=== PATIENT | male | born 1970 | race Caucasian/White ===

== ENCOUNTER → 2018-07-01 04:50 | Outpatient (CLI) | payer BC, SELFPAY ==
[2018-07-01 05:54] LABS: Alanine Aminotransferase 28 U/L (12-78); Albumin Level 3.8 gm/dL (3.4-5.0); Albumin/Globulin Ratio 1.4 (1.1-1.8); Alkaline Phosphatase 110 U/L (46-116); Anion Gap 8.8 mEq/L (5-15); Aspartate Amino Transferase 13 U/L (15-37); Bilirubin,Total 0.3 mg/dL (0.2-1.0); Blood Urea Nitrogen 10 mg/dL (7-18); Calcium 8.2 mg/dL (8.5-10.1); Carbon Dioxide 27 mmol/L (21.0-32.0); Chloride 105 mmol/L (98-107); Chol/HDL Ratio 4.3 (1-3.5); Cholesterol 146 mg/dL (140-200); Estimated Glomerular Filt Rate 91 ml/min (>60); GFR (African American) 110 ML/MIN (>60); Globulin 2.7 gm/dl (1.3-3.2); Glucose 113 mg/dL (74-106); HDL Cholesterol 34 mg/dL (27-67); LDL Cholesterol 84 mg/dL (0-130); Potassium 3.8 mmoL/L (3.5-5.1); Sodium 137 mmol/L (136-145); Thyroid Stimulating Hormone 4.09 uIU/ml (0.358-3.740); Total Protein,Serum 6.5 gm/dL (6.4-8.2); Triglycerides 140 mg/dL (30-200); VLDL Cholesterol 28 mg/dL (0-40)
== END ==
PROVIDERS: PCP Family Medicine; Visit Provider Family Medicine
DX: I10 Essential (primary) hypertension (principal)
CPT/HCPCS: 36415; 80053; 80061; 84443

== ENCOUNTER → 2018-07-30 15:05 | Outpatient (CLI) | payer BC, SELFPAY ==
--- NOTE | 2018-07-30 15:10 | NVE_ITS ---
Venous Exam Indications: 729.5 Pain in limb. IMPRESSIONS No evidence of deep or superficial vein thrombosis involving the right lower extremity History: Right lower extremity pain. Edema of the right leg. Risk factors: Current tobacco use. Hypertension. Patient denies trauma. He states he began having pain behind the right knee2 weeks ago. Pain is worse with bending and squatting. Right lower extremity venous duplex evaluation. Doppler flow study including spectral analysis, color and watt scale imaging. Location: Vascular laboratory. Patient status: Outpatient. Tables: Venous flow and imaging: + +-------+ + Location Overall Flow properties + +-------+ + Right common femoral Patent Normal phasicity; spontaneous; normal augmentation; compressible + +-------+ + Right saphenofemoral junction Patent Compressible + +-------+ + Right profunda femoral Patent Compressible + +-------+ + Right femoral Patent Normal phasicity; spontaneous; normal augmentation; compressible + +-------+ + Right greater saphenous Patent Normal phasicity; spontaneous; normal augmentation; compressible + +-------+ + Right popliteal Patent Normal phasicity; spontaneous; normal augmentation; compressible + +-------+ + Right posterior tibial Patent Compressible + +-------+ + Right peroneal Patent Compressible + +-------+ + Right gastrocnemius Patent Compressible + +-------+ + Right soleal Patent Compressible + +-------+ + (Report amended ) Electronically signed by: Obed Dhillon [id number]
== END ==
PROVIDERS: PCP Nurse Practitioner; Visit Provider Nurse Practitioner
DX: M25.561 Pain in right knee (principal)
CPT/HCPCS: 93971

== ENCOUNTER → 2018-12-07 08:17 | Outpatient (POV) | payer BC, SELFPAY | PROVIDERS: Visit Provider Nurse Practitioner Acute Care | DX: Z00.00 Encounter for general adult medical examination without abnormal findings (principal) ==

== ENCOUNTER → 2019-02-06 08:40 | Outpatient (CLI) | payer BC, SELFPAY ==
[2019-02-06 10:50] LABS: Alanine Aminotransferase 32 U/L (12-78); Albumin Level 4.2 gm/dL (3.4-5.0); Albumin/Globulin Ratio 1.6 (1.1-1.8); Alkaline Phosphatase 122 U/L (46-116); Anion Gap 12.5 mEq/L (5-15); Aspartate Amino Transferase 14 U/L (15-37); Bilirubin,Total 0.6 mg/dL (0.2-1.0); Blood Urea Nitrogen 12 mg/dL (7-18); Calcium 8.7 mg/dL (8.5-10.1); Carbon Dioxide 30 mmol/L (21.0-32.0); Chloride 100 mmol/L (98-107); Chol/HDL Ratio 4.5 (1-3.5); Cholesterol 140 mg/dL (140-200); Creatinine,Serum 0.83 mg/dL (0.70-1.30); Estimated Glomerular Filt Rate 100 ml/min (>60); GFR (African American) 121 ML/MIN (>60); Globulin 2.7 gm/dl (1.3-3.2); Glucose 97 mg/dL (74-106); HDL Cholesterol 31 mg/dL (27-67); LDL Cholesterol 91 mg/dL (0-130); Potassium 4.5 mmoL/L (3.5-5.1); Sodium 138 mmol/L (136-145); Thyroid Stimulating Hormone 1.65 uIU/ml (0.358-3.740); Total Protein,Serum 6.9 gm/dL (6.4-8.2); Triglycerides 91 mg/dL (30-200); VLDL Cholesterol 18 mg/dL (0-40)
== END ==
PROVIDERS: Visit Provider Family Medicine
DX: I10 Essential (primary) hypertension (principal); F32.9 Major depressive disorder, single episode, unspecified; R78.89 Finding of other specified substances, not normally found in blood
CPT/HCPCS: 36415; 80053; 80061; 84443

== ENCOUNTER → 2019-03-14 11:42 | Outpatient (CLI) | payer BC, SELFPAY ==
--- NOTE | 2019-03-14 12:01 | XR_ITS ---
XR foot wt bearing LT 3V HISTORY: ITS.REASON: comparison view ORDERING PHYSICIAN: Yasmany Hager MD PATIENT AGE: 48 years COMPARISON: None FINDINGS: No fracture or dislocation. No lytic or blastic change. There is normal mineralization.. The joint spaces are well-preserved. No significant degenerative/arthritic changes. No erosive changes evident. IMPRESSION: Negative, no acute finding
--- NOTE | 2019-03-14 12:01 | XR_ITS ---
XR foot wt bearing RT 3V HISTORY: Swelling of the medial aspect of the calcaneus ITS.REASON: soft tissue mass ORDERING PHYSICIAN: Yasmany Hager MD PATIENT AGE: 48 years COMPARISON: FINDINGS: No fracture or dislocation. No lytic or blastic change. There is normal mineralization.. The joint spaces are well-preserved. No significant degenerative/arthritic changes. No erosive changes evident. IMPRESSION: Negative, no acute finding
== END ==
PROVIDERS: PCP Family Medicine; Visit Provider Family Medicine
DX: M79.671 Pain in right foot (principal)
CPT/HCPCS: 73630

== ENCOUNTER → 2019-05-10 09:33 | Outpatient (CLI) | payer BC, SELFPAY ==
--- NOTE | 2019-05-10 09:39 | MR_ITS ---
MR foot RT wo/w con CLINICAL INDICATION: Foot pain, palpable mass, soft tissue mass of the foot, osteoarthritis ITS.REASON: soft tissue mass ORDERING PHYSICIAN: Samantha Hussein DPM PATIENT AGE: 48 years Comparison: 03/14/2019 TECHNIQUE: Routine multiplanar multiecho sequences are performed without and with gadolinium enhancement. FINDINGS: No abnormal bone marrow edema, fracture, or bony lytic change. A marker is placed over the area of concern along the medial aspect of the right foot. There is some hypertrophy of the underlying abductor hallucis musculature at this region but no definite mass or abnormal enhancement. No fluid collection evident. No evidence of mass. No ligamentous or tendinous abnormalities. There is some prominence of the adipose tissue along the plantar surface of the abductor hallucis muscle suggesting lipoma. This however is somewhat more plantar located in relation to the placed marker IMPRESSION: Mild prominence of the abductor hallucis muscle. This is of questioned clinical significance. There does appear to be prominent fatty tissue along the undersurface of the abductor hallucis suggesting lipoma.
== END ==
PROVIDERS: PCP Family Medicine; Visit Provider Podiatrist
DX: R22.40 Localized swelling, mass and lump, unspecified lower limb (principal)
CPT/HCPCS: 73720; A9576

== ENCOUNTER → 2019-06-07 10:20 | Outpatient (CLI) | payer BC, SELFPAY ==
--- NOTE | 2019-06-07 10:52 | ECG_ITS ---
APPROVED REPORT Exam: Resting ECG HR:80 bpm ECG Measurements Heart Rate 80 AXES NC 160 P 61 QRSd 88 QRS 14 QT 378 T 45 QTc 435 <Conclusion> Normal sinus rhythm Normal ECG Electronically signed by : Navarro Sims, 06/07/2019 16:15:13
--- NOTE | 2019-06-07 10:55 | XR_ITS ---
PROCEDURE: XR CHEST 2V CLINICAL HISTORY: HTN, SMOKER, PREOP COMPARISON: CXR2V XR chest 2V from 04/04/2018 [id number] XR ribs RT min 3V w CXR1V from 04/15/2018 FINDINGS: The cardiomediastinal silhouette and pulmonary vascularity are within normal limits. Mild atelectatic changes are present in the lung bases with low lung volumes. Upper lobes are clear. No acute bony findings. No acute bony abnormalities. IMPRESSION: Mild bibasilar atelectasis Dictated by: Obed Dhillon MD 06/07/2019 11:14 Electronically signed by Obed Dhillon MD in [place] 06/07/2019 11:14
[2019-06-07 11:20] LABS: Basophils # 0.1 K/mm3 (0-0.2); Basophils % 0.6 % (0.1-2.0); Eosinophils # 0.3 K/mm3 (0.0-0.4); Eosinophils % 2.8 % (0.1-12.0); Hematocrit 47.9 % (42.0-52.0); Hemoglobin 15.9 g/dL (14.1-18.0); Lymphocytes # 1.6 K/mm3 (0.7-4.5); Lymphocytes % 15.7 % (10-50); Mean Corpuscular HGB Conc 33.2 g/dL (31.8-35.4); Mean Corpuscular Hemoglobin 29.9 pg (27.0-31.2); Mean Corpuscular Volume 90.1 fl (80-94); Mean Platelet Volume 8.4 fl (7.4-10.4); Monocytes # 0.6 K/mm3 (0.1-1.0); Monocytes % 6.1 % (1.7-9.3); Neutrophils # 7.5 K/mm3 (1.8-7.8); Neutrophils % 74.8 % (37.0-80.0); Platelet Count 258 K/mm3 (142-424); Red Blood Count 5.31 M/mm3 (4.60-6.20); Red Cell Distribution Width 13.2 % (11.5-17.5); White Blood Count 10.1 K/mm3 (4.8-10.8)
[2019-06-07 11:57] LABS: Alanine Aminotransferase 38 U/L (12-78); Albumin/Globulin Ratio 1.4 (1.1-1.8); Alkaline Phosphatase 118 U/L (46-116); Anion Gap 13.3 mEq/L (5-15); Aspartate Amino Transferase 19 U/L (15-37); Bilirubin,Total 0.4 mg/dL (0.2-1.0); Blood Urea Nitrogen 11 mg/dL (7-18); Calcium 8.7 mg/dL (8.5-10.1); Carbon Dioxide 27 mmol/L (21.0-32.0); Chloride 102 mmol/L (98-107); Creatinine,Serum 0.87 mg/dL (0.70-1.30); Estimated Glomerular Filt Rate 94 ml/min (>60); GFR (African American) 114 ML/MIN (>60); Globulin 2.8 gm/dl (1.3-3.2); Glucose 104 mg/dL (74-106); Potassium 4.3 mmoL/L (3.5-5.1); Sodium 138 mmol/L (136-145); Total Protein,Serum 6.8 gm/dL (6.4-8.2)
[2019-06-29 10:45] LABS: Cotinine 122.5
[2019-06-29 10:57] LABS: Nicotine 10.6
== END ==
PROVIDERS: PCP Family Medicine; Visit Provider Podiatrist
DX: Z01.818 Encounter for other preprocedural examination (principal); R22.40 Localized swelling, mass and lump, unspecified lower limb; M79.671 Pain in right foot
CPT/HCPCS: 36415; 71046; 80053; 80323; 85025; 93005

== ENCOUNTER → 2019-07-15 17:31 | Outpatient (CLI) | payer BC, SELFPAY | PROVIDERS: Visit Provider Podiatrist | DX: Z98.890 Other specified postprocedural states (principal); T81.49XA Infection following a procedure, other surgical site, initial encounter; M79.671 Pain in right foot | CPT/HCPCS: 87070; 87077; 87186; 87205 ==

== ENCOUNTER 2019-09-24 16:25 | Emergency (ER) | payer BC, SELFPAY ==
[2019-09-24 16:27] VITALS: BP 136/85; PULSE 80; RESP 18; TEMP 36.8; O2SAT 96; BMI 34.4
--- NOTE | 2019-09-24 16:53 | HMH.EDUTC ---
[facility] Clinical Impression: Cellulitis Qualifiers: Site of cellulitis: extremity Site of cellulitis of extremity: lower extremity Laterality: right Qualified Code(s): L03.115 - Cellulitis of right lower limb Disposition: Home, Self-Care Condition on Discharge: Good Instructions: Cellulitis, Clindamycin Additional Instructions: *Start antibiotic(s) immediately and be sure to take as ordered for the FULL length of time although you may be feeling better or start to see improvement in the next 24-48 hours *Monitor closely. Outlined redness so that you can monitor easier. Follow up immediately for new or worsening symptoms including but not limited to redness, swelling, streaking from site fever or chills. *Warm compress 15 minutes 3-4 times day *Never squeeze or pop these on your own. Seek immediate medical attention next time this occurs *Monitor Temp. Tylenol every 4 hours as needed and ibuprofen every 6 hours as needed (as long as your primary care doctor has told you that it is ok to take both. For fever, aches, pain. ER if no less that 101 despite Tylenol and ibuprofen Follow up with your family doctor/primary care physician or Dr Hussein in the next 48-72 hours if no improvement or on Friday if no improvement Prescriptions: Clindamycin HCl [Clindamycin HCl 300mg Cap] 300 mg PO Q8 7 Days #21 cap Transmission Status: Pending to [id number] Referrals: Yasmany Hager MD [Primary Care Provider] - As needed Samantha Hussein DPM [Staff Physician] - As needed Time of Disposition: 16:59 Medical Decision Making - Adalid Inquiry Pt receiving controlled substance: No Adalid was queried for this patient: No Vital Signs: 09/24/19 16:27 Temperature 98.2 F Temperature Source Oral Pulse Rate [Radial] 80 Respiratory Rate 18 Blood Pressure [Right Arm] 136/85 Blood Pressure Mean [Right Arm] 102 Blood Pressure Source [Right Arm] Automatic Cuff Blood Pressure Position [Right Arm] Sitting 02 Sat by Pulse Oximetry 96 Oxygen Delivery Method Room Air [facility] - General Stated complaint: redness on right foot Time Seen by Provider: 09/24/19 16:53 Mode of Arrival: Ambulatory Source of Information: Patient Limitations: No Limitations Description of Symptoms (Recalled from Triage Doc. by RN): RIGHT FOOT IS DISCOLORED WHERE HE HAD SURGERY May. DR TORIBIO WANTS PATIENT TO BE SEEN HEENT Symptoms (Recalled from RN notes): No Resp Symptoms (Recalled from RN notes): No Skin Symptoms (Recalled from RN notes): Yes MS Symptoms (Recalled from RN notes): No Functional Status (Recalled from RN notes): WNL - History of Present Illness Provider Complaint: Patient state that he had surgery on his right foot in May Noticed that he was having some redness and warmth around scar and was worried that it may be getting infected States that they talked to Dr Hussein office and they told him to come in here and have it looked at to get antibiotics if needed - Related Data Home Medications Medication Instructions Recorded Confirmed lisinopriL [Lisinopril 10mg Tab] 10 mg PO DAILY 07/29/18 09/13/19 colesevelam 625 mg tablet 1,875 mg PO BID 05/03/19 09/13/19 venlafaxine 75 mg tablet,extended 75 mg PO DAILY 05/03/19 09/13/19 release 24 hr fluoxetine 20 mg capsule 20 mg PO DAILY #60 cap 06/07/19 09/13/19 Calcium Polycarbophil [Fiber Tabs] 625 mg PO BID 06/15/19 09/13/19 Multivitamin [Daily Multiple 1 each PO DAILY 06/15/19 09/13/19 Vitamin] Previous Rx's Medication Instructions Recorded ibuprofen 800 mg tablet 800 mg PO BID #60 tab 06/07/19 tramadol 50 mg tablet 50 mg PO Q6H PRN #30 tab 07/21/19 diclofenac sodium 1 % topical gel 4 g TOPICAL QID PRN 30 Days #100 g 08/25/19 Clindamycin HCl [Clindamycin HCl 300 mg PO Q8 7 Days #21 cap 09/24/19 300mg Cap] Allergies Allergy/AdvReac Type Severity Reaction Status Date / Time No Known Allergies Allergy Verified 09/13/19 08:14 - Worker's Comp Is
[2019-09-24 17:11] VITALS: BP 136/85; PULSE 80; RESP 18; TEMP 36.8; O2SAT 96
== END 2019-09-24 17:12 | disposition home or self-care (01) ==
PROVIDERS: Emergency Provider Nurse Practitioner; PCP Family Medicine
DX: L03.115 Cellulitis of right lower limb (principal); I10 Essential (primary) hypertension; K21.9 Gastro-esophageal reflux disease without esophagitis; E66.9 Obesity, unspecified; F17.210 Nicotine dependence, cigarettes, uncomplicated; F33.1 Major depressive disorder, recurrent, moderate; Z90.49 Acquired absence of other specified parts of digestive tract; Z79.899 Other long term (current) drug therapy; Z68.34 Body mass index [BMI] 34.0-34.9, adult
CPT/HCPCS: 99201

== ENCOUNTER → 2019-10-02 16:12 | Outpatient (CLI) | payer BC, SELFPAY ==
[2019-10-02 16:40] LABS: Basophils # 0.1 K/mm3 (0-0.2); Basophils % 0.6 % (0.1-2.0); Eosinophils # 0.4 K/mm3 (0.0-0.4); Eosinophils % 3.9 % (0.1-12.0); Hematocrit 50.8 % (42.0-52.0); Hemoglobin 16.8 g/dL (14.1-18.0); Lymphocytes # 2.1 K/mm3 (0.7-4.5); Lymphocytes % 18.1 % (10-50); Mean Corpuscular Hemoglobin 29.4 pg (27.0-31.2); Mean Platelet Volume 9.3 fl (7.4-10.4); Monocytes # 0.6 K/mm3 (0.1-1.0); Neutrophils # 8.2 K/mm3 (1.8-7.8); Neutrophils % 72.4 % (37.0-80.0); Platelet Count 270 K/mm3 (142-424); Red Cell Distribution Width 12.6 % (11.5-17.5); White Blood Count 11.4 K/mm3 (4.8-10.8)
[2019-10-02 16:54] LABS: Alanine Aminotransferase 4 U/L (12-78); Albumin Level 3.8 gm/dL (3.4-5.0); Albumin/Globulin Ratio 1.5 (1.1-1.8); Alkaline Phosphatase 114 U/L (46-116); Anion Gap 14.9 mEq/L (5-15); Aspartate Amino Transferase 5 U/L (15-37); Bilirubin,Total 0.4 mg/dL (0.2-1.0); Blood Urea Nitrogen 11 mg/dL (7-18); Calcium 7.5 mg/dL (8.5-10.1); Carbon Dioxide 27 mmol/L (21.0-32.0); Chloride 103 mmol/L (98-107); Creatinine,Serum 1.11 mg/dL (0.70-1.30); Estimated Glomerular Filt Rate 71 ml/min (>60); GFR (African American) 86 ML/MIN (>60); Globulin 2.5 gm/dl (1.3-3.2); Glucose 122 mg/dL (74-106); Potassium 3.9 mmoL/L (3.5-5.1); Sodium 141 mmol/L (136-145); Total Protein,Serum 6.3 gm/dL (6.4-8.2)
[2019-10-02 16:56] LABS: C-Reactive Protein < 0.2 mg/dL (0.0-0.9)
[2019-10-02 17:10] LABS: Erythrocyte Sedimentation Rate 1 mm/hr (0-15)
== END ==
PROVIDERS: Visit Provider Podiatrist
DX: Z98.890 Other specified postprocedural states (principal); M79.671 Pain in right foot; R20.2 Paresthesia of skin
CPT/HCPCS: 36415; 80053; 85025; 85651; 86140

== ENCOUNTER → 2019-10-04 10:57 | Outpatient (CLI) | payer BC, SELFPAY ==
--- NOTE | 2019-10-04 11:02 | XR_ITS ---
PROCEDURE: XR FOOT WT BEARING RT 3V CLINICAL INDICATION: foot pain COMPARISON: XR FOOT RT MIN 3V from 06/16/2019 FINDINGS: No fracture or dislocation. No lytic or blastic change. There is normal mineralization. Minimal bony hypertrophic changes of the anterior talus and navicular. Small calcaneal spur. Mild degenerative changes 1st metatarsophalangeal joint. Other findings:None. IMPRESSION: Degenerative change, no acute finding Dictated by: Obed Dhillon MD 10/04/2019 11:54 Electronically signed by Obed Dhillon MD in [place] 10/04/2019 11:54
== END ==
PROVIDERS: PCP Family Medicine; Visit Provider Podiatrist
DX: M79.671 Pain in right foot (principal)
CPT/HCPCS: 73630

== ENCOUNTER 2019-11-08 23:21 | Observation (INO) ==
[2019-11-08 23:43] LABS: Basophils # 0.1 K/mm3 (0-0.2); Basophils % 0.8 % (0.1-2.0); Eosinophils # 0.1 K/mm3 (0.0-0.4); Eosinophils % 1.6 % (0.1-12.0); Hematocrit 45.1 % (42.0-52.0); Hemoglobin 15.4 g/dL (14.1-18.0); Lymphocytes # 1.1 K/mm3 (0.7-4.5); Lymphocytes % 12.8 % (10-50); Mean Corpuscular HGB Conc 34.1 g/dL (31.8-35.4); Mean Corpuscular Volume 88.9 fl (80-94); Mean Platelet Volume 9.1 fl (7.4-10.4); Monocytes # 0.5 K/mm3 (0.1-1.0); Monocytes % 6.5 % (1.7-9.3); Neutrophils # 6.5 K/mm3 (1.8-7.8); Neutrophils % 78.3 % (37.0-80.0); Platelet Count 215 K/mm3 (142-424); Red Blood Count 5.07 M/mm3 (4.60-6.20); Red Cell Distribution Width 12.9 % (11.5-17.5); White Blood Count 8.3 K/mm3 (4.8-10.8)
[2019-11-09 00:04] LABS: Anion Gap 11.7 mEq/L (5-15); Calcium 8.7 mg/dL (8.5-10.1)
[2019-11-09 00:12] LABS: C-Reactive Protein 2.3 mg/dL (0.0-0.9)
[2019-11-09 00:17] LABS: Erythrocyte Sedimentation Rate 6 mm/hr (0-15)
--- NOTE | 2019-11-09 00:30 | Emergency Department Note ---
ED Disposition Clinical Impression: Chest pain Qualifiers: Chest pain type: unspecified Qualified Code(s): R07.9 - Chest pain, unspecified Disposition: Admitted as Observation Condition on Discharge: Good Referrals: Yasmany Hager MD [Primary Care Provider] - - Critical Care Critical Care Time: No Attestation: On 11/08/19, the high probability of a clinically significant, sudden or life threatening deterioration of the following system(s) required my full and direct attention, intervention and personal management. The time I documented below is in addition to time spent performing reported procedures but includes the following listed in this critical care notation. Medical Decision Making - Medical Records Medical records reviewed: Yes: I reviewed the patient's medical records. - Adalid Inquiry Pt receiving controlled substance: No Vital Signs: 11/08/19 23:22 Temperature 98.7 F Temperature Source Oral Pulse Rate [Right Brachial] 100 H Respiratory Rate 18 Blood Pressure [Right Arm] 111/58 L Blood Pressure Mean [Right Arm] 75 Blood Pressure Source [Right Arm] Automatic Cuff Blood Pressure Position [Right Arm] Sitting 02 Sat by Pulse Oximetry 96 Oxygen Delivery Method Room Air - Lab Data Lab results reviewed: Yes: I reviewed the patient's lab results. Lab Results 11/08/19 23:25: Troponin I < 0.02, C-Reactive Protein 2.3 H 11/08/19 23:25: WBC 8.3, RBC 5.07, Hgb 15.4, Hct 45.1, MCV 88.9, MCH 30.3, MCHC 34.1, RDW 12.9, Plt Count 215, MPV 9.1, Neut % (Auto) 78.3, Lymph % (Auto) 12.8, [place] % (Auto) 6.5, Eos % (Auto) 1.6, Baso % (Auto) 0.8, Neut # (Auto) 6.5, Lymph # (Auto) 1.1, [place] # (Auto) 0.5, Eos # (Auto) 0.1, Baso # (Auto) 0.1, ESR 6 11/08/19 23:25: Sodium 141, Potassium 3.7, Chloride 104, Carbon Dioxide 29, Anion Gap 11.7, BUN 11, Creatinine 1.01, Estimated Creat Clear 131, Estimated GFR 79, Est GFR ( Amer) 96, Glucose 108 H, Calcium 8.7 Result diagrams: 11/08/19 23:25 11/08/19 23:25 Orders (Tests/Meds): ED MEDICATIONS Generic Name Dose Route Start Last Admin Trade Name Mauro PRN Reason Stop Dose Admin Sodium Chloride 1,000 mls @ 999 mls/hr 11/08/19 23:45 11/08/19 23:50 Sod Chlor 0.9% 1000ml Bag IV 11/09/19 00:45 999 mls/hr .Q1H1M HÉCTOR Administration ORDERS Category Date Time Status XR chest 2V Stat Exams 11/09/19 00:24 Ordered Troponin I Q3H Lab 11/09/19 02:45 Ordered Troponin I Q3H Lab 11/09/19 05:45 Ordered - Radiology Data #1 Image(s): Chest Image Reviewed: Yes I reviewed the patient's radiology image Preliminary Findings: Normal/NAD - ECG Data Tracing #1 Arrhythmias present: sinus tach Ischemic changes: non-specific ST-T wave changes - Physician Consults Physician Consulted: jennifer Reason -: Admission Chest Pain HPI - General Chief Complaint: Chest Pain Stated Complaint: High BP Time Seen by Provider: 11/08/19 23:50 Mode of Arrival: Ambulatory Source of Information: Patient, Spouse, Medical Record Limitations: No Limitations Description of Symptoms (Recalled from ER Triage Doc. by RN): Patient reports about an hour ago he took his blood pressure at home and it was 144/80 and his pulse was 116 so he came in to be evaluated. - History of Present Illness HPI narrative: acute onset of diaphoresis with fast hr w/o loc or chest pain MD complaint: chest pain indicative of cardiac Onset (ago): hour(s) Duration: now resolved Activity at onset: during rest Severity: mild Associated symptoms: diaphoresis, palpitations Risk Factors for CAD: Hypertension, Family Hx of CAD, Smoking Treatments prior to or on arrival for Cardiac Chest Pain: none - PREET Score for Non-Stemi Age of Patient: 40-49 years old Heart Rate: 90-109 bpm Systolic Blood Pressure: 100-119 mmHg Serum Creatinine: 0.80-1.19 mg/dl CHF [place] Class: I-No CHF Other Risk Factors: None Non-Stemi Risk Score: 90 - Related Data Home Medications Medication Instructions Recorded Confirmed ibuprofen 200 mg capsule 200 mg PO Q6H PRN 10/25/19 10/25/19 Previous Rx's Medication Instructions Recorded diclofenac sodium 1 % topical gel 4 g TOPICAL QID PRN 30 Days #100 g 08/25/19 Allergies Allergy/AdvReac Type Severity Reaction Status Date / Time No Known Allergies Allergy Verified 10/25/19 10:18 [facility] History - Hepatitis A Screen Drug use history?: No High risk sexual behaviors?: No History of sexually transmitted infection?: No Currently employed?: No Childcare worker?: No Do you have indoor plumbing?: Yes Do you have electricity?: Yes Attestation statement:: This patient has been screened for Hepatitis A risk factors. I have reviewed the patient's past medical history: Yes Medical History: Reports:: Depression, Gastroesophageal Reflux Disease(GERD), Hypertension Denies:: Cancer, Chronic Obstructive Pulmonary Disease (COPD), Diabetes Me llitus Type 1, Diabetes Mellitus Type 2, Internal Pacemaker, Lung Disease, MRSA, Seizures Other Medical History: Denies: Blood Transfusion Reaction, Other Comment: obesity Laterality Cases: Left: Arthroscopy Knee, Arthroscopy Shoulder Other Surgeries: Yes: No Previous Surgery, Cholecystectomy. No: Pacemaker Amputation: No Fractures: No Comment: Right Foot 2018 - Social History Smoking Status: Current every day smoker Tobacco Type: cigarettes # Packs/Day (cigarettes): 1 Alcohol Intake: never Alcohol Intake Frequency:: holidays/special occasions only Substance Use Type: denies use Occupational Status: employed Housing: house Household Members: spouse, children - Psychiatric History Pschychiatric History:: Reports:: Depression Family Hx:: Cancer ROS Obtained: Yes All systems reviewed & no additional complaints - Constitutional Constitutional: Denies fever(s) - Eyes Eyes: Denies change in vision - ENT Ears, Nose, Mouth, and Throat: Denies sore throat - Cardiovascular Cardiovascular: Reports chest pain, Denies dyspnea - Respiratory Respiratory: No cough - Gastrointestinal Gastrointestingal: Reports: abdominal pain - Genitourinary Male Genitourinary: Denies hematuria - Musculoskeletal Musculoskeletal: Denies joint swelling - Integumentary/Breasts Skin/Breast: Denies rash - Neurologic Neurologic: Denies seizure-like activity Physical Exam - General General appearance: alert, obese - Head Head exam: normocephalic - Eye Eye exam: Present: PERRL, EOMI. Absent: scleral icterus - ENT ENT exam: Present: mucous membranes moist - Neck Neck exam: Present: trachea midline - Respiratory Respiratory exam: Present: normal lung sounds bilaterally. Absent: respiratory distress - Cardiovascular Cardiovascular exam: Present: regular rate, systolic murmur. Absent: rubs, gallop - Abdominal Exam Abdominal exam: Present: soft - Extremities Exam Extremities exam: Present: full ROM. Absent: joint swelling - Neurological Exam Neurological exam: Present: alert, oriented X3, CN II-XII intact - Psychiatric Psychiatric exam: Present: normal affect - Skin Skin exam: Absent: rash
[2019-11-09 06:01] LABS: Anion Gap 11.2 mEq/L (5-15); Chol/HDL Ratio 3.5 (1-3.5)
[2019-11-09 06:14] LABS: Basophils % 0.6 % (0.1-2.0); Eosinophils # 0.1 K/mm3 (0.0-0.4); Hematocrit 45.3 % (42.0-52.0); Hemoglobin 15.1 g/dL (14.1-18.0); Lymphocytes # 0.9 K/mm3 (0.7-4.5); Lymphocytes % 13.5 % (10-50); Mean Corpuscular HGB Conc 33.3 g/dL (31.8-35.4); Mean Corpuscular Volume 90.3 fl (80-94); Mean Platelet Volume 8.9 fl (7.4-10.4); Monocytes # 0.5 K/mm3 (0.1-1.0); Monocytes % 7.4 % (1.7-9.3); Neutrophils # 5.1 K/mm3 (1.8-7.8); Neutrophils % 76.4 % (37.0-80.0); Platelet Count 194 K/mm3 (142-424); Red Blood Count 5.02 M/mm3 (4.60-6.20); White Blood Count 6.6 K/mm3 (4.8-10.8)
[2019-11-09 06:21] LABS: Calcium 7.9 mg/dL (8.5-10.1)
--- NOTE | 2019-11-09 07:19 | Pharmacy Consult Notes ---
[facility] Pharmacy VTE Monitoring - Patient Demographics Admission date: 11/09/19 Report Date: 11/09/19 Time: 07:19 Allergies/Adverse Reactions: Patient Allergies No Known Allergies Allergy (Verified 11/09/19 02:24) Height: 1.7 m Weight: 103.079 kg Patient Problems: Current Active Problems Chest pain (Acute) - VTE Risk Labs: VTE Related Lab Results Hgb 15.1 g/dL (14.1-18.0) 11/09/19 05:35 Hct 45.3 % (42.0-52.0) 11/09/19 05:35 Plt Count 194 K/mm3 (142-424) 11/09/19 05:35 BUN 10 mg/dL (7-18) 11/09/19 05:35 Creatinine 0.86 mg/dL (0.70-1.30) 11/09/19 05:35 Estimated Creat Clear 155 mL/min (50-200) 11/09/19 05:35 VTE Score: 2 VTE Risk Level: Very Low Risk - Prophylaxis VTE Prophylaxis Ordered?: Yes Types of VTE Prophylaxis: TEDS Knee High Location of Applied Device: Bilateral Lower Extremeties
--- NOTE | 2019-11-09 08:23 | Consult Report ---
History of Present Illness Consult date: 11/09/19 Requesting physician: Yasmany Hager Consult reason: chest pain Chief complaint: chest pain, palpitations Additional Medical History:: 1. HTN 2. Tobacco use, 1 ppd History of present illness: 49-year-old white male with history of hypertension and tobacco use presented to the ER last evening for further evaluation of chest discomfort, diaphoresis and headache that occurred at rest. Patient took his blood pressure at home and noted it to be in the 140/80's mmHg range but due to symptoms that would not resolve came to the emergency department for further evaluation. Cardiac troponins have returned normal x3 overnight. EKG on admission showed sinus rhythm with no acute ST segment changes. Patient denies any prior cardiac history or family history of early coronary artery disease. He does smoke about 1 pack/day and has for many years. He does have a history of hypertension but denies any history of hyperlipidemia. He denies history of diabetes also. [facility] History Medical History: Reports:: Depression, Gastroesophageal Reflux Disease(GERD), Hypertension Denies:: Cancer, Chronic Obstructive Pulmonary Disease (COPD), Diabetes Mellitus Type 1, Diabetes Mellitus Type 2, Internal Pacemaker, Lung Disease, MRSA, Seizures *Have you ever received a pneumonia vaccine?: Yes *Have you received a flu vaccine this season?: Yes Other Medical History: Denies: Blood Transfusion Reaction, Other Laterality Cases: Left: Arthroscopy Knee, Right: Arthroscopy Shoulder, Other Other Surgeries: Yes: No Previous Surgery, Cholecystectomy, Other (Right rotator cuff, r foot, l knee.). No: Pacemaker Amputation: No Fractures: No - *Social History Educational Level: Completed High School Smoking Status: Current every day smoker Tobacco Type: cigarettes # Packs/Day (cigarettes): 1 Alcohol Intake: never Alcohol Intake Frequency:: holidays/special occasions only Substance Use Type: denies use *Occupational Status:: employed Housing: house Household Members: spouse, children *Travel in the last 8 weeks: None - Psychiatric History Pschychiatric History:: Reports:: Depression Family Hx:: Cancer Meds Home Medications Medication Instructions Recorded Confirmed Type Colesevelam HCl 625 mg PO BID 11/09/19 11/09/19 History Venlafaxine HCl [Effexor XR 75mg 75 mg PO DAILY 11/09/19 11/09/19 History capsule] lisinopriL [Lisinopril 10mg Tab] 10 mg PO DAILY 11/09/19 11/09/19 History Allergies Allergy/AdvReac Type Severity Reaction Status Date / Time No Known Allergies Allergy Verified 11/09/19 02:24 Review of Systems - Review of Systems Review of systems:: pertinent systems reviewed and negative unless documented below - *Cardiovascular Reports chest pain, Denies shortness of breath with activity - *Respiratory Denies cough, Denies coughing up blood - *Gastrointestinal Denies abdominal pain, Denies nausea, Denies vomiting - *Genitourinary Denies blood in urine - *Musculoskeletal Denies joint pain, Denies back pain - *Neurologic Denies seizure-like activity Exam Vital signs and Labs for Last 24 Hours: Temp Pulse Resp BP Pulse Ox 98.5 F 92 H 17 116/81 96 11/09/19 08:00 11/09/19 08:00 11/09/19 08:00 11/09/19 08:00 11/09/19 08:00 Laboratory Results - last 24 hr 11/08/19 23:25: Troponin I < 0.02, C-Reactive Protein 2.3 H 11/08/19 23:25: WBC 8.3, RBC 5.07, Hgb 15.4, Hct 45.1, MCV 88.9, MCH 30.3, MCHC 34.1, RDW 12.9, Plt Count 215, MPV 9.1, Neut % (Auto) 78.3, Lymph % (Auto) 12.8, Sac % (Auto) 6.5, Eos % (Auto) 1.6, Baso % (Auto) 0.8, Neut # (Auto) 6.5, Lymph # (Auto) 1.1, Sac # (Auto) 0.5, Eos # (Auto) 0.1, Baso # (Auto) 0.1, ESR 6 11/08/19 23:25: Sodium 141, Potassium 3.7, Chloride 104, Carbon Dioxide 29, Anion Gap 11.7, BUN 11, Creatinine 1.01, Estimated Creat Clear 131, Estimated GFR 79, Est GFR ( Amer) 96, Glucose 108 H, Calcium 8.7 11/09/19 02:43: Troponin I < 0.02 11/09/19 05:35: Troponin I < 0.02 11/09/19 05:35: WBC 6.6, RBC 5.02, Hgb 15.1, Hct 45.3, MCV 90.3, MCH 30.0, MCHC 33.3, RDW 13.0, Plt Count 194, MPV 8.9, Neut % (Auto) 76.4, Lymph % (Auto) 13.5, Sac % (Auto) 7.4, Eos % (Auto) 2.0, Baso % (Auto) 0.6, Neut # (Auto) 5.1, Lymph # (Auto) 0.9, Sac # (Auto) 0.5, Eos # (Auto) 0.1, Baso # (Auto) 0.0 11/09/19 05:35: Sodium 143, Potassium 4.2, Chloride 107, Carbon Dioxide 29, Anion Gap 11.2, BUN 10, Creatinine 0.86, Estimated Creat Clear 155, Estimated GFR 95, Est GFR ( Amer) 115, Glucose 102, Calcium 7.9 L, Magnesium 1.8, Triglycerides 60, Cholesterol 116 L, LDL Cholesterol 71, VLDL Cholesterol 12, HDL Cholesterol 33, Cholesterol/HDL Ratio 3.5 I & O for Last 24 hours: Intake & Output 11/06/19 11/07/19 11/08/19 11/09/19 11:59 11:59 11:59 11:59 Intake Total 210 / 210 Output Total 300 / 300 Balance -90 / -90 Weight 227 lb 4 oz - *Routine HEENT Exam Head: Present: normocephalic Eye: Present: EOMI, PERRL ENT: Present: mucous membranes moist - *Routine Neck Exam Present: supple. Absent: JVD, carotid bruit - *Routine Respiratory Exam Present: CTA bilaterally. Absent: accessory muscle use, rales, rhonchi, wheezes - *Routine Cardiovascular Exam Present: RRR. Absent: murmur, gallop, rubs - *Routine Abdominal Exam Present: soft. Absent: tenderness, distended, guarding - *Routine Extremities Exam Absent: edema, calf tenderness - *Routine Neurological Exam Present: alert, oriented X3, moving all extremities Assessment and Plan (1) Chest pain Current visit: Yes Status: Acute Qualifiers: Chest pain type: unspecified Qualified Code(s): R07.9 - Chest pain, unspecified Category: Medical Code(s): R07.9 - Chest pain, unspecified (2) Hypertension Current visit: Yes Status: Acute Category: Medical Code(s): I10 - Essential (primary) hypertension (3) Tobacco abuse Current visit: No Status: Acute Category: Medical Code(s): Z72.0 - Tobacco use - Assessment and plan all Dx Assessment and Plan for all problems:: 1. Chest pain with diaphoresis that resolved on its own. Cardiac troponins normal x3, EKG without acute changes and chest x-ray with no acute changes. Recommend proceeding with exercise Myoview to evaluate for coronary artery disease. Echocardiogram has been performed with preliminary report revealing preserved LVEF. Blood pressure remains controlled here on home medications. Further recommendations to follow pending results of above tests. If both are within normal limits then would recommend discharge home with addition of low- dose aspirin to his medical regimen.
--- NOTE | 2019-11-09 09:26 | History & Physical Report ---
*Admission Date: 11/09/19 <Karley Rodriguez 11/09/19 09:33> *Chief complaint: Diaphoresis and hot spell. <Karley Rodriguez 11/09/19 09:33> *History of present illness: Mr. Tomas is a 49-year-old male patient with a history of hypertension, depression, irritable bowel syndrome, and tobacco abuse who while lying in bed last night watching TV became very hot. He said he was sweating on his forehead. His significant other took his blood pressure was found to be 148/80's. Heart rate was 116. They were both very concerned Because this did not resolve and thus she brought him to the emergency room for evaluation. With evaluation in the emergency room He was noted to be in a sinus tach with nonspecific ST T wave changes on EKG.Blood pressure was 111/58. He was given a liter of IV fluids. He was then admitted for further evaluation and treatmentWith a cardiology consult. Cardiology has seen patient this a.m.. Cardiac troponins have been normal x3. Echo has been completed with preliminary report revealing preserved left ventricular ejection fraction. Cardiology recommends proceeding with exercise Myoview to evaluate for coronary artery disease. At time of this exam patient wonders why he is here. He has had no further diaphoresis or hot spells. He denies chest pain and shortness of breath.. <Karley Rodriguez 11/09/19 09:33> [facility] History Medical History: Reports:: Depression, Gastroesophageal Reflux Disease(GERD), Hypertension Denies:: Cancer, Chronic Obstructive Pulmonary Disease (COPD), Diabetes Mellitus Type 1, Diabetes Mellitus Type 2, Internal Pacemaker, Lung Disease, MRSA, Seizures <Karley Rodriguez 11/09/19 09:33> *Have you ever received a pneumonia vaccine?: Yes <Karley Rodriguez 11/09/19 09:33> *Have you received a flu vaccine this season?: Yes <Karley Rodriguez 11/09/19 09:33> Other Medical History: Denies: Blood Transfusion Reaction, Other <Karley Rodriguez 11/09/19 09:33> Comment:: Irritable bowel syndrome <Karley Rodriguez 11/09/19 09:33> Laterality Cases: Left: Arthroscopy Knee, Right: Arthroscopy Shoulder, Other <Karley Rodriguez 11/20 09:33> Other Surgeries: Yes: Cholecystectomy, Other (Right rotator cuff, r foot, l knee. Excision of lipoma on the right foot ). No: Pacemaker <Karley Rodriguez 11/09/19 09:33> Amputation: No <Karley Rodriguez 11/09/19 09:33> Fractures: No <Karley Rodriguez 11/09/19 09:33> - *Social History Educational Level: Completed High School <Karley Rodriguez 11/09/19 09:33> Smoking Status: Current every day smoker <Karley Rodriguez 11/09/19 09:33> Tobacco Type: cigarettes <Karley Rodriguez 11/09/19 09:33> # Packs/Day (cigarettes): 1 <Karley Rodriguez 11/09/19 09:33> Alcohol Intake: never <Karley Rodriguez 11/09/19 09:33> Alcohol Intake Frequency:: holidays/special occasions only <Karley Rodriguez 11/09/19 09:33> Substance Use Type: denies use <Karley Rodriguez 11/09/19 09:33> *Occupational Status:: employed <Karley Rodriguez 11/09/19 09:33> Housing: house <Karley Rodriguez 11/09/19 09:33> Household Members: spouse, children <Karley Rodriguez 11/09/19 09:33> *Travel in the last 8 weeks: None <Karley Rodriguez 11/09/19 09:33> - Psychiatric History Pschychiatric History:: Reports:: Depression <Karley Rodriguez 11/09/19 09:33> Family Hx:: Cancer, Other <Karley Rodriguez 11/09/19 09:33> Comment: Father at the age of 86. He had dementia. Mother is at the age of 68. She had breast cancer. He has 1 brother who from liver cancer at the age of 50. <MichaelKarley 11/09/19 09:33> Review of Systems - Constitutional Denies headache(s), Denies weakness <MichaelKarley 11/09/19 09:33> Comments: Diaphoresis last night <Karley Rodriguez 11/09/19 09:33> - ENT Denies dizziness, Denies ear pain, Denies sore throat <Karley Rodriguez 11/09/19 09:33> - *Cardiovascular Denies chest pain, Denies shortness of breath, Denies irregular heart rhythm <Karley Rodriguez 11/09/19 09:33> - *Respiratory Denies chest congestion, Denies cough, Denies shortness of breath <RodriguezKarley 11/09/19 09:33> - *Gastrointestinal Reports nausea (For the last week in the a.m. but no vomiting), Denies abdominal pain, Denies constipation, Denies loose stools, Denies vomiting <Karley Rodriguez 11/09/19 09:33> - *Genitourinary Denies difficulty urinating <MichaelKarley 11/09/19 09:33> - *Musculoskeletal Denies abnormal walking <RodriguezKarley 11/09/19 09:33> - *Neurologic Denies seizure-like activity <Karley Rodriguez 11/09/19 09:33> - Psychiatric Reports depression <Karley Rodriguez 11/09/19 09:33> Meds Home Medications Medication Instructions Recorded Confirmed Type Colesevelam HCl 625 mg PO BID 11/09/19 11/09/19 History Venlafaxine HCl [Effexor XR 75mg 75 mg PO DAILY 11/09/19 11/09/19 History capsule] lisinopriL [Lisinopril 10mg Tab] 10 mg PO DAILY 11/09/19 11/09/19 History <Yasmany Hager - 11/09/19 17:17> Allergies Allergy/AdvReac Type Severity Reaction Status Date / Time No Known Allergies Allergy Verified 11/09/19 02:24 <Yasmany Hager - 11/09/19 17:17> Exam Vital signs and Labs for Last 24 Hours: Temp Pulse Resp BP Pulse Ox 98.7 F 85 20 132/83 99 11/09/19 16:00 11/09/19 16:00 11/09/19 16:00 11/09/19 16:00 11/09/19 16:00 Laboratory Results - last 24 hr 11/08/19 23:25: Troponin I < 0.02, C-Reactive Protein 2.3 H 11/08/19 23:25: WBC 8.3, RBC 5.07, Hgb 15.4, Hct 45.1, MCV 88.9, MCH 30.3, MCHC 34.1, RDW 12.9, Plt Count 215, MPV 9.1, Neut % (Auto) 78.3, Lymph % (Auto) 12.8, [place] % (Auto) 6.5, Eos % (Auto) 1.6, Baso % (Auto) 0.8, Neut # (Auto) 6.5, Lymph # (Auto) 1.1, [place] # (Auto) 0.5, Eos # (Auto) 0.1, Baso # (Auto) 0.1, ESR 6 11/08/19 23:25: Sodium 141, Potassium 3.7, Chloride 104, Carbon Dioxide 29, Anion Gap 11.7, BUN 11, Creatinine 1.01, Estimated Creat Clear 131, Estimated GFR 79, Est GFR ( Amer) 96, Glucose 108 H, Calcium 8.7 11/09/19 02:43: Troponin I < 0.02 11/09/19 05:35: Troponin I < 0.02 11/09/19 05:35: WBC 6.6, RBC 5.02, Hgb 15.1, Hct 45.3, MCV 90.3, MCH 30.0, MCHC 33.3, RDW 13.0, Plt Count 194, MPV 8.9, Neut % (Auto) 76.4, Lymph % (Auto) 13.5, [place] % (Auto) 7.4, Eos % (Auto) 2.0, Baso % (Auto) 0.6, Neut # (Auto) 5.1, Lymph # (Auto) 0.9, [place] # (Auto) 0.5, Eos # (Auto) 0.1, Baso # (Auto) 0.0 11/09/19 05:35: Sodium 143, Potassium 4.2, Chloride 107, Carbon Dioxide 29, Anion Gap 11.2, BUN 10, Creatinine 0.86, Estimated Creat Clear 155, Estimated GFR 95, Est GFR ( Amer) 115, Glucose 102, Calcium 7.9 L, Magnesium 1.8, Triglycerides 60, Cholesterol 116 L, LDL Cholesterol 71, VLDL Cholesterol 12, HDL Cholesterol 33, Cholesterol/HDL Ratio 3.5 <Yasmany Hager - 11/09/19 17:17> Temp Pulse Resp BP Pulse Ox 98.5 F 92 H 17 116/81 96 11/09/19 08:00 11/09/19 08:00 11/09/19 08:00 11/09/19 08:00 11/09/19 08:00 Laboratory Results - last 24 hr 11/08/19 23:25: Troponin I < 0.02, C-Reactive Protein 2.3 H 11/08/19 23:25: WBC 8.3, RBC 5.07, Hgb 15.4, Hct 45.1, MCV 88.9, MCH 30.3, MCHC 34.1, RDW 12.9, Plt Count 215, MPV 9.1, Neut % (Auto) 78.3, Lymph % (Auto) 12.8, [place] % (Auto) 6.5, Eos % (Auto) 1.6, Baso % (Auto) 0.8, Neut # (Auto) 6.5, Lymph # (Auto) 1.1, [place] # (Auto) 0.5, Eos # (Auto) 0.1, Baso # (Auto) 0.1, ESR 6 11/08/19 23:25: Sodium 141, Potassium 3.7, Chloride 104, Carbon Dioxide 29, Anion Gap 11.7, BUN 11, Creatinine 1.01, Estimated Creat Clear 131, Estimated GFR 79, Est GFR ( Amer) 96, Glucose 108 H, Calcium 8.7 11/09/19 02:43: Troponin I < 0.02 11/09/19 05:35: Troponin I < 0.02 11/09/19 05:35: WBC 6.6, RBC 5.02, Hgb 15.1, Hct 45.3, MCV 90.3, MCH 30.0, MCHC 33.3, RDW 13.0, Plt Count 194, MPV 8.9, Neut % (Auto) 76.4, Lymph % (Auto) 13.5, [place] % (Auto) 7.4, Eos % (Auto) 2.0, Baso % (Auto) 0.6, Neut # (Auto) 5.1, Lymph # (Auto) 0.9, [place] # (Auto) 0.5, Eos # (Auto) 0.1, Baso # (Auto) 0.0 11/09/19 05:35: Sodium 143, Potassium 4.2, Chloride 107, Carbon Dioxide 29, Anion Gap 11.2, BUN 10, Creatinine 0.86, Estimated Creat Clear 155, Estimated GFR 95, Est GFR ( Amer) 115, Glucose 102, Calcium 7.9 L, Magnesium 1.8, Triglycerides 60, Cholesterol 116 L, LDL Cholesterol 71, VLDL Cholesterol 12, HDL Cholesterol 33, Cholesterol/HDL Ratio 3.5 <Karley Rodriguez - 11/09/19 09:33> I & O for Last 24 hours: Intake & Output 11/07/19 11/08/19 11/09/19 11/10/19 11:59 11:59 11:59 11:59 Intake Total 210 / 210 204 / 204 Output Total 300 / 300 Balance -90 / -90 204 / 204 Weight 227 lb 4 oz <Yasmany Hager - 11/09/19 17:17> Intake & Output 11/06/19 11/07/19 11/08/19 11/09/19 11:59 11:59 11:59 11:59 Intake Total 210 / 210 Output Total 300 / 300 Balance -90 / -90 Weight 227 lb 4 oz <Karley Rodriguez 11/09/19 09:33> Radiology Reports for the Last 24 Hours: 11/09/2019 chest x-ray IMPRESSION: No acute findings. <RodriguezKarley 11/09/19 09:33> - Constitutional no acute distress <MichaelKarley 11/09/19 09:33> - *Routine HEENT Exam Head: Present: normocephalic, atraumatic <MichaelKarley 11/09/19 09:33> Eye: Present: PERRL. Absent: conjunctival icterus, scleral injection <MichaelKarley 11/09/19 09:33> ENT: Present: mucous membranes moist, oropharynx clear <MichaelKarley 11/09/19 09:33> - *Routine Neck Exam Present: supple. Absent: carotid bruit, lymphadenopathy, thyromegaly <Karley Rodriguez 11/09/19 09:33> - *Routine Respiratory Exam Present: CTA bilaterally (Anteriorly and posteriorly) <Karley Rodriguez 11/09/19 09:33> - *Routine Cardiovascular Exam Present: RRR <Karley Rodriguez 11/09/19 09:33> - *Routine Abdominal Exam Present: soft, normoactive bowel sounds. Absent: tenderness, distended <Karley Rodriguez 11/09/19 09:33> - *Routine Extremities Exam Absent: edema, calf tenderness <Karley Rodriguez 11/09/19 09:33> - *Routine Neurological Exam Present: alert, oriented X3 <Karley Rodriguez 11/09/19 09:33> Assessment and Plan (1) Chest pain Current visit: Yes Status: Acute Qualifiers: Chest pain type: unspecified Qualified Code(s): R07.9 - Chest pain, unspecified Category: Medical Code(s): R07.9 - Chest pain, unspecified (2) Hypertension Current visit: Yes Status: Acute Category: Medical Code(s): I10 - Essential (primary) hypertension (3) Tobacco abuse Current visit: No Status: Acute Category: Medical Code(s): Z72.0 - Tobacco use <AlleyYasmany ram 11/09/19 17:17> (1) Chest pain Current visit: Yes Status: Acute Qualifiers: Chest pain type: unspecified Qualified Code(s): R07.9 - Chest pain, unspecified Category: Medical Code(s): R07.9 - Chest pain, unspecified (2) Hypertension Current visit: Yes Status: Acute Category: Medical Code(s): I10 - Essential (primary) hypertension (3) Tobacco abuse Current visit: No Status: Acute Category: Medical Code(s): Z72.0 - Tobacco use (4) Depression Current visit: Yes Status: Chronic Category: Medical Code(s): F32.9 - Major depressive disorder, single episode, unspecified <Karley Rodriguez 11/09/19 09:23> - Assessment and plan all Dx Assessment and Plan for all problems:: Patient seen and examined this morning. He is comfortable at present. Concur with assessment and plan as outlined above. <AlleyYasmany - 11/09/19 17:17> Cardiology consult which is been done. He is already had the echo. He will be scheduled for a Myoview stress test. <Karley Rodriguez - 11/09/19 09:33>
[2019-11-09 16:21] VITALS: BP 132/83
--- NOTE | 2019-11-09 17:17 | Electrocardiograph Report ---
APPROVED REPORT Exam: Resting ECG HR:104 bpm ECG Measurements Heart Rate 104 AXES VT 160 P 54 QRSd 86 QRS 31 QT 328 T69 QTc 431 <Conclusion> Sinus tachycardia Otherwise normal ECG Electronically signed by : Navarro Sims, 11/09/2019 17:17:01
--- NOTE | 2019-11-09 18:04 | Progress Note ---
Internal Medicine - PN: Subj *Date: 11/09/19 *Time: 18:01 Interval history: He has had no chest pain throughout the day. Cardiac enzymes have all been negative. His stress test was equivocal and has subsequent undergone a Coronary Calcium scoring CT this afternoon. Exam Vital signs and Labs for Last 24 Hours: Temp Pulse Resp BP Pulse Ox 98.7 F 85 20 132/83 99 11/09/19 16:00 11/09/19 16:00 11/09/19 16:00 11/09/19 16:00 11/09/19 16:00 Laboratory Results - last 24 hr 11/08/19 23:25: Troponin I < 0.02, C-Reactive Protein 2.3 H 11/08/19 23:25: WBC 8.3, RBC 5.07, Hgb 15.4, Hct 45.1, MCV 88.9, MCH 30.3, MCHC 34.1, RDW 12.9, Plt Count 215, MPV 9.1, Neut % (Auto) 78.3, Lymph % (Auto) 12.8, [place] % (Auto) 6.5, Eos % (Auto) 1.6, Baso % (Auto) 0.8, Neut # (Auto) 6.5, Lymph # (Auto) 1.1, [place] # (Auto) 0.5, Eos # (Auto) 0.1, Baso # (Auto) 0.1, ESR 6 11/08/19 23:25: Sodium 141, Potassium 3.7, Chloride 104, Carbon Dioxide 29, Anion Gap 11.7, BUN 11, Creatinine 1.01, Estimated Creat Clear 131, Estimated GFR 79, Est GFR ( Amer) 96, Glucose 108 H, Calcium 8.7 11/09/19 02:43: Troponin I < 0.02 11/09/19 05:35: Troponin I < 0.02 11/09/19 05:35: WBC 6.6, RBC 5.02, Hgb 15.1, Hct 45.3, MCV 90.3, MCH 30.0, MCHC 33.3, RDW 13.0, Plt Count 194, MPV 8.9, Neut % (Auto) 76.4, Lymph % (Auto) 13.5, [place] % (Auto) 7.4, Eos % (Auto) 2.0, Baso % (Auto) 0.6, Neut # (Auto) 5.1, Lymph # (Auto) 0.9, [place] # (Auto) 0.5, Eos # (Auto) 0.1, Baso # (Auto) 0.0 11/09/19 05:35: Sodium 143, Potassium 4.2, Chloride 107, Carbon Dioxide 29, Anion Gap 11.2, BUN 10, Creatinine 0.86, Estimated Creat Clear 155, Estimated GFR 95, Est GFR ( Amer) 115, Glucose 102, Calcium 7.9 L, Magnesium 1.8, Triglycerides 60, Cholesterol 116 L, LDL Cholesterol 71, VLDL Cholesterol 12, HDL Cholesterol 33, Cholesterol/HDL Ratio 3.5 I & O for Last 24 hours: Intake & Output 11/07/19 11/08/19 11/09/19 11/10/19 11:59 11:59 11:59 11:59 Intake Total 210 / 210 204 / 204 Output Total 300 / 300 Balance -90 / -90 204 / 204 Weight 227 lb 4 oz Assessment and Plan (1) Chest pain Current visit: Yes Status: Acute Qualifiers: Chest pain type: unspecified Qualified Code(s): R07.9 - Chest pain, u nspecified Category: Medical Code(s): R07.9 - Chest pain, unspecified (2) Hypertension Current visit: Yes Status: Acute Category: Medical Code(s): I10 - Essential (primary) hypertension (3) Tobacco abuse Current visit: No Status: Acute Category: Medical Code(s): Z72.0 - Tobacco use - Assessment and plan all Dx Assessment and Plan for all problems:: I have reviewed the Coronary CT with Dr. Dhillon and the preliminary interpretation indicates a very low calcium score if not 0. Final images are still being processed. This being the case, patient is being discharged home and will follow-up with me next week and also with cardiology.
--- NOTE | 2019-11-09 20:52 | Cardiology Report ---
APPROVED REPORT EXAM: Comprehensive 2D, Doppler, and color-flow Echocardiogram Grocery Checker: Courtney Villasenor RVT Ht: 5 ft 7 in Wt: 225lbs BSA: 2.13 BP: 144/80 mmHg Indications: Chest Pain, Obesity, Palpitations, Hypertension,GERD 2D Dimensions LVOT 2.41 cm (M/F) 1.5-2.5 M-Mode Dimensions RVDd 3.14 cm (0.9-2.6)LVDd 3.43 cm (3.5-5.7) LVDs 2.14 cm (3.5-5.7)IVSd 1.78 cm (0.6-1.1) PWd 1.11 cm (0.6-1.1)EF (Teich) 68.90% FS 37.60% EDV (Teich) 48.50 mL ESV (Teich) 15.10 mL LV Diastology E/A Ratio 1.19 Mitral Valve MV A Velocity 79.00 (40-130 cm/s) Left Ventricle Left atrium is mildly enlarged, left ventricle is normal size, mild concentric left ventricular hypertrophy, visually estimated ejection fraction 55% with no regional wall motion abnormality, grade 1 diastolic dysfunction seen without tissue Doppler evidence of raise left atrial pressure. Right Ventricle Right atrium and right ventricle mildly enlarged with normal contractility. Aortic Valve Aortic valve is minimally thickened and fibrosed, there is no aortic stenosis or aortic insufficiency. Mitral Valve Mitral valve is grossly normal, there is mild mitral regurgitation. Tricuspid Valve Tricuspid valve is grossly normal, there is mild tricuspid regurgitation, tricuspid regurgitation jet velocity is inadequate for calculation of the right ventricular systolic pressure. Pulmonic Valve Pulmonic valve is poorly visualized. Great Vessels Aortic root is normal size. Pericardium No significant pericardial effusion noted. Conclusion 1. Mild biatrial enlargement, normal left ventricular size, mild concentric left ventricular hypertrophy visually estimated ejection fraction 55% with no regional wall motion abnormality, grade 1 diastolic dysfunction seen without tissue Doppler evidence of raise left atrial pressure. 2. Mildly enlarged right ventricle with normal contractility. 3. Mild mitral and tricuspid regurgitation. 4. No significant pericardial effusion noted. Electronically signed by : Bao Rios, 11/09/2019 20:52:18
--- NOTE | 2019-11-09 21:03 | Cardiology Report ---
APPROVED REPORT Exam: Exercise Treadmill Technologist: Deena Payton Ht: 5 ft 6 in Wt: 227 lbs BSA: 2.11 m2 HR: 77 bpm BP: 127/75 mmHg Indications: Chest pain, Palpitations Medical History Medications: Lisinopril,,,,, Venlafaxine,,,,, Stress Test Details Test: Jhonatan HR Resting HR: 83 bpmMax Heart Rate (APMHR): 173 bpm Max HR Achieved: 157 bpmTarget HR (85% APMHR): 147 bpm % of APMHR: 90 Recovery HR: 97 bpm BP Resting BP: 127.0/75.0 mmHg Max BP: 180.0/76.0 mmHg Recovery BP: 140.0/88.0 mmHg ECG Clinical Exercise duration: 10:00 min Highest Stage Achieved: Exercise capacity: 12.8 METs Stress ECG Conclusion Resting ECG: Normal sinus rhythm Patient exercised 10 minutes on Jhonatan Protocol. Test stopped due to shortness of air, leg fatigue. Symptoms: No chest pain. Arrhythmias/Ectopy: Rare PAC ST-T Changes: Allowing for motion artifact at peak exercise, there is normal ST response to exercise. Conclusion: Normal GXT to heart rate achieved. Myoview images reported separately. Test Summary [id number]/ 84.. REST.......Standing REST03:410.00.083.127/ 75.. Stage 101:0010.01.7106.... Stage 102:0010.01.7105.... Stage 103:0010.01.7111.142/ 74.. Stage 201:0012.02.5109.... Stage 202:0012.02.5115.... Stage 203:0012.02.5118.152/ 70.. Stage 301:0014.03.4127.... Stage 302:0014.03.4128.... Stage 3.......Myoview Injected Stage 303:0014.03.4129.174/ 78.. Stage 401:0016.04.0...Stop exercise at 10:00 [id number]:000.00.0106.180/ 76.. [id number]:000.00.095.180/ 76.. [id number]:000.00.095.180/ .. [id number]:000.00.0104.155/ .. [id number]:000.00.097.140/ .. [id number]:180.00.098.140/ .. Electronically signed by : Bao Rios, 11/09/2019 21:02:30
--- NOTE | 2019-11-11 13:25 | Discharge Summary ---
General - General Admission date:: 11/09/19 Discharge date: 11/09/19 HPI HPI: Mr. Tomas is a 49-year-old male patient with a history of hypertension, depression, irritable bowel syndrome, and tobacco abuse who while lying in bed watching TV became very hot. He said he was sweating on his forehead. His significant other took his blood pressure and it was found to be 148/80's. Heart rate was 116. They were both very concerned because this did not resolve and thus she brought him to the emergency room for evaluation. With evaluation in the emergency room He was noted to be in a sinus tach with nonspecific ST T wave changes on EKG. Blood pressure was 111/58. He was given a liter of IV fluids. He was then admitted for further evaluation and treatment with a cardiology consult. Cardiology did see the patient. Cardiac troponins were normal x3. Echo was completed with preliminary report revealing preserved left ventricular ejection fraction. Cardiology recommended proceeding with exercise Myoview to evaluate for coronary artery disease. Hospital Course Hospital Course: The patient had a stress test which was equivocal and he subsequently underwent a coronary calcium scoring CT. Dr. Hager reviewed the coronary CT with Dr. Dhillon and it indicated a very low calcium score. This being the case, the patient was discharged home and will follow up with Dr. Hager as well as cardiology in a week. Objective Vital signs: Temp Pulse Resp BP Pulse Ox 98.7 F 85 20 132/83 99 11/09/19 16:00 11/09/19 16:00 11/09/19 16:00 11/09/19 16:00 11/09/19 16:00 Narrative: - Constitutional no acute distress - *Routine HEENT Exam Head: Present: normocephalic, atraumatic Eye: Present: PERRL. Absent: conjunctival icterus, scleral injection ENT: Present: mucous membranes moist, oropharynx clear - *Routine Neck Exam Present: supple. Absent: carotid bruit, lymphadenopathy, thyromegaly - *Routine Respiratory Exam Present: CTA bilaterally (Anteriorly and posteriorly) - *Routine Cardiovascular Exam Present: RRR - *Routine Abdominal Exam Present: soft, normoactive bowel sounds. Absent: tenderness, distended - *Routine Extremities Exam Absent: edema, calf tenderness - *Routine Neurological Exam Present: alert, oriented X3 DS: Diagnosis - Discharge Diagnosis (1) Chest pain Status: Acute (2) Hypertension Status: Acute (3) Tobacco abuse Status: Acute Discharge Plan - Patient Discharge Instructions ACTIVITY: Continue current activity DIET: low fat, low cholesterol, low salt diet Patient Instructions: DI for Chest Pain - Follow up Plan Follow up with: Yasmany Hager MD [Primary Care Provider] - 1 week Ramses Steinberg PA [Physician Music Store Manager] - 1 week Disposition: Home, Self-Alf Medications: Home Medications Medication Instructions Recorded Confirmed Type Colesevelam HCl 625 mg PO BID 11/09/19 11/09/19 History Venlafaxine HCl [Effexor XR 75mg 75 mg PO DAILY 11/09/19 11/09/19 History capsule] lisinopriL [Lisinopril 10mg Tab] 10 mg PO DAILY 11/09/19 11/09/19 History Prescriptions/Medication Reconciliation: Continued Venlafaxine HCl [Effexor XR 75mg capsule] 75 mg PO DAILY lisinopriL [Lisinopril 10mg Tab] 10 mg PO DAILY Colesevelam HCl 625 mg PO BID - Problem Reconciliation Problems Reviewed?: Yes
== END 2019-11-09 18:18 | disposition home or self-care (01) ==
LOC: ER 23:21 → 2ND 23:21
PROVIDERS: ADMIT Family Medicine; ATTEND Family Medicine
CPT/HCPCS: 36415; 71020; 71046; 75571; 78452; 80048; 80061; 83735; 84484; 85025; 85651; 86140; 93005; 93017; 93306; 99284; A9502; G0378

== ENCOUNTER 2019-12-02 16:00 | Outpatient (RCR) | payer BC, SELFPAY ==
--- NOTE | 2019-11-03 16:42 | HMH.PTOPEV ---
PT Outpatient Evaluation Rehab PT Outpatient Evaluation Start: 11/03/19 15:57 Freq: Status: Active Protocol: Document 11/03/19 16:26 MIRELLA (Rec: 11/03/19 16:41 MIRELLA [id number]) Electronically Signed By Ehsan Whittington, PT 11/03/19 16:26 Outpatient Therapy Subjective History Subjective History Patient is 49 year old male presenting to outpatient PT with reports of R foot pain S/ P R plantar cyst and abductor hallux cyst removal 06/15/19. Pt report 2-3 year hx of R foot pain prior to Sx. Comorbidities include R RCR, L knee arthroscopic sx, hx of cholecystectomy, depression, GERD and HTN. Pt has already returned to full duty at work. Pt reports using using OTC orthotics and heel lifts. Chief Complaint Pain,Stiff,Paresthesia Symptom Type Shooting Symptoms Relieved By Rest/Positioning Symptoms Aggravated By Physical Activity,Walking Prior Functional Limitations None Current Functional Limitations Standing,Squatting,Recreation Activity,Walking,Stairs, Balance Symptom Description Constant but Variable Level of pain today (0-10) 3 Pain scale - at its best (0-10) 5 Pain scale - at its worst (0-10) 1 Ankle/Foot Eval Gait Observation General Gait Pattern Observation Antalgic Gait,Decrease Weight Bear (R) Assistive Device Ambulation Assistive Device None Palpation Tenderness right Ankle/Foot Palpation Findings Tenderness Ankle/Foot Palpation Overall Comment Surgical incision 2/4 ROM Ankle/Foot Dorsiflexion w/Knee Extended 16 Active Range Motion (degrees) Ankle/Foot Plantar Flexion Active Range WNL of Motion (degrees) Ankle/Foot Eversion Active Range of 4 Motion (degrees) Ankle/Foot Inversion Active Range of WNL Motion (degrees) Great Toe ROM Reason Not Measured Within Functional Limits MMT Ankle Dorsiflexion Strength Grade 5 Normal Ankle Plantarflexion Strength Grade 5 Normal Foot Eversion Strength Grade 4 Good Foot Inversion Strength Grade 4 Good Special Tests Ankle Anterior Drawer Test Negative Right Ankle Eversion Test Negative Right Talar Tilt Test Negative Right Ankle Posterior Drawer Test Negative Right Foot Interdigital Neuroma Test Negative Right Outpatient Therapy Assessment Impairments Problems/Impairmments Palpation Tenderne
== END 2019-12-02 16:05 | disposition home or self-care (01) ==
LOC: PT 16:00
PROVIDERS: PCP Family Medicine; Visit Provider Podiatrist
DX: G89.18 Other acute postprocedural pain (principal); M79.671 Pain in right foot; R52 Pain, unspecified; R20.2 Paresthesia of skin; L90.5 Scar conditions and fibrosis of skin
CPT/HCPCS: 97010; 97014; 97033; 97035; 97110; 97163; G0283

== ENCOUNTER → 2019-12-06 04:43 | Outpatient (CLI) | payer BC, SELFPAY ==
[2019-12-06 05:20] LABS: Hemoglobin A1C 5.7 % (4.0-6.0)
[2019-12-06 05:27] LABS: Alanine Aminotransferase 14 U/L (12-78); Albumin Level 4.4 g/dl (3.5-5.0); Albumin/Globulin Ratio 2.1 (1.1-1.8); Alkaline Phosphatase 83 U/L (38-126); Anion Gap 9.1 mEq/L (5-15); Aspartate Amino Transferase 21 U/L (17-59); Bilirubin,Total 0.6 mg/dl (0.2-1.3); Blood Urea Nitrogen 16 mg/dl (9-20); Calcium 8.8 mg/dl (8.4-10.2); Carbon Dioxide 29 mmol/L (22.0-30.0); Chloride 103 mmol/L (98-107); Estimated Glomerular Filt Rate 90 ml/min (>60); GFR (African American) 109 ML/MIN (>60); Globulin 2.1 g/dL (1.3-3.2); Glucose 104 mg/dl (74-100); Potassium 4.1 mmoL/L (3.5-5.1); Sodium 137 mmol/L (136-145); Total Protein,Serum 6.5 g/dl (6.3-8.2)
[2019-12-06 05:57] LABS: Prostate Specific Ag, Diagnost 1.47 ng/ml (0.0-4.0)
== END ==
PROVIDERS: PCP Internal Medicine Adolescent Medicine; Visit Provider Internal Medicine Adolescent Medicine
DX: R73.9 Hyperglycemia, unspecified (principal); M89.9 Disorder of bone, unspecified
CPT/HCPCS: 36415; 80053; 83036; 84153

== ENCOUNTER 2020-04-10 17:09 | Emergency (ER) | payer BC, SELFPAY ==
[2020-04-10 17:18] VITALS: BP 102/78; PULSE 70; RESP 16; TEMP 36.9; O2SAT 100; BMI 33.2
--- NOTE | 2020-04-10 17:33 | CT_ITS ---
PROCEDURE: CT LUMBAR SPINE WO CON CLINICAL HISTORY: lower back pain Low back pain, left-sided low back pain COMPARISON: CT LUMBAR SPINE WO CON from 11/25/2019 TECHNIQUE: Axial images obtained with sagittal and coronal reformats. All CT scans at the facility use one or more dose reduction, viz: automated exposure control, ma/kV adjustment per patient size (including targeted exams where dose is matched to indication, i.e. head), or iterative reconstruction technique. FINDINGS: Normal alignment. There is degenerative disc disease at L1-L2 and L2-L3 with mild bulging disc at L2-L3 along facet ligamentum hypertrophy with mild bilateral lateral recess and foraminal narrowing. Not significantly changed Mild bulging disc at L3-L4 Mild bulging disc at L4-5 with facet and ligamentum hypertrophy with mild bilateral lateral recess and foraminal narrowing. Not significantly changed. Bulging disc is present at L5-S1 slightly eccentric toward the right with mild degenerative disc disease not significantly changed.. There is bilateral lateral recess and foraminal narrowing. Sclerotic lesions are present within L5 vertebral body on the right and on the left unchanged. There is fusion of the SI joint superiorly on both sides the IMPRESSION: Multilevel lumbar spondylosis with degenerative disc disease, facet and uncovertebral hypertrophy, and bulging discs with lateral recess and foraminal narrowing. Bilateral fusion of the SI joint superiorly. This is not significantly changed compared to the previous study. No acute fracture or dislocation. No lytic changes. There are 2 sclerotic lesions of the L5 vertebral body possibly due to bone islands unchanged Dictated by: Obed Dhillon MD 04/10/2020 18:14 Electronically signed by Obed Dhillon MD in [place] 04/10/2020 18:14
--- NOTE | 2020-04-10 18:19 | HMH.EDGENADL ---
ED Disposition Clinical Impression: Lumbar pain with radiation down left leg Back pain Qualifiers: Back pain location: low back pain Chronicity: chronic Back pain laterality: left Sciatica presence: with sciatica Sciatica laterality: sciatica of left side Qualified Code(s): M54.42 - Lumbago with sciatica, left side Disposition: Home, Self-Care Condition on Discharge: Good Instructions: DI for Chronic Pain -- Adult Additional Instructions: Tylenol and ibuprofen for pain. Muscle relaxer over the next 2 days as needed. Follow-up with your PCP. If you have any new, changing, worsening, or concerning symptoms, come back to the emergency department. Prescriptions: Cyclobenzaprine HCl [Cyclobenzaprine 5mg Tab] 5 mg PO Q8H 2 Days #6 tab Transmission Status: Received by [id number] Referrals: Aneesh Hernandez MD [Primary Care Provider] - Time of Disposition: 18:41 - Critical Care Critical Care Time: No Attestation: On 04/10/20, the high probability of a clinically significant, sudden or life threatening deterioration of the following system(s) required my full and direct attention, intervention and personal management. The time I documented below is in addition to time spent performing reported procedures but includes the following listed in this critical care notation. Medical Decision Making - Medical Records Medical records reviewed: Yes: I reviewed the patient's medical records. MR Comment: 49-year-old male with hypertension and a history of chronic back pain presents emergency department with back pain that is dull and has lasted for the last month, is not worse today, but is having trouble getting MRI and wanted to come here for a CT. He is not having any new symptoms, and is been followed by his PCP. He has no history of IV drug abuse or fever, no groin anesthesia, no history of cancer, no weakness in his lower extremities, there are absolutely no concerns for spinal compression/cauda equina syndrome. Pain is mostly paraspinal on the left and into his left buttocks. He is ambulating without assistance. CT lumbar spine reviewed here and does not show any acute worrisome changes. Given this and his clinical history of no recent changes and no worrisome symptoms, will treat with ketorolac and cyclobenzaprine and reassess. Clinically, history and physical, no concern for aortic pathology, nephrolithiasis or pyelonephritis, serious urgent diagnosis. On reassessment, he remains well. Is a little better. He continues to have absolutely no neurological deficits or concerning symptoms. I discussed results of his CT with him and asked that he follow-up closely with his PCP to go through the correct channels for possible future MRI. He was given strict return precautions and verbalized understanding of this and agreement to the plan. Safe to discharge. - Adalid Inquiry Pt receiving controlled substance: No Vital Signs: 04/10/20 17:18 04/10/20 19:14 Temperature 98.4 F 98.2 F Temperature Source Oral Oral Pulse Rate 85 Pulse Rate [Right] 70 Respiratory Rate 16 16 Blood Pressure 127/74 Blood Pressure [Right Arm] 102/78 L Blood Pressure Mean [Right Arm] 86 Blood Pressure Source Automatic Cuff Blood Pressure Source [Right Arm] Automatic Cuff Blood Pressure Position Sitting Blood Pressure Position [Right Arm] Sitting 02 Sat by Pulse Oximetry 100 Oxygen Delivery Method Room Air Room Air Orders (Tests/Meds): ED MEDICATIONS Discontinued Medications Generic Name Dose Route Start Last Admin Trade Name Mauro PRN Reason Stop Dose Admin Cyclobenzaprine HCl 5 mg 04/10/20 18:25 04/10/20 18:42 Flexeril 10mg Tablet PO 04/10/20 18:26 5 mg ONCE ONE Administration Ketorolac Tromethamine 30 mg 04/10/20 18:25 04/10/20 18:42 Toradol 30mg/Ml Vial IM 04/10/20 18:26 30 mg ONCE ONE Administration General Adult HPI - General Chief complaint: PAIN Stated complaint: Pain Left side low
[2020-04-10 19:14] VITALS: BP 127/74; PULSE 85; RESP 16; TEMP 36.8; O2SAT 100
== END 2020-04-10 19:19 | disposition home or self-care (01) ==
PROVIDERS: Emergency Provider Emergency Medicine; PCP Internal Medicine Adolescent Medicine
DX: M54.42 Lumbago with sciatica, left side (principal); I10 Essential (primary) hypertension; K21.9 Gastro-esophageal reflux disease without esophagitis; F33.1 Major depressive disorder, recurrent, moderate; F17.210 Nicotine dependence, cigarettes, uncomplicated
CPT/HCPCS: 72131; 96372; 99282

== ENCOUNTER → 2020-05-11 15:23 | Outpatient (POV) | payer BC, SELFPAY ==
[2020-05-11 15:41] VITALS: BP 152/78; PULSE 85; RESP 18; TEMP 36.8; O2SAT 99; BMI 35.2
--- NOTE | 2020-05-11 15:59 | HMH.PMCON ---
Assessment and Plan (1) Low back pain Current visit: Yes Status: Acute Category: Medical Code(s): M54.5 - Low back pain (2) Lumbar radiculopathy Current visit: Yes Status: Acute Category: Medical Code(s): M54.16 - Radiculopathy, lumbar region (3) Bilateral sacroiliitis Current visit: Yes Status: Acute Category: Medical Code(s): M46.1 - Sacroiliitis, not elsewhere classified - Assessment and plan all Dx Assessment and Plan for all problems:: Patient has tried physical therapy along with a continued home stretching program. We will order him diclofenac 75 mg 1 tablet p.o. twice daily. I have encouraged him to not take the medication with other anti-inflammatories. He does have tenderness noted over his bilateral SI joints as well as a positive Luz, Heriberto's, distraction test. We will schedule him for bilateral SI joint injections. If the patient does not get relief with the injections, we will then proceed with an MRI. He has not gotten relief with other conservative therapies. We will see him back in the clinic after his injections to reassess his symptoms. He has been instructed to contact the clinic if he has any concerns before his next appointment. The patient and I specifically discussed risk factors for COVID19. These risks include, but are not limited to age greater than 60, heart or lung disease, diabetes, immunosuppression, and travel. We also discussed NSAIDs may worsen COVID19 infection or symptoms. Patient should not use NSAIDs to treat COVID19 signs or symptoms. Patient was also informed that any type of corticosteroid of any form (oral or injection) will decrease the patient's immune system response and may increase the likelihood of COVID19 infection [address] symptoms[address]. Mosqueda has reviewed this note and agrees with this plan of care. This note was dictated using voice recognition software and make contain errors or omissions. HPI - Data of Consult Patient: new to practice Consult date: 05/11/20 Requesting Physician: Adilene Royal APRN Primary Care Provider: Aneesh Hernandez MD - Consult Narrative Reason for consult: Low back pain, bilateral hip pain, bilateral lower extremity pain with numb History of present illness: Mr. Tomas is a 49 year old male presents today for consultation for low back pain with radiation into his bilateral buttock, hips, and legs. Patient does have some numbness and tingling intermittently bilateral legs. Patient says that he was seen in [facility] [place] in the past for low back pain. He says that the pain was radiating into his left leg at that time. He was treated with a series of lumbar epidural steroid injections. The patient did not get any relief. As result, it was recommended that the patient undergo surgical intervention at that time. Patient elected not to proceed with any type of surgery and says that he instead did see a chiropractor. The chiropractor performed x-rays on the patient, with an adjustment of his spine. He says he immediately did better and had relief with the low back pain as well as the left leg pain and numbness and tingling. Over the last 1 to 2 months, he developed the pain again. This time, however, the pain is radiating into both lower extremities causing numbness and tingling as well. Patient has tried and failed physical therapy along with a continued home stretching program. He did not get any relief. He has been taking [id number] ibuprofen as well as Tylenol with no relief. Patient did have lumbar epidural steroid injections. He has tried to get an MRI approved, as ordered by his primary care provider, however, it has been denied by his insurance company twice. She has tried and failed all other conservative therapies. He does have tenderness over his bilateral SI joints. He does rate his pain a 6 out of 10. CC: Adilene Royal APRN [facility] History I have reviewed the patient's past me
== END ==
PROVIDERS: PCP Internal Medicine Adolescent Medicine; Visit Provider Clinical Nurse Specialist Family Health
DX: M54.5 Low back pain (principal); M54.16 Radiculopathy, lumbar region; M46.1 Sacroiliitis, not elsewhere classified
CPT/HCPCS: 99202

== ENCOUNTER 2020-05-22 14:21 | Day surgery (SDC) | payer BC, SELFPAY ==
[2020-05-22 14:29] VITALS: BP 136/70; PULSE 87; RESP 18; O2SAT 96
[2020-05-22 14:41] VITALS: BP 141/81; PULSE 104; RESP 20; TEMP 36.7; O2SAT 97; BMI 34.7
--- NOTE | 2020-05-22 14:52 | P.PCN_ITS ---
- Procedure Date: 05/22/20 Time: 14:52 Anesthesiologist:: Suzanna Cuba APRN Complications:: None Pre-procedure Diagnosis:: Sacroiliitis Post-procedure Diagnosis:: Same Indications for Procedure:: Patient is a pleasant 49-year-old white male who presents today for bilateral SI joint injections. He has a positive Luz test SI joint compression test and Heriberto's test bilaterally. If he does not get relief from these injections we will proceed with an MRI. Patient is tried and failed physical therapy and chiropractic therapy. He is taking anti-inflammatories. We will move forward with injections today. 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 Patient was taken to the procedure room. Patient was placed prone on the procedure table. The [right] hip was prepped using ChloraPrep as a cleansing solution. The skin and subcutaneous tissues were anesthetized using lidocaine. Using fluoroscopic guidance I placed a 22-gauge spinal needle into the inferior aspect of the [right] SI joint. After this I injected 5 mL bupivacaine 0.25% and Depo-Medrol 40 mg into the [right] SI joint. Was then repeated on the left side. the patient tolerated the procedure well with no complication. Plan and Disposition:: We will see the patient back in 3 weeks reassess his symptoms at that time he has been instructed to call the office if he has any issues prior to his next appointment. Dr. Mosqueda has reviewed this note and agrees with this plan of care. This note was dictated using voice recognition software and may contain errors or omissions
[2020-05-22 14:58] VITALS: BP 161/85; PULSE 88; RESP 18; O2SAT 98
[2020-05-22 14:59] VITALS: BP 161/85; PULSE 85; RESP 18; O2SAT 95
== END 2020-05-22 15:11 | disposition home or self-care (01) ==
LOC: SC.PAINP 14:23
PROVIDERS: PCP Internal Medicine Adolescent Medicine; Visit Provider Anesthesiology
DX: M46.1 Sacroiliitis, not elsewhere classified (principal); F32.9 Major depressive disorder, single episode, unspecified; I10 Essential (primary) hypertension; Z79.899 Other long term (current) drug therapy
CPT/HCPCS: 27096; G0260; J1030; Q9966

== ENCOUNTER → 2020-06-12 11:29 | Outpatient (POV) | payer BC, SELFPAY ==
[2020-06-12 11:51] VITALS: BP 132/74; PULSE 84; RESP 18; TEMP 36.3; O2SAT 98; BMI 34.9
--- NOTE | 2020-06-12 11:58 | HMH.PAINSOAP ---
[facility] Pain Management SOAP Note Subjective:: Patient is a pleasant 49-year-old white male who presents today for follow-up after bilateral SI joint injections. Patient did not get any relief from this. Patient's pain is in his back. He does have an CT scan showing bulging disks along with foraminal narrowing and degenerative changes in his lower spine. He was told 15 years ago that he needed surgery however he has been able to put it off until now. Patient made a discussion in regards to moving forward with a lumbar epidural steroid injection. He would like to move forward with this. Patient's pain is in his back radiating into his legs. He is on anti-inflammatories he is also tried and failed physical therapy and chiropractic therapy. He rates his pain a 6 out of 10 today. He is trying to continue work and this is difficult for him at this time due to his pain. ROS General: no recent weight change, no fever, no sleep disturbances Respiratory: no cough, no shortness of air, no recurring pulmonary infections Cardiovascular/Peripheral Vascular: No chest pain, No palpitations, no edema, no shortness of breath. Gastrointestinal: no new onset incontinence, normal bowel movements reported Genitourinary: no new onset incontinence Musculoskeletal: Back pain, leg pain Psychiatric: normal mood/ affect Neurological: [denies new onset weakness in extremities], [denies new onset balance issues] Objective:: Physical Exam General: Alert and oriented x3, no acute distress, pleasant and cooperative, [on room air] Lungs: Resps E/U, Symmetrical chest expansion, Eyes: PERRL Musculoskeletal: Flexion and extension of lumbar spine somewhat guarded secondary to pain, deep tendon reflexes normal, strength in upper and lower extremities [5/5], [abnormal gait noted] Neurological: 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 I will follow-up with him after this reassess his symptoms at that time he has been instructed to call the office if he has any issues prior to his next appointment. He is not on any anticoagulation therapy. Dr. Mosqueda has reviewed this note and agrees with this plan of care. This note was dictated using voice recognition software and may contain errors or omissions [facility] History I have reviewed the patient's past medical history: Yes Medical History: Reports:: Depression, Gastroesophageal Reflux Disease(GERD), Hypertension Denies:: Cancer, Chronic Obstructive Pulmonary Disease (COPD), Diabetes Mellitus Type 1, Diabetes Mellitus Type 2, Internal Pacemaker, Lung Disease, MRSA, Seizures *Have you ever received a pneumonia vaccine?: Yes *Have you received a flu vaccine this season?: Yes Other Medical History: Reports: Arthritis. Denies: Blood Transfusion Reaction, Other Laterality Cases: Left: Arthroscopy Knee, Right: Arthroscopy Shoulder, Other Other Surgeries: Yes: No Previous Surgery, Cholecystectomy, Other (Right rotator cuff, r foot, l knee. Excision of lipoma on the right foot ). No: Pacemaker Amputation: No Fractures: No - *Social History Smoking Status: Current every day smoker Tobacco Type: cigarettes # Packs/Day (cigarettes): 1 Alcohol Intake: never Alcohol Intake Frequency:: holidays/special occasions only Substance Use Type: denies use *Occupational Status:: other Housing: house Household Members: other *Travel in the last 8 weeks: None - Psychiatric History Pschychiatric History:: Reports:: Depression Family Hx:: Other
== END ==
PROVIDERS: PCP Internal Medicine Adolescent Medicine; Visit Provider Clinical Nurse Specialist Family Health
DX: M51.36 Other intervertebral disc degeneration, lumbar region (principal); M46.1 Sacroiliitis, not elsewhere classified
CPT/HCPCS: 99212

== ENCOUNTER 2020-06-23 13:15 | Day surgery (SDC) | payer BC, SELFPAY ==
[2020-06-23 13:36] VITALS: BP 118/74; PULSE 76; RESP 18; TEMP 36.6; O2SAT 97; BMI 36.0
[2020-06-23 13:58] VITALS: BP 132/74; PULSE 74
[2020-06-23 13:59] VITALS: BP 138/77; PULSE 79; RESP 18; O2SAT 98
[2020-06-23 14:07] VITALS: BP 121/75; PULSE 71; RESP 20; O2SAT 97
--- NOTE | 2020-06-23 14:11 | P.PCN_ITS ---
- Procedure Date: 06/23/20 Time: 14:12 Anesthesiologist:: Phani Mosqueda MD Complications:: None Pre-procedure Diagnosis:: Degenerative disc disease of lumbar spine with lumbar radiculopathy symptoms Post-procedure Diagnosis:: Same Indications for Procedure:: This patient is a pleasant 50-year-old white male who we are treating for low back pain with lumbar radiculopathy symptoms. He has some increasing pain in his low back rating down both legs. He did get relief from previous bilateral SI joint injections. We will do lumbar epidural steroid injection today to help with his low back pain and leg pain. Procedure Details:: Lumbar epidural steroid injection under fluoroscopy Informed consent was obtained and the risk and benefits of the procedure was exp lained to the patient. The patient was taken to the procedure room. The patient was placed prone on the procedure table. The patient was prepped and draped in sterile fashion. C-arm fluoroscopy was used to view the lumbar spine. Skin and subcutaneous tissues were anesthetized using lidocaine. I placed an 18-gauge epidural needle and advanced into the L4-L5 interspace using fluoroscopic guidance and [id number] to air. After confirmation of needle placement in the epidural space with dye I injected 2 mL of lidocaine 1.5% with Depo-Medrol 80 mg. Patient tolerated the procedure well with no complications. Plan and Disposition:: We will follow-up with him in 2 weeks. Will reevaluate symptoms at that time.
== END 2020-06-23 14:08 | disposition home or self-care (01) ==
LOC: SC.PAINP 13:16
PROVIDERS: PCP Internal Medicine Adolescent Medicine; Visit Provider Anesthesiology
DX: M51.16 Intervertebral disc disorders with radiculopathy, lumbar region (principal); I10 Essential (primary) hypertension; Z72.0 Tobacco use; F32.9 Major depressive disorder, single episode, unspecified; Z90.49 Acquired absence of other specified parts of digestive tract; Z79.899 Other long term (current) drug therapy
CPT/HCPCS: 62323; J1040; Q9966

== ENCOUNTER 2020-07-02 20:32 | Emergency (ER) | payer BC, SELFPAY ==
[2020-07-02 20:47] VITALS: BP 148/83; PULSE 78; RESP 19; TEMP 36.6; O2SAT 98; BMI 34.9
--- NOTE | 2020-07-02 20:53 | HMH.EDUTC ---
[facility] [place] Disposition Clinical Impression: Encounter for laboratory testing for COVID-19 virus, Exposure to COVID-19 virus Disposition: Home, Self-Care Condition on Discharge: Good Instructions: Preventing the Spread of Coronavirus Discharge Instructions Additional Instructions: *Monitor Temp, Over the counter Motrin or Tylenol as directed/as needed Tylenol every 4 hours and Motrin every 6 hours (as long as your family doctor has told you that you can take it) for fever or pain. and straight to ER if unable to lower temp less than 101.0 after medication given *Warm salt water gargles may help to soothe the throat *Throat Lozenges *Warm fluids like tea with honey may help to soothe the throat *Sleep elevated *Humidifier/Vaporizer Follow up IMMEDIATELY for new or worsening symptoms or no Noticeable improvement over the next 48-72 hours. 911 for difficulty breathing or swallowing You was tested for today for COVID19 your test result should be back later this evening, you may call back later this evening to see if your test results are back and the result You was given a handout with instructions for Self Quarantine and Self isolation for while you wait on test results and what to do if they are positive Referrals: Aneesh Hernandez MD [Primary Care Provider] - As needed Forms: Work/School Release Time of Disposition: 20:54 Medical Decision Making - Adalid Inquiry Pt receiving controlled substance: No Adalid was queried for this patient: No Vital Signs: 07/02/20 20:47 Temperature 97.9 F Temperature Source Oral Pulse Rate [Radial] 78 Respiratory Rate 19 Blood Pressure [Right Arm] 148/83 H Blood Pressure Mean [Right Arm] 104 Blood Pressure Source [Right Arm] Automatic Cuff Blood Pressure Position [Right Arm] Sitting 02 Sat by Pulse Oximetry 98 Oxygen Delivery Method Room Air Orders (Tests/Meds): ORDERS Category Date Time Status Covid-19 Nasal PCR ([facility]) Routine Lab 07/02/20 20:45 Received [facility] [place] HPI - General Stated complaint: Covid test Time Seen by Provider: 07/02/20 20:53 Mode of Arrival: Ambulatory Source of Information: Patient Limitations: No Limitations Description of Symptoms (Recalled from Triage Doc. by RN): EXPOSURE TO COVID HEENT Symptoms (Recalled from RN notes): No Resp Symptoms (Recalled from RN notes): No Skin Symptoms (Recalled from RN notes): No MS Symptoms (Recalled from RN notes): No Functional Status (Recalled from RN notes): WNL - History of Present Illness Provider Complaint: Patient states thats he lives with son that tested positive for COVID yesterday States that he has not been having any symptoms but he was worried that he may have it and not know it so he come in to get checked - Related Data Home Medications Medication Instructions Recorded Confirmed Venlafaxine HCl [Effexor XR 75mg 75 mg PO DAILY 11/09/19 06/23/20 capsule] lisinopriL [Lisinopril 10mg Tab] 10 mg PO DAILY 11/09/19 06/23/20 Allergies Allergy/AdvReac Type Severity Reaction Status Date / Time No Known Allergies Allergy Verified 06/23/20 13:37 - Worker's Comp Is this a Worker's Comp case?: No [facility] History - Hepatitis A Screen Drug use history?: No High risk sexual behaviors?: No History of sexually transmitted infection?: No Currently employed?: No Childcare worker?: No Do you have indoor plumbing?: Yes Do you have electricity?: Yes Attestation statement:: This patient has been screened for Hepatitis A risk factors. I have reviewed the patient's past medical history: Yes Medical History: Reports:: Depression, Gastroesophageal Reflux Disease(GERD), Hypertension Denies:: Cancer, Chronic Obstructive Pulmonary Disease (COPD), Diabetes Mellitus Type 1, Diabetes Mellitus Type 2, Internal Pacemaker, Lung Disease, MRSA, Seizures Other Medical History: Reports: Arthritis. Denies: Blood Transfusion Reaction, Other Comment: Irritable bowel syndrome Laterality Cases: Left: Arthrosco
[2020-07-02 21:11] VITALS: BP 148/83; PULSE 78; RESP 19; TEMP 36.6; O2SAT 98
== END 2020-07-02 21:12 | disposition home or self-care (01) ==
PROVIDERS: Emergency Provider Nurse Practitioner; PCP Internal Medicine Adolescent Medicine
DX: Z20.828 Contact with and (suspected) exposure to other viral communicable diseases (principal); I10 Essential (primary) hypertension; K21.9 Gastro-esophageal reflux disease without esophagitis; F33.1 Major depressive disorder, recurrent, moderate; F17.210 Nicotine dependence, cigarettes, uncomplicated; Z79.899 Other long term (current) drug therapy
CPT/HCPCS: 99201; U0003

== ENCOUNTER 2020-07-12 14:40 | Emergency (ER) | payer BC, SELFPAY ==
[2020-07-12 15:09] VITALS: BP 142/80; PULSE 65; RESP 18; TEMP 36.7; O2SAT 99; BMI 33.4
[2020-07-12 15:23] LABS: Adenovirus,PCR Not Detected (NotDetected); Bordetella Pertussis Not Detected (NotDetected); Chlamydophila Pneumoniae, PCR Not Detected (NotDetected); Coronavirus 19, PCR Not Detected (NotDetected); Coronavirus 229E Not Detected (NotDetected); Coronavirus NL63 Not Detected (NotDetected); Coronavirus OC43 Not Detected (NotDetected); Coronovirus HKU1,PCR Not Detected (NotDetected); Human Metapneumovirus Not Detected (NotDetected); Influenza A, PCR Not Detected (NotDetected); Influenza AH1, 2009 Not Detected (NotDetected); Influenza AH1, PCR Not Detected (NotDetected); Influenza AH3,PCR Not Detected (NotDetected); Influenza B, PCR Not Detected (NotDetected); Mycoplasma Pneumoniae, PCR Not Detected (NotDetected); Parainfluenza 1, PCR Not Detected (NotDetected); Parainfluenza 2, PCR Not Detected (NotDetected); Parainfluenza 3, PCR Not Detected (NotDetected); Parainfluenza 4, PCR Not Detected (NotDetected); Respiratory Syncytial Virus Not Detected (NotDetected); Rhinovirus/Enterovirus Not Detected (NotDetected)
--- NOTE | 2020-07-12 15:32 | HMH.EDUTC ---
[facility] [place] Clinical Impression: Exposure to COVID-19 virus Disposition: Home, Self-Care Condition on Discharge: Good Instructions: Preventing the Spread of Coronavirus Discharge Instructions Additional Instructions: Drink plenty of fluids. Take tylenol for pain or fever. Take the medications as directed. Follow up with your regular doctor. GO TO THE ER FOR ANY WORSENING SYMPTOMS FOLLOW THE DIRECTIONS ON THE COVID-19 HAND OUT THAT WE GAVE YOU REGARDING SELF-ISOLATION UNTIL YOU KNOW YOUR COVID-19 RESULTS Referrals: Aneesh Hernandez MD [Primary Care Provider] - Time of Disposition: 15:36 Medical Decision Making - Medical Records Medical records reviewed: No: I reviewed the patient's medical records. - Adalid Inquiry Pt receiving controlled substance: No Vital Signs: 07/12/20 15:09 07/12/20 15:56 Temperature 98.0 F 98.0 F Temperature Source Oral Oral Pulse Rate 65 Pulse Rate [Radial] 65 Respiratory Rate 18 18 Blood Pressure 142/80 H Blood Pressure [Right Arm] 142/80 H Blood Pressure Mean [Right Arm] 100 Blood Pressure Source Automatic Cuff Blood Pressure Source [Right Arm] Automatic Cuff Blood Pressure Position Sitting Blood Pressure Position [Right Arm] Sitting 02 Sat by Pulse Oximetry 99 Oxygen Delivery Method Room Air Room Air - Lab Data Lab Results 07/12/20 15:00: Chlamy pneumoniae PCR Not detected, Adenovirus (PCR) Not detected, B. pertussis DNA (PCR) Not detected, Coronavirus OC43 (PCR) Not detected, Coronavirus HKU1 (PCR) Not detected, Coronavirus 229E (PCR) Not detected, SARS-CoV-2 (PCR) Not detected, Coronavirus NL63 (PCR) Not detected, Human Metapneumovir PCR Not detected, Influenza A (H1) PCR Not detected, Influ A (H1N1/09) PCR Not detected, Influenza A (H3) PCR Not detected, Influenza Type A (PCR) Not detected, Influenza Type B (PCR) Not detected, M. pneumoniae (PCR) Not detected, Parainfluenza 1 (PCR) Not detected, Parainfluenza 2 (PCR) Not detected, Parainfluenza 3 (PCR) Not detected, Parainfluenza 4 (PCR) Not detected, RSV (PCR) Not detected, Entero/Rhino (PCR) Not detected [facility] [place] HPI - General Stated complaint: covid exposure Time Seen by Provider: 07/12/20 15:33 Mode of Arrival: Ambulatory Source of Information: Patient Limitations: No Limitations Description of Symptoms (Recalled from Triage Doc. by RN): covid test HEENT Symptoms (Recalled from RN notes): No Resp Symptoms (Recalled from RN notes): No Skin Symptoms (Recalled from RN notes): No MS Symptoms (Recalled from RN notes): No Functional Status (Recalled from RN notes): wnl - History of Present Illness Provider Complaint: He states that he was exposed to covid at his place of work. He needs a negative test to be allowed to return to work. - Related Data Home Medications Medication Instructions Recorded Confirmed Venlafaxine HCl [Effexor XR 75mg 75 mg PO DAILY 11/09/19 06/23/20 capsule] lisinopriL [Lisinopril 10mg Tab] 10 mg PO DAILY 11/09/19 06/23/20 Allergies Allergy/AdvReac Type Severity Reaction Status Date / Time No Known Allergies Allergy Verified 06/23/20 13:37 - Worker's Comp Is this a Worker's Comp case?: No [facility] History - Hepatitis A Screen Drug use history?: No High risk sexual behaviors?: No History of sexually transmitted infection?: No Currently employed?: No Childcare worker?: No Do you have indoor plumbing?: Yes Do you have electricity?: Yes Attestation statement:: This patient has been screened for Hepatitis A risk factors. I have reviewed the patient's past medical history: Yes Medical History: Reports:: Depression, Gastroesophageal Reflux Disease(GERD), Hypertension Denies:: Cancer, Chronic Obstructive Pulmonary Disease (COPD), Diabetes Mellitus Type 1, Diabetes Mellitus Type 2, Internal Pacemaker, Lung Disease, MRSA, Seizures Other Medical History: Reports: Arthritis. Denies: Blood Transfusion Reaction, Other Comment: Irritable alexys
[2020-07-12 15:56] VITALS: BP 142/80; PULSE 65; RESP 18; TEMP 36.7; O2SAT 99
== END 2020-07-12 15:58 | disposition home or self-care (01) ==
PROVIDERS: Emergency Provider Nurse Practitioner Family; PCP Internal Medicine Adolescent Medicine
DX: Z20.828 Contact with and (suspected) exposure to other viral communicable diseases (principal); K21.9 Gastro-esophageal reflux disease without esophagitis; I10 Essential (primary) hypertension; F17.210 Nicotine dependence, cigarettes, uncomplicated; F33.1 Major depressive disorder, recurrent, moderate
CPT/HCPCS: 87581; 87633; 87798; 99201; U0003

== ENCOUNTER → 2020-07-13 13:51 | Outpatient (POV) | payer BC, SELFPAY ==
[2020-07-13 14:15] VITALS: BP 130/77; PULSE 79; RESP 18; TEMP 36.4; O2SAT 99; BMI 34.9
--- NOTE | 2020-07-13 14:24 | HMH.PAINSOAP ---
[facility] Pain Management SOAP Note Subjective:: Patient is a 50-year-old white male who presents today for follow-up after a lumbar epidural steroid injection. He has been treated for chronic low back pain with radiation into his left leg. Patient says that he gets worse pain when he leans forward or turns from side to side. He says he does not have any relief since having the lumbar epidural steroid injection. He rates his pain a 7 out of 10. Patient says that he did undergo a lumbar epidural steroid injections approximately 10 years ago with no relief. He did see a chiropractor at that time and says that he did get relief. Patient was sent to chiropractic therapy prior to being referred to our office but did not get any relief with the therapy. History of physical therapy for greater than 6 weeks and does continue with a home stretching program. He has tried anti-inflammatories with no relief. He also tried Flexeril with no relief. He has also tried ice and heat therapies. Patient did have SI joint injections in the past for which he says he did not get any relief. Review of Systems General: No recent weight changes, no fever, no sleep disturbances Respiratory: No cough, no shortness of air, no recurring pulmonary infections Cardiovascular/peripheral vascular: No chest pain, no palpitations, no edema, no shortness of breath Gastrointestinal: No new onset incontinence, normal bowel movements reported Genitourinary: No new onset incontinence Musculoskeletal: Low back pain, left leg pain Psychiatric: Normal mood/affect Neurological: [Denies weakness in extremities], [denies balance issues] Objective:: Physical exam General: Alert and oriented x3, no acute distress, pleasant and cooperative, [on room air] Lungs: Respirations even and unlabored, symmetrical chest expansion Eyes: PERRL Musculoskeletal: Flexion and extension of lumbar spine somewhat guarded secondary to pain, deep tendon reflexes normal, strength in upper and lower extremities [5/5], [abnormal gait noted], positive Kemps test Neurological: Speech clear, wrist liner equal, no gross sensory deficit Assessment:: Degenerative disc disease lumbar spine, lumbar spondylosis with facet arthropathy Plan:: Patient I did discuss his MRI results. He has not gotten relief from bilateral SI joint injections or from lumbar epidural steroid injections. He does have lumbar spondylosis noted to his MRI. We will schedule him for medial branch block/facet joint injections bilaterally at L4-L5 L5-S1. Patient is not on any anticoagulation therapy. We will also order him tizanidine 4 mg 1 tablet p.o. 2 times daily. We will see him back in the clinic after his injection to reassess his symptoms. He and I did discuss possible spinal cord stimulation if he does not get relief with his injections. We also discussed RFA if he does get relief with the injections, but his pain returns. The patient and I specifically discussed risk factors for COVID19. These risks include, but are not limited to age greater than 60, heart or lung disease, diabetes, immunosuppression, and travel. We also discussed NSAIDs may worsen COVID19 infection or symptoms. Patient should not use NSAIDs to treat COVID19 signs or symptoms. Patient was also informed that any type of corticosteroid of any form (oral or injection) will decrease the patient's immune system response and may increase the likelihood of COVID19 infection [address] symptoms[address]. Mosqueda has reviewed this note and agrees with this plan of care. This note was dictated using voice recognition software and make contain errors or omissions. [facility] History I have reviewed the patient's past medical history: Yes Medical History: Reports:: Depression, Gastroesophageal Reflux Disease(GERD), Hypertension Denies:: Cancer, Chronic Obstructive Pulmonary Disease (COPD), Diabetes Mellitus Type 1, Diabetes Mellitus Type 2, Internal Pacemaker, Lung Disease, MRSA, Seizures *
== END ==
PROVIDERS: PCP Internal Medicine Adolescent Medicine; Visit Provider Clinical Nurse Specialist Family Health
DX: M51.36 Other intervertebral disc degeneration, lumbar region (principal); M47.816 Spondylosis without myelopathy or radiculopathy, lumbar region; M12.88 Other specific arthropathies, not elsewhere classified, other specified site
CPT/HCPCS: 99212

== ENCOUNTER 2020-07-21 09:11 | Day surgery (SDC) | payer BC, SELFPAY ==
[2020-07-21 09:15] VITALS: BP 141/82; PULSE 66; RESP 18; TEMP 36.1; O2SAT 97; BMI 34.2
[2020-07-21 09:35] VITALS: BP 132/78; PULSE 85; RESP 18
[2020-07-21 09:36] VITALS: BP 141/79; PULSE 85; RESP 18; O2SAT 98
[2020-07-21 09:50] VITALS: BP 137/80; PULSE 70; RESP 18; O2SAT 97
--- NOTE | 2020-07-28 10:48 | HMH.PMPROC ---
- Procedure Date: 07/21/20 Time: 10:48 Anesthesiologist:: Phani Mosqueda MD Complications:: None Pre-procedure Diagnosis:: Degenerative disease of lumbar spine with lumbar spondylosis and lumbar facet arthropathy Post-procedure Diagnosis:: Same Indications for Procedure:: Patient is a pleasant 50-year-old white male who we have been treating for low back pain with lumbar radiculopathy symptoms. He has previously had a lumbar epidural steroid injection which is helped his radicular symptoms. Now he does have some increasing low back pain. He is also had SI joint injections which did not give him much relief. He is tender over the facet joints of L4-5 and L5-S1 bilaterally. There is increased pain with extension and twisting. Today we will do bilateral lumbar medial branch block/facet joint injections of L4-5 and L5-S1 today. Procedure Details:: Lumbar medial branch block Informed consent was obtained and the risks and benefits of the procedure was explained to the patient. The back was prepped using ChloraPrep. The skin and subcutaneous tissues were anesthetized using lidocaine. I placed 22-gauge spinal needles into the facet joint/medial branches of L4-L5 and L5-S1 bilaterally. Needle placement was confirmed with dye. After this we injected 3 mL bupivacaine 0.25% and Depo-Medrol 20 mg into each facet joint/medial branch of L4-L5 and L5-S1 bilaterally. We used a total of 80 mg Depo-Medrol for both levels bilaterally. The patient tolerated the procedure well with no complications. Plan and Disposition:: We will follow-up with him in 2 weeks. Will reevaluate his symptoms at that time. If he does get relief with these injections we will seek approval and plan on RFA of the facet joints of L4-5 and L5-S1 bilaterally in the future.
== END 2020-07-21 09:50 | disposition home or self-care (01) ==
LOC: SC.PAINP 09:11
PROVIDERS: PCP Internal Medicine Adolescent Medicine; Visit Provider Anesthesiology
DX: M51.36 Other intervertebral disc degeneration, lumbar region (principal); M47.816 Spondylosis without myelopathy or radiculopathy, lumbar region; M12.88 Other specific arthropathies, not elsewhere classified, other specified site; I10 Essential (primary) hypertension; F41.9 Anxiety disorder, unspecified; K21.9 Gastro-esophageal reflux disease without esophagitis; K58.9 Irritable bowel syndrome, unspecified; F32.9 Major depressive disorder, single episode, unspecified; Z72.0 Tobacco use
CPT/HCPCS: 64493; 64494; J1030; Q9966

== ENCOUNTER → 2020-08-14 09:14 | Outpatient (POV) | payer BC, SELFPAY ==
[2020-08-14 09:24] VITALS: BP 125/85; PULSE 74; RESP 18; TEMP 36.6; O2SAT 98; BMI 34.9
--- NOTE | 2020-08-14 12:42 | HMH.PAINSOAP ---
[facility] Pain Management SOAP Note Subjective:: Patient is a 50-year-old white male who follows up today after medial branch block at L4-L5 L5-S1. Patient got 80% relief of his symptomology for several days. Patient and I discussed potential neurotomy. He is interested in pursuing this. He is not on any anticoagulation therapy. He rates his pain today a 7 out of 10. Patient has positive facet loading lumbar spine. Pain is very focal in nature with no radiation. ROS General: no recent weight change, no fever, no sleep disturbances Respiratory: no cough, no shortness of air, no recurring pulmonary infections Cardiovascular/Peripheral Vascular: No chest pain, No palpitations, no edema, no shortness of breath. Gastrointestinal: no new onset incontinence, normal bowel movements reported Genitourinary: no new onset incontinence Musculoskeletal: Back pain Psychiatric: normal mood/ affect Neurological: [denies new onset weakness in extremities], [denies new onset balance issues] Objective:: Physical Exam General: Alert and oriented x3, no acute distress, pleasant and cooperative, [on room air] Lungs: Resps E/U, Symmetrical chest expansion, Eyes: PERRL Musculoskeletal: Flexion and extension of lumbar spine somewhat guarded secondary to pain, deep tendon reflexes normal, strength in upper and lower extremities [5/5], [abnormal gait noted] Neurological: speech clear, consultative sales associate equal, no gross sensory deficits Assessment:: Degenerative disc disease lumbar spine lumbar spondylosis and lumbar facet arthropathy. Plan:: Patient is a potential candidate for radiofrequency ablation/neurotomy. We will repeat her his medial branch block/facet joint injection at L4-L5 L5-S1 bilaterally. I will follow-up with him after this reassess his symptoms at that time he has been instructed to call the office if he has any issues prior to his next appointment. Dr. Mosqueda has reviewed this note and agrees with this plan of care. This note was dictated using voice recognition software and may contain errors or omissions [facility] History I have reviewed the patient's past medical history: Yes Medical History: Reports:: Depression, Gastroesophageal Reflux Disease(GERD), Hypertension Denies:: Cancer, Chronic Obstructive Pulmonary Disease (COPD), Diabetes Mellitus Type 1, Diabetes Mellitus Type 2, Internal Pacemaker, Lung Disease, MRSA, Seizures *Have you ever received a pneumonia vaccine?: No *Have you received a flu vaccine this season?: Yes Other Medical History: Reports: Arthritis. Denies: Blood Transfusion Reaction, Other Laterality Cases: Left: Arthroscopy Knee, Right: Arthroscopy Shoulder, Other Other Surgeries: Yes: No Previous Surgery, Cholecystectomy, Other (gangional cyst removal). No: Pacemaker Amputation: No Fractures: No - *Social History Smoking Status: Current every day smoker Tobacco Type: cigarettes # Packs/Day (cigarettes): 2 Alcohol Intake: never Alcohol Intake Frequency:: holidays/special occasions only Substance Use Type: denies use *Occupational Status:: other Housing: house Household Members: other *Travel in the last 8 weeks: None - Psychiatric History Pschychiatric History:: Reports:: Depression Family Hx:: Other
== END ==
PROVIDERS: PCP Internal Medicine Adolescent Medicine; Visit Provider Clinical Nurse Specialist Family Health
DX: M51.36 Other intervertebral disc degeneration, lumbar region (principal); M47.816 Spondylosis without myelopathy or radiculopathy, lumbar region; M12.88 Other specific arthropathies, not elsewhere classified, other specified site
CPT/HCPCS: 99212

== ENCOUNTER 2020-09-08 09:16 | Day surgery (SDC) | payer BC, SELFPAY ==
[2020-09-08 09:29] VITALS: BP 120/76; PULSE 61; RESP 18; TEMP 36.7; O2SAT 61; BMI 34.9
[2020-09-08 10:36] VITALS: BP 142/78; PULSE 85; RESP 18; O2SAT 98
[2020-09-08 10:38] VITALS: BP 133/74; PULSE 74; RESP 18; O2SAT 98
--- NOTE | 2020-09-08 10:44 | P.PCN_ITS ---
- Procedure Date: 09/08/20 Time: 10:44 Anesthesiologist:: Phani Mosqueda MD Complications:: None Pre-procedure Diagnosis:: Degenerative disc disease of lumbar spine with lumbar spondylosis and lumbar facet arthropathy Post-procedure Diagnosis:: Same Indications for Procedure:: Patient is a pleasant 50-year-old white male who we are treating for low back pain with lumbar spondylosis and lumbar facet arthropathy. Patient did very well after lumbar medial branch blocks of L4-5 and L5-S1 for several days he was 80 to 90% better. We will do repeat medial branch blocks today to L4-5 and L5- S1 bilaterally to see if this will be successful in anticipation of radiofrequency ablation of the facet joints of L4-5 and L5-S1. Procedure Details:: Lumbar medial branch block Informed consent was obtained and the risks and benefits of the procedure was explained to the patient. The back was prepped using ChloraPrep. The skin and subcutaneous tissues were anesthetized using lidocaine. I placed 22-gauge spinal needles into the facet joint/medial branches of L4-L5 and L5-S1 bilaterally. Needle placement was confirmed with dye. After this we injected 5 mL bupivacaine 0.25% and Depo-Medrol 20 mg into each facet joint/medial branch of L4-L5 and L5-S1 bilaterally. We used a total of 80 mg Depo-Medrol for both levels bilaterally. The patient tolerated the procedure well with no complications. Plan and Disposition:: We will follow-up with him and 2 weeks. Will reevaluate symptoms at that time. Again if these blocks are successful we will plan on radiofrequency ablation to the same levels.
[2020-09-08 10:55] VITALS: BP 114/74; PULSE 61; RESP 18; O2SAT 98
== END 2020-09-08 10:55 | disposition home or self-care (01) ==
LOC: SC.PAINP 09:18
PROVIDERS: PCP Internal Medicine Adolescent Medicine; Visit Provider Anesthesiology
DX: M51.36 Other intervertebral disc degeneration, lumbar region (principal); M47.816 Spondylosis without myelopathy or radiculopathy, lumbar region; M54.06 Panniculitis affecting regions of neck and back, lumbar region; I10 Essential (primary) hypertension; F41.9 Anxiety disorder, unspecified; F32.9 Major depressive disorder, single episode, unspecified; Z87.39 Personal history of other diseases of the musculoskeletal system and connective tissue; Z72.0 Tobacco use
CPT/HCPCS: 64493; 64494; J1030; Q9966

== ENCOUNTER → 2020-10-02 09:45 | Outpatient (POV) | payer BC, SELFPAY ==
[2020-10-02 10:22] VITALS: BP 125/88; PULSE 74; RESP 18; TEMP 36.8; O2SAT 98; BMI 34.9
--- NOTE | 2020-10-02 11:09 | P.CONS_ITS ---
[facility] Pain Management SOAP Note Subjective:: She is a pleasant 50-year-old white male who we are treating for low back pain with lumbar spondylosis and lumbar facet arthropathy. Patient had 1 medial branch block where he got 80 to 90% relief after his injection however after his last injection his pain became much worse he rates his pain today 7 out of 10. Patient states that it is similar in nature however it is now producing a radicular component in his right leg. Patient and I discussed getting updated imaging he has not had any diagnostic imaging for quite some time. ROS General: no recent weight change, no fever, no sleep disturbances Respiratory: no cough, no shortness of air, no recurring pulmonary infections Cardiovascular/Peripheral Vascular: No chest pain, No palpitations, no edema, no shortness of breath. Gastrointestinal: no new onset incontinence, normal bowel movements reported Genitourinary: no new onset incontinence Musculoskeletal: Back pain, leg pain Psychiatric: normal mood/ affect Neurological: [denies new onset weakness in extremities], [denies new onset balance issues] Objective:: Physical Exam General: Alert and oriented x3, no acute distress, pleasant and cooperative, [on room air] Lungs: Resps E/U, Symmetrical chest expansion, Eyes: PERRL Musculoskeletal: Flexion and extension of lumbar spine somewhat guarded secondary to pain, deep tendon reflexes normal, strength in upper and lower extremities [5/5], [abnormal gait noted] Neurological: speech clear, skin care instructor equal, no gross sensory deficits Assessment:: Degenerative disc disease lumbar spine lumbar spondylosis and lumbar facet arthropathy Plan:: We will get some updated imaging. He may need a surgical consultation. We will give him prednisone 20 mg 1 p.o. twice daily for 5 days. I will follow-up with him after his MRI reassess his symptoms at that time he has been instructed to call the office if he has any issues prior to his next appointment. Dr. Mosqueda has reviewed this note and agrees with this plan of care. This note was dictated using voice recognition software and may contain errors or omissions [facility] History I have reviewed the patient's past medical history: Yes Medical History: Reports:: Depression, Gastroesophageal Reflux Disease(GERD), Hypertension Denies:: Cancer, Chronic Obstructive Pulmonary Disease (COPD), Diabetes Mellitus Type 1, Diabetes Mellitus Type 2, Internal Pacemaker, Lung Disease, MRSA, Seizures *Have you ever received a pneumonia vaccine?: Yes *Have you received a flu vaccine this season?: Yes Other Medical History: Reports: Arthritis. Denies: Blood Transfusion Reaction, Other Laterality Cases: Left: Arthroscopy Knee, Right: Arthroscopy Shoulder, Other Other Surgeries: Yes: No Previous Surgery, Cholecystectomy, Other (gangional cyst removal). No: Pacemaker Amputation: No Fractures: No - *Social History Smoking Status: Current every day smoker Tobacco Type: cigarettes # Packs/Day (cigarettes): 1 Alcohol Intake: never Alcohol Intake Frequency:: holidays/special occasions only Substance Use Type: denies use *Occupational Status:: other Housing: house Household Members: other *Travel in the last 8 weeks: None - Psychiatric History Pschychiatric History:: Reports:: Depression Family Hx:: Other
== END ==
PROVIDERS: PCP Internal Medicine Adolescent Medicine; Visit Provider Clinical Nurse Specialist Family Health
DX: M51.36 Other intervertebral disc degeneration, lumbar region (principal); M47.816 Spondylosis without myelopathy or radiculopathy, lumbar region; M54.06 Panniculitis affecting regions of neck and back, lumbar region
CPT/HCPCS: 99212; G0463

== ENCOUNTER → 2020-10-12 16:29 | Outpatient (CLI) | payer BC, SELFPAY ==
--- NOTE | 2020-10-12 16:32 | MR_ITS ---
PROCEDURE: MR LUMBAR SPINE WO CON CLINICAL INDICATION: BACK PAIN lbp worse on r side, rt leg pain x6-7months. no trauma. prior ct 04-10-20 COMPARISON: CT CT LUMBAR SPINE WO CON from 04/10/2020 TECHNIQUE: Standard multiplanar multiecho sequences are performed without contrast. 3-D MIP and myelographic images are also rendered and reviewed FINDINGS: There is normal alignment. The spinal cord ends at the L1-L2 level. L1-L2: Degenerative disc disease. L2-L3: Degenerative disc disease with bulging disc which is eccentric toward the right with facet and ligamentum hypertrophy. There is moderate right lateral recess narrowing and mild to moderate right-sided foraminal narrowing. There is some impingement upon the traversing L3 nerve root by the asymmetric bulging disc. There is mild left lateral recess narrowing as well. L3-L4: Degenerative disc disease with mild bulging disc with facet and ligamentum hypertrophy with mild bilateral foraminal narrowing. L4-5: Degenerative disc disease with bulging disc. There is a small small central disc protrusion versus prominent posterior longitudinal ligament. Facet and ligamentum hypertrophy is present with bilateral foraminal narrowing. A sclerotic focus involves the L5 vertebral body on the right and in the left paracentral region unchanged. L5-S1: Degenerative disc disease with bulging disc with a broad-based central and right paracentral disc protrusion impinging upon the right S1 nerve root with right lateral recess narrowing and severe right-sided foraminal narrowing. There is mild left lateral recess narrowing and moderate to severe left-sided foraminal narrowing. IMPRESSION: Abnormal MRI of the lumbar spine. Multilevel lumbar spondylosis with degenerative disc disease, disc protrusions, bulging discs, facet and ligamentum hypertrophy resulting in lateral recess and foraminal narrowing with some neural impingement. Please see above for detailed description at each level. Dictated by: Obed Dhillon MD 10/13/2020 12:21 Obed Dhillon MD in [place] 10/13/2020 12:21
== END ==
PROVIDERS: PCP Internal Medicine Adolescent Medicine; Visit Provider Clinical Nurse Specialist Family Health
DX: M54.5 Low back pain (principal)
CPT/HCPCS: 72148; 76376

== ENCOUNTER → 2020-10-19 11:26 | Outpatient (POV) | payer BC, SELFPAY ==
[2020-10-19 11:58] VITALS: BP 133/79; PULSE 74; RESP 18; TEMP 36.8; O2SAT 98; BMI 33.5
--- NOTE | 2020-10-19 12:59 | HMH.PAINSOAP ---
[facility] Pain Management SOAP Note Subjective:: Patient is a pleasant 50-year-old white male who presents today for follow-up after MRI. Patient has quite a bit of pathology including a nerve impingement. Patient rates his pain today a 7 out of 10 mostly in his low back and down his legs patient and I discussed a neurosurgical consultation he is agreeable. He is tried and failed injections, medications, anti-inflammatories. We will set him up for a surgical consultation. ROS General: no recent weight change, no fever, no sleep disturbances Respiratory: no cough, no shortness of air, no recurring pulmonary infections Cardiovascular/Peripheral Vascular: No chest pain, No palpitations, no edema, no shortness of breath. Gastrointestinal: no new onset incontinence, normal bowel movements reported Genitourinary: no new onset incontinence Musculoskeletal: Back pain, leg pain Psychiatric: normal mood/ affect Neurological: [denies new onset weakness in extremities], [denies new onset balance issues] Objective:: Physical Exam General: Alert and oriented x3, no acute distress, pleasant and cooperative, [on room air] Lungs: Resps E/U, Symmetrical chest expansion, Eyes: PERRL Musculoskeletal: Flexion and extension of lumbar spine somewhat guarded secondary to pain, deep tendon reflexes normal, strength in upper and lower extremities [5/5], [abnormal gait noted] Neurological: speech clear, director of software engineering equal, no gross sensory deficits Assessment:: Degenerative disc disease lumbar spine lumbar radiculopathy Plan:: We will send the patient to a neurosurgeon for consultation. Patient's been instructed to call the office if he has any issues prior to his next appointment. I will follow-up with him after his consultation reassess him at that time. Dr. Mosqueda has reviewed this note and agrees with this plan of care. This note was dictated using voice recognition software and may contain errors or omissions [facility] History I have reviewed the patient's past medical history: Yes Medical History: Reports:: Depression, Gastroesophageal Reflux Disease(GERD), Hypertension Denies:: Cancer, Chronic Obstructive Pulmonary Disease (COPD), Diabetes Mellitus Type 1, Diabetes Mellitus Type 2, Internal Pacemaker, Lung Disease, MRSA, Seizures *Have you ever received a pneumonia vaccine?: Yes *Have you received a flu vaccine this season?: Yes Other Medical History: Reports: Arthritis. Denies: Blood Transfusion Reaction, Other Laterality Cases: Left: Arthroscopy Knee, Right: Arthroscopy Shoulder, Other Other Surgeries: Yes: No Previous Surgery, Cholecystectomy, Other (gangional cyst removal). No: Pacemaker Amputation: No Fractures: No - *Social History Smoking Status: Current every day smoker Tobacco Type: cigarettes # Packs/Day (cigarettes): 1 Alcohol Intake: never Alcohol Intake Frequency:: holidays/special occasions only Substance Use Type: denies use *Occupational Status:: other Housing: house Household Members: other *Travel in the last 8 weeks: None - Psychiatric History Pschychiatric History:: Reports:: Depression Family Hx:: Other
== END ==
PROVIDERS: PCP Internal Medicine Adolescent Medicine; Visit Provider Clinical Nurse Specialist Family Health
DX: M51.16 Intervertebral disc disorders with radiculopathy, lumbar region (principal)
CPT/HCPCS: 99212; G0463

== ENCOUNTER → 2020-10-28 10:58 | Outpatient (CLI) | payer BC, SELFPAY ==
[2020-10-28 12:25] LABS: Coronavirus 19 IgG Antibody Negative (Negative); Coronavirus 19 IgM Antibody Negative (Negative)
== END ==
PROVIDERS: Visit Provider Internal Medicine Gastroenterology
DX: Z20.822 Contact with and (suspected) exposure to COVID-19 (principal)
CPT/HCPCS: 36415; 86328

== ENCOUNTER → 2020-11-03 14:41 | Outpatient (CLI) | payer BC, SELFPAY | PROVIDERS: PCP Internal Medicine Adolescent Medicine; Visit Provider Neurological Surgery | DX: Z20.822 Contact with and (suspected) exposure to COVID-19 (principal) | CPT/HCPCS: U0003 ==

== ENCOUNTER → 2020-11-29 14:46 | Outpatient (CLI) | payer BC, SELFPAY ==
[2020-11-29 18:20] LABS: Coronavirus 19 IgG Antibody Negative (Negative); Coronavirus 19 IgM Antibody Negative (Negative)
== END ==
PROVIDERS: Visit Provider Internal Medicine Gastroenterology
DX: Z01.818 Encounter for other preprocedural examination (principal); Z20.822 Contact with and (suspected) exposure to COVID-19; Z12.11 Encounter for screening for malignant neoplasm of colon
CPT/HCPCS: 36415; 86328

== ENCOUNTER 2020-12-01 11:16 | Day surgery (SDC) | payer BC, SELFPAY ==
[2020-10-24 14:19] VITALS: BMI 33.4
[2020-11-23 12:10] VITALS: BMI 33.4
[2020-12-01 11:37] VITALS: BP 130/81; PULSE 88; RESP 20; TEMP 36.6; O2SAT 96
[2020-12-01 12:39] VITALS: O2SAT 97
--- NOTE | 2020-12-01 12:42 | P.PN_ITS ---
[facility] Anesthesia Checklist - Patient Identification Patient Identification: Verbal (Name & ) - Structural Data Admitted From: Home Planned Operative Procedure/s: colonoscopy Consent for Planned Operative Procedure(s) Verified: Yes Verified Documents: Surgical Consent, History and Physical - NPO Status Verified Time NPO: 00:00 - Additional verifications Anesthesia Reactions: No Hx Blood Transfusions: No Blood Transfusion Reaction: No - Cardiovascular Assessment Heart Sounds: S1 & S2 Pulse Rhythm: Regular - Airway Assessment C-Spine Mobility Assessed: Yes TMJ Mobility Assessed: Yes - Neurological Assessment Level of Consciousness: Awake - Anesthesia Plan Anesthesia Risk discussed: Yes ASA Class: II Anesthesia Type: MAC [facility] History I have reviewed the patient's past medical history: Yes Medical History: Reports:: Depression, Gastroesophageal Reflux Disease(GERD), Hypertension Denies:: Cancer, Chronic Obstructive Pulmonary Disease (COPD), Diabetes Mellitus Type 1, Diabetes Mellitus Type 2, Internal Pacemaker, Lung Disease, MRSA, Seizures *Have you ever received a pneumonia vaccine?: No *Have you received a flu vaccine this season?: Yes Other Medical History: Reports: Arthritis. Denies: Blood Transfusion Reaction, Other Anesthesia experience/problems:: none Laterality Cases: Left: Arthroscopy Knee, Right: Arthroscopy Shoulder, Other Other Surgeries: Yes: No Previous Surgery, Cholecystectomy, Other (gangional cyst removal). No: Pacemaker Amputation: No Fractures: No - *Social History Smoking Status: Current every day smoker Tobacco Type: cigarettes # Packs/Day (cigarettes): 1 Alcohol Intake: never Alcohol Intake Frequency:: holidays/special occasions only Substance Use Type: denies use *Occupational Status:: employed Housing: house Household Members: other *Travel in the last 8 weeks: None - Psychiatric History Pschychiatric History:: Reports:: Depression Family Hx:: No significant family history
--- NOTE | 2020-12-01 13:00 | HMH.PROC ---
[facility] Procedure Note Procedure Note:: Colonoscopy Procedure Report: Colonoscopy with cold snare polypectomy and cold biopsies Endoscopist: Declan Rios II, MD Referring physician: Aneesh Hernandez M.D. Date of Procedure: December 01, 2020 Equipment: Olympus 180 variable stiffness pediatric colonoscope Sedation: MAC sedation Indication: Mr. Tomas is a 50-year-old gentleman with a change in bowel habits. He does state that this occurred after his back surgery on November 07, 2020. He did have lumbosacral disc repair (L5/S1/S2). The patient has had more diarrhea with urgency and at least 2-3 episodes of fecal incontinence. He has had some gassiness. The patient also reports some urinary frequency. The patient did have a colonoscopy with me in September 2018 and had 6 polyps (tubular adenomas x5/hyperplastic polyp x1) removed. Procedure: Prior to the procedure, a history and physical exam was performed, and patient's medications and allergies were reviewed. The risks, benefits and alternatives of the sedation and procedure were discussed with the patient. All questions were answered and informed consent was obtained. The patient was brought to the procedure room. Patient identification and proposed procedure were verified by the physician and the nurse. The patient was placed in a left lateral decubitus position and the scope was passed under direct vision. Throughout the procedure, the patient's blood pressure, pulse, and oxygen saturations were monitored continuously. The colonoscopy was accomplished without difficulty. The patient tolerated the procedure well. Findings: On digital rectal examination there was normal rectal tone. There were no external hemorrhoids. The prostate was 2-3+, moderately firm but symmetric without nodules. The colonoscope was introduced through the anal canal to the rectum and advanced to the cecum. The ileocecal valve and appendiceal orifice were identified. The scope was advanced a short distance into the ileum which appeared grossly normal. The scope was then withdrawn into the colon. Random cold biopsies were taken from the right colon to rule out microscopic colitis. There were a total of 4 polyps (ascending x1 (3 mm), descending x1 (4 mm), rectum x2 (4 and 5 mm)) which were all removed via cold snare polypectomy. The remaining cecum, ascending, transverse, descending, sigmoid and rectum were grossly normal. There were no mucosal abnormalities identified. Upon retroflexion within the rectum there were grade 2 internal hemorrhoids.The preparation was fair to good throughout with Qulin Preparation Score of 7 out of 9. The cecal time was 12 minutes. Impression: 1. Diminutive colonic polyps x4 2. Grade 2 internal hemorrhoids Plan: The patient did have a change in bowel habits associated with lumbosacral surgery. I do feel that he has some sacral nerve impairment. These nerves do innervate the rectum and bladder and allow them to sense fullness as well as to allow complete stool and urine evacuation. When there is impairment, there can be bowel and bladder urgency with frequency and incomplete evacuation. I do suspect this may be the etiology. I will discussed the findings with the patient and family and follow-up the biopsies. I would recommend repeat surveillance colonoscopy again in 5 years.
[2020-12-01 13:02] VITALS: BP 140/94; PULSE 82; RESP 18; TEMP 36.7; O2SAT 92
[2020-12-01 13:22] VITALS: BP 116/65; PULSE 74; RESP 18; O2SAT 93
[2020-12-01 13:48] VITALS: BP 141/90; PULSE 80; RESP 18; O2SAT 94
[2020-12-01 13:50] VITALS: BP 128/91; PULSE 66; RESP 18; O2SAT 96
== END 2020-12-01 13:51 | disposition home or self-care (01) ==
LOC: OUTP 11:17
PROVIDERS: PCP Internal Medicine Adolescent Medicine; Visit Provider Internal Medicine Gastroenterology
PROC: 0DJD8ZZ Inspection of Lower Intestinal Tract, Via Natural or Artificial Opening Endoscopic (ICD-10-PCS; CPT 45378; principal; 2020-12-01 12:30)
DX: K63.5 Polyp of colon (principal); K64.1 Second degree hemorrhoids; Z86.010 Personal history of colon polyps; I10 Essential (primary) hypertension; K21.9 Gastro-esophageal reflux disease without esophagitis; F32.9 Major depressive disorder, single episode, unspecified; Z72.0 Tobacco use
CPT/HCPCS: 45385; 45380

== ENCOUNTER → 2021-02-07 15:58 | Outpatient (CLI) | payer BC, SELFPAY | PROVIDERS: PCP Internal Medicine Adolescent Medicine; Visit Provider Internal Medicine Adolescent Medicine | DX: G47.33 Obstructive sleep apnea (adult) (pediatric) (principal); R06.83 Snoring | CPT/HCPCS: G0399 ==

== ENCOUNTER 2021-02-20 16:38 | Emergency (ER) | payer BC, SELFPAY ==
[2021-02-20 16:48] VITALS: BP 110/70; PULSE 88; RESP 18; O2SAT 97
[2021-02-20 16:49] VITALS: BP 110/70; PULSE 87; RESP 16; O2SAT 97; BMI 35.2
--- NOTE | 2021-02-20 17:25 | CT_ITS ---
PROCEDURE INFORMATION: Exam: CT Thoracic Spine With Contrast Exam date and time: 02/20/2021 5:25 PM Age: 50 years old Clinical indication: Pain in thoracic spine; Patient HX: Low back pain TECHNIQUE: Imaging protocol: Computed tomography images of the thoracic spine with intravenous contrast. Radiation optimization: All CT scans at this facility use at least one of these dose optimization techniques: automated exposure control; mA and/or kV adjustment per patient size (includes targeted exams where dose is matched to clinical indication); or iterative reconstruction. Contrast material: ISOVUE; Contrast volume: 50 ml; Contrast route: IV; COMPARISON: No relevant prior studies available. FINDINGS: Vertebrae: No acute appearing fracture or significant listhesis. There is a chronic appearing avulsion fracture deformity of tip of the right L1 transverse process, coronal images 50 1-53, which appears well corticated. Minimal anterior wedge deformities at T5 through T9 levels appear chronic.There are no lytic skeletal lesions seen. Mild thoracolumbar scoliosis, with lower thoracic convexity toward the left and lumbar convexity toward the right. Discs/Spinal canal/Neural foramina: At T3-T4 through T12-L1 there is degenerative disc narrowing with spondylosis. This appears greatest at T4-T5 through T9-T10 with vacuum phenomenon in the discs. Shallow posterior disc bulges or protrusions, minimally indenting the thecal sac. Central spinal canal is slightly narrowed toward the right at the T5-T6 level due to disc-osteophyte complex indenting the thecal sac, series 4, image 26 and series 602, image 37, but there is no high-grade stenosis. The T3 foramina appear moderately stenosed bilaterally on sagittal images, but adequate for exiting nerve roots. Mild multilevel costovertebral arthritis. Multilevel mild facet arthropathy. Posterior hypertrophy greatest toward the right at T10-T11 mildly narrowing the central spinal canal and the right T10 foramen, sagittal series 602, images 36-37. Soft tissues: Unremarkable. Vasculature: There is no aortic aneurysm. Lungs: A 5 mm noncalcified solid posterior right apical pulmonary nodule series 4, image 14, sagittal image 26, coronal image 43. Dependent atelectasis in the visualized lungs. No focal consolidation. Kidneys and ureters: Simple appearing 1.7 cm anterior left renal cortical cystic lesion, HU density 3, suggesting benign Bosniak 1 lesion with no follow-up indicated. Series 4, image 64. IMPRESSION: 1. No acute appearing fracture or high-grade listhesis. No lytic lesions. 2. Mild thoracolumbar scoliosis with mild facet arthropathy. 3. An old avulsion injury of the tip of the right L1 transverse process, which appears well corticated. 4. Mild chronic wedge deformities in the midthoracic spine with kyphosis. 5. Multilevel degenerative disc disease and spondylosis. Mild central spinal canal narrowing T5-T6 and T10-T11 levels. No high-grade spinal stenosis. 6. Degenerative narrowing of both T5 foramina and right T10 foramen, no high-grade foraminal stenosis. 7. A 5 mm right apical pulmonary nodule.For patients at low risk (minimal or absent history of smoking and of other known risk factors), no routine follow-up is indicated. For patients at high risk (history of smoking or of other known risk factors), consider optional CT Chest at 12 months. (Reference: Ramy) 8. Additional nonemergency and chronic findings as above. REFERENCES: Ramy Lutz, et al. Guidelines for Management of Incidental Pulmonary Nodules Detected on CT Images: From the Fleischner Society 2017. Radiology. 2017;284(1):228-243.
--- NOTE | 2021-02-20 17:25 | CT_ITS ---
PROCEDURE INFORMATION: Exam: CT Lumbar Spine With Contrast Exam date and time: 02/20/2021 5:25 PM Age: 50 years old Clinical indication: Low back pain TECHNIQUE: Imaging protocol: Computed tomography images of the lumbar spine with intravenous contrast. Radiation optimization: All CT scans at this facility use at least one of these dose optimization techniques: automated exposure control; mA and/or kV adjustment per patient size (includes targeted exams where dose is matched to clinical indication); or iterative reconstruction. Contrast material: ISOVUE; Contrast volume: 50 ml; Contrast route: IV; COMPARISON: CT LUMBAR SPINE WO CON 04/10/2020 5:43 PM FINDINGS: Vertebrae: Chronic sclerotic lesions in the L5 vertebral body are unchanged over the prior 2 serial exams, most likely benign bone islands, less likely blastic metastases. Chronic mild lumbar dextroscoliosis. No acute fracture or significant listhesis. There are no lytic skeletal lesions seen. L1-L2: Posterior disc narrowing. Mild spondylosis. Mild facet arthropathy. No significant spinal stenosis. Mild L1 foraminal narrowing. L2-L3: Moderately diffusely narrowed disc space. Anterior spondylosis. Broad posterolateral disc bulging. Minimal facet arthropathy. Mild central spinal canal narrowing. L2 foraminal stenoses moderate on the left and mild on the right. L3-L4: Posterior disc space narrowing. Broad posterolateral disc bulging indenting the thecal sac and narrowing the neural foramina. Mild facet hypertrophy. Minimal central spinal canal narrowing. Mild to moderate L3 foraminal stenoses. L4-L5: Disc is mildly narrowed with broad posterolateral disc bulging, and prominent anterior spondylosis. Bilateral facet arthropathy with vacuum phenomenon in the joints. Central spinal canal is mildly narrowed. Both L4 neural foramina appear moderately narrowed. L5-S1: Posterior disc narrowing, broad posterolateral disc bulging. Bilateral facet arthropathy greater on the right. Central spinal canal remains ample. The neural foramina are stenosed, right moderately severe and left moderate, snug for exiting L5 nerve roots. Sacrum/coccyx: There is a transitional S1 segment with sacralization on the left and partial lumbarization on the right, and a hypoplastic fixed S1-S2 disc. Normal count of 5 lumbar type vertebrae is assumed. Bilateral sacroiliitis with partial ankylosis of both joints. Kidneys and ureters: Simple appearing anterior left renal cortical cyst, no follow-up indicated. Vasculature: Minimal atherosclerotic plaques in the aorta.There is no aortic aneurysm. Soft tissues: No acute findings in the paraspinous soft tissues.There are no soft tissue masses or fluid collections. IMPRESSION: 1. No acute findings compared with 11/25/2019. 2. Chronic multilevel degenerative disc disease, spondylosis, and facet arthropathy as detailed above. 3. Mild degenerative central spinal stenosis L2-L3 through L4-L5 levels. No high-grade spinal stenosis. 4. Multilevel degenerative foraminal stenoses, greatest at the L5 foramina, moderately severe on the right, correlate for radiculopathy. 5. Chronic sclerotic L5 bone lesions, no lytic tumor. 6. Transitional S1 segment, bilateral sacroiliitis, partial ankylosis of sacroiliac joints. 7. Mild chronic lumbar dextroscoliosis. 8. Additional nonemergency and chronic findings as above.
--- NOTE | 2021-02-20 17:58 | PC.NURSE ---
pt gone to CT
[2021-02-20 18:11] LABS: Chloride 104 mmol/L (98-107); Sodium 139 mmol/L (136-145)
[2021-02-20 18:14] LABS: Alanine Aminotransferase 23 U/L (12-78); Albumin Level 4.7 g/dl (3.5-5.0); Albumin/Globulin Ratio 1.9 (1.1-1.8); Alkaline Phosphatase 102 U/L (38-126); Aspartate Amino Transferase 33 U/L (17-59); Bilirubin,Total 0.4 mg/dl (0.2-1.3); Blood Urea Nitrogen 8 mg/dl (9-20); Calcium 8.9 mg/dl (8.4-10.2); Carbon Dioxide 28 mmol/L (22.0-30.0); Creatinine Clearance Estimated 163 mL/min (50-200); Estimated Glomerular Filt Rate 103 ml/min (>60); GFR (African American) 125 ML/MIN (>60); Globulin 2.5 g/dL (1.3-3.2); Glucose 102 mg/dl (74-100); Total Protein,Serum 7.2 g/dl (6.3-8.2)
[2021-02-20 18:17] LABS: Basophils # 0.1 K/mm3 (0-0.2); Basophils % 0.5 % (0.1-2.0); Eosinophils # 0.3 K/mm3 (0.0-0.4); Eosinophils % 2.4 % (0.1-12.0); Hematocrit 46.2 % (42.0-52.0); Hemoglobin 15.6 g/dL (14.1-18.0); Lymphocytes # 2.3 K/mm3 (0.7-4.5); Lymphocytes % 20.4 % (10-50); Mean Corpuscular HGB Conc 33.8 g/dL (31.8-35.4); Mean Corpuscular Hemoglobin 29.9 pg (27.0-31.2); Mean Corpuscular Volume 88.5 fl (80-94); Mean Platelet Volume 9.3 fl (7.4-10.4); Monocytes # 0.6 K/mm3 (0.1-1.0); Monocytes % 5.6 % (1.7-9.3); Neutrophils # 7.9 K/mm3 (1.8-7.8); Neutrophils % 71.2 % (37.0-80.0); Platelet Count 247 K/mm3 (142-424); Red Blood Count 5.22 M/mm3 (4.60-6.20); Red Cell Distribution Width 12.9 % (11.5-17.5); White Blood Count 11.1 K/mm3 (4.8-10.8)
--- NOTE | 2021-02-20 18:20 | HMH.EDGENADL ---
ED Disposition Clinical Impression: Low back pain Qualifiers: Chronicity: acute Back pain laterality: right Sciatica presence: without sciatica Qualified Code(s): M54.5 - Low back pain Disposition: Home, Self-Care Condition on Discharge: Good Instructions: DI for Low Back Pain Additional Instructions: Toradol and Flexeril as prescribed. Additional instructions for BACK PAIN: See your physician as soon as possible for further evaluation. Return immediately if back pain becomes intolerable, or if fever, numbness or weakness of your legs, loss of control of your bowels or bladder. A pulmonary nodule (spot on the lung) was discovered during your evaluation today. Follow-up with your primary care provider for further evaluation. Prescriptions: Ketorolac Tromethamine [Toradol 10mg tablet] 10 mg PO Q6HP PRN #10 tab PRN Reason: Moderate Pain Transmission Status: Pending to [id number] Cyclobenzaprine HCl [Flexeril 10mg tablet] 10 mg PO TIDP PRN #10 tab PRN Reason: Muscle Spasm Transmission Status: Pending to [id number] Referrals: Aneesh Hernandez MD [Primary Care Provider] - - Critical Care Critical Care Time: No Attestation: On 02/20/21, the high probability of a clinically significant, sudden or life threatening deterioration of the following system(s) required my full and direct attention, intervention and personal management. The time I documented below is in addition to time spent performing reported procedures but includes the following listed in this critical care notation. Medical Decision Making - Adalid Inquiry Pt receiving controlled substance: No Adalid was queried for this patient: Yes Vital Signs: 02/20/21 16:48 02/20/21 16:49 Pulse Rate 88 Pulse Rate [Left] 87 Respiratory Rate 18 16 Blood Pressure 110/70 Blood Pressure [Right Arm] 110/70 Blood Pressure Mean 83 Blood Pressure Mean [Right Arm] 83 Blood Pressure Source [Right Arm] Automatic Cuff Blood Pressure Position [Right Arm] Sitting 02 Sat by Pulse Oximetry 97 97 Oxygen Delivery Method Room Air - Lab Data Lab Results 02/20/21 17:39: WBC 11.1 H, RBC 5.22, Hgb 15.6, Hct 46.2, MCV 88.5, MCH 29.9, MCHC 33.8, RDW 12.9, Plt Count 247, MPV 9.3, Neut % (Auto) 71.2, Lymph % (Auto) 20.4, [place] % (Auto) 5.6, Eos % (Auto) 2.4, Baso % (Auto) 0.5, Neut # (Auto) 7.9 H, Lymph # (Auto) 2.3, [place] # (Auto) 0.6, Eos # (Auto) 0.3, Baso # (Auto) 0.1 02/20/21 17:39: Sodium 139, Potassium 4.0, Chloride 104, Carbon Dioxide 28, Anion Gap 11.0, BUN 8 L, Creatinine 0.80, Estimated Creat Clear 163, Estimated GFR 103, Est GFR ( Amer) 125, Glucose 102 H, Calcium 8.9, Total Bilirubin 0.4, AST 33, ALT 23, Alkaline Phosphatase 102, Total Protein 7.2, Albumin 4.7, Globulin 2.5, Albumin/Globulin Ratio 1.9 H 02/20/21 17:39: ESR 7 02/20/21 17:39: C-Reactive Protein 3.7 Result diagrams: 02/20/21 17:39 02/20/21 17:39 Orders (Tests/Meds): ED MEDICATIONS Discontinued Medications Generic Name Dose Route Start Last Admin Trade Name Freq PRN Reason Stop Dose Admin Iopamidol 100 ml 02/20/21 18:22 02/20/21 18:23 Iopamidol-370 (76%);100ml Bottle IV 02/20/21 18:23 100 ml ONCE ONE Administration Sodium Chloride 10 ml 02/20/21 18:22 02/20/21 18:23 Sodium Chloride 0.9% 10ml Syr (Rad Only) IV 02/20/21 18:23 10 ml ONCE ONE Administration - CT Data CT Scan: T-Spine, L-Spine Time Received: 19:[address] Reviewed: Yes: I have viewed the radiologist's interpretation Findings Narrative: PROCEDURE INFORMATION: Exam: CT Thoracic Spine With Contrast Exam date and time: 02/20/2021 5:25 PM Age: 50 years old Clinical indication: Pain in thoracic spine; Patient HX: Low back pain TECHNIQUE: Imaging protocol: Computed tomography images of the thoracic spine with intravenous contrast. Radiation optimization: All CT scans at this facility use at least one of these dose optimization rony
[2021-02-20 18:37] LABS: C-Reactive Protein 3.7 mg/L (0-4)
[2021-02-20 19:20] LABS: Erythrocyte Sedimentation Rate 7 mm/hr (0-15)
[2021-02-20 19:58] VITALS: BP 123/75; PULSE 71; RESP 18; TEMP 36.8; O2SAT 98
== END 2021-02-20 20:08 | disposition home or self-care (01) ==
PROVIDERS: Emergency Provider Emergency Medicine; PCP Internal Medicine Adolescent Medicine
DX: M54.5 Low back pain (principal); X50.0XXA Overexertion from strenuous movement or load, initial encounter; Y92.89 Other specified places as the place of occurrence of the external cause; F17.210 Nicotine dependence, cigarettes, uncomplicated; F33.1 Major depressive disorder, recurrent, moderate; I10 Essential (primary) hypertension; K21.9 Gastro-esophageal reflux disease without esophagitis
CPT/HCPCS: 72129; 72132; 80053; 85025; 85651; 86140; 96375; 99282; Q9967

== ENCOUNTER → 2021-04-14 07:15 | Outpatient (CLI) | payer BC, SELFPAY ==
[2021-04-14 09:05] LABS: Alanine Aminotransferase 21 U/L (12-78); Albumin Level 4.3 g/dl (3.5-5.0); Alkaline Phosphatase 107 U/L (38-126); Anion Gap 12.5 mEq/L (5-15); Aspartate Amino Transferase 27 U/L (17-59); Bilirubin,Total 0.6 mg/dl (0.2-1.3); Blood Urea Nitrogen 9 mg/dl (9-20); Calcium 8.7 mg/dl (8.4-10.2); Carbon Dioxide 29 mmol/L (22.0-30.0); Chloride 103 mmol/L (98-107); Chol/HDL Ratio 4.6 (1-3.5); Cholesterol 158 mg/dl (140-200); Estimated Glomerular Filt Rate 103 ml/min (>60); GFR (African American) 125 ML/MIN (>60); Globulin 2.2 g/dL (1.3-3.2); Glucose 117 mg/dl (74-100); HDL Cholesterol 34 mg/dl (40-60); Potassium 4.5 mmoL/L (3.5-5.1); Sodium 140 mmol/L (136-145); Total Protein,Serum 6.5 g/dl (6.3-8.2); Triglycerides 123 mg/dl (30-150); VLDL Cholesterol 25 mg/dL (0-40)
[2021-04-14 09:15] LABS: Direct LDL Cholesterol 105.68 mg/dL (100-129)
[2021-04-14 09:19] LABS: Hemoglobin A1C 5.8 % (4.0-6.0)
== END ==
PROVIDERS: Visit Provider Nurse Practitioner Family
DX: Z00.00 Encounter for general adult medical examination without abnormal findings (principal); I10 Essential (primary) hypertension; E66.9 Obesity, unspecified; Z68.30 Body mass index [BMI] 30.0-30.9, adult
CPT/HCPCS: 36415; 80053; 80061; 83036

== ENCOUNTER 2021-05-03 09:08 | Emergency (ER) | payer BC, SELFPAY ==
[2021-05-03 09:10] VITALS: BP 146/82; PULSE 90; RESP 18; TEMP 37.1; O2SAT 96; BMI 34.4
--- NOTE | 2021-05-03 09:38 | HMH.EDUTC ---
[facility] [place] Disposition Clinical Impression: Exposure to COVID-19 virus Disposition: Home, Self-Care Condition on Discharge: Good Instructions: DI for COVID-19 (Suspected or Confirmed ), Preventing the Spread of Coronavirus Discharge Instructions Additional Instructions: Drink plenty of fluids. Take tylenol for pain or fever. Return if you begin to have difficulty breathing. Follow up with your regular doctor. GO TO THE ER FOR ANY WORSENING SYMPTOMS Referrals: Aneesh Hernandez MD [Primary Care Provider] - Time of Disposition: 09:40 Medical Decision Making - Medical Records Medical records reviewed: No: I reviewed the patient's medical records. - Adalid Inquiry Pt receiving controlled substance: No Vital Signs: 05/03/21 09:10 05/03/21 09:42 Temperature 98.8 F 98.8 F Temperature Source Oral Pulse Rate 90 Pulse Rate [Right Brachial] 90 Respiratory Rate 18 18 Blood Pressure 146/82 H Blood Pressure [Right Arm] 146/82 H Blood Pressure Mean [Right Arm] 103 Blood Pressure Source [Right Arm] Automatic Cuff Blood Pressure Position [Right Arm] Sitting 02 Sat by Pulse Oximetry 96 Oxygen Delivery Method Room Air [facility] [place] HPI - General Stated complaint: exposed to covid covid test Time Seen by Provider: 05/03/21 09:38 Mode of Arrival: Ambulatory Source of Information: Patient Limitations: No Limitations Description of Symptoms (Recalled from Triage Doc. by RN): COVID TEST D/T EXPOSURE. DENIES SYMPTOMS HEENT Symptoms (Recalled from RN notes): No Resp Symptoms (Recalled from RN notes): No Skin Symptoms (Recalled from RN notes): No MS Symptoms (Recalled from RN notes): No Functional Status (Recalled from RN notes): WNL - History of Present Illness Provider Complaint: He was exposed to covid-19 at his job around 3 to 4 days ago. He denies any symptoms but his work wanted him to get tested. - Related Data Home Medications Medication Instructions Recorded Confirmed Venlafaxine HCl [Effexor XR 75mg 75 mg PO DAILY 11/09/19 02/20/21 capsule] lisinopriL [Lisinopril 10mg Tab] 10 mg PO DAILY 11/09/19 02/20/21 Tizanidine HCl [Zanaflex 4mg 4 mg PO BID 10/23/20 05/25/21 tab] Previous Rx's Medication Instructions Recorded Cyclobenzaprine HCl [Flexeril 10mg 10 mg PO TIDP PRN #10 tab 02/20/21 tablet] Ketorolac Tromethamine [Toradol 10 mg PO Q6HP PRN #10 tab 02/20/21 10mg tablet] Allergies Allergy/AdvReac Type Severity Reaction Status Date / Time No Known Allergies Allergy Verified 02/20/21 17:17 - Worker's Comp Is this a Worker's Comp case?: No [facility] History - Hepatitis A Screen Drug use history?: No High risk sexual behaviors?: No History of sexually transmitted infection?: No Currently employed?: No Childcare worker?: No Do you have indoor plumbing?: Yes Do you have electricity?: Yes Attestation statement:: This patient has been screened for Hepatitis A risk factors. I have reviewed the patient's past medical history: Yes Medical History: Reports:: Depression, Gastroesophageal Reflux Disease(GERD), Hypertension Denies:: Cancer, Chronic Obstructive Pulmonary Disease (COPD), Diabetes Mellitus Type 1, Diabetes Mellitus Type 2, Internal Pacemaker, Lung Disease, MRSA, Seizures Other Medical History: Reports: Arthritis. Denies: Blood Transfusion Reaction, Other Comment: Irritable bowel syndrome Laterality Cases: Left: Arthroscopy Knee, Right: Arthroscopy Shoulder, Other Other Surgeries: Yes: No Previous Surgery, Cholecystectomy, Other (gangional cyst removal). No: Pacemaker Amputation: No Fractures: No Comment: Right Foot 2018 - Social History Smoking Status: Current every day smoker Tobacco Type: cigarettes # Packs/Day (cigarettes): 1 Alcohol Intake: never Alcohol Intake Frequency:: holidays/special occasions only Substance Use Type: denies use Occupational Status: employed Housing: house Household Members: spouse, family - Psychiatri
[2021-05-03 09:42] VITALS: BP 146/82; PULSE 90; RESP 18; TEMP 37.1; O2SAT 96
== END 2021-05-03 09:45 | disposition home or self-care (01) ==
PROVIDERS: Emergency Provider Nurse Practitioner Family; PCP Internal Medicine Adolescent Medicine
DX: Z20.822 Contact with and (suspected) exposure to COVID-19 (principal); I10 Essential (primary) hypertension; F33.1 Major depressive disorder, recurrent, moderate; K21.9 Gastro-esophageal reflux disease without esophagitis; F17.210 Nicotine dependence, cigarettes, uncomplicated
CPT/HCPCS: 99202; G0463; U0003

== ENCOUNTER → 2021-05-30 15:27 | Outpatient (CLI) | payer BC, SELFPAY ==
--- NOTE | 2021-05-30 15:31 | XR_ITS ---
PROCEDURE: XR FOOT WT BEARING RT 3V CLINICAL INDICATION: foot pain Pain and swelling. Previous surgery COMPARISON: CR XR FOOT RT MIN 3V from 06/16/2019 CR XR FOOT WT BEARING RT 3V from 10/04/2019 FINDINGS: No fracture or dislocation. No lytic or blastic change. There is normal mineralization. The joint spaces are well-preserved. No significant degenerative/arthritic changes. No erosive changes evident. Other findings:There are small anterior osteophytes at the distal talus and dorsal aspect of the navicular IMPRESSION: No acute findings. Dictated by: Obed Dhillon MD 05/30/2021 15:55 Obed Dhillon MD in [place] 05/30/2021 15:55
== END ==
PROVIDERS: PCP Internal Medicine Adolescent Medicine; Visit Provider Podiatrist
DX: M79.673 Pain in unspecified foot (principal)
CPT/HCPCS: 73630

== ENCOUNTER → 2021-07-06 14:15 | Outpatient (CLI) | payer BC, SELFPAY | PROVIDERS: PCP Internal Medicine Adolescent Medicine; Visit Provider Nurse Practitioner | DX: Z20.822 Contact with and (suspected) exposure to COVID-19 (principal) | CPT/HCPCS: C9803; U0003; U0005 ==

== ENCOUNTER 2021-10-11 16:45 | Emergency (ER) | payer BC, SELFPAY ==
[2021-10-11 17:40] VITALS: BP 142/77; PULSE 91; RESP 16; TEMP 36.8; O2SAT 96; BMI 35.9
[2021-10-11 17:40] LABS: UTC Influenza A Antigen Negative (Negative); UTC Influenza B Antigen Negative (Negative)
--- NOTE | 2021-10-11 18:00 | HMH.EDUTC ---
[facility] [place] Disposition Clinical Impression: Cough Disposition: Home, Self-Care Condition on Discharge: Good Instructions: Cough Additional Instructions: *Monitor Temp, Over the counter Motrin or Tylenol as directed/as needed Tylenol every 4 hours and Motrin every 6 hours (as long as your family doctor has told you that you can take it) for fever or pain. and straight to ER if unable to lower temp less than 101.0 after medication given *Warm salt water gargles may help to soothe the throat *Throat Lozenges *Warm fluids like tea with honey may help to soothe the throat *Sleep elevated *Humidifier/Vaporizer Follow up IMMEDIATELY for new or worsening symptoms or no Noticeable improvement over the next 48-72 hours. 911 for difficulty breathing or swallowing Return if you start having trouble breathing You were tested for today for COVID19 your test result should be back in the next 24-48 hours, you may check your results on the [facility] [employer] Health Portal if you have trouble logging on you can call support or you will get a call if your results are Positive You was given a handout with instructions for Self Quarantine and Self isolation for while you wait on test results and what to do if they are positive If you are positive the Health Dept will be contacting you also Make sure to take your Vitamins Vit. C Vit D and Zinc if you can take them Prescriptions: Benzonatate [Benzonatate 100mg cap] 100 mg PO Q8HP PRN #15 cap PRN Reason: Cough Transmission Status: Pending to [id number] Referrals: Aneesh Hernandez MD [Primary Care Provider] - As needed Forms: Work/School Release Time of Disposition: 18:13 Medical Decision Making - Adalid Inquiry Pt receiving controlled substance: No Adalid was queried for this patient: No Vital Signs: 10/11/21 17:40 Temperature 98.3 F Temperature Source Oral Pulse Rate [Right Brachial] 91 H Respiratory Rate 16 Blood Pressure [Right Arm] 142/77 H Blood Pressure Mean [Right Arm] 98 Blood Pressure Source [Right Arm] Automatic Cuff Blood Pressure Position [Right Arm] Sitting 02 Sat by Pulse Oximetry 96 Oxygen Delivery Method Room Air - Lab Data Lab results reviewed: Yes: I reviewed the patient's lab results. Lab Results 10/11/21 17:33: Influenza Type A Ag Negative, Influenza Type B Ag Negative Orders (Tests/Meds): ORDERS Category Date Time Status Covid-19 Nasal PCR ([facility]) Routine Lab 10/11/21 17:20 Received Medical Decision Narrative: discussed CXR patint declined States that he will wait and see if his COVID test is negative and return if symptoms do not improve he was more concerned that he may have flu [facility] [place] HPI - General Stated complaint: fever,chills,sore throat,cough,ESTES, Time Seen by Provider: 10/11/21 18:00 Mode of Arrival: Ambulatory Source of Information: Patient Limitations: No Limitations Description of Symptoms (Recalled from Triage Doc. by RN): PATIENT C/O CHEST CONGESTION AND HEADACHE SINCE YESTERDAY AFTER GETTING HIS COVID BOOSTER HEENT Symptoms (Recalled from RN notes): Yes Resp Symptoms (Recalled from RN notes): No Skin Symptoms (Recalled from RN notes): No MS Symptoms (Recalled from RN notes): No Functional Status (Recalled from RN notes): WNL - History of Present Illness Provider Complaint: Patient states that he got his COVID booster shot yesterday and after that he started feeling achy, cough and congestion State that he wasnt sure if he may have flu or COVID or just feeling bad after the booster so he came in to get checked - Related Data Home Medications Medication Instructions Recorded Confirmed Venlafaxine HCl [Effexor XR 75mg 75 mg PO DAILY 11/09/19 07/16/21 capsule] lisinopriL [Lisinopril 10mg Tab] 10 mg PO DAILY 11/09/19 07/16/21 Tizanidine HCl [Zanaflex 4mg 4 mg PO BID 07/21/20 07/16/21 tab] Previous Rx's Medication Instructions Recorded Cyclobenzaprine HCl [Flexeril 10mg 10 mg PO TIDP PRN #10 t
[2021-10-11 18:22] VITALS: BP 142/77; PULSE 91; RESP 16; TEMP 36.8; O2SAT 96
== END 2021-10-11 18:27 | disposition home or self-care (01) ==
PROVIDERS: Emergency Provider Nurse Practitioner; PCP Internal Medicine Adolescent Medicine
DX: J02.9 Acute pharyngitis, unspecified (principal); Z20.822 Contact with and (suspected) exposure to COVID-19
CPT/HCPCS: 87804; 99202; C9803; G0463; U0003; U0005

== ENCOUNTER 2021-10-13 10:27 | Emergency (ER) | payer BC, SELFPAY ==
[2021-10-13] VITALS (7 sets, daily range): BP systolic 131–143; BP diastolic 71–87; PULSE 83–102; RESP 14–20; TEMP 36.6–36.7; O2SAT 95–98; BMI 38.0
--- NOTE | 2021-10-13 10:33 | HMH.EDGENADL ---
ED Disposition Clinical Impression: Viral upper respiratory illness, Cough Disposition: Home, Self-Care Condition on Discharge: Good Referrals: Aneesh Hernandez MD [Primary Care Provider] - - Critical Care Critical Care Time: No Attestation: On , the high probability of a clinically significant, sudden or life threatening deterioration of the following system(s) required my full and direct attention, intervention and personal management. The time I documented below is in addition to time spent performing reported procedures but includes the following listed in this critical care notation. Medical Decision Making - Medical Records Medical records reviewed: Yes: I reviewed the patient's medical records. - Adalid Inquiry Pt receiving controlled substance: No Vital Signs: 10/13/21 10:29 10/13/21 11:00 10/13/21 13:00 Temperature 98.1 F Temperature Source Oral Pulse Rate 89 83 Pulse Rate [Radial] 102 H Respiratory Rate 20 16 14 Blood Pressure 143/82 H 132/86 Blood Pressure [Right Arm] 135/87 Blood Pressure Mean 98 Blood Pressure Mean [Right Arm] 103 Blood Pressure Position [Right Arm] Sitting 02 Sat by Pulse Oximetry 98 95 96 Oxygen Delivery Method Room Air 10/13/21 13:30 10/13/21 14:00 10/13/21 14:30 Temperature Temperature Source Pulse Rate 87 90 83 Pulse Rate [Radial] Respiratory Rate 15 15 16 Blood Pressure 135/83 142/76 H 131/73 Blood Pressure [Right Arm] Blood Pressure Mean Blood Pressure Mean [Right Arm] Blood Pressure Position [Right Arm] 02 Sat by Pulse Oximetry 96 95 95 Oxygen Delivery Method - Lab Data Lab results reviewed: Yes: I reviewed the patient's lab results. Lab Results 10/13/21 10:35: SARS-CoV-2 (PCR) Not detected, Influenza A Untype (PCR) Not detected, Influenza Type B (PCR) Not detected 10/13/21 11:00: WBC 6.1, RBC 5.19, Hgb 15.6, Hct 48.2, MCV 92.9, MCH 30.1, MCHC 32.4, RDW 13.6, Plt Count 215, MPV 9.7, Neut % (Auto) 72.2, Lymph % (Auto) 16.3, [place] % (Auto) 6.8, Eos % (Auto) 3.0, Baso % (Auto) 1.6, Neut # (Auto) 4.4, Lymph # (Auto) 1.0, [place] # (Auto) 0.4, Eos # (Auto) 0.2, Baso # (Auto) 0.1 10/13/21 11:00: D-Dimer 0.54 H 10/13/21 11:00: Sodium 135 L, Potassium 3.7, Chloride 101, Carbon Dioxide 30, Anion Gap 7.7, BUN 11, Creatinine 0.90, Estimated Creat Clear 159, Estimated GFR 90, Est GFR ( Amer) 109, Glucose 175 H, Calcium 8.8, Total Bilirubin 0.5, AST 43, ALT 33, Alkaline Phosphatase 83, Troponin I < 0.01, Total Protein 6.8, Albumin 4.5, Globulin 2.3, Albumin/Globulin Ratio 2.0 H 10/13/21 13:55: Troponin I < 0.01 Result diagrams: 10/13/21 11:00 10/13/21 11:00 Orders (Tests/Meds): ED MEDICATIONS Discontinued Medications Generic Name Dose Route Start Last Admin Trade Name Carrollq PRN Reason Stop Dose Admin Ibuprofen 400 mg 10/13/21 10:50 10/13/21 11:04 Ibuprofen 400 Mg Tablet PO 10/13/21 10:51 400 mg ONCE ONE Administration ORDERS Category Date Time Status Troponin I Q3H Lab 10/13/21 17:00 Ordered EKG Request [ECG Request by /Lala] Stat Y 10/13/21 10:50 Ordered - Radiology Data #1 Image(s): Chest, Other CXR: FINDINGS: Lungs: Unremarkable. No consolidation. Pleural spaces: Unremarkable. No pleural effusion. No pneumothorax. Heart/Mediastinum: Unremarkable. No cardiomegaly. Bones/joints: Unremarkable. IMPRESSION: No acute findings. Medical Decision Narrative: Patient is a 51-year-old male presenting for chief complaint of fever, malaise and dry cough for the past several days. Additionally, patient has 2 days of chest pressure. Given this, differential diagnosis includes, but is not limited to, ACS, PE, COVID-19 pneumonia, bacterial pneumonia, pleural effusion, nonspecific viral syndrome. Initial exam, patient is hemodynamically stable but mildly tachycardic with HR of 102. Lungs are clear, no wheezing or rhonchi noted. No unilateral leg swelling, edema or eviden
[2021-10-13 10:48] LABS: Coronavirus 19, PCR Not Detected (NotDetected); Influenza A, PCR Not Detected (NotDetected); Influenza B, PCR Not Detected (NotDetected)
--- NOTE | 2021-10-13 10:49 | XR_ITS ---
PROCEDURE INFORMATION: Exam: XR Chest Exam date and time: 10/13/2021 10:49 AM Age: 51 years old Clinical indication: Shortness of breath; Additional info: Dyspnea/ sob- covid test pending TECHNIQUE: Imaging protocol: XR of the chest. Views: 1 view. COMPARISON: CR XR CHEST PORTABLE 11/25/2019 6:05 AM FINDINGS: Lungs: Unremarkable. No consolidation. Pleural spaces: Unremarkable. No pleural effusion. No pneumothorax. Heart/Mediastinum: Unremarkable. No cardiomegaly. Bones/joints: Unremarkable. IMPRESSION: No acute findings.
--- NOTE | 2021-10-13 10:50 | ECG_ITS ---
APPROVED REPORT Exam: Resting ECG HR:96 bpm ECG Measurements Heart Rate 96 AXES TX 148 P 50 QRSd 90 QRS 19 QT 354 T 74 QTc 447 Conclusion Sinus rhythm with occasional premature ventricular complexes Otherwise normal ECG Electronically signed by : Aneesh Hernandez MD 10/14/2021 08:31:40
[2021-10-13 11:33] LABS: Alanine Aminotransferase 33 U/L (12-78); Albumin Level 4.5 g/dl (3.5-5.0); Alkaline Phosphatase 83 U/L (38-126); Anion Gap 7.7 mEq/L (5-15); Aspartate Amino Transferase 43 U/L (17-59); Bilirubin,Total 0.5 mg/dl (0.2-1.3); Blood Urea Nitrogen 11 mg/dl (9-20); Calcium 8.8 mg/dl (8.4-10.2); Carbon Dioxide 30 mmol/L (22.0-30.0); Chloride 101 mmol/L (98-107); Creatinine Clearance Estimated 159 mL/min (50-200); Estimated Glomerular Filt Rate 90 ml/min (>60); GFR (African American) 109 ML/MIN (>60); Globulin 2.3 g/dL (1.3-3.2); Glucose 175 mg/dl (74-100); Potassium 3.7 mmoL/L (3.5-5.1); Sodium 135 mmol/L (136-145); Total Protein,Serum 6.8 g/dl (6.3-8.2)
[2021-10-13 11:39] LABS: D-Dimer 0.54 ug/mL (0.0-0.5)
[2021-10-13 11:49] LABS: Basophils # 0.1 K/mm3 (0-0.2); Basophils % 1.6 % (0.1-2.0); Eosinophils # 0.2 K/mm3 (0.0-0.4); Hematocrit 48.2 % (42.0-52.0); Hemoglobin 15.6 g/dL (14.1-18.0); Lymphocytes % 16.3 % (10-50); Mean Corpuscular HGB Conc 32.4 g/dL (31.8-35.4); Mean Corpuscular Hemoglobin 30.1 pg (27.0-31.2); Mean Corpuscular Volume 92.9 fl (80-94); Mean Platelet Volume 9.7 fl (7.4-10.4); Monocytes # 0.4 K/mm3 (0.1-1.0); Monocytes % 6.8 % (1.7-9.3); Neutrophils # 4.4 K/mm3 (1.8-7.8); Neutrophils % 72.2 % (37.0-80.0); Platelet Count 215 K/mm3 (142-424); Red Blood Count 5.19 M/mm3 (4.60-6.20); Red Cell Distribution Width 13.6 % (11.5-17.5); White Blood Count 6.1 K/mm3 (4.8-10.8)
[2021-10-13 11:52] LABS: Troponin I < 0.01 ng/ml (0.00-0.034)
--- NOTE | 2021-10-13 12:30 | PC.NURSE ---
PT UPDATED ON PLAN OF CARE
--- NOTE | 2021-10-13 13:00 | PC.NURSE ---
PT RESTING OFFERS NO C/O AT PRESENT
[2021-10-13 14:33] LABS: Troponin I < 0.01 ng/ml (0.00-0.034)
== END 2021-10-13 15:22 | disposition home or self-care (01) ==
PROVIDERS: Emergency Provider Emergency Medicine; PCP Internal Medicine Adolescent Medicine
DX: J06.9 Acute upper respiratory infection, unspecified (principal); F17.210 Nicotine dependence, cigarettes, uncomplicated
CPT/HCPCS: 71045; 80053; 84484; 85025; 85378; 93005; 96365; 99282; C9803; U0003; U0005

== ENCOUNTER 2022-01-25 17:54 | Emergency (ER) | payer BC, SELFPAY ==
[2022-01-25 17:55] VITALS: BP 147/78; PULSE 93; RESP 22; TEMP 37.1; O2SAT 99; BMI 40.3
[2022-01-25 18:00] VITALS: BP 147/78; PULSE 93; RESP 22; TEMP 37.1; O2SAT 99; BMI 40.1
--- NOTE | 2022-01-25 18:03 | XR_ITS ---
PROCEDURE INFORMATION: Exam: XR Thoracic Spine Exam date and time: 01/25/22 06:23 PM Age: 51 years old Clinical indication: Injury or trauma; Fall; Blunt trauma (contusions or hematomas); Additional info: Fell out of hammock TECHNIQUE: Imaging protocol: XR of the thoracic spine. Views: 3 views. COMPARISON: CT THORACIC SPINE W CON 02/20/21 06:07 PM FINDINGS: Bones/joints: Normal. No acute fracture. Normal alignment. Soft tissues: Unremarkable. IMPRESSION: No acute findings.
--- NOTE | 2022-01-25 18:03 | XR_ITS ---
PROCEDURE INFORMATION: Exam: XR Cervical Spine Exam date and time: 01/25/22 06:11 PM Age: 51 years old Clinical indication: Injury or trauma; Fall; Blunt trauma; Additional info: Fell out of hammock TECHNIQUE: Imaging protocol: XR of the cervical spine. Views: 2 or 3 views. COMPARISON: CT CERVICAL SPINE WO CON 11/25/19 06:23 AM FINDINGS: Bones/joints: Normal. No acute fracture. Normal alignment. Soft tissues: Unremarkable. IMPRESSION: No acute findings.
--- NOTE | 2022-01-25 18:18 | HMH.EDUTC ---
[facility] [place] Clinical Impression: Upper back pain Disposition: Home, Self-Care Condition on Discharge: Good Instructions: DI for Neck Pain, Cyclobenzaprine, DI for Thoracic Back Pain Additional Instructions: *Etodolac emily 8 hours with meal as needed for pain/inflammation *Remember you had a Toradol shot in the clinic today, which is similar to Etodolac so do not start until tomorrow *Not additional anti-inflammatory like IBuprofen motrin, aleve, advil with the above amount of Etodolac. You can still take Tylenol every 4 hours as needed if you need something else for pain *Ice 20 minutes every 2 hours for the first 48 hours after the initial injury followed by moist heat every 20 minutes 3-4 times a day to affected area *Muscle relaxer every 8 hours as needed for muscle spasms but remember, it WILL cause drowsiness You cannot take it and drive, operate machinery or care for small children. *Keep this area active, no movement leads to more stiffness, However take it easy and avoid heavy lifting pushing or pulling *Follow up with you family doctor if no improvement for further treatment Prescriptions: Etodolac 200 mg PO Q8HP PRN #15 cap PRN Reason: Moderate Pain Transmission Status: Received by [id number] Cyclobenzaprine HCl [Flexeril 10mg tablet] 10 mg PO Q8HP PRN #12 tab PRN Reason: Muscle Spasm Transmission Status: Received by [id number] Referrals: Aneesh Hernandez MD [Primary Care Provider] - As needed Time of Disposition: 19:02 Medical Decision Making - Adalid Inquiry Pt receiving controlled substance: No Adalid was queried for this patient: No Vital Signs: 01/25/22 17:55 01/25/22 18:00 01/25/22 18:37 Temperature 98.7 F 98.7 F 98.7 F Temperature Source Oral Oral Pulse Rate 93 H Pulse Rate [Right Brachial] 93 H 93 H Respiratory Rate 22 22 Blood Pressure 147/78 H Blood Pressure [Right Arm] 147/78 H 147/78 H Blood Pressure Mean [Right Arm] 101 101 Blood Pressure Source [Right Arm] Automatic Cuff Automatic Cuff Blood Pressure Position [Right Arm] Sitting Sitting 02 Sat by Pulse Oximetry 99 99 Oxygen Delivery Method Room Air Room Air Orders (Tests/Meds): ED MEDICATIONS Discontinued Medications Generic Name Dose Route Start Last Admin Trade Name Mauro PRN Reason Stop Dose Admin Ketorolac Tromethamine 60 mg 01/25/22 18:56 01/25/22 19:01 Ketorolac 60mg/2ml Vial IM 01/25/22 18:57 60 mg ONCE ONE Administration - Radiology Data #1 Image(s): T-Spine Image Reviewed: Yes I have reviewed radiologist's interpretation IMPRESSION: No acute findings. #2 Image(s): C-Spine Image Reviewed: Yes I have reviewed radiologist's interpretation IMPRESSION: No acute findings. Medical Decision Narrative: Patient states that he has taken toradol and flexeril in the past without complications or reactions medications discussed with pharmacy [facility] [place] HPI - General Stated complaint: AO [id number] fell hit head and back Time Seen by Provider: 01/25/22 18:18 Mode of Arrival: Ambulatory Source of Information: Patient Limitations: No Limitations Description of Symptoms (Recalled from Triage Doc. by RN): PATIENT STATES HE WAS LAYING IN A HAMMOCK ON FRIDAY WHEN IT BROKE WITH HIM AND HE FELL TO THE GROUND. C/O HEADACHE, NECK AND UPPER BACK/SHOULDER PAIN. DENIES NAUSEA, VOMITING, AND VISION CHANGES. HEENT Symptoms (Recalled from RN notes): Yes Resp Symptoms (Recalled from RN notes): No Skin Symptoms (Recalled from RN notes): No MS Symptoms (Recalled from RN notes): Yes Functional Status (Recalled from RN notes): WNL - History of Present Illness Provider Complaint: Patient states he was laying in a hammock when the bolt broke and he fell to the ground landing on his back State that he has been having pain in his upper back radiating into shoulders and neck ever since States that he did not have LOC but has had a little headache since the fall but no N/V Sta
[2022-01-25 18:37] VITALS: BP 147/78; PULSE 93; RESP 22; TEMP 37.1; O2SAT 99
== END 2022-01-25 19:10 | disposition home or self-care (01) ==
PROVIDERS: Emergency Provider Nurse Practitioner; PCP Internal Medicine Adolescent Medicine
DX: M54.6 Pain in thoracic spine (principal); M54.2 Cervicalgia; W17.89XA Other fall from one level to another, initial encounter; Y92.017 Garden or yard in single-family (private) house as the place of occurrence of the external cause; I10 Essential (primary) hypertension; K21.9 Gastro-esophageal reflux disease without esophagitis; F17.210 Nicotine dependence, cigarettes, uncomplicated; Z79.899 Other long term (current) drug therapy
CPT/HCPCS: 72040; 72072; 96372; 99213; G0463

== ENCOUNTER 2022-03-29 12:32 | Emergency (ER) | payer BC, SELFPAY ==
[2022-03-29 12:49] VITALS: BP 114/75; PULSE 95; RESP 18; TEMP 36.9; O2SAT 95; BMI 40.3
--- NOTE | 2022-03-29 13:00 | HMH.EDUTC ---
[facility] – [place] Disposition Clinical Impression: Left upper quadrant abdominal pain Disposition: Home, Self-Care Condition on Discharge: Good Instructions: DI for Epigastric Pain Additional Instructions: Take the medications as directed. Follow up with your regular doctor. GO TO THE ER FOR ANY WORSENING SYMPTOMS Prescriptions: Mag Hydrox/Aluminum Hyd/Simeth [Mylanta Maximum Strength Liq] 15 ml PO Q6HP PRN #240 ml PRN Reason: Gi Upset Transmission Status: Received by [id number] Famotidine [Pepcid 20mg Tablet] 20 mg PO BID 30 Days #60 tab Transmission Status: Received by [id number] Referrals: Aneesh Hernandez MD [Primary Care Provider] - Forms: Work/School Release Time of Disposition: 14:18 Medical Decision Making - Medical Records Medical records reviewed: No: I reviewed the patient's medical records. - Adalid Inquiry Pt receiving controlled substance: No Vital Signs: 03/29/22 12:49 03/29/22 14:59 Temperature 98.4 F 98.4 F Temperature Source Oral Pulse Rate 95 H Pulse Rate [Left] 95 H Respiratory Rate 18 18 Blood Pressure 114/75 Blood Pressure [Right Arm] 114/75 Blood Pressure Mean [Right Arm] 88 02 Sat by Pulse Oximetry 95 - Lab Data Lab results reviewed: Yes: I reviewed the patient's lab results. Lab Results 03/29/22 13:38: WBC 10.3, RBC 5.17, Hgb 15.3, Hct 48.1, MCV 93.1, MCH 29.6, MCHC 31.8, RDW 14.0, Plt Count 253, MPV 9.1, Neut % (Auto) 74.9, Lymph % (Auto) 16.5, [place] % (Auto) 5.6, Eos % (Auto) 2.0, Baso % (Auto) 1.1, Neut # (Auto) 7.7, Lymph # (Auto) 1.7, [place] # (Auto) 0.6, Eos # (Auto) 0.2, Baso # (Auto) 0.1 03/29/22 13:38: Sodium 137, Potassium 4.0, Chloride 105, Carbon Dioxide 24, Anion Gap 12.0, BUN 10, Creatinine 0.80, Estimated Creat Clear 190, Estimated GFR 103, Est GFR ( Amer) 124, Glucose 137 H, Calcium 9.1, Total Bilirubin 0.5, AST 69 H, ALT 67, Alkaline Phosphatase 100, Total Protein 7.4, Albumin 4.6, Globulin 2.8, Albumin/Globulin Ratio 1.6, Amylase 67, Lipase 65 03/29/22 13:38: Monoscreen Negative Result diagrams: 03/29/22 13:38 03/29/22 13:38 [facility] [place] HPI - General Stated complaint: stomach burning Time Seen by Provider: 03/29/22 13:00 Description of Symptoms (Recalled from Triage Doc. by RN): patient comes in for complaints of upper left sided abdomen pain. symptoms have been going on 2+ weeks HEENT Symptoms (Recalled from RN notes): No Resp Symptoms (Recalled from RN notes): No Skin Symptoms (Recalled from RN notes): No MS Symptoms (Recalled from RN notes): No Functional Status (Recalled from RN notes): wnl - History of Present Illness Provider Complaint: He states that for the past week or so he has had a burning type pain in her left upper abdomen. It comes and goes, but he cannot identify anything that makes it better or worse. Eating doesn't seem to affect it and he has had a normal appetite. He denies any swelling in that area. - Related Data Home Medications Medication Instructions Recorded Confirmed Venlafaxine HCl [Effexor XR 75mg 75 mg PO DAILY 11/09/19 07/16/21 capsule] lisinopriL [Lisinopril 10mg Tab] 10 mg PO DAILY 11/09/19 07/16/21 Tizanidine HCl [Zanaflex 4mg 4 mg PO BID 07/21/20 07/16/21 tab] Previous Rx's Medication Instructions Recorded Cyclobenzaprine HCl [Flexeril 10mg 10 mg PO TIDP PRN #10 tab 02/20/21 tablet] Ketorolac Tromethamine [Toradol 10 mg PO Q6HP PRN #10 tab 02/20/21 10mg tablet] methylprednisolone 4 mg tablets in 4 mg PO PER PKG DIR #21 tab 07/16/21 a dose pack Benzonatate [Benzonatate 100mg 100 mg PO Q8HP PRN #15 cap 10/11/21 cap] Cyclobenzaprine HCl [Flexeril 10mg 10 mg PO Q8HP PRN #12 tab 01/25/22 tablet] Etodolac 200 mg PO Q8HP PRN #15 cap 01/25/22 Famotidine [Pepcid 20mg Tablet] 20 mg PO BID 30 Days #60 tab 03/29/22 Mag Hydrox/Aluminum Hyd/Simeth 15 ml PO Q6HP PRN #240 ml 03/29/22 [Mylanta Maximum Strength Liq] Allergies Aller
[2022-03-29 13:52] LABS: Monoscreen (Rapid) Negative (Negative)
[2022-03-29 13:54] LABS: Chloride 105 mmol/L (98-107); Sodium 137 mmol/L (136-145)
[2022-03-29 13:57] LABS: Alanine Aminotransferase 67 U/L (12-78); Alkaline Phosphatase 100 U/L (38-126); Amylase 67 U/L (30-110); Aspartate Amino Transferase 69 U/L (17-59); Bilirubin,Total 0.5 mg/dl (0.2-1.3); Blood Urea Nitrogen 10 mg/dl (9-20); Calcium 9.1 mg/dl (8.4-10.2); Carbon Dioxide 24 mmol/L (22.0-30.0); Creatinine Clearance Estimated 190 mL/min (50-200); Estimated Glomerular Filt Rate 103 ml/min (>60); GFR (African American) 124 ML/MIN (>60); Glucose 137 mg/dl (74-100); Lipase 65 U/L (23-300)
[2022-03-29 13:58] LABS: Albumin Level 4.6 g/dl (3.5-5.0); Albumin/Globulin Ratio 1.6 (1.1-1.8); Globulin 2.8 g/dL (1.3-3.2); Total Protein,Serum 7.4 g/dl (6.3-8.2)
[2022-03-29 14:02] LABS: Basophils # 0.1 K/mm3 (0-0.2); Basophils % 1.1 % (0.1-2.0); Eosinophils # 0.2 K/mm3 (0.0-0.4); Hematocrit 48.1 % (42.0-52.0); Hemoglobin 15.3 g/dL (14.1-18.0); Lymphocytes # 1.7 K/mm3 (0.7-4.5); Lymphocytes % 16.5 % (10-50); Mean Corpuscular HGB Conc 31.8 g/dL (31.8-35.4); Mean Corpuscular Hemoglobin 29.6 pg (27.0-31.2); Mean Corpuscular Volume 93.1 fl (80-94); Mean Platelet Volume 9.1 fl (7.4-10.4); Monocytes # 0.6 K/mm3 (0.1-1.0); Monocytes % 5.6 % (1.7-9.3); Neutrophils # 7.7 K/mm3 (1.8-7.8); Neutrophils % 74.9 % (37.0-80.0); Platelet Count 253 K/mm3 (142-424); Red Blood Count 5.17 M/mm3 (4.60-6.20); White Blood Count 10.3 K/mm3 (4.8-10.8)
[2022-03-29 14:59] VITALS: BP 114/75; PULSE 95; RESP 18; TEMP 36.9
== END 2022-03-29 14:59 | disposition home or self-care (01) ==
PROVIDERS: Emergency Provider Nurse Practitioner Family; PCP Internal Medicine Adolescent Medicine
DX: R10.12 Left upper quadrant pain (principal); K21.9 Gastro-esophageal reflux disease without esophagitis; I10 Essential (primary) hypertension; F32.A Depression, unspecified; F17.210 Nicotine dependence, cigarettes, uncomplicated
CPT/HCPCS: 80053; 82150; 83690; 85025; 86318; 99212; G0463

== ENCOUNTER 2022-03-29 17:00 | Outpatient (RCR) | payer BC, SELFPAY | END 2022-03-29 17:05 | disposition home or self-care (01) | LOC: PT 17:00 | PROVIDERS: PCP Internal Medicine Adolescent Medicine; Visit Provider Nurse Practitioner Family | DX: M54.2 Cervicalgia (principal) | CPT/HCPCS: 97163 ==

== ENCOUNTER → 2022-04-17 08:26 | Outpatient (CLI) | payer BC, SELFPAY ==
--- NOTE | 2022-04-17 08:31 | CT_ITS ---
FINAL REPORT CLINICAL HISTORY: LEFT UPPER QUADRANT ABD. PAIN and burning sensation. COMPARISON: 11/25/2019 FINDINGS: CT OF THE ABDOMEN AND PELVIS WITH CONTRAST Axial CT images of the abdomen and pelvis were obtained after the administration of oral and iv contrast. Coronal reformatted images were also obtained and reviewed.This study was performed with techniques to keep radiation doses as low as reasonably achievable (ALARA). Individualized dose reduction techniques using automated exposure control or adjustment of mA and/or kV according to the patient's size were employed. Abdomen: There is bilateral lower lobe atelectasis.. The heart is normal in size. The liver is fatty infiltrated without evidence of mass or biliary ductal dilatation. The gallbladder surgically absent. The spleen is unremarkable. No adrenal mass is present. The pancreas has an unremarkable appearance. There is a 12 mm cyst in the upper pole of the left kidney the previously measured 16 mm. The aorta is normal in caliber. There is no free fluid or adenopathy. No mass or abnormal fluid collection is seen. Pelvis: The appendix normal. There is a small right inguinal hernia containing fat. The urinary bladder is unremarkable. No inflammatory process is seen. There is no evidence of mass or adenopathy. There is no evidence of bowel obstruction. There is stable sclerotic foci in the L5 vertebra and right iliac bone of uncertain etiology. IMPRESSION: Fatty liver. Left renal cyst. Stable sclerotic foci in the L5 vertebra and right iliac bone. Reviewed, Interpreted and Dictated by Cuate Calixto III, MD Transcribed by Zara Walker Authenticated and . [facility]
== END ==
LOC: RAD 08:27
PROVIDERS: PCP Internal Medicine Adolescent Medicine; Visit Provider Nurse Practitioner Family
DX: R10.12 Left upper quadrant pain (principal)
CPT/HCPCS: 74177; Q9967

== ENCOUNTER 2022-05-15 15:48 | Emergency (ER) | payer BC, SELFPAY ==
--- NOTE | 2022-05-15 15:59 | HMH.EDUTC ---
[facility] [place] Disposition Clinical Impression: Exposure to COVID-19 virus Disposition: Home, Self-Care Condition on Discharge: Good Instructions: Preventing the Spread of Coronavirus Discharge Instructions Additional Instructions: Drink plenty of fluids. Take tylenol or ibuprofen for pain or fever. Take the medications as directed. Follow up with your regular doctor. GO TO THE ER FOR ANY WORSENING SYMPTOMS Throw your tooth brush away and get a new one. Quarantine until you know the results of your covid-19 test. Notify your school or workplace of your results and follow their instructions regarding return to work/school. Referrals: Aneesh Hernandez MD [Primary Care Provider] - Time of Disposition: 16:10 Medical Decision Making - Medical Records Medical records reviewed: No: I reviewed the patient's medical records. - Adalid Inquiry Pt receiving controlled substance: No Vital Signs: 05/15/22 16:05 Temperature 98.9 F Temperature Source Oral Pulse Rate [Left] 90 Respiratory Rate 19 Blood Pressure [Right Arm] 150/84 H Blood Pressure Mean [Right Arm] 106 02 Sat by Pulse Oximetry 96 Orders (Tests/Meds): ORDERS Category Date Time Status Covid-19 Nasal PCR ([facility]) Routine Lab 05/15/22 16:02 Ordered [facility] [place] HPI - General Stated complaint: exposed, covid test Time Seen by Provider: 05/15/22 15:59 - History of Present Illness Provider Complaint: He was notified by his work that his coworker has covid-19. He denies any symptoms. - Related Data Home Medications Medication Instructions Recorded Confirmed Venlafaxine HCl [Effexor XR 75mg 75 mg PO DAILY 11/09/19 07/16/21 capsule] lisinopriL [Lisinopril 10mg Tab] 10 mg PO DAILY 11/09/19 07/16/21 Tizanidine HCl [Zanaflex 4mg 4 mg PO BID 07/21/20 07/16/21 tab] Previous Rx's Medication Instructions Recorded Cyclobenzaprine HCl [Flexeril 10mg 10 mg PO TIDP PRN #10 tab 02/20/21 tablet] Ketorolac Tromethamine [Toradol 10 mg PO Q6HP PRN #10 tab 02/20/21 10mg tablet] methylprednisolone 4 mg tablets in 4 mg PO PER PKG DIR #21 tab 07/16/21 a dose pack Benzonatate [Benzonatate 100mg 100 mg PO Q8HP PRN #15 cap 10/11/21 cap] Cyclobenzaprine HCl [Flexeril 10mg 10 mg PO Q8HP PRN #12 tab 01/25/22 tablet] Etodolac 200 mg PO Q8HP PRN #15 cap 01/25/22 Famotidine [Pepcid 20mg Tablet] 20 mg PO BID 30 Days #60 tab 03/29/22 Mag Hydrox/Aluminum Hyd/Simeth 15 ml PO Q6HP PRN #240 ml 03/29/22 [Mylanta Maximum Strength Liq] Allergies Allergy/AdvReac Type Severity Reaction Status Date / Time No Known Allergies Allergy Verified 05/15/22 16:07 [facility] History - Hepatitis A Screen Attestation statement:: This patient has been screened for Hepatitis A risk factors. I have reviewed the patient's past medical history: Yes Medical History: Reports:: Depression, Gastroesophageal Reflux Disease(GERD), Hypertension Denies:: Cancer, Chronic Obstructive Pulmonary Disease (COPD), Diabetes Mellitus Type 1, Diabetes Mellitus Type 2, Internal Pacemaker, Lung Disease, MRSA, Seizures Other Medical History: Reports: Arthritis. Denies: Blood Transfusion Reaction, Other Comment: Irritable bowel syndrome Laterality Cases: Left: Arthroscopy Knee, Right: Arthroscopy Shoulder, Other Other Surgeries: Yes: No Previous Surgery, Cholecystectomy, Other (gangional cyst removal). No: Pacemaker Amputation: No Fractures: No Comment: Right Foot 2018 - Social History Smoking Status: Current every day smoker Tobacco Type: cigarettes # Packs/Day (cigarettes): 1 Alcohol Intake: never Alcohol Intake Frequency:: holidays/special occasions only Substance Use Type: denies use Occupational Status: employed Housing: house Household Members: spouse, family - Psychiatric History Pschychiatric History:: Reports:: Depression Family Hx:: No significant family history Comment: Father at the age of 86. He had dementia. Mother i
[2022-05-15 16:05] VITALS: BP 150/84; PULSE 90; RESP 19; TEMP 37.2; O2SAT 96; BMI 38.0
[2022-05-15 16:10] VITALS: BP 150/84; PULSE 90; RESP 19; TEMP 37.2
== END 2022-05-15 16:12 | disposition home or self-care (01) ==
PROVIDERS: Emergency Provider Nurse Practitioner Family; PCP Internal Medicine Adolescent Medicine
DX: Z03.89 Encounter for observation for other suspected diseases and conditions ruled out (principal); Z20.822 Contact with and (suspected) exposure to COVID-19; I10 Essential (primary) hypertension; J98.4 Other disorders of lung; G40.909 Epilepsy, unspecified, not intractable, without status epilepticus; F32.A Depression, unspecified; Z86.14 Personal history of Methicillin resistant Staphylococcus aureus infection; Z80.3 Family history of malignant neoplasm of breast; Z80.8 Family history of malignant neoplasm of other organs or systems
CPT/HCPCS: 99283; C9803; U0003; U0005

== ENCOUNTER → 2022-06-07 08:12 | Outpatient (CLI) | payer BC, SELFPAY ==
--- NOTE | 2022-06-07 08:13 | MR_ITS ---
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 he had previously had the same thing and dr albarado removed it. it has since came back. COMPARISON: May 10, 2019 FINDINGS: Multiplanar MR imaging of the right foot was performed without contrast. There are mild degenerative changes. There is no evidence of fracture. There is bone marrow edema in the inferior calcaneal tuberosity which is likely reactive. The flexor and extensor tendons are intact. No ligamentous injury is identified. There is mild increased T2 signal in the adductor hallucis muscle that may represent mild muscle injury or myositis. Inferior to this is a focal area of subcutaneous fat measuring 26 x 12 mm of uncertain etiology. There is posterior plantar fasciitis with a tear at its insertion and adjacent soft tissue edema. No soft tissue mass or cyst is identified. IMPRESSION: Focal area of subcutaneous fat inferior to the adductor hallucis muscle could represent a lipoma. This is smaller than on the prior exam. Posterior plantar fasciitis with a tear at its insertion. Increased signal in the adductor hallucis muscle that may represent mild muscle injury or myositis. Reviewed, Interpreted and Dictated by Cuate Calixto III, MD Transcribed by Kin Ngo Authenticated and [facility]
== END ==
LOC: RAD 08:13
PROVIDERS: PCP Internal Medicine Adolescent Medicine; Visit Provider Podiatrist
DX: M79.671 Pain in right foot (principal); G89.29 Other chronic pain
CPT/HCPCS: 73718

== ENCOUNTER 2022-06-20 11:25 | Emergency (ER) | payer BC, SELFPAY ==
[2022-06-20 11:26] VITALS: BP 135/94; PULSE 75; RESP 18; TEMP 37; O2SAT 97; BMI 38.0
--- NOTE | 2022-06-20 11:45 | PC.NURSE ---
calling specialty clinic for dr elaine
--- NOTE | 2022-06-20 11:47 | PC.NURSE ---
speaking to podiatry [employer]
--- NOTE | 2022-06-20 11:51 | XR_ITS ---
FINAL REPORT CLINICAL HISTORY: pain in right foot, has a torn ligament COMPARISON: May 30, 2021 FINDINGS: 3 views of the right foot were obtained. There is no acute fracture or dislocation. There is a small to moderate plantar spur. There are mild hypertrophic changes of the interphalangeal joints. The soft tissues are unremarkable. IMPRESSION: No acute process. Reviewed, Interpreted and Dictated by Orion Way MD Transcribed by Kin Ngo Authenticated and [facility]
--- NOTE | 2022-06-20 11:52 | HMH.EDGENADL ---
Discharge Plan Disposition Patient Disposition: Home, Self-Care Condition: Good Prescriptions Prescriptions: No Action sertraline 50 mg tablet 50 mg PO DAILY Label Comments: TAKE 1 TABLET BY MOUTH ONCE DAILY trazodone 100 mg tablet 100 mg PO HS Label Comments: TAKE 1 TABLET BY MOUTH NIGHTLY colestipol 1 gram tablet 2 gm PO DAILY Label Comments: TAKE 2 TABLETS BY MOUTH ONCE DAILY diclofenac sodium 75 mg tablet,delayed release (DR/EC) 75 mg PO BID Label Comments: TAKE 1 TABLET BY MOUTH TWICE DAILY loratadine 10 mg tablet 10 mg PO DAILY Label Comments: TAKE 1 TABLET BY MOUTH ONCE DAILY omeprazole 40 mg capsule,delayed release(DR/EC) 40 mg PO DAILY Label Comments: TAKE 1 CAPSULE BY MOUTH ONCE DAILY Trintellix 10 mg tablet 10 mg PO DAILY Label Comments: TAKE 1 TABLET BY MOUTH ONCE DAILY venlafaxine 75 MG capsule,extended release 24hr 75 mg PO DAILY lisinopril 10 tablet 10 mg PO DAILY tizanidine 4 MG tablet 4 mg PO BID famotidine 20 MG tablet 20 mg PO BID 30 Days Qty: 60 2RF Referrals Follow up/Referrals: Aneesh Hernandez MD [Primary Care Provider] - See instructions Samantha Hussein DPM [Staff Physician] - See instructions Activity Restrictions/Add. Instructions Additional Instructions/Restrictions: Continue current treatment. See Dr. Hussein in the office on Friday. Call today to find out appt time. Clinical Impressions Clinical Impression: Acute pain of right foot Discharge ED Provider: Magno Siu General Adult HPI General Chief complaint: Recheck/Abnormal Lab/Rx Stated complaint: right foot pain, no accident Time Seen by Provider: 06/20/22 11:45 Mode of Arrival: Ambulatory Source of Information: Patient Limitations: No Limitations Description of Symptoms (Recalled from ER Triage Doc. by RN): c/o left foot swelling around his past sx site with some blueish looking color skin around his heel after working all day yesterday. Denies any calf pain at this time History of Present Illness HPI narrative: Patient complains of right foot pain, bruising, swelling. States that he is seeing Dr. Hussein and has a tear in his plantar fascia and a lipoma. He has had previous surgery by her a couple of years ago. He has a scar in his medial right foot. Last night he worked and was on his feet all night wearing a work boot. Today he has bruising, pain, swelling on his medial right foot in the area of his incision scar from his previous surgery. No direct blunt trauma. He said that it was hurting so bad today he could not put weight on it. He called Dr. Hussein's office and says he was instructed to come to the emergency department to make sure he does not have a blood clot. Related Data Home Medications Medication Instructions Recorded Confirmed lisinopril 10 mg tablet 10 mg PO DAILY blood pressure 11/09/19 05/21/22 venlafaxine 75 mg capsule,extended 75 mg PO DAILY Depression 11/09/19 05/21/22 release 24 hr tizanidine 4 mg tablet 4 mg PO BID muscle relaxant 07/21/20 05/21/22 colestipol 1 gram tablet 2 gm PO DAILY 05/21/22 05/21/22 diclofenac sodium 75 mg 75 mg PO BID 05/21/22 05/21/22 tablet,delayed release loratadine 10 mg tablet 10 mg PO DAILY 05/21/22 05/21/22 omeprazole 40 mg capsule,delayed 40 mg PO DAILY 05/21/22 05/21/22 release sertraline 50 mg tablet 50 mg PO DAILY 05/21/22 05/21/22 trazodone 100 mg tablet 100 mg PO HS 05/21/22 05/21/22 vortioxetine 10 mg tablet 10 mg PO DAILY 05/21/22 05/21/22 (Trintellix) Previous Rx's Medication Instructions Recorded famotidine 20 mg tablet 20 mg PO BID 30 days #60 tabs 03/29/22 Allergies Allergy/AdvReac Type Severity Reaction Status Date / Time No Known Allergies Allergy Verified 05/21/22 08:58 [facility] Social History Smoking Status: Never smoker second hand exposure: Yes alcohol intake: never substance use type:
--- NOTE | 2022-06-20 12:12 | PC.NURSE ---
dr Siu at bedside
[2022-06-20 12:20] VITALS: BP 120/82; PULSE 67; RESP 17; TEMP 37; O2SAT 98
== END 2022-06-20 12:20 | disposition home or self-care (01) ==
PROVIDERS: Emergency Provider Emergency Medicine; PCP Internal Medicine Adolescent Medicine
DX: M72.2 Plantar fascial fibromatosis (principal); D17.23 Benign lipomatous neoplasm of skin and subcutaneous tissue of right leg; M79.89 Other specified soft tissue disorders; Z79.899 Other long term (current) drug therapy
CPT/HCPCS: 73630; 99283

== ENCOUNTER → 2022-08-09 11:42 | Outpatient (CLI) | payer BC, SELFPAY ==
--- NOTE | 2022-08-09 11:48 | XR_ITS ---
FINAL REPORT CLINICAL HISTORY: foot pain COMPARISON: 05/31/2022 FINDINGS: Right foot Three views were obtained. There is no acute fracture or dislocation. The joint spaces appear normal. No soft tissue abnormality is identified. There is a small plantar spur. IMPRESSION: No acute process. Reviewed, Interpreted and Dictated by Orion Way MD Transcribed by Karley Davey Authenticated and [facility]
== END ==
LOC: RAD 11:43
PROVIDERS: PCP Internal Medicine Adolescent Medicine; Visit Provider Podiatrist
DX: M79.671 Pain in right foot (principal); M62.9 Disorder of muscle, unspecified
CPT/HCPCS: 73630

== ENCOUNTER → 2022-08-28 12:38 | Outpatient (CLI) | payer BC, SELFPAY ==
--- NOTE | 2022-08-28 12:41 | CT_ITS ---
FINAL REPORT TECHNIQUE: After the administration of intravenous contrast, axial images through the chest were performed by computed tomography.This study was performed with techniques to keep radiation doses as low as reasonably achievable, (ALARA). Individualized dose reduction techniques using automated exposure control or adjustment of mA and/or kV according to the patient''s size were employed. CLINICAL HISTORY: 6CM LUNG NODULE FINDINGS: The mediastinal vasculature is adequately opacified. There is no evidence of mediastinal mass or adenopathy. The heart size is normal. There is no pericardial or pleural effusion. Limited images of the upper abdomen are unremarkable. There is a nodule in the posterior right apex measuring 5 mm well seen on image 19 of series 3. There is scar atelectasis in the lung bases. There is a 1.5 x 0.9 cm noncalcified nodule in the anterior right lower lobe. Finding is best seen on image 48 of series 3. IMPRESSION: Noncalcified nodule in the anterior right lower lobe. Consider PET CT for further evaluation. Small nodule at the right apex. Follow-up in 1 year's time may be of value. Reviewed, Interpreted and Dictated by Orion Way MD Transcribed by Karley Davey Authenticated and [facility]
== END ==
LOC: RAD 12:38
PROVIDERS: PCP Internal Medicine Adolescent Medicine; Visit Provider Internal Medicine Adolescent Medicine
DX: R91.1 Solitary pulmonary nodule (principal)
CPT/HCPCS: 71260; Q9967

== ENCOUNTER → 2022-09-10 08:49 | Outpatient (POV) | payer BC, SELFPAY ==
[2022-09-10 08:55] VITALS: BP 124/85; PULSE 103; RESP 20; O2SAT 99; BMI 36.9
--- NOTE | 2022-09-10 09:07 | EXP.PAIN.OV ---
HPI Data of Consult Patient: known to practice within the last 3 years Consult date: 09/10/22 Requesting Physician: Kati Tavarez APRN Primary Care Provider: Aneesh Hernandez MD Consult Narrative Reason for consult: Right foot pain History of present illness: Mr. Tomas is a 52 year old male who presents today as a new patient. He is a referral from Dr. Mcdaniel's office. Patient was previously seen by our office in 2020 for back related pain. Today he rates his pain a 3 out of 10. Patient states he is having pain in his right foot. Patient states this has been going on over the last 3 years and progressively worsened over time. Patient states he had surgery around to have a lipoma removed and then found a cyst behind the lipoma. Patient states he has a constant aching sensation that is worse with increased activity. Patient does state the pain improves when he is able to rest and get up off his feet. Patient is currently managed with ibuprofen as well as recently was ordered a compounding cream from Dr. Roland's office. Patient states he has not noticed significant improvement with this cream. Patient states he has tried heat and ice with no change. Patient is currently in physical therapy and does state that he has seen some improvement. Patient states that since June he was put in a walking boot that he just took off yesterday. Patient states that he does have a tear in his foot along with plantar fasciitis. Patient states that he has been off work because of his pain and is scheduled to go back next Friday. Patient does state that he has frequent episodes of his foot swelling as well as color change and temperature change. Patient previously was being treated for our office with low back pain and radicular symptoms. Patient does have a history of back surgery in the past. His Adalid is [id number]. It has been reviewed and appropriate. CC: Kati Tavarez APRN [facility] Disclaimer: The information contained in this section may have been updated after the patient was seen, as this information can be updated by other users. Medical History Depression GERD (gastroesophageal reflux disease) Hypertension Surgical History H/O arthroscopy of left knee History of arthroscopy of right shoulder Family History Other Cancer Dementia Depression Social History (Updated 09/10/22 @ 08:58 by Adrianna Woodruff RN) Smoking Status: Current every day smoker tobacco type: cigarettes packs per day: 1 second hand exposure: Yes alcohol intake: never substance use type: denies use current occupational status: employed and other Travel in the last 8 weeks: None household members: spouse and family housing: house current occupation: [employer] current occupational exposures/hazards: No caffeine: Yes Review of Systems Review of Systems Review of systems:: pertinent systems reviewed and negative unless documented below Review of systems (narrative): Review of Systems: General: No recent weight changes, no fever, no sleep disturbances Respiratory: No cough, no shortness of air, no recurring pulmonary infections Cardiovascular/peripheral vascular: No chest pain, no palpitations, no edema, no shortness of breath Gastrointestinal: No new onset incontinence, normal bowel movements reported Genitourinary: No new onset incontinence Musculoskeletal: Right foot pain Psychiatric: [Normal mood/affect] Neurological: [Denies weakness in extremities], [denies balance issues] Meds Home Medications and Allergies Home Medications Medication Instructions Recorded Confirmed Type lisinopril 10 mg tablet 10 mg PO DAILY blood pressure 11/09/19 09/09/22 History venlafaxine 75 mg capsule,extended 75 mg PO DAILY Depression 11/09/19 09/09/22 History relea
== END | disposition home or self-care (01) ==
PROVIDERS: PCP Internal Medicine Adolescent Medicine; Visit Provider Nurse Practitioner Family
DX: M51.36 Other intervertebral disc degeneration, lumbar region (principal); G57.71 Causalgia of right lower limb; R60.0 Localized edema; M79.671 Pain in right foot
CPT/HCPCS: 99202; G0463

== ENCOUNTER 2022-09-11 14:33 | Emergency (ER) | payer BC, SELFPAY ==
--- NOTE | 2022-09-11 16:00 | EXP.UTC ---
Discharge Plan Disposition Patient Disposition: Home, Self-Care Condition: Good Prescriptions Prescriptions: New benzonatate [benzonatate] 100 mg capsule 100 mg PO TIDP PRN (Reason: Cough) Qty: 30 0RF methylprednisolone 4 mg Tablets,Dose Pack 4 mg PO DIRECTED Qty: 21 0RF amoxicillin-pot clavulanate 875-125 mg Tablet 1 tab PO Q12H Qty: 20 0RF No Action sertraline 50 mg tablet 50 mg PO DAILY Label Comments: TAKE 1 TABLET BY MOUTH ONCE DAILY trazodone 100 mg tablet 100 mg PO HS Label Comments: TAKE 1 TABLET BY MOUTH NIGHTLY colestipol 1 gram tablet 2 gm PO DAILY Label Comments: TAKE 2 TABLETS BY MOUTH ONCE DAILY diclofenac sodium 75 mg tablet,delayed release (DR/EC) 75 mg PO BID Label Comments: TAKE 1 TABLET BY MOUTH TWICE DAILY loratadine 10 mg tablet 10 mg PO DAILY Label Comments: TAKE 1 TABLET BY MOUTH ONCE DAILY omeprazole 40 mg capsule,delayed release(DR/EC) 40 mg PO DAILY Label Comments: TAKE 1 CAPSULE BY MOUTH ONCE DAILY Trintellix 10 mg tablet 10 mg PO DAILY Label Comments: TAKE 1 TABLET BY MOUTH ONCE DAILY venlafaxine 75 MG capsule,extended release 24hr 75 mg PO DAILY lisinopril 10 tablet 10 mg PO DAILY tizanidine 4 MG tablet 4 mg PO BID famotidine 20 MG tablet 20 mg PO BID 30 Days Qty: 60 2RF baclofen 5 mg tablet 5 mg PO TID Qty: 42 0RF Referrals Follow up/Referrals: Aneesh Hernandez MD [Primary Care Provider] - See instructions Activity Restrictions/Add. Instructions Additional Instructions/Restrictions: Drink plenty of fluids. Take tylenol or ibuprofen for pain or fever. Take the medications as directed. Follow up with your regular doctor. GO TO THE ER FOR ANY WORSENING SYMPTOMS Clinical Impressions Clinical Impression: Acute bronchitis, Sinusitis Stand Alone Forms Stand Alone Forms: Work/School Release Instructions Patient Instructions: DI for Pharyngitis/Tonsillopharyngitis -- Adult, DI for Acute Bronchitis Discharge ED Provider: Josias [facility] General Stated complaint: sore throat, cough Time Seen by Provider: 09/11/22 16:00 History of Present Illness Provider Complaint: He states that for the past 3 days he has had sore throat, chills, low grade fever, chest congestion, productive cough, pleuritic upper back pain. Related Data Home Medications Medication Instructions Recorded Confirmed lisinopril 10 mg tablet 10 mg PO DAILY blood pressure 11/09/19 09/09/22 venlafaxine 75 mg capsule,extended 75 mg PO DAILY Depression 11/09/19 09/09/22 release 24 hr tizanidine 4 mg tablet 4 mg PO BID muscle relaxant 07/21/20 09/09/22 colestipol 1 gram tablet 2 gm PO DAILY 05/21/22 09/09/22 diclofenac sodium 75 mg 75 mg PO BID 05/21/22 09/09/22 tablet,delayed release loratadine 10 mg tablet 10 mg PO DAILY 05/21/22 09/09/22 omeprazole 40 mg capsule,delayed 40 mg PO DAILY 05/21/22 09/09/22 release sertraline 50 mg tablet 50 mg PO DAILY 05/21/22 09/09/22 trazodone 100 mg tablet 100 mg PO HS 05/21/22 09/09/22 vortioxetine 10 mg tablet 10 mg PO DAILY 05/21/22 09/09/22 (Trintellix) Previous Rx's Medication Instructions Recorded famotidine 20 mg tablet 20 mg PO BID 30 days #60 tabs 03/29/22 baclofen 5 mg tablet 5 mg PO TID #42 tabs 09/10/22 amoxicillin 875 mg-potassium 1 tab PO Q12H #20 tabs 09/11/22 clavulanate 125 mg tablet benzonatate 100 mg capsule 100 mg PO TIDP PRN Cough #30 caps 09/11/22 methylprednisolone 4 mg tablets in 4 mg PO DIRECTED #21 tabs 09/11/22 a dose pack Allergies Allergy/AdvReac Type Severity Reaction Status Date / Time No Known Allergies Allergy Verified 09/11/22 16:12 [facility] Disclaimer: The information contained in this section may have been updated after the patient was seen, as this information can be updated by other users. Medical History (Reviewed 09/12/22 @ 18:5
[2022-09-11 16:11] VITALS: BP 127/77; PULSE 91; RESP 18; TEMP 36.9; O2SAT 96; BMI 37.2
[2022-09-11 16:13] LABS: UTC Strep Screen (Rapid) Negative (Negative)
[2022-09-11 16:31] VITALS: BP 127/77; PULSE 91; RESP 18; TEMP 36.9
== END 2022-09-11 16:32 | disposition home or self-care (01) ==
PROVIDERS: Emergency Provider Nurse Practitioner Family; PCP Internal Medicine Adolescent Medicine
DX: J02.9 Acute pharyngitis, unspecified (principal); R50.9 Fever, unspecified; R07.81 Pleurodynia; R05.9 Cough, unspecified; M54.6 Pain in thoracic spine; R09.89 Other specified symptoms and signs involving the circulatory and respiratory systems; I10 Essential (primary) hypertension; K21.9 Gastro-esophageal reflux disease without esophagitis; F32.A Depression, unspecified; F17.210 Nicotine dependence, cigarettes, uncomplicated; Z79.52 Long term (current) use of systemic steroids; Z79.899 Other long term (current) drug therapy; Z80.9 Family history of malignant neoplasm, unspecified; Z83.3 Family history of diabetes mellitus; Z81.8 Family history of other mental and behavioral disorders
CPT/HCPCS: 87880; 99213; G0463

== ENCOUNTER 2022-09-17 07:42 | Day surgery (SDC) | payer BC, SELFPAY ==
[2022-09-17 08:14] VITALS: BP 129/80; PULSE 84; RESP 18; TEMP 36.4; O2SAT 96; BMI 36.5
[2022-09-17 08:24] VITALS: BP 134/83; PULSE 80; RESP 18; O2SAT 98
[2022-09-17 08:33] VITALS: BP 129/74; PULSE 77; RESP 18; O2SAT 96
--- NOTE | 2022-09-17 09:27 | EXP.PAIN.PRO ---
Procedure Date: 09/17/22 Time: 08:30 Anesthesiologist:: Branden Cobos CRNA Complications:: None Pre-procedure Diagnosis:: CRPS right foot Post-procedure Diagnosis:: Same Indications for Procedure:: Pleasant 52-year-old male who comes our clinic today for sympathetic nerve block for right CRPS foot symptoms. Patient had torn plantar fascia tendon in the past with continued pain. Patient was in a boot for 8 weeks. A cast for 6 weeks. Continues to have pain however better than prior to immobilizing the foot. He rates his pain 6/10. Procedure Details:: Procedure: Lumbar epidural steroid injection under fluoroscopy Informed consent was obtained and the risks and benefits of the procedure were explained to the patient. The patient was taken to the procedure room and noninvasive monitors placed, including noninvasive blood pressure cuff and pulse oximeter. The back was viewed using C-arm Fluoroscopy and prepped using Chloraprep as a cleansing solution and the L4-L5 interspace was palpated. Skin and subcutaneous tissues were anesthetized using lidocaine 1.5% and a 25-gauge needle. After this, an 18-gauge Touhy epidural needle was placed into the L4-L5 interspace and advanced using fluoroscopic guidance and loss of resistance to air until the epidural space was encountered. After confirmation of needle placement in the epidural space, with dye, a solution containing 1% lidocaine, 6 mL and Depo-Medrol 40 mg were incrementally injected into the lumbar epidural space. The patient tolerated the procedure well with no complications. The patient was observed in the Pain Clinic and then discharged home neurologically intact. Plan and Disposition:: Patient was discharged without incident.
== END 2022-09-17 08:33 | disposition home or self-care (01) ==
LOC: SC.PAINP 07:43
PROVIDERS: PCP Internal Medicine Adolescent Medicine; Visit Provider Nurse Anesthetist, Certified Registered
DX: M51.36 Other intervertebral disc degeneration, lumbar region (principal); G57.71 Causalgia of right lower limb; R60.0 Localized edema; M79.605 Pain in left leg; M79.671 Pain in right foot
CPT/HCPCS: 62323; J1030

== ENCOUNTER → 2022-10-02 08:23 | Outpatient (POV) | payer BC, SELFPAY ==
[2022-10-02 08:31] VITALS: BP 122/79; PULSE 78; RESP 18; O2SAT 98; BMI 36.5
--- NOTE | 2022-10-02 08:42 | EXP.PAIN.SOA ---
[facility] Pain Management SOAP Note Subjective:: Patient is a pleasant 52-year-old male who presents today for follow-up of sympathetic nerve block on the right side at L4-L5 on 09/17/2022. We are currently treating the patient for degenerative disc disease of lumbar spine with lumbar radiculopathy symptoms, low back pain, right foot pain, CRPS of right lower extremity. Today the patient states he has had at least 60% improvement following this injection and feels like it is still continuing to provide relief. He rates his pain a 2 out of 10 today and denies any new trauma or injury. Patient denies any change location or type of pain he experiences. Patient states he has been able to move around with more range of motion and activities of daily living with decreased pain symptoms following this injection. Patient was given tizanidine 4 mg 3 times daily at our last visit and he does state this has improved his symptoms as well. At this time patient states he does not need a refill. Patient is not on any scheduled medications. His Adalid is [id number]. It has been reviewed and appropriate. Review of Systems: General: No recent weight changes, no fever, no sleep disturbances Respiratory: No cough, no shortness of air, no recurring pulmonary infections Cardiovascular/peripheral vascular: No chest pain, no palpitations, no edema, no shortness of breath Gastrointestinal: No new onset incontinence, normal bowel movements reported Genitourinary: No new onset incontinence Musculoskeletal: Right foot pain Psychiatric: [Normal mood/affect] Neurological: [Denies weakness in extremities], [denies balance issues] ORT score: Depression yes=1 Objective:: Physical Exam: General: Alert and oriented x3, no acute distress, pleasant and cooperative Lungs: Respirations even and unlabored, symmetrical chest expansion Eyes: PERRL Musculoskeletal: Flexion and extension of right foot somewhat guarded secondary to pain, [antalgic gait noted] Neurological: Speech clear, no gross sensory deficit Assessment:: Degenerative disc disease of lumbar spine with lumbar radiculopathy symptoms, low back pain, right foot pain, CRPS of right lower extremity Plan:: Patient has had significant improvement of his pain symptoms following his sympathetic nerve block. At this time the patient does not require any additional injective therapy. Patient will return to clinic in 1 month for reevaluation of symptoms, medication refill and follow-up. Patient has been instructed to contact the clinic with any concerns before the next appointment. Dr. Mosqueda has reviewed this note and agrees with this plan of care. This note was dictated using voice recognition software and make contain errors or omissions. [facility] Disclaimer: The information contained in this section may have been updated after the patient was seen, as this information can be updated by other users. Medical History Depression GERD (gastroesophageal reflux disease) Hypertension Surgical History H/O arthroscopy of left knee History of arthroscopy of right shoulder Family History Other Cancer Dementia Depression Social History Smoking Status: Current every day smoker tobacco type: cigarettes packs per day: 1 second hand exposure: Yes alcohol intake: never substance use type: denies use current occupational status: employed Travel in the last 8 weeks: None household members: spouse and family housing: house current occupation: [employer] current occupational exposures/hazards: No caffeine: Yes
== END ==
PROVIDERS: PCP Internal Medicine Adolescent Medicine; Visit Provider Nurse Practitioner Family
DX: M51.16 Intervertebral disc disorders with radiculopathy, lumbar region (principal); M79.671 Pain in right foot
CPT/HCPCS: 99212; G0463

== ENCOUNTER 2022-10-03 17:00 | Outpatient (RCR) | payer BC, SELFPAY ==
--- NOTE | 2022-08-14 09:47 | HMH.PTOPEV ---
PT Outpatient Evaluation Rehab PT Outpatient Evaluation Start: 08/14/22 09:00 Freq: Status: Active Protocol: Document 08/14/22 09:00 GUERDALILIBETH (Rec: 08/14/22 09:47 GUERDALILIBETH [id number]) E-signed By Kati Clifton, PT Outpatient Therapy Subjective History Subjective History Pt is a 52 y/o male that reports to PT for myositis of the right foot. Pt reports 3 years ago (06/16/19) he had surgery on the right foot for a ganglion cyst that was removed. Pt reports following surgery he was doing fine until 4-5 months ago. Pt reports he tore his plantar fascia but continued walking on it due to work. Pt had a MRI on 06/07/22 with report of Posterior plantar fasciitis with a tear at its insertion. Increased signal in the adductor hallucis muscle that may represent mild muscle injury or myositis. Pt reports he was placed in a boot after he had the MRI, then was casted on 07/22 which was removed on 08/12 due to foot swelling. Pt reports he was placed in an unna boot on 08/12/22 which is planned to be removed on 08/19/22. Per MD note, pt is to start PT treatment after 08/26/22. Pt was given exercises by Dr. Hussein which he states he has been doing without issues. Pt reports he has been NWB since 07/22/22 and is doing alright with the crutches. Pt states he fell twice when he first got the crutches traversing 3 steps to his home, but denies fall since. Pt reports he now feels comfortable with using the crutches on stairs. Pt reports he does have constant burning pain of the medial arch along his incision, states the incision is well
--- NOTE | 2022-09-18 18:08 | HMH.RHREAS ---
Rehab Reassessment Rehab OP Re-assessment Start: 09/18/22 17:03 Freq: Status: Active Protocol: Document 09/18/22 17:03 CASEY (Rec: 09/18/22 18:07 CASEY [id number]) E-signed By Kati Clifton PT Rehab Re-assessment Subjective Subjective Pt reports he feels >50% improved since starting PT. Pt reports he continues to have heel pain but states medial arch pain is abolished. Pt reports heel pain at worse as 4/10 and on average 2-3/10.Pt reports he returned to work on Friday and is taking it easy and is allowed to rest as needed with good tolerance thus far. Pt states his next follow-up appointment with Dr. Hussein is on 10/14/22. Objective Objective Notes TTP: plantar fascia insertion R ankle AROM: DF 15, PF 38, Eversion 25, Inversion 35 R ankle MMT: DF/PF: 5/5, Inv/ Ev: 4+/5 Figure 8: 59 cm R Gait pattern: no abnormalities noted this date in regular tennis shoe Balance: able to perform tandem stance on firm surface 30 without LOB Assessment Progress Assessment Progressing as Expected Assessment Notes Pt has attended 7 PT visits consisting of aerobic exercise , LE stretching/strengthening, open chain ankle mobility and strengthening exercises, manual therapy and modalities with good tolerance. Pt demonstrated improved ankle AROM, strength, gait pattern and balance since initial evaluation. Pt has returned to work and is FWB in tennis shoe with good tolerance. Pt would continue to benefit from skilled PT to further improve pain intensity, ankle AROM/ strength, balance/ proprioception and functional activity tolerance to imp
== END 2022-10-03 17:05 | disposition home or self-care (01) ==
LOC: PT 17:00
PROVIDERS: PCP Internal Medicine Adolescent Medicine; Visit Provider Podiatrist
DX: M79.671 Pain in right foot (principal); M60.871 Other myositis, right ankle and foot
CPT/HCPCS: 97010; 97014; 97035; 97110; 97112; 97140; 97163; 97164; 97530; G0283

== ENCOUNTER → 2022-11-04 09:56 | Outpatient (POV) | payer BC, SELFPAY ==
[2022-11-04 10:12] VITALS: BP 117/84; PULSE 87; RESP 18; O2SAT 98; BMI 37.4
--- NOTE | 2022-11-04 10:12 | EXP.PAIN.SOA ---
[facility] Pain Management SOAP Note Subjective:: Patient is a pleasant 52-year-old male who presents today for medication refill and follow-up. We are currently treating the patient for degenerative disc disease of lumbar spine with lumbar radiculopathy symptoms, low back pain, right foot pain, CRPS of the lower right extremity. Today he rates his pain a 0 out of 10. Patient denies any new trauma or injury. Patient denies any change in location or type of pain he experiences. Patient does state he still feels like he is getting additional relief from the sympathetic nerve block that we did back in August. Patient is currently managed with tizanidine 4 mg 3 times a day and states that he does not take this on a regular basis just when he has worsening pain symptoms and it does provide significant improvement. Patient is not on any scheduled medications. His Adalid is [id number]. Its been reviewed and appropriate. Review of Systems: General: No recent weight changes, no fever, no sleep disturbances Respiratory: No cough, no shortness of air, no recurring pulmonary infections Cardiovascular/peripheral vascular: No chest pain, no palpitations, no edema, no shortness of breath Gastrointestinal: No new onset incontinence, normal bowel movements reported Genitourinary: No new onset incontinence Musculoskeletal: Right foot pain Psychiatric: [Normal mood/affect] Neurological: [Denies weakness in extremities], [denies balance issues] Objective:: Physical Exam: General: Alert and oriented x3, no acute distress, pleasant and cooperative Lungs: Respirations even and unlabored, symmetrical chest expansion Eyes: PERRL Musculoskeletal: Flexion and extension of right foot somewhat guarded secondary to pain, [antalgic gait noted] Neurological: Speech clear, no gross sensory deficit Assessment:: Degenerative disc disease of lumbar spine with lumbar radiculopathy symptoms, low back pain, right foot pain, CRPS of the right lower extremity Plan:: Patient continues to have significant improvement of his pain symptoms following his sympathetic nerve block that was done in August. At this time he does not require any additional injective therapy. I will refill his tizanidine 4 mg 3 times a day and provide a 3-month supply of this medication. Patient will return to clinic in 3 months for reevaluation of symptoms, medication refill and follow-up. Patient has been instructed to contact the clinic with any concerns before the next appointment. Dr. Mosqueda has reviewed this note and agrees with this plan of care. This note was dictated using voice recognition software and make contain errors or omissions. [facility] Disclaimer: The information contained in this section may have been updated after the patient was seen, as this information can be updated by other users. Medical History Depression GERD (gastroesophageal reflux disease) Hypertension Surgical History H/O arthroscopy of left knee History of arthroscopy of right shoulder Family History Other Cancer Dementia Depression Social History Smoking Status: Current every day smoker tobacco type: cigarettes packs per day: 1 second hand exposure: Yes alcohol intake: never substance use type: denies use current occupational status: employed Travel in the last 8 weeks: None household members: spouse and family housing: house current occupation: [employer] current occupational exposures/hazards: No caffeine: Yes
== END | disposition home or self-care (01) ==
PROVIDERS: PCP Internal Medicine Adolescent Medicine; Visit Provider Nurse Practitioner Family
DX: M51.16 Intervertebral disc disorders with radiculopathy, lumbar region (principal); M79.671 Pain in right foot; G57.71 Causalgia of right lower limb
CPT/HCPCS: 99212; G0463

== ENCOUNTER 2022-11-04 10:42 | Emergency (ER) | payer BC, SELFPAY ==
--- NOTE | 2022-11-04 11:54 | EXP.UTC ---
Discharge Plan Disposition Patient Disposition: Home, Self-Care Condition: Good Prescriptions Prescriptions: New benzonatate [benzonatate] 100 mg capsule 100 mg PO TIDP PRN (Reason: Cough) Qty: 30 0RF methylprednisolone 4 mg Tablets,Dose Pack 4 mg PO DIRECTED Qty: 21 0RF amoxicillin-pot clavulanate 875-125 mg Tablet 1 tab PO Q12H Qty: 20 0RF No Action omeprazole 40 mg capsule,delayed release(DR/EC) 40 mg PO DAILY Label Comments: TAKE 1 CAPSULE BY MOUTH ONCE DAILY Trintellix 10 mg tablet 10 mg PO DAILY Label Comments: TAKE 1 TABLET BY MOUTH ONCE DAILY lisinopril 10 tablet 10 mg PO DAILY trazodone 100 mg tablet 100 mg PO DAILY colestipol 1 gram tablet 1 g PO DAILY Referrals Follow up/Referrals: Aneesh Hernandez MD [Primary Care Provider] - See instructions Activity Restrictions/Add. Instructions Additional Instructions/Restrictions: Drink plenty of fluids. Take tylenol or ibuprofen for pain or fever. Take the medications as directed. Follow up with your regular doctor. GO TO THE ER FOR ANY WORSENING SYMPTOMS Clinical Impressions Clinical Impression: Bronchitis Instructions Patient Instructions: Acute Bronchitis, DI for Acute Bronchitis Discharge ED Provider: Josias Parker [facility] HPI General Stated complaint: cough,right lung pain Time Seen by Provider: 11/04/22 11:54 History of Present Illness Provider Complaint: He complains of having a productive cough and sinus congestion for the past 2 weeks. He denies any fever/body aches/chills. Related Data Home Medications Medication Instructions Recorded Confirmed lisinopril 10 mg tablet 10 mg PO DAILY blood pressure 11/09/19 11/04/22 omeprazole 40 mg capsule,delayed 40 mg PO DAILY . 05/21/22 11/04/22 release vortioxetine 10 mg tablet 10 mg PO DAILY . 05/21/22 11/04/22 (Trintellix) colestipol 1 gram tablet 1 g PO DAILY . 11/04/22 11/04/22 trazodone 100 mg tablet 100 mg PO DAILY . 11/04/22 11/04/22 Previous Rx's Medication Instructions Recorded amoxicillin 875 mg-potassium 1 tab PO Q12H #20 tabs 11/04/22 clavulanate 125 mg tablet benzonatate 100 mg capsule 100 mg PO TIDP PRN Cough #30 caps 11/04/22 methylprednisolone 4 mg tablets in 4 mg PO DIRECTED #21 tabs 11/04/22 a dose pack Allergies Allergy/AdvReac Type Severity Reaction Status Date / Time No Known Allergies Allergy Verified 11/04/22 12:00 [facility] Disclaimer: The information contained in this section may have been updated after the patient was seen, as this information can be updated by other users. Medical History Depression GERD (gastroesophageal reflux disease) Hypertension Surgical History H/O arthroscopy of left knee History of arthroscopy of right shoulder Family History Other Cancer Dementia Depression Social History Smoking Status: Current every day smoker tobacco type: cigarettes packs per day: 1 second hand exposure: Yes alcohol intake: never substance use type: denies use current occupational status: employed Travel in the last 8 weeks: None household members: spouse and family housing: house current occupation: [employer] current occupational exposures/hazards: No caffeine: Yes ROS Obtained: Yes All systems reviewed & no additional complaints except as documented Constitutional Constitutional: Reports chills and Reports fever(s) Eyes Eyes: Denies eye discharge ENT Ears, Nose, Mouth, and Throat: Reports as per HPI Cardiovascular Cardiovascular: Denies chest pain Respiratory Respiratory: Denies chest congestion and Reports cough Gastrointestinal Gastrointestingal: Reports nausea; Denies abdominal pain, constipation, cramping, diarrh
[2022-11-04 11:57] VITALS: BP 129/90; RESP 20; TEMP 36.9; O2SAT 94; BMI 37.2
[2022-11-04 12:42] VITALS: BP 129/90; PULSE 100; RESP 20; TEMP 36.9; O2SAT 94
== END 2022-11-04 12:41 | disposition home or self-care (01) ==
PROVIDERS: Emergency Provider Nurse Practitioner Family; PCP Internal Medicine Adolescent Medicine
DX: J40 Bronchitis, not specified as acute or chronic (principal)
CPT/HCPCS: 99212; 99213; G0463

== ENCOUNTER 2022-11-18 20:41 | Emergency (ER) | payer BC, SELFPAY ==
[2022-11-18 20:44] VITALS: BP 143/83; PULSE 98; RESP 19; TEMP 37.2; O2SAT 97; BMI 35.7
--- NOTE | 2022-11-18 21:24 | CT_ITS ---
PROCEDURE INFORMATION: Exam: CTA Chest With Contrast Exam date and time: 11/18/2022 10:20 PM Age: 52 years old Clinical indication: Shortness of breath; Additional info: SOA TECHNIQUE: Imaging protocol: Computed tomographic angiography of the chest with contrast. 3D rendering (Not supervised by radiologist): MIP and/or 3D reconstructed images were created by the technologist. Radiation optimization: All CT scans at this facility use at least one of these dose optimization techniques: automated exposure control; mA and/or kV adjustment per patient size (includes targeted exams where dose is matched to clinical indication); or iterative reconstruction. Contrast material: ISOVUE 370; Contrast volume: 70 ml; Contrast route: INTRAVENOUS (IV); Other protocol: This patient has received 2 known CTs and 0 known cardiac nuclear medicine studies in the 12 months prior to the current study. COMPARISON: CT CHEST W CON 08/28/2022 1:19 PM FINDINGS: Pulmonary arteries: Normal. No pulmonary emboli. There is equal opacification of the pulmonary artery and aorta limiting evaluation of the distal pulmonary arteries. Aorta: Unremarkable. No aortic aneurysm. No aortic dissection. Lungs: Stable 13 x 9 mm right middle lobe nodule. Stable 5 mm right apical nodule. Bilateral lower lobe atelectasis agves-[id number]-eand-left. Areas of ground-glass attenuation having a somewhat mosaic appearance may represent air trapping. Right lower lobe calcified granuloma. Pleural spaces: Unremarkable. No pneumothorax. No pleural effusion. Heart: Unremarkable. No cardiomegaly. No pericardial effusion. Lymph nodes: Calcified mediastinal lymph nodes. Gallbladder and bile ducts: The gallbladder is absent. There is no biliary ductal dilation. Kidneys and ureters: 10 mm cortical cyst of the left kidney. Bones/joints: Unremarkable. No acute fracture. Soft tissues: Unremarkable. IMPRESSION: 1. There is no significant pulmonary embolus. Distal pulmonary emboli could be missed due to injection timing. 2. Stable right middle and upper lobe nodules. As per Fleischner Society guidelines for follow-up and management of pulmonary nodules greater than 8 mm: Recommend initial follow-up chest CT at 3 months. Consider contrast enhanced chest CT, PET scan and/or biopsy as clinically warranted. 4. Mosaic ground-glass attenuation of the lungs may represent air trapping. 5. Other findings as detailed. COMMENTS: Consistent with the [employer]'s Incidental Findings Committee white paper (J Am Jori Radiol 2018): Any incidental renal lesion less than 1 cm or classified as too small to characterize, or any incidental cystic renal lesion characterized as simple-appearing, is likely benign. No follow-up imaging is recommended for these lesions per consensus recommendations based on imaging criteria.
--- NOTE | 2022-11-18 21:26 | XR_ITS ---
PROCEDURE INFORMATION: Exam: XR Chest Exam date and time: 11/18/2022 10:06 PM Age: 52 years old Clinical indication: Cough TECHNIQUE: Imaging protocol: Radiologic exam of the chest. Views: 2 views. COMPARISON: CT CHEST W CON 08/28/2022 1:19 PM FINDINGS: Lungs: The lung volumes are low. There is linear density at the right lung base consistent with subsegmental atelectasis or scarring. Pleural spaces: Unremarkable. No pleural effusion. No pneumothorax. Heart/Mediastinum: Unremarkable. No cardiomegaly. Vasculature: Unremarkable. Bones/joints: Unremarkable. IMPRESSION: 1. Low lung volumes causing crowding of the central bronchovascular markings. 2. Right lung base subsegmental atelectasis versus scarring.
[2022-11-18 21:29] LABS: Alanine Aminotransferase 31 U/L (12-78); Albumin Level 4.2 g/dl (3.5-5.0); Alkaline Phosphatase 98 U/L (38-126); Anion Gap 5.8 mEq/L (5-15); Aspartate Amino Transferase 30 U/L (17-59); Basophils # 0.2 K/mm3 (0-0.2); Basophils % 1.1 % (0.1-2.0); Bilirubin,Direct 0.3 mg/dl (0.0-0.4); Bilirubin,Indirect 0.1 mg/dL (0.0-0.9); Bilirubin,Total 0.4 mg/dl (0.2-1.3); Bilirubin,Unconjugated 0.1 mg/dL (0.0-1.1); Blood Urea Nitrogen 8 mg/dl (9-20); Calcium 8.5 mg/dl (8.4-10.2); Carbon Dioxide 30 mmol/L (22.0-30.0); Chloride 105 mmol/L (98-107); Creatinine Clearance Estimated 167 mL/min (50-200); Eosinophils # 0.5 K/mm3 (0.0-0.4); Eosinophils % 3.5 % (0.1-12.0); Estimated Glomerular Filt Rate 102 ml/min (>60); GFR (African American) 124 ML/MIN (>60); Glucose 106 mg/dl (74-100); Hematocrit 49.6 % (42.0-52.0); Hemoglobin 16.4 g/dL (14.1-18.0); Lymphocytes # 2.2 K/mm3 (0.7-4.5); Mean Corpuscular HGB Conc 33.1 g/dL (31.8-35.4); Mean Corpuscular Hemoglobin 29.7 pg (27.0-31.2); Mean Corpuscular Volume 89.8 fl (80-94); Mean Platelet Volume 9.2 fl (7.4-10.4); Monocytes # 0.7 K/mm3 (0.1-1.0); Monocytes % 4.5 % (1.7-9.3); Neutrophils # 11.2 K/mm3 (1.8-7.8); Neutrophils % 75.9 % (37.0-80.0); Platelet Count 279 K/mm3 (142-424); Potassium 3.8 mmoL/L (3.5-5.1); Red Blood Count 5.52 M/mm3 (4.60-6.20); Red Cell Distribution Width 13.5 % (11.5-17.5); Sodium 137 mmol/L (136-145); Total Protein,Serum 6.8 g/dl (6.3-8.2); White Blood Count 14.7 K/mm3 (4.8-10.8)
[2022-11-18 21:34] LABS: C-Reactive Protein 8.2 mg/L (0-4)
[2022-11-18 21:41] LABS: NT Pro Brain Natriuretic Pep. 13.2 pg/mL (0-125)
[2022-11-18 21:51] LABS: Troponin I < 0.01 ng/ml (0.00-0.034)
[2022-11-18 21:59] LABS: Erythrocyte Sedimentation Rate 4 mm/hr (0-15)
--- NOTE | 2022-11-18 22:56 | HMH.EDGENADL ---
Discharge Plan Disposition Patient Disposition: Home, Self-Care Prescriptions Prescriptions: New prednisone [prednisone] 20 mg tablet 20 mg PO BID Qty: 10 0RF No Action omeprazole 40 mg capsule,delayed release(DR/EC) 40 mg PO DAILY Label Comments: TAKE 1 CAPSULE BY MOUTH ONCE DAILY trazodone 100 mg tablet 10 mg PO HS lisinopril 10 mg tablet 10 mg PO DAILY colestipol 1 gram tablet 1 g PO ACHS loratadine 10 mg tablet 10 mg PO DAILY Label Comments: TAKE 1 TABLET BY MOUTH ONCE DAILY Trintellix 10 mg tablet 10 mg PO DAILY Label Comments: TAKE 1 TABLET BY MOUTH ONCE DAILY baclofen 5 mg tablet 5 mg PO TID Label Comments: TAKE 1 TABLET BY MOUTH THREE TIMES DAILY Referrals Follow up/Referrals: Aneesh Hernandez MD [Primary Care Provider] - See instructions Clinical Impressions Clinical Impression: Acute pleurisy without pleural effusion Instructions Patient Instructions: DI for Pleurisy Discharge ED Provider: Jonas (ED),Dwayne [facility] Adult HPI General Chief complaint: PAIN Stated complaint: David diagnosed with spots on lungs, cough pain Time Seen by Provider: 11/18/22 22:57 Mode of Arrival: Ambulatory Source of Information: Patient, Spouse and Medical Record Limitations: No Limitations Description of Symptoms (Recalled from ER Triage Doc. by RN): 52 M presents with continued right sided chest wall pain when coughing. He is followed by Dr. Hernandez for spots on his lungs that was seen on previous imaging. Patient reports he was told to come here to the ED for a chest scan and further evaluation. Patient denies fever, chills, hemoptysis. History of Present Illness HPI narrative: pt with cough and sob and pain on rt lung area over the last few days - has hx of abn ct in past - uses tob Onset (ago): day(s) Severity: moderate Consistency: intermittent Associated symptoms: cough Related Data Home Medications Medication Instructions Recorded Confirmed baclofen 5 mg tablet 5 mg PO TID Muscle Spasm 11/18/22 11/18/22 colestipol 1 gram tablet 1 g PO ACHS GERD 11/18/22 11/18/22 lisinopril 10 mg tablet 10 mg PO DAILY High blood pressure 11/18/22 11/18/22 loratadine 10 mg tablet 10 mg PO DAILY Seasonal Allergies 11/18/22 11/18/22 omeprazole 40 mg capsule,delayed 40 mg PO DAILY GERD 11/18/22 11/18/22 release trazodone 100 mg tablet 10 mg PO HS Insomnia 11/18/22 11/18/22 vortioxetine 10 mg tablet 10 mg PO DAILY MDD 11/18/22 11/18/22 (Trintellix) Previous Rx's Medication Instructions Recorded prednisone 20 mg tablet 20 mg PO BID #10 tabs 11/18/22 Allergies Allergy/AdvReac Type Severity Reaction Status Date / Time No Known Allergies Allergy Verified 11/04/22 12:[address] [facility] Disclaimer: The information contained in this section may have been updated after the patient was seen, as this information can be updated by other users. Medical History Depression GERD (gastroesophageal reflux disease) Hypertension Surgical History H/O arthroscopy of left knee History of arthroscopy of right shoulder Family History Other Cancer Dementia Depression Social History Smoking Status: Current every day smoker tobacco type: cigarettes packs per day: 1 second hand exposure: Yes alcohol intake: never substance use type: denies use current occupational status: employed Travel in the last 8 weeks: None household members: spouse and family housing: house current occupation: [employer] current occupational exposures/hazards: No caffeine: Yes ROS Obtained: Yes All systems reviewed & no additional complaints except as documented Physical Exam General General appearance: alert and obese Head Head ex
[2022-11-18 23:33] VITALS: BP 127/84; PULSE 84; RESP 19; TEMP 36.6; O2SAT 96
== END 2022-11-18 23:45 | disposition home or self-care (01) ==
PROVIDERS: Emergency Provider Emergency Medicine; PCP Internal Medicine Adolescent Medicine
DX: R09.1 Pleurisy (principal); F32.A Depression, unspecified; K21.9 Gastro-esophageal reflux disease without esophagitis; I10 Essential (primary) hypertension; Z80.9 Family history of malignant neoplasm, unspecified; Z81.8 Family history of other mental and behavioral disorders; F17.210 Nicotine dependence, cigarettes, uncomplicated
CPT/HCPCS: 71046; 71275; 80048; 80076; 83880; 84145; 84484; 85025; 85651; 86140; 96361; 96374; 96375; 99285; Q9967

== ENCOUNTER → 2022-12-23 13:45 | Outpatient (CLI) | payer BC, SELFPAY ==
[2022-12-23 14:10] LABS: Blood Urea Nitrogen 10 mg/dl (9-20); Estimated Glomerular Filt Rate 102 ml/min (>60); GFR (African American) 124 ML/MIN (>60)
--- NOTE | 2022-12-23 14:16 | CT_ITS ---
FINAL REPORT CLINICAL HISTORY: PULMONARY NODULES COMPARISON: November 18, 2022; March 2022 FINDINGS: Before and after the administration of intravenous contrast, axial images through the chest were performed by computed tomography. This study was performed with techniques to keep radiation doses as low as reasonably achievable, (ALARA). Individualized dose reduction techniques using automated exposure control or adjustment of mA and/or kV according to the patient's size were employed. There is no axillary adenopathy. Able liver line enlarged subcarinal lymph node is stable. The heart size is normal. There is no pericardial or pleural effusion. Limited images of the upper abdomen are unremarkable. A 5 mm right apical nodule is unchanged from October 2022. A 14 mm right middle lobe nodule is unchanged from March 2022. The previous ground-glass opacities have improved. There continues to be bilateral lower lobe atelectasis. IMPRESSION: Stable nodules as above. Recommend continued follow-up in 6 months. Reviewed, Interpreted and Dictated by Annie Mcqueen MD Transcribed by Kin Ngo Authenticated and [facility]
== END ==
LOC: RAD 13:46
PROVIDERS: PCP Internal Medicine Adolescent Medicine; Visit Provider Internal Medicine Adolescent Medicine
DX: R91.1 Solitary pulmonary nodule (principal)
CPT/HCPCS: 36415; 71270; 82565; 84520; Q9967

== ENCOUNTER → 2022-12-30 13:34 | Outpatient (POV) | payer BC, SELFPAY ==
--- NOTE | 2022-12-30 14:46 | EXP.PAIN.SOA ---
[facility] Pain Management SOAP Note Subjective:: Patient is a pleasant 52-year-old male who presents today for follow-up. We are currently treating the patient for degenerative disc disease of lumbar spine with lumbar radiculopathy symptoms, low back pain, right foot pain, CRPS type I lower limb. Today he rates his pain a 5 out of 10. Patient states that he is experiencing worsening pain in his right foot. He does describe this as an aching sensation that is worse with increased activity. Patient states he has difficulty ambulating due to the pain. He states that he feels like he has a golf ball in his shoe. He does state it interferes with his ability to perform activities of daily living such as cooking and cleaning. He cannot tolerate prolonged standing or walking due to his pain. Patient previously had a sympathetic nerve block in August that did provide at least 60% improvement lasting over 2 months. Patient is interested in repeating this injection at today's visit. He is also managed with tizanidine 4 mg 3 times a day. Patient is not on any scheduled medications. His Adalid is [id number]. Its been reviewed and appropriate. Review of Systems: General: No recent weight changes, no fever, no sleep disturbances Respiratory: No cough, no shortness of air, no recurring pulmonary infections Cardiovascular/peripheral vascular: No chest pain, no palpitations, no edema, no shortness of breath Gastrointestinal: No new onset incontinence, normal bowel movements reported Genitourinary: No new onset incontinence Musculoskeletal: Right foot pain Psychiatric: [Normal mood/affect] Neurological: [Denies weakness in extremities], [denies balance issues] Objective:: Physical Exam: General: Alert and oriented x3, no acute distress, pleasant and cooperative Lungs: Respirations even and unlabored, symmetrical chest expansion Eyes: PERRL Musculoskeletal: Flexion and extension of right foot somewhat guarded secondary to pain, [antalgic gait noted] color and temperature change in the right foot in comparison to the left: Patient has a positive straight leg raise: Altered sensation noted to the right foot in comparison to the left: Diminished reflexes in the right foot compared to the left Neurological: Speech clear, no gross sensory deficit Assessment:: Degenerative disc disease of lumbar spine with lumbar radiculopathy symptoms, low back pain, right foot pain, CRPS type I lower limb right Plan:: Patient is experiencing worsening pain in his right foot with limited range of motion. Patient does have altered color and temperature change in comparison to the left foot as well as altered sensation and decreased reflexes. Patient had a positive straight leg raise on the right. I have discussed with the patient that he may benefit from a repeat sympathetic nerve block along the right side. Risk and benefits were discussed and he would like to proceed forward with this plan of care. Patient previously had a sympathetic nerve block that did provide upwards of 60% improvement or more lasting more than 2 months. We will schedule the patient for a right sympathetic nerve block L4-L5. Patient has been instructed to contact the clinic with any concerns before the next appointment. Dr. Mosqueda has reviewed this note and agrees with this plan of care. This note was dictated using voice recognition software and make contain errors or omissions. [facility] Disclaimer: The information contained in this section may have been updated after the patient was seen, as this information can be updated by other users. Medical History Depression GERD (gastroesophageal reflux disease) Hypertension Surgical History H/O arthroscopy of left knee History of arthroscopy of right shoulder Family History Other Cancer Dementia Depression
[2022-12-30 14:56] VITALS: BP 137/82; PULSE 79; RESP 18; O2SAT 97; BMI 36.5
== END ==
PROVIDERS: PCP Internal Medicine Adolescent Medicine; Visit Provider Nurse Practitioner Family
DX: M51.16 Intervertebral disc disorders with radiculopathy, lumbar region (principal); G90.521 Complex regional pain syndrome I of right lower limb; M79.671 Pain in right foot
CPT/HCPCS: 99212; G0463

== ENCOUNTER → 2023-01-01 16:34 | Outpatient (CLI) | payer BC, SELFPAY ==
--- NOTE | 2023-01-01 16:37 | US_ITS ---
FINAL REPORT TECHNIQUE: Real-time grayscale and color ultrasound of the thyroid was performed. CLINICAL HISTORY: NODULE COMPARISON: None FINDINGS: The thyroid gland measures 5.3 cm on the right and 4.7 cm on the left. The isthmus measures 6 mm. There is a dominant TI-RADS 4 left lobe nodule measuring 3.2 x 2.0 cm. There is a dominant solid TI-RADS 4 nodule on the right measuring 2.2 x 1.8 cm. There is an isthmus TI-RADS 3 nodule measuring 1.0 cm. IMPRESSION: Dominant nodule right lobe of the thyroid taller than wide, TI-RADS 4, measuring 2.2 x 1.8 cm. Recommend FNA. Left lobe TI-RADS 4 dominant lesion measuring 3.2 x 2.0 cm. Recommend FNA Reviewed, Interpreted and Dictated by Orion Way MD Transcribed by Lolis Abdi Authenticated and [facility]
== END ==
LOC: RAD 16:34
PROVIDERS: PCP Internal Medicine Adolescent Medicine; Visit Provider Internal Medicine Adolescent Medicine
DX: E04.1 Nontoxic single thyroid nodule (principal)
CPT/HCPCS: 76536

== ENCOUNTER 2023-01-04 19:00 | Emergency (ER) | payer BC, SELFPAY ==
[2023-01-04 19:08] VITALS: BP 133/96; PULSE 87; RESP 18; TEMP 36.6; O2SAT 97; BMI 36.9
[2023-01-04 19:14] VITALS: BMI 36.9
--- NOTE | 2023-01-04 19:15 | CT_ITS ---
PROCEDURE INFORMATION: Exam: CT Abdomen And Pelvis With Contrast Exam date and time: 01/04/2023 7:57 PM Age: 52 years old Clinical indication: Abdominal pain TECHNIQUE: Imaging protocol: Computed tomography of the abdomen and pelvis with contrast. Radiation optimization: All CT scans at this facility use at least one of these dose optimization techniques: automated exposure control; mA and/or kV adjustment per patient size (includes targeted exams where dose is matched to clinical indication); or iterative reconstruction. Contrast material: ISOVUE; Contrast volume: 75 ml; Contrast route: IV; REPORTING DATA: Count of CT and Cardiac NM exams in prior 12 months: This patient has received 4 known CTs and 0 known cardiac nuclear medicine studies in the 12 months prior to the current study. COMPARISON: CT ABDOMEN PELVIS W CON 04/17/2022 8:49 AM FINDINGS: Lungs: The lung bases there is atelectasis. Liver: Normal. No mass. Gallbladder and bile ducts: Cholecystectomy. Pancreas: Normal. No ductal dilation. Spleen: Normal. No splenomegaly. Adrenal glands: Normal. No mass. Kidneys and ureters: Normal. No hydronephrosis. Stomach and bowel: Unremarkable. No obstruction. No mucosal thickening. Appendix: No evidence of appendicitis. Intraperitoneal space: Unremarkable. No free air. No significant fluid collection. Vasculature: Unremarkable. No abdominal aortic aneurysm. Lymph nodes: Unremarkable. No enlarged lymph nodes. Urinary bladder: Unremarkable as visualized. Reproductive: Unremarkable as visualized. Bones/joints: Unremarkable. No acute fracture. Soft tissues: Unremarkable. IMPRESSION: No acute findings.
[2023-01-04 19:31] LABS: Microscopic, Urine URINE MICROSCOPIC (MICROSCOPIC)
[2023-01-04 19:33] LABS: Appearance,Urine CLEAR (Clear); Bilirubin,Urine Negative (Negative); Blood, Urine TRACE-I (Negative); Color,Urine YELLOW (Yellow); Glucose,Urine (UA) Negative (Negative); Ketones,Urine Negative (Negative); Leukocyte Esterase,Urine Negative (Negative); Nitrate,Urine Negative (Negative); Protein,Urine Negative (Negative); Urobilinogen,Urine 0.2 EU/dl (0.2)
[2023-01-04 19:35] LABS: Basophils % 0.3 % (0.1-2.0); Eosinophils # 0.2 K/mm3 (0.0-0.4); Eosinophils % 1.6 % (0.1-12.0); Hematocrit 47.5 % (42.0-52.0); Hemoglobin 15.5 g/dL (14.1-18.0); Lymphocytes # 1.9 K/mm3 (0.7-4.5); Lymphocytes % 15.7 % (10-50); Mean Corpuscular HGB Conc 32.5 g/dL (31.8-35.4); Mean Corpuscular Hemoglobin 29.5 pg (27.0-31.2); Mean Corpuscular Volume 90.7 fl (80-94); Mean Platelet Volume 8.9 fl (7.4-10.4); Monocytes # 0.6 K/mm3 (0.1-1.0); Monocytes % 5.2 % (1.7-9.3); Neutrophils # 9.6 K/mm3 (1.8-7.8); Neutrophils % 77.2 % (37.0-80.0); Platelet Count 270 K/mm3 (142-424); Red Blood Count 5.23 M/mm3 (4.60-6.20); Red Cell Distribution Width 13.2 % (11.5-17.5); White Blood Count 12.4 K/mm3 (4.8-10.8)
[2023-01-04 19:40] LABS: Alanine Aminotransferase 22 U/L (12-78); Albumin Level 4.4 g/dl (3.5-5.0); Albumin/Globulin Ratio 1.8 (1.1-1.8); Alkaline Phosphatase 91 U/L (38-126); Amylase 66 U/L (30-110); Anion Gap 8.8 mEq/L (5-15); Aspartate Amino Transferase 30 U/L (17-59); Bilirubin,Total 0.4 mg/dl (0.2-1.3); Blood Urea Nitrogen 9 mg/dl (9-20); Calcium 8.5 mg/dl (8.4-10.2); Carbon Dioxide 29 mmol/L (22.0-30.0); Chloride 100 mmol/L (98-107); Creatinine Clearance Estimated 172 mL/min (50-200); Estimated Glomerular Filt Rate 102 ml/min (>60); GFR (African American) 124 ML/MIN (>60); Globulin 2.5 g/dL (1.3-3.2); Glucose 97 mg/dl (74-100); Potassium 3.8 mmoL/L (3.5-5.1); Sodium 134 mmol/L (136-145); Total Protein,Serum 6.9 g/dl (6.3-8.2)
[2023-01-04 19:45] LABS: C-Reactive Protein 7.2 mg/L (0-4)
[2023-01-04 19:48] LABS: RBC,Urine Occasional #/hpf (0-3); Squamous Epithelial Cell,Urine Occasional #/hpf (0-5)
[2023-01-04 20:02] LABS: Erythrocyte Sedimentation Rate 7 mm/hr (0-15)
--- NOTE | 2023-01-04 20:07 | PC.NURSE ---
Rounded on patient, states that his nausea is much better.
--- NOTE | 2023-01-04 21:01 | HMH.EDABDPAI ---
Discharge Plan Disposition Patient Disposition: Home, Self-Care Prescriptions Prescriptions: New ondansetron HCl 4 mg Tablet 4 mg PO Q8H PRN (Reason: Nausea) Qty: 20 0RF No Action omeprazole 40 mg capsule,delayed release(DR/EC) 40 mg PO DAILY Label Comments: TAKE 1 CAPSULE BY MOUTH ONCE DAILY trazodone 100 mg tablet 10 mg PO HS lisinopril 10 mg tablet 10 mg PO DAILY colestipol 1 gram tablet 1 g PO ACHS loratadine 10 mg tablet 10 mg PO DAILY Label Comments: TAKE 1 TABLET BY MOUTH ONCE DAILY Trintellix 10 mg tablet 10 mg PO DAILY Label Comments: TAKE 1 TABLET BY MOUTH ONCE DAILY baclofen 5 mg tablet 5 mg PO TID Label Comments: TAKE 1 TABLET BY MOUTH THREE TIMES DAILY Referrals Follow up/Referrals: Aneesh Hernandez MD [Primary Care Provider] - See instructions Clinical Impressions Clinical Impression: Abdominal pain Instructions Patient Instructions: DI for Vomiting -- Adult Discharge ED Provider: Jonas (ED)Dwayne Abdominal Pain HPI General Chief Complaint: Abdominal Pain Stated Complaint: vomiting Time Seen by Provider: 01/04/23 20:30 Mode of Arrival: Ambulatory Source of Information: Patient, Spouse and Medical Record Limitations: No Limitations Description of Symptoms (Recalled from ER Triage Doc. by RN): Presents via POV d/t intermittent n/v with RUQ/RLQ abd pain since . 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 Pt states he saw PCP yesterday and dx w/GI virus. Hx of cholecystectomy and IBS. Pt called PCP today d/t continued sx, Dr. Roque recommended ED for further eval. History of Present Illness HPI narrative: pt with vomiting and upper abd pain over the last few days complaint: abdominal pain Onset (ago): day(s) Consistency: intermittent Severity: moderate Related Data Home Medications Medication Instructions Recorded Confirmed baclofen 5 mg tablet 5 mg PO TID Muscle Spasm 11/18/22 12/30/22 colestipol 1 gram tablet 1 g PO ACHS GERD 11/18/22 12/30/22 lisinopril 10 mg tablet 10 mg PO DAILY High blood pressure 11/18/22 12/30/22 loratadine 10 mg tablet 10 mg PO DAILY Seasonal Allergies 11/18/22 12/30/22 omeprazole 40 mg capsule,delayed 40 mg PO DAILY GERD 11/18/22 12/30/22 release trazodone 100 mg tablet 10 mg PO HS Insomnia 11/18/22 12/30/22 vortioxetine 10 mg tablet 10 mg PO DAILY MDD 11/18/22 12/30/22 (Trintellix) Previous Rx's Medication Instructions Recorded ondansetron HCl 4 mg tablet 4 mg PO Q8H PRN Nausea #20 tabs 01/04/23 Allergies Allergy/AdvReac Type Severity Reaction Status Date / Time No Known Allergies Allergy Verified 11/04/22 12:00 [facility] Disclaimer: The information contained in this section may have been updated after the patient was seen, as this information can be updated by other users. Medical History Depression GERD (gastroesophageal reflux disease) Hypertension Surgical History H/O arthroscopy of left knee History of arthroscopy of right shoulder Family History Other Cancer Dementia Depression Social History Smoking Status: Current every day smoker tobacco type: cigarettes packs per day: 1 second hand exposure: Yes alcohol intake: never substance use type: denies use current occupational status: employed Travel in the last 8 weeks: None household members: spouse and family housing: house current occupation: [employer] current occupational exposures/hazards: No caffeine: Yes ROS Obtained: Yes All systems reviewed & no additional complaints except as documented Physical Exam General General appearance: alert Head Head exam: normocephalic Eye Eye exam: Present PERRL and EOMI ENT ENT exam: Present mucous
[2023-01-04 21:44] VITALS: BP 130/85; PULSE 78; RESP 18; TEMP 36.6; O2SAT 99
== END 2023-01-04 21:50 | disposition home or self-care (01) ==
PROVIDERS: Emergency Provider Emergency Medicine; PCP Internal Medicine Adolescent Medicine
DX: R10.11 Right upper quadrant pain (principal); R10.31 Right lower quadrant pain; R11.10 Vomiting, unspecified; F17.210 Nicotine dependence, cigarettes, uncomplicated
CPT/HCPCS: 74177; 80053; 81001; 82150; 84145; 85025; 85651; 86140; 96360; 96374; 96375; 99284; 99285; J2405; Q9967

== ENCOUNTER 2023-01-07 10:46 | Day surgery (SDC) | payer BC, SELFPAY ==
[2023-01-07 11:00] VITALS: BP 123/69; PULSE 74; RESP 18; TEMP 36.9; O2SAT 95; BMI 36.5
[2023-01-07 11:12] VITALS: BP 116/70; PULSE 73; RESP 18; RESP 19; O2SAT 98
[2023-01-07 11:18] VITALS: BP 122/71; PULSE 65; RESP 18; O2SAT 95
--- NOTE | 2023-01-07 11:18 | EXP.PAIN.PRO ---
Procedure Date: 01/07/23 Time: 11:12 Anesthesiologist:: Branden Cobos CRNA Complications:: None Pre-procedure Diagnosis:: CRPS type I right foot Post-procedure Diagnosis:: Same Indications for Procedure:: Patient is a very pleasant 52-year-old male that comes our clinic today for a right L4-5 sympathetic nerve block. Patient has CRPS type one of his right foot. He describes the pain as constant, dull, aching. He rates pain 7/10 today. He had L4-5 sympathetic nerve block in August 2022. He reports moderate to significant improvement terms of his overall foot pain. Procedure Details:: Procedure: Lumbar epidural steroid injection under fluoroscopy Informed consent was obtained and the risks and benefits of the procedure were explained to the patient. The patient was taken to the procedure room and noninvasive monitors placed, including noninvasive blood pressure cuff and pulse oximeter. The back was viewed using C-arm Fluoroscopy and prepped using Chloraprep as a cleansing solution and the L4-L5 interspace was palpated. Skin and subcutaneous tissues were anesthetized using lidocaine 1.5% and a 25-gauge needle. After this, an 18-gauge Touhy epidural needle was placed into the L4-L5 interspace and advanced using fluoroscopic guidance and loss of resistance to air until the epidural space was encountered. After confirmation of needle placement in the epidural space, with dye, a solution containing 1% lidocaine, 5 mL and Depo-Medrol 80 mg were incrementally injected into the lumbar epidural space. The patient tolerated the procedure well with no complications. The patient was observed in the Pain Clinic and then discharged home neurologically intact. Plan and Disposition:: Patient was discharged without incident.
== END 2023-01-07 11:18 | disposition home or self-care (01) ==
PROVIDERS: PCP Internal Medicine Adolescent Medicine; Visit Provider Nurse Anesthetist, Certified Registered
DX: G90.521 Complex regional pain syndrome I of right lower limb (principal); M51.16 Intervertebral disc disorders with radiculopathy, lumbar region
CPT/HCPCS: 62323; J1030; Q9966

== ENCOUNTER → 2023-01-14 07:56 | Outpatient (CLI) | payer BC, SELFPAY ==
[2023-01-14 08:58] LABS: Chloride 101 mmol/L (98-107); Potassium 4.4 mmoL/L (3.5-5.1); Sodium 139 mmol/L (136-145)
[2023-01-14 09:00] LABS: Blood Urea Nitrogen 13 mg/dl (9-20); Estimated Glomerular Filt Rate 89 ml/min (>60); GFR (African American) 108 ML/MIN (>60)
[2023-01-14 09:01] LABS: Alanine Aminotransferase 22 U/L (12-78); Albumin Level 4.2 g/dl (3.5-5.0); Albumin/Globulin Ratio 1.8 (1.1-1.8); Alkaline Phosphatase 101 U/L (38-126); Anion Gap 11.4 mEq/L (5-15); Aspartate Amino Transferase 23 U/L (17-59); Bilirubin,Total 0.7 mg/dl (0.2-1.3); Calcium 8.6 mg/dl (8.4-10.2); Carbon Dioxide 31 mmol/L (22.0-30.0); Cholesterol 139 mg/dl (140-200); Globulin 2.3 g/dL (1.3-3.2); Glucose 116 mg/dl (74-100); Total Protein,Serum 6.5 g/dl (6.3-8.2); Triglycerides 131 mg/dl (30-150); VLDL Cholesterol 26 mg/dL (0-40)
[2023-01-14 09:02] LABS: Chol/HDL Ratio 3.9 (1-3.5); HDL Cholesterol 36 mg/dl (40-60)
[2023-01-14 09:14] LABS: Direct LDL Cholesterol 88.45 mg/dL (100-129)
[2023-01-14 09:31] LABS: Hemoglobin A1C 5.7 % (4.0-6.0)
== END ==
PROVIDERS: PCP Internal Medicine Adolescent Medicine; Visit Provider Internal Medicine Adolescent Medicine
DX: I10 Essential (primary) hypertension (principal); E78.01 Familial hypercholesterolemia; R73.9 Hyperglycemia, unspecified
CPT/HCPCS: 36415; 80053; 80061; 83036

== ENCOUNTER → 2023-01-22 13:37 | Outpatient (POV) | payer BC, SELFPAY ==
[2023-01-22 14:04] VITALS: BP 101/61; PULSE 73; RESP 18; O2SAT 97; BMI 36.9
--- NOTE | 2023-01-22 14:04 | EXP.PAIN.SOA ---
[facility] Pain Management SOAP Note Subjective:: Patient is a pleasant 52-year-old male who presents today for follow-up of right L4-5 sympathetic nerve block on 01/07/2023. We are currently treating the patient for degenerative disc disease of lumbar spine with lumbar radiculopathy symptoms, low back pain, right foot pain, CRPS lower limb. Today the patient states he only had approximately 3 to 4 hours worth of relief following this injection. He does rate his pain today a 0 out of 10 however states that he has not worked for the last couple of days which is why his pain is low. Patient does state he continues to have pain in his right foot that is a aching sensation that is worse with increased activity. Patient states that it does affect his ability to perform activities of daily living including simple activities as ambulation. He cannot tolerate prolonged standing or walking due to his pain. Patient has had previous sympathetic nerve block in August that did provide at least 60% improvement for over 2 months. Patient is currently managed with tizanidine 4 mg 3 times a day he is not on any scheduled medications. His Adalid is [id number]. Its been reviewed and appropriate. Review of Systems: General: No recent weight changes, no fever, no sleep disturbances Respiratory: No cough, no shortness of air, no recurring pulmonary infections Cardiovascular/peripheral vascular: No chest pain, no palpitations, no edema, no shortness of breath Gastrointestinal: No new onset incontinence, normal bowel movements reported Genitourinary: No new onset incontinence Musculoskeletal: Right foot pain Psychiatric: [Normal mood/affect] Neurological: [Denies weakness in extremities], [denies balance issues] Objective:: Physical Exam: General: Alert and oriented x3, no acute distress, pleasant and cooperative Lungs: Respirations even and unlabored, symmetrical chest expansion Eyes: PERRL Musculoskeletal: Flexion and extension of right foot somewhat guarded secondary to pain, [antalgic gait noted] Neurological: Speech clear, no gross sensory deficit Assessment:: Degenerative disc disease of lumbar spine with lumbar radiculopathy symptoms, low back pain, right foot pain, CRPS lower limb Plan:: Patient continues to experience significant pain in his right foot with limited range of motion. Patient denies have symptoms consistent with CRPS. I have discussed with the patient that in the future he may benefit from a spinal cord stimulator trial and or a peripheral nerve stimulator. Risk and benefits were discussed with the patient and we will discuss these options at later visits. I will send in a refill of his tizanidine 4 mg 3 times a day and provide a 1 month supply of this medication. Patient will return to clinic in 1 month for reevaluation of symptoms and plan of care. Patient has been instructed to contact the clinic with any concerns before the next appointment. Dr. Mosqueda has reviewed this note and agrees with this plan of care. This note was dictated using voice recognition software and make contain errors or omissions. [facility] Disclaimer: The information contained in this section may have been updated after the patient was seen, as this information can be updated by other users. Medical History Depression GERD (gastroesophageal reflux disease) Hypertension Surgical History H/O arthroscopy of left knee History of arthroscopy of right shoulder Family History Other Cancer Dementia Depression Social History Smoking Status: Current every day smoker tobacco type: cigarettes packs per day: 1 second hand exposure: Yes alcohol intake: never substance use type: denies use current occupational status: employed Travel in the last 8 weeks: Non
== END | disposition home or self-care (01) ==
PROVIDERS: PCP Internal Medicine Adolescent Medicine; Visit Provider Nurse Practitioner Family
DX: M51.16 Intervertebral disc disorders with radiculopathy, lumbar region (principal); M79.671 Pain in right foot
CPT/HCPCS: 99212; G0463

== ENCOUNTER → 2023-02-03 09:04 | Outpatient (POV) | payer BC, SELFPAY ==
--- NOTE | 2023-02-03 09:23 | EXP.PAIN.SOA ---
[facility] Pain Management SOAP Note Subjective:: Patient is a pleasant 52-year-old male who presents today for follow-up. We are currently treating the patient for degenerative disc disease of lumbar spine with lumbar radiculopathy symptoms, low back pain, right foot pain, CRPS of the lower extremity. Today he rates his pain a 3 out of 10. Patient denies any new trauma or injury. Patient denies any change location or type of pain he experiences. Patient did have a right sympathetic nerve block of L4-L5 back in the beginning of December. He previously had 1 that did provide 60% improvement over 2 months however the last one only lasted a few hours. Patient is currently managed with tizanidine 4 mg 3 times a day. He is not on any scheduled medications. Patient denies any heart or kidney issues. He was previously prescribed compounding cream by Dr. Hussein's office however it did not provide additional relief. He does believe a lot of his pain is related to walking 5 to 6 miles a day at [facility]. His Adalid is [id number]. Its been reviewed and appropriate. Review of Systems: General: No recent weight changes, no fever, no sleep disturbances Respiratory: No cough, no shortness of air, no recurring pulmonary infections Cardiovascular/peripheral vascular: No chest pain, no palpitations, no edema, no shortness of breath Gastrointestinal: No new onset incontinence, normal bowel movements reported Genitourinary: No new onset incontinence Musculoskeletal: Low back pain Psychiatric: [Normal mood/affect] Neurological: [Denies weakness in extremities], [denies balance issues] Objective:: Physical Exam: General: Alert and oriented x3, no acute distress, pleasant and cooperative Lungs: Respirations even and unlabored, symmetrical chest expansion Eyes: PERRL Musculoskeletal: Flexion and extension of lumbar [spine] somewhat guarded secondary to pain, [antalgic gait noted] Neurological: Speech clear, no gross sensory deficit Assessment:: Degenerative disc disease of lumbar spine with lumbar radiculopathy symptoms, low back pain, right foot pain, CRPS of the lower extremity Plan:: ContinueI will refill the patient's tizanidine 4 mg 3 times a day and provide a 2-month supply of this medication. I will also order the patient diclofenac 75 mg twice daily with a 14-day supply. I have counseled the patient to take this medication with food to minimize GI upset and all other NSAIDs while taking this medication. Patient will contact our office if he would like additional refills on this. Patient will return to clinic in 2 months for reevaluation of symptoms, medication refill and follow-up. Patient has been instructed to contact the clinic with any concerns before the next appointment. Dr. Mosqueda has reviewed this note and agrees with this plan of care. This note was dictated using voice recognition software and make contain errors or omissions. [facility] Disclaimer: The information contained in this section may have been updated after the patient was seen, as this information can be updated by other users. Medical History Depression GERD (gastroesophageal reflux disease) Hypertension Surgical History H/O arthroscopy of left knee History of arthroscopy of right shoulder Family History Other Cancer Dementia Depression Social History Smoking Status: Current every day smoker tobacco type: cigarettes packs per day: 1 second hand exposure: Yes alcohol intake: never substance use type: denies use current occupational status: employed Travel in the last 8 weeks: None household members: spouse and family housing: house current occupation: [employer] current occupational exposures/hazards: No caffeine: Yes
[2023-02-03 09:27] VITALS: BP 122/77; PULSE 69; RESP 18; O2SAT 98; BMI 36.1
== END | disposition home or self-care (01) ==
PROVIDERS: PCP Internal Medicine Adolescent Medicine; Visit Provider Nurse Practitioner Family
DX: M51.16 Intervertebral disc disorders with radiculopathy, lumbar region (principal); M79.671 Pain in right foot
CPT/HCPCS: 99212; G0463

== ENCOUNTER 2023-02-28 22:31 | Emergency (ER) | payer BC, SELFPAY ==
[2023-02-28 22:40] VITALS: BP 130/79; PULSE 75; RESP 17; TEMP 36.7; O2SAT 98; BMI 36.0
[2023-02-28 23:02] LABS: Chloride 98 mmol/L (98-107); Sodium 137 mmol/L (136-145)
[2023-02-28 23:03] LABS: Potassium 4.3 mmoL/L (3.5-5.1)
[2023-02-28 23:05] LABS: Alanine Aminotransferase 26 U/L (12-78); Albumin Level 4.4 g/dl (3.5-5.0); Albumin/Globulin Ratio 1.6 (1.1-1.8); Alkaline Phosphatase 97 U/L (38-126); Anion Gap 13.3 mEq/L (5-15); Aspartate Amino Transferase 31 U/L (17-59); Bilirubin,Total 0.4 mg/dl (0.2-1.3); Blood Urea Nitrogen 9 mg/dl (9-20); Carbon Dioxide 30 mmol/L (22.0-30.0); Creatinine Clearance Estimated 145 mL/min (50-200); Estimated Glomerular Filt Rate 89 ml/min (>60); GFR (African American) 108 ML/MIN (>60); Globulin 2.8 g/dL (1.3-3.2); Glucose 141 mg/dl (74-100); Lipase 95 U/L (23-300); Total Protein,Serum 7.2 g/dl (6.3-8.2)
--- NOTE | 2023-02-28 23:27 | HMH.EDGENADL ---
Discharge Plan Disposition Patient Disposition: Home, Self-Care Condition: Good Prescriptions Prescriptions: No Action lisinopril 10 mg tablet 10 mg PO DAILY Referrals Follow up/Referrals: Aneesh Hernandez MD [Primary Care Provider] - See instructions Clinical Impressions Clinical Impression: Abdominal cramping Stand Alone Forms Stand Alone Forms: Work/School Release Instructions Patient Instructions: DI for Acute Abdominal Pain Discharge ED Provider: Keith Hinds General Adult HPI General Chief complaint: Abdominal Pain Stated complaint: V&D Abd Pain Time Seen by Provider: 02/28/23 22:39 Mode of Arrival: Family Vehicle Source of Information: Patient Limitations: No Limitations Description of Symptoms (Recalled from ER Triage Doc. by RN): 52 yo male PRESENTS WITH chief complaint acute exacerbation of chronic abd pain accompanied by diarrhea that he currently sees Dr Rios for treatment for. Most recent upper GI study was last month. n/v/d. afebrile. MIssed work today due to pain. History of Present Illness HPI narrative: 52yo M evaluated for abdominal cramping and diarrhea. Reports is been ongoing for several months and was seen by Dr. Rios of gastroenterology last month for an EGD without acute finding. Reports taking home medications as directed. No change in his diet. No fever Related Data Home Medications Medication Instructions Recorded Confirmed lisinopril 10 mg tablet 10 mg PO DAILY htn 02/28/23 02/28/23 Allergies Allergy/AdvReac Type Severity Reaction Status Date / Time No Known Allergies Allergy Verified 01/07/23 11:19 [facility] Disclaimer: The information contained in this section may have been updated after the patient was seen, as this information can be updated by other users. Medical History Depression GERD (gastroesophageal reflux disease) Hypertension Surgical History H/O arthroscopy of left knee History of arthroscopy of right shoulder Family History Other Cancer Dementia Depression Social History Smoking Status: Former smoker second hand exposure: Yes alcohol intake: never substance use type: denies use current occupational status: employed Travel in the last 8 weeks: None household members: spouse and family housing: house current occupation: [employer] current occupational exposures/hazards: No caffeine: Yes ROS Obtained: Yes Systems reviewed as appropriate & no additional complaints except as documented Physical Exam General General appearance: alert and in no apparent distress Head Head exam: atraumatic Eye Eye exam: Present normal appearance and PERRL ENT ENT exam: Present normal oropharynx and mucous membranes moist Neck Neck exam: Present trachea midline Respiratory Respiratory exam: Present normal lung sounds bilaterally; Absent respiratory distress Cardiovascular Cardiovascular exam: Present regular rate, normal rhythm and normal heart sounds Abdominal Exam Abdominal exam: Present soft and normal bowel sounds; Absent distention or tenderness Extremities Exam Extremities exam: Present full ROM and normal capillary refill; Absent tenderness or edema Neurological Exam Neurological exam: Present alert and oriented X3 Psychiatric Psychiatric exam: Present normal affect Skin Skin exam: Present warm and dry Medical Decision Making Medical Records Medical records reviewed: Yes I reviewed the patient's medical records. Adalid Inquiry Pt receiving controlled substance: No Vital Signs: 02/28/23 22:40 Temperature 98.1 F Temperature Source Oral Pulse Rate [Right Brachial] 75 Respiratory Rate 17 Blood Pressure [Right Arm] 130/79 Blood Pressure Mean [Right Arm] 96 Blood Pressure Source [Right Arm] Au
--- NOTE | 2023-02-28 23:44 | PC.NURSE ---
called lab, spoke with leticia ram for update on blood level results per md request. releasing now .
[2023-02-28 23:57] LABS: Basophils % 0.4 % (0.1-2.0); Eosinophils # 0.1 K/mm3 (0.0-0.4); Eosinophils % 0.8 % (0.1-12.0); Hematocrit 50.7 % (42.0-52.0); Hemoglobin 16.2 g/dL (14.1-18.0); Lymphocytes # 0.7 K/mm3 (0.7-4.5); Lymphocytes % 6.8 % (10-50); Mean Corpuscular Hemoglobin 28.7 pg (27.0-31.2); Mean Corpuscular Volume 89.9 fl (80-94); Mean Platelet Volume 9.3 fl (7.4-10.4); Monocytes # 0.6 K/mm3 (0.1-1.0); Monocytes % 5.8 % (1.7-9.3); Neutrophils # 9.5 K/mm3 (1.8-7.8); Neutrophils % 86.3 % (37.0-80.0); Platelet Count 235 K/mm3 (142-424); Red Blood Count 5.64 M/mm3 (4.60-6.20); Red Cell Distribution Width 13.1 % (11.5-17.5)
[2023-03-01] LABS: MANUAL DIFFERENTIAL MANUAL DIFFERENTIAL (MANUAL DIFF)
[2023-03-01 00:46] VITALS: BP 146/79; PULSE 89; RESP 19; TEMP 36.8; O2SAT 98
[2023-03-01 00:47] LABS: Lymphocytes % 16 % (10-50); Monocytes % 3 % (2-9); Neutrophils % 81 % (42-76); Platelet Estimate Normal; RBC Morphology Normal; Total Cells Counted 100
== END 2023-03-01 00:58 | disposition home or self-care (01) ==
PROVIDERS: Emergency Provider Family Medicine; PCP Internal Medicine Adolescent Medicine
DX: R10.9 Unspecified abdominal pain (principal); R19.7 Diarrhea, unspecified; K21.9 Gastro-esophageal reflux disease without esophagitis; I10 Essential (primary) hypertension; F32.A Depression, unspecified; Z87.891 Personal history of nicotine dependence
CPT/HCPCS: 80053; 83690; 85007; 85025; 96360; 99284

== ENCOUNTER → 2023-03-17 13:39 | Outpatient (CLI) | payer BC, SELFPAY ==
[2023-03-17 13:43] LABS: Adenovirus F 40/41, stool Not Detected (NotDetected); Astrovirus Not Detected (NotDetected); Campylobacter Not Detected (NotDetected); Clostridium Difficile A/B, PCR Not Detected (NotDetected); Cryptosporidium Not Detected (NotDetected); Cyclospora Cayetanesis Not Detected (NotDetected); Entamoeba histolytica Not Detected (NotDetected); Enteroaggregative E coli Not Detected (NotDetected); Enteropathogenic E coli Not Detected (NotDetected); Enterotoxigenic E coli Not Detected (NotDetected); Giardia lamblia Not Detected (NotDetected); Norovirus Not Detected (NotDetected); Plesimonas Shigalloides, PCR Not Detected (NotDetected); Rotavirus A Not Detected (NotDetected); Sapovirus Not Detected (NotDetected); Shiga-like toxin E coli Not Detected (NotDetected); Shigella Enterovasive E coli Not Detected (NotDetected); Vibrio Cholerae Not Detected (NotDetected); Vibrio, PCR Not Detected (NotDetected); Yersinia Entercolitica, PCR Not Detected (NotDetected)
[2023-03-17 18:40] LABS: Salmonella, PCR Detected (NotDetected)
== END ==
PROVIDERS: PCP Internal Medicine Adolescent Medicine; Visit Provider Nurse Practitioner Family
DX: R10.84 Generalized abdominal pain (principal); R11.2 Nausea with vomiting, unspecified; K52.9 Noninfective gastroenteritis and colitis, unspecified; R19.7 Diarrhea, unspecified; A02.9 Salmonella infection, unspecified
CPT/HCPCS: 87507

== ENCOUNTER → 2023-03-26 09:25 | Outpatient (CLI) | payer BC, SELFPAY ==
--- NOTE | 2023-03-26 09:26 | US_ITS ---
FINAL REPORT CLINICAL HISTORY: bilateral thyroid FNA by Nelson CACERES FINDINGS: Ultrasound guided right thyroid biopsy. HISTORY: Thyroid mass. PROCEDURE: After informed consent was obtained and a time-out was performed, the patient was prepped and draped in usual sterile fashion over the right anterior neck. Utilizing local anesthesia and sterile technique with a 25-gauge needle, access to the lesion was obtained. Four passes were made. The patient received no conscious sedation. The patient tolerated procedure well and left the department in good condition. IMPRESSION: Status post ultrasound guided biopsy of a right thyroid nodule without immediate complication. Ultrasound guided left thyroid biopsy. HISTORY: Thyroid mass. PROCEDURE: After informed consent was obtained and a time-out was performed, the patient was prepped and draped in usual sterile fashion over the left anterior neck. Utilizing local anesthesia and sterile technique with a 25-gauge needle, access to the lesion was obtained. Four passes were made. The patient received no conscious sedation. The patient tolerated procedure well and left the department in good condition. IMPRESSION: Status post ultrasound guided biopsy of a left thyroid nodule without immediate complication. Films reviewed , interpreted and dictated by Dr. Calixto Transcribed by Nelson Tony PA-C. Reviewed, Interpreted and Dictated by Cuate Calixto III, MD Transcribed by MORRIS Thao Authenticated and [facility]
== END ==
PROVIDERS: PCP Internal Medicine Adolescent Medicine; Visit Provider Student in an Organized Health Care Education/Training Program
DX: E04.2 Nontoxic multinodular goiter (principal)
CPT/HCPCS: 10005; 76536

== ENCOUNTER → 2023-06-30 14:17 | Outpatient (CLI) | payer BC, SELFPAY ==
--- NOTE | 2023-06-30 15:04 | CT_ITS ---
FINAL REPORT CLINICAL HISTORY: Pulmonary nodules, follow-up COMPARISON: 12/23/2022 FINDINGS: Axial CT images of the chest were obtained with contrast. Coronal reformatted images were also obtained. This study was performed with techniques to keep radiation doses as low as reasonably achievable, (ALARA). Individualized dose reduction techniques using automated exposure control or adjustment of mA and/or KV according to the patient's size were employed. Mild mediastinal adenopathy is stable. There is a stable, subcarinal node measuring 21 mm. No axillary mass or adenopathy is identified. On lung window images, on image 50, there is a 14 mm nodule in the right midlung that previously measured 14 mm. There is a stable 5 mm right apical nodule seen on image 19. No new mass or nodule is identified. There is bibasilar atelectasis. Limited images of the upper abdomen reveal show postoperative changes from cholecystectomy. IMPRESSION: Stable pulmonary nodules and mediastinal adenopathy. Reviewed, Interpreted and Dictated by Cuate Calixto III, MD Transcribed by Kamille Hall Authenticated and [facility]
[2023-06-30 15:07] LABS: Blood Urea Nitrogen 10 mg/dl (9-20); Estimated Glomerular Filt Rate 102 ml/min (>60); GFR (African American) 123 ML/MIN (>60)
== END ==
PROVIDERS: PCP Internal Medicine Adolescent Medicine; Visit Provider Internal Medicine Adolescent Medicine
DX: R91.1 Solitary pulmonary nodule (principal)
CPT/HCPCS: 36415; 71260; 82565; 84520; Q9967

== ENCOUNTER 2023-09-03 15:09 | Emergency (ER) | payer BC, SELFPAY ==
[2023-09-03 15:20] VITALS: BP 133/74; PULSE 92; RESP 18; TEMP 36.8; O2SAT 96; BMI 31.4
--- NOTE | 2023-09-03 15:29 | EXP.UTC ---
Discharge Plan Disposition Patient Disposition: Home, Self-Care Condition: Good Prescriptions Prescriptions: New ibuprofen [IBU] 800 mg tablet 800 mg PO Q8HP PRN (Reason: Moderate Pain) Qty: 30 0RF benzonatate [benzonatate] 100 mg capsule 100 mg PO TIDP PRN (Reason: Cough) Qty: 30 0RF ondansetron 4 mg Tablet,Disintegrating 4 mg PO Q8H PRN (Reason: Nausea) Qty: 12 0RF No Action lisinopril 10 mg tablet 10 mg PO DAILY bupropion HCl 150 mg tablet extended release 24 hr 150 mg PO DAILY Patient Comments: TAKE 1 TABLET BY MOUTH ONCE DAILY Trintellix 20 mg tablet 20 mg PO DAILY Patient Comments: TAKE 1 TABLET BY MOUTH ONCE DAILY Referrals Follow up/Referrals: Aneesh Hernandez MD [Primary Care Provider] - See instructions Activity Restrictions/Add. Instructions Additional Instructions/Restrictions: Drink plenty of fluids. Take tylenol or ibuprofen for pain or fever. Take the medications as directed. Follow up with your regular doctor. GO TO THE ER FOR ANY WORSENING SYMPTOMS Clinical Impressions Clinical Impression: Acute viral syndrome Stand Alone Forms Stand Alone Forms: Work/School Release Instructions Patient Instructions: DI for Viral Syndrome, Coronavirus Disease 2019, Preventing the Spread of Coronavirus Discharge Instructions Discharge ED Provider: Josias Parker [facility] General Stated complaint: chills, body aches, cough, congestion Time Seen by Provider: 09/03/23 15:27 History of Present Illness Provider Complaint: He states that since yesterday he has had fever, chills, nausea, and body aches. He denies significant congestion. He has a dry cough also. He vomiting and diarrhea. Related Data Home Medications Medication Instructions Recorded Confirmed lisinopril 10 mg tablet 10 mg PO DAILY htn 02/28/23 09/03/23 bupropion HCl 150 mg 24 hr tablet, 150 mg PO DAILY 09/03/23 09/03/23 extended release vortioxetine 20 mg tablet 20 mg PO DAILY 09/03/23 09/03/23 (Trintellix) Previous Rx's Medication Instructions Recorded benzonatate 100 mg capsule 100 mg PO TIDP PRN Cough #30 caps 09/03/23 ibuprofen 800 mg tablet (IBU) 800 mg PO Q8HP PRN Moderate Pain 12/06/23 #30 tabs ondansetron 4 mg disintegrating 4 mg PO Q8H PRN Nausea #12 tabs 09/03/23 tablet Allergies Allergy/AdvReac Type Severity Reaction Status Date / Time No Known Allergies Allergy Verified 09/03/23 15:29 [facility] Disclaimer: The information contained in this section may have been updated after the patient was seen, as this information can be updated by other users. Medical History Depression GERD (gastroesophageal reflux disease) Hypertension Multiple thyroid nodules Thyroid nodule Surgical History H/O arthroscopy of left knee History of arthroscopy of right shoulder Family History Other Cancer Dementia Depression Social History Smoking Status: Former smoker tobacco type: cigarettes packs per day: 1 second hand exposure: Yes alcohol intake: never substance use type: denies use current occupational status: employed Travel in the last 8 weeks: None household members: spouse and family housing: house current occupation: [employer] current occupational exposures/hazards: No caffeine: Yes ROS Obtained: Yes All systems reviewed & no additional complaints except as documented Constitutional Constitutional: Reports chills and Reports fever(s) Eyes Eyes: Denies eye discharge ENT Ears, Nose, Mouth, and Throat: Reports as per HPI Cardiovascular Cardiovascular: Denies chest pain Respiratory Respiratory: Denies chest congestion and Reports cough Gastrointestinal Gastrointestingal: Reports nausea; Denies abdomi
[2023-09-03 15:34] LABS: UTC Influenza A Antigen Negative (Negative); UTC Influenza B Antigen Negative (Negative)
[2023-09-03 15:55] VITALS: BP 133/74; PULSE 92; RESP 18; TEMP 36.8; O2SAT 96
== END 2023-09-03 15:55 | disposition home or self-care (01) ==
PROVIDERS: Emergency Provider Nurse Practitioner Family; PCP Internal Medicine Adolescent Medicine
DX: R05.9 Cough, unspecified (principal); R09.81 Nasal congestion; R50.9 Fever, unspecified; R11.0 Nausea; M79.18 Myalgia, other site; B34.9 Viral infection, unspecified; I10 Essential (primary) hypertension; K21.9 Gastro-esophageal reflux disease without esophagitis; Z87.891 Personal history of nicotine dependence
CPT/HCPCS: 87635; 87804; 99212; 99214; G0463

== ENCOUNTER 2023-12-26 18:11 | Emergency (ER) | payer BC, SELFPAY ==
[2023-12-26 18:21] VITALS: PULSE 81; RESP 16; TEMP 36.7; O2SAT 96; BMI 31.3
--- NOTE | 2023-12-26 18:36 | XR_ITS ---
PROCEDURE INFORMATION: Exam: XR Chest Exam date and time: 12/26/2023 7:00 PM Age: 53 years old Clinical indication: Right-sided; Patient HX: PT. Coughed and now has pain RT post rib; Additional info: Cough, R sided chest pain/soa TECHNIQUE: Imaging protocol: Radiologic exam of the chest. Views: 2 views. COMPARISON: CT CHEST W CON 06/30/2023 3:15 PM FINDINGS: Lungs: No evidence of acute airspace infiltrate. No pulmonary edema. Pleural spaces: No significant pleural effusion. No pneumothorax. Heart/Mediastinum: Cardiomediastinal silouhette is within normal limits. Bones/joints: No evidence of acute osseous abnormality. IMPRESSION: No acute findings.
[2023-12-26 18:39] LABS: Microscopic, Urine URINE MICROSCOPIC (MICROSCOPIC)
[2023-12-26] MEDS: ACETAMINOPHEN 500MG TAB 1000 MG PO (18:41)
[2023-12-26] MEDS: KETOROLAC 30MG/ML VIAL 30 MG IM (18:42)
[2023-12-26] MEDS: LIDOCAINE 5% TRANSDERMAL PATCH 1 EACH TP (18:43)
[2023-12-26 18:45] LABS: Appearance,Urine CLEAR (Clear); Bilirubin,Urine Negative (Negative); Blood, Urine TRACE-I (Negative); Color,Urine YELLOW (Yellow); Glucose,Urine (UA) Negative (Negative); Ketones,Urine Negative (Negative); Leukocyte Esterase,Urine Negative (Negative); Nitrate,Urine Negative (Negative); PH,Urine 6.5 (5.0-8.5); Protein,Urine Negative (Negative); Urobilinogen,Urine 0.2 EU/dl (0.2)
[2023-12-26 19:04] LABS: RBC,Urine Occasional #/hpf (0-3)
--- NOTE | 2023-12-26 19:06 | ED_ITS ---
Discharge Plan Disposition Patient Disposition: Home, Self-Care Condition: Good Prescriptions Prescriptions: New lidocaine [Lidoderm] 5 % adhesive patch,medicated 1 patch topical DAILY Qty: 15 0RF Rx Instructions: leave on most painful area for up to 12 hrs naproxen 500 mg tablet 500 mg PO BID PRN (Reason: pain) Qty: 20 0RF methocarbamol 750 mg tablet 750 mg PO Q8H PRN (Reason: pain) Qty: 20 0RF No Action Clenpiq 10 mg-3.5 gram- 12 gram/175 mL solution 175 ml PO DAILY Qty: 350 0RF Rx Instructions: take first dose at 5-9PM evening before colonoscopy; 2nd dose the next day approximately 5 hrs before colonoscopy peg 3350-electrolytes [Golytely] 236-22.74-6.74 -5.86 gram recon soln 240 ml PO Q10M Qty: 4000 0RF Rx Instructions: until fecal effluent is clear buspirone [BuSpar] 5 mg Tablet 5 mg PO BID bupropion HCl 150 mg tablet extended release 24 hr 150 mg PO DAILY Patient Comments: TAKE 1 TABLET BY MOUTH ONCE DAILY Trintellix 20 mg tablet 20 mg PO DAILY Patient Comments: TAKE 1 TABLET BY MOUTH ONCE DAILY ibuprofen [IBU] 800 mg tablet 800 mg PO Q8HP PRN (Reason: Moderate Pain) Qty: 30 0RF benzonatate [benzonatate] 100 mg capsule 100 mg PO TIDP PRN (Reason: Cough) Qty: 30 0RF ondansetron 4 mg Tablet,Disintegrating 4 mg PO Q8H PRN (Reason: Nausea) Qty: 12 0RF Referrals Follow up/Referrals: Aneesh Hernandez MD [Primary Care Provider] - See instructions Activity Restrictions/Add. Instructions Additional Instructions/Restrictions: You were evaluated in the emergency department today. Please follow-up closely with your primary care provider. Return to the emergency department for new or worsening symptoms. Clinical Impressions Clinical Impression: Right-sided chest wall pain Instructions Patient Instructions: DI for Costochondritis Discharge ED Provider: Kati Edwards General Adult HPI General Chief complaint: PAIN Stated complaint: Abdominal pain right side Time Seen by Provider: 12/26/23 18:36 Mode of Arrival: Ambulatory Source of Information: Patient Limitations: No Limitations Description of Symptoms (Recalled from ER Triage Doc. by RN): pt states when he coughed hard last night he heard a pop. Pt has had pain in his R flank ever since. pt states the pain is stabbing in nature and a 4/10 that is worse with twisting/coughing. History of Present Illness HPI narrative: This patient is a 53-year-old male with history of tobacco dependence and hypertension presenting to the emergency department for evaluation with concern for right-sided flank/chest pain. Patient reports that last night, he coughed really hard when he felt and heard a pop in his right chest. He states that since then, he has had pain with twisting movements, coughing, and deep breaths. It is sharp when it happens. If he is at rest and is not moving or coughing, he is fine with no pain. No other concerns noted, such as fevers, chills, shortness of breath, nausea, vomiting, change in bowel movements, urinary frequency, urinary urgency, hematuria, or other issues. Related Data Home Medications Medication Instructions Recorded Confirmed bupropion HCl 150 mg 24 hr tablet, 150 mg PO DAILY 09/03/23 12/25/23 extended release vortioxetine 20 mg tablet 20 mg PO DAILY 09/03/23 12/25/23 (Trintellix) buspirone 5 mg tablet 5 mg PO BID 12/25/23 12/25/23 Previous Rx's Medication Instructions Recorded benzonatate 100 mg capsule 100 mg PO TIDP PRN Cough #30 caps 09/03/23 ibuprofen 800 mg tablet (IBU) 800 mg PO Q8HP PRN Moderate Pain 09/03/23 #30 tabs ondansetron 4 mg disintegrating 4 mg PO Q8H PRN Nausea #12 tabs 09/03/23 tablet peg 3350-electrolytes 236 240 ml PO Q10M #4,000 mL 12/24/23 gram-22.74 gram-6.74 gram-5.86 gram solution (Golytely) sod picosulf 10 mg-magnes 3.5 175 ml PO DAILY 2 doses #350 mL 12/24/23 gram-citric 12 gram/175 mL oral solution (Clenpiq) lidocaine 5 % topical patch 1 patch topical DAILY #15 ea 12/26/23 (Lidoderm) methocarbamol 750 mg tablet 750 mg PO Q8H PRN pain #20 tabs 12/26/23 naproxen 500 mg tablet 500 mg PO BID PRN pain #20 tabs 12/26/23 Allergies Allergy/AdvReac Type Severity Reaction Status Date / Time No Known Allergies Allergy Verified 12/25/23 13:25 [facility] Disclaimer: The information contained in this section may have been updated after the patient was seen, as this information can be updated by other users. Medical History Sleep apnea Multiple thyroid nodules Thyroid nodule GERD (gastroesophageal reflux disease) Depression Hypertension Surgical History History of cholecystectomy History of arthroscopy of right shoulder H/O arthroscopy of left knee Family History Other Cancer Dementia Depression Social History Smoking Status: Current every day smoker tobacco type: cigarettes packs per day: 1 second hand exposure: Yes alcohol intake: never substance use type: denies use current occupational status: employed Travel in the last 8 weeks: None household members: spouse and family housing: house current occupation: [employer] current occupational exposures/hazards: No caffeine: Yes ROS Obtained: Yes All systems reviewed & no additional complaints except as documented Physical Exam General General appearance: alert, in no apparent distress and obese Head Head exam: atraumatic and normocephalic Eye Eye exam: Present normal appearance, PERRL and EOMI ENT ENT exam: Present normal exam, normal oropharynx, mucous membranes moist and normal external ear exam Neck Neck exam: Present normal inspection, full ROM and trachea midline; Absent tenderness Chest Chest inspection: Present symmetric chest wall rise and tenderness (Tenderness to palpation of right chest wall at the area of pain) Respiratory Respiratory exam: Present normal lung sounds bilaterally; Absent respiratory distress, wheezes, stridor or accessory muscle use Cardiovascular Cardiovascular exam: Present regular rate and normal rhythm Abdominal Exam Abdominal exam: Present soft; Absent distention, tenderness or guarding Extremities Exam Extremities exam: Present normal inspection, full ROM and normal capillary refill; Absent tenderness or edema Back Exam Back exam: Present normal inspection and full ROM; Absent tenderness Neurological Exam Neurological exam: Present alert, oriented X3, CN II-XII intact and normal gait; Absent motor sensory deficit Psychiatric Psychiatric exam: Present normal affect and normal mood Skin Skin exam: Present warm and dry Medical Decision Making Medical Records Medical records reviewed: Yes I reviewed the patient's medical records. Adalid Inquiry Pt receiving controlled substance: No Vital Signs: 12/26/23 18:21 12/26/23 20:21 Temperature 98.1 F 98.1 F Temperature Source Oral Oral Pulse Rate 75 Pulse Rate [Right] 81 Respiratory Rate 16 16 Blood Pressure 134/75 Blood Pressure Source [Right Arm] Automatic Cuff Blood Pressure Position [Right Arm] Sitting 02 Sat by Pulse Oximetry 96 Oxygen Delivery Method Room Air Lab Data Lab results reviewed: Yes I reviewed the patient's lab results. Lab Results 12/26/23 18:20: Urine Color Yellow, Urine Appearance Clear, Urine pH 6.5, Ur Specific [place] 1.020, Urine Protein Negative, Urine Glucose (UA) Negative, Urine Ketones Negative, Urine Blood Trace-i, Urine Nitrate Negative, Urine Bilirubin Negative, Urine Urobilinogen 0.2, Ur Leukocyte Esterase Negative, Urine RBC Occasional, Urine WBC None, Ur Squamous Epith Cells None, Urine Bacteria None Orders (Tests/Meds): ED MEDICATIONS Discontinued Medications Generic Name Dose Route Start Last Admin Trade Name Freq PRN Reason Stop Dose Admin Acetaminophen 1,000 mg 12/26/23 18:36 12/26/23 18:41 Acetaminophen 500mg Tab PO 12/26/23 18:37 1,000 mg ONCE ONE Administration Diazepam 5 mg 12/26/23 19:59 12/26/23 20:18 Diazepam 5mg Tablet PO 12/26/23 20:00 5 mg ONCE ONE Administration Ketorolac Tromethamine 30 mg 12/26/23 18:36 12/26/23 18:42 Ketorolac 30mg/Ml Vial IM 12/26/23 18:37 30 mg ONCE ONE Administration Lidocaine 1 each 12/26/23 18:36 12/26/23 18:43 Lidocaine 5% Transdermal Patch TP 12/26/23 18:37 1 each ONCE ONE Administration ORDERS Category Date Time Status XR chest 2V Stat Exams 12/26/23 18:36 Completed Urinalysis and Microscopic Stat Lab 12/26/23 18:20 Completed Medical Decision Narrative: In summary, this patient is a 53-year-old male presenting to the Emergency Department for evaluation of right chest wall pain that is worse with coughing, twisting, and deep breaths after feeling a pop last night while coughing. Differential diagnoses considered include but are not limited to pleurisy, pneumothorax, costochondritis, musculoskeletal strain/sprain, pneumonia, ureterolithiasis. Ruling out the most morbid conditions drove assessment. On exam, patient is well-appearing and in no acute distress. Pain is reproducible with movements and palpation, I feel is likely musculoskeletal in nature. He does have diminished breath sounds on the right, which could be due to atelectasis from poor inspiration secondary to pain or could indicate possible pneumothorax or other pulmonary pathology. Doubt PE, as the patient has no known risk factors and is not hypoxic or tachycardic. He also has no physical exam findings concerning for DVT. It also started acutely with a hard cough, making PE and ACS unlikely workup included 2 view chest x-ray and urinalysis. Urine demonstrates a trace amount of red blood cells, but overall to me this is not concerning for any significant ureterolithiasis, as I would expect much more blood and the patient also does not have specific urinary symptoms. Again given the reproducible nature of his pain, feel is likely musculoskeletal. Patient was given oral Tylenol, topical Lidoderm patch, IM Toradol for symptomatic improvement. I independently interpreted XR prior to the radiologist read and noted focal consolidation or pneumothorax. Please see their read for final interpretation. Patient has improved symptoms on exam, but is still having some pain. Vitals remain normal on cardiac telemetry. He was given oral Valium for continued muscle relaxation and symptomatic improvement. At this time, feel that he is appropriate for discharge with diagnosis of musculoskeletal pain based on exam and workup. He was given prescriptions for naproxen, Robaxin, and Lidoderm patch and he was discharged in stable condition after all questions were answered. I gave strict return precautions Critical Care Critical Care Time Critical Care Time: No
[2023-12-26] MEDS: diazePAM 5MG TABLET 5 MG PO (20:18)
[2023-12-26 20:21] VITALS: BP 134/75; PULSE 75; RESP 16; TEMP 36.7; O2SAT 96
== END 2023-12-26 20:21 | disposition home or self-care (01) ==
PROVIDERS: Emergency Provider Emergency Medicine; PCP Internal Medicine Adolescent Medicine
DX: R07.9 Chest pain, unspecified (principal); F17.210 Nicotine dependence, cigarettes, uncomplicated; I10 Essential (primary) hypertension; K21.9 Gastro-esophageal reflux disease without esophagitis
CPT/HCPCS: 71046; 81001; 96372; 99283

== ENCOUNTER 2023-12-27 17:17 | Emergency (ER) | payer BC, SELFPAY ==
[2023-12-27 17:18] VITALS: BP 115/77; PULSE 78; RESP 14; TEMP 36.9; O2SAT 95; BMI 31.1
--- NOTE | 2023-12-27 17:26 | PC.NURSE ---
in room talking with patient at this time.
[2023-12-27 17:30] VITALS: BP 122/79; PULSE 88; O2SAT 96
--- NOTE | 2023-12-27 17:30 | CT_ITS ---
PROCEDURE INFORMATION: Exam: CTA Chest With Contrast Exam date and time: 12/27/2023 6:01 PM Age: 53 years old Clinical indication: Pain; Radiating; Additional info: Cp and abd pain to back, smoking history TECHNIQUE: Imaging protocol: Computed tomographic angiography of the chest with contrast. Exam focused on the arteries. 3D rendering (Not supervised by radiologist): MIP and/or 3D reconstructed images were created by the technologist. Radiation optimization: All CT scans at this facility use at least one of these dose optimization techniques: automated exposure control; mA and/or kV adjustment per patient size (includes targeted exams where dose is matched to clinical indication); or iterative reconstruction. Contrast material: ISOVUE 370; Contrast volume: 100 ml; Contrast route: INTRAVENOUS (IV); COMPARISON: CT ANGIO CHEST PE PROTOCOL 11/18/2022 10:20 PM FINDINGS: Pulmonary arteries: Normal. No pulmonary emboli. Aorta: Unremarkable. No aortic aneurysm. No aortic dissection. Lungs: Unremarkable. No consolidation. No masses. Pleural spaces: Unremarkable. No pneumothorax. No pleural effusion. Heart: Unremarkable. No cardiomegaly. No pericardial effusion. Lymph nodes: Unremarkable. No enlarged lymph nodes. Gallbladder and bile ducts: Cholecystectomy. Bones/joints: Unremarkable. No acute fracture. Soft tissues: Unremarkable. IMPRESSION: No acute cardiopulmonary findings.
--- NOTE | 2023-12-27 17:31 | CT_ITS ---
PROCEDURE INFORMATION: Exam: CTA Abdomen and Pelvis With Contrast Exam date and time: 12/27/2023 6:01 PM Age: 53 years old Clinical indication: Abdominal pain; Other: Radiating; Additional info: Cp and abd pain to back, smoking history TECHNIQUE: Imaging protocol: Computed tomographic angiography of the abdomen and pelvis with contrast. Exam focused on the arteries. 3D rendering (Not supervised by radiologist): MIP and/or 3D reconstructed images were created by the technologist. Radiation optimization: All CT scans at this facility use at least one of these dose optimization techniques: automated exposure control; mA and/or kV adjustment per patient size (includes targeted exams where dose is matched to clinical indication); or iterative reconstruction. Contrast material: ISOVUE 370; Contrast volume: 100 ml; Contrast route: INTRAVENOUS (IV); COMPARISON: CT ABDOMEN PELVIS W CON 01/04/2023 7:57 PM FINDINGS: Aorta: No aortic aneurysm. No aortic dissection. Celiac trunk and mesenteric arteries: No occlusion or significant stenosis. Renal arteries: No occlusion or significant stenosis. Right iliac arteries: No occlusion or significant stenosis. Left iliac arteries: No occlusion or significant stenosis. Liver: No mass. Gallbladder and bile ducts: Cholecystectomy. Pancreas: Unremarkable. No mass. No ductal dilation. Spleen: Unremarkable. No splenomegaly. Adrenal glands: Unremarkable. No mass. Kidneys and ureters: Unremarkable. No solid mass. No hydronephrosis. Stomach and bowel: Unremarkable. No obstruction. No mucosal thickening. Appendix: Retrocecal appendix is well visualized. No CT evidence of appendicitis. Intraperitoneal space: Unremarkable. No free air. No significant fluid collection. Lymph nodes: Unremarkable. No enlarged lymph nodes. Urinary bladder: Unremarkable. No mass. Reproductive: Unremarkable as visualized. Bones/joints: No acute fracture. Soft tissues: Unremarkable. IMPRESSION: 1. Cholecystectomy. 2. No CT evidence of appendicitis.
--- NOTE | 2023-12-27 17:32 | ED_ITS ---
Discharge Plan Disposition Patient Disposition: Home, Self-Care Prescriptions Prescriptions: New methocarbamol 750 mg tablet 1,500 mg PO TID 5 Days Qty: 30 0RF No Action Clenpiq 10 mg-3.5 gram- 12 gram/175 mL solution 175 ml PO DAILY Qty: 350 0RF Rx Instructions: take first dose at 5-9PM evening before colonoscopy; 2nd dose the next day approximately 5 hrs before colonoscopy peg 3350-electrolytes [Golytely] 236-22.74-6.74 -5.86 gram recon soln 240 ml PO Q10M Qty: 4000 0RF Rx Instructions: until fecal effluent is clear buspirone [BuSpar] 5 mg Tablet 5 mg PO BID lidocaine [Lidoderm] 5 % adhesive patch,medicated 1 patch topical DAILY Qty: 15 0RF Rx Instructions: leave on most painful area for up to 12 hrs naproxen 500 mg tablet 500 mg PO BID PRN (Reason: pain) Qty: 20 0RF methocarbamol 750 mg tablet 750 mg PO Q8H PRN (Reason: pain) Qty: 20 0RF bupropion HCl 150 mg tablet extended release 24 hr 150 mg PO DAILY Patient Comments: TAKE 1 TABLET BY MOUTH ONCE DAILY Trintellix 20 mg tablet 20 mg PO DAILY Patient Comments: TAKE 1 TABLET BY MOUTH ONCE DAILY ibuprofen [IBU] 800 mg tablet 800 mg PO Q8HP PRN (Reason: Moderate Pain) Qty: 30 0RF benzonatate [benzonatate] 100 mg capsule 100 mg PO TIDP PRN (Reason: Cough) Qty: 30 0RF ondansetron 4 mg Tablet,Disintegrating 4 mg PO Q8H PRN (Reason: Nausea) Qty: 12 0RF Referrals Follow up/Referrals: Aneesh Hernandez MD [Primary Care Provider] - See instructions Activity Restrictions/Add. Instructions Additional Instructions/Restrictions: Call your family doctor to establish care for this visit to the emergency department and schedule follow-up within 48 hours to ensure improvement. If you have any worsening of your condition or any other concerning signs or symptoms, return to the emergency department or your primary care doctor for further evaluation. Clinical Impressions Clinical Impression: Acute chest wall pain Instructions Patient Instructions: DI for Acute Abdominal Pain Discharge ED Provider: Glenn Gan General Adult [facility] General Chief complaint: Abdominal Pain Stated complaint: right side abdominal pain Time Seen by Provider: 12/27/23 17:18 Mode of Arrival: Ambulatory Source of Information: Patient Limitations: No Limitations Description of Symptoms (Recalled from ER Triage Doc. by RN): pt reports he was seen in ED last night, symptoms have continued to get worse. pt reports right lower flank pain ongoing for 2 days ago. pt reports pain at belly button that began today. History of Present Illness HPI narrative: 53-year-old male with history of cholecystectomy, hypertension, hyperlipidemia tobacco use disorder, CAD, anxiety, depression presenting with abdominal/flank pain. States that he has had right flank/right lower chest wall pain since yesterday, 12/26. It started after he coughed. He came to the emergency department and was worked up. Per chart review of note and care, workup largely negative and patient discharged home with lidocaine, Toradol, Tylenol. Patient states that today, in the morning, 12/26, he began having abdominal pain associated. He states that it is mostly right-sided, sometimes periumbilical and radiates toward the center of his back. No nausea or vomiting. He has had associated hematuria and blood on the outside of his stool. Please note that above description of symptoms, in this electronic medical record under categorization of recalled from ER triage doctor by RN are reflective of an initial nursing assessment, however, is not reflective of my full history and physical exam that was personally taken and clarified. Consequentially, this preceding description of symptoms, which may include the patient's categorized chief complaint in the EMR, do not reflect my personal clinical impression, and the ultimate description of history of present illness and patient stated complaints should be deferred to this section of the note. Unless stated otherwise or congruent with this section of the note, additional signs, symptoms, or incongruence should be interpreted as inaccurate with my clinical impression. Related Data Home Medications Medication Instructions Recorded Confirmed bupropion HCl 150 mg 24 hr tablet, 150 mg PO DAILY 09/03/23 12/25/23 extended release vortioxetine 20 mg tablet 20 mg PO DAILY 09/03/23 12/25/23 (Trintellix) buspirone 5 mg tablet 5 mg PO BID 12/25/23 12/25/23 Previous Rx's Medication Instructions Recorded benzonatate 100 mg capsule 100 mg PO TIDP PRN Cough #30 caps 09/03/23 ibuprofen 800 mg tablet (IBU) 800 mg PO Q8HP PRN Moderate Pain 09/03/23 #30 tabs ondansetron 4 mg disintegrating 4 mg PO Q8H PRN Nausea #12 tabs 09/03/23 tablet peg 3350-electrolytes 236 240 ml PO Q10M #4,000 mL 12/24/23 gram-22.74 gram-6.74 gram-5.86 gram solution (Golytely) sod picosulf 10 mg-magnes 3.5 175 ml PO DAILY 2 doses #350 mL 12/24/23 gram-citric 12 gram/175 mL oral solution (Clenpiq) lidocaine 5 % topical patch 1 patch topical DAILY #15 ea 12/26/23 (Lidoderm) methocarbamol 750 mg tablet 750 mg PO Q8H PRN pain #20 tabs 12/26/23 naproxen 500 mg tablet 500 mg PO BID PRN pain #20 tabs 12/26/23 methocarbamol 750 mg tablet 1,500 mg (2 x 750 mg) PO TID 5 12/27/23 days #30 tabs Allergies Allergy/AdvReac Type Severity Reaction Status Date / Time No Known Allergies Allergy Verified 12/25/23 13:25 [facility] Disclaimer: The information contained in this section may have been updated after the patient was seen, as this information can be updated by other users. Medical History Sleep apnea Multiple thyroid nodules Thyroid nodule GERD (gastroesophageal reflux disease) Depression Hypertension Surgical History History of cholecystectomy History of arthroscopy of right shoulder H/O arthroscopy of left knee Family History Other Cancer Dementia Depression Social History Smoking Status: Current every day smoker tobacco type: cigarettes packs per day: 1 second hand exposure: Yes alcohol intake: never substance use type: denies use current occupational status: employed Travel in the last 8 weeks: None household members: spouse and family housing: house current occupation: [employer] current occupational exposures/hazards: No caffeine: Yes ROS Obtained: Yes All systems reviewed & no additional complaints except as documented Physical Exam General General appearance: alert and in no apparent distress Head Head exam: atraumatic and normocephalic Eye Eye exam: Present normal appearance, PERRL and EOMI ENT ENT exam: Present mucous membranes moist Neck Neck exam: Present normal inspection, full ROM and trachea midline Respiratory Respiratory exam: Present normal lung sounds bilaterally; Absent respiratory distress, wheezes, stridor, accessory muscle use or prolonged expiratory phase Cardiovascular Cardiovascular exam: Present regular rate, normal rhythm and normal heart sounds Abdominal Exam Abdominal exam: Present soft; Absent distention, tenderness, guarding, rebound, rigidity or pulsatile mass Abdominal tenderness: Present RUQ Extremities Exam Extremities exam: Absent edema Back Exam Back exam: Present CVA tenderness (R); Absent CVA tenderness (L) Neurological Exam Neurological exam: Present alert, oriented X3, CN II-XII intact and normal gait; Absent motor sensory deficit Skin Skin exam: Present warm and dry; Absent diaphoresis or erythema Medical Decision Making Medical Records Medical records reviewed: Yes I reviewed the patient's medical records. Adalid Inquiry Pt receiving controlled substance: No Adalid was queried for this patient: No Vital Signs: 12/27/23 17:18 12/27/23 17:30 12/27/23 18:14 Temperature 98.4 F Temperature Source Oral Pulse Rate 88 83 Pulse Rate [Left Radial] 78 Respiratory Rate 14 Blood Pressure 122/79 114/81 Blood Pressure [Right Arm] 115/77 Blood Pressure Mean [Right Arm] 89 02 Sat by Pulse Oximetry 95 96 94 L Oxygen Delivery Method Room Air Room Air 12/27/23 18:30 Temperature Temperature Source Pulse Rate 84 Pulse Rate [Left Radial] Respiratory Rate Blood Pressure 111/80 Blood Pressure [Right Arm] Blood Pressure Mean [Right Arm] 02 Sat by Pulse Oximetry 93 L Oxygen Delivery Method Room Air Lab Data Lab Results 12/27/23 17:27: WBC 11.0 H, RBC 5.55, Hgb 16.5, Hct 53.5 H, MCV 96.4 H, MCH 29.7, MCHC 30.9 L, RDW 13.4, Plt Count 240, MPV 9.6, Neut % (Auto) 71.7, Lymph % (Auto) 18.8, [place] % (Auto) 6.1, Eos % (Auto) 2.2, Baso % (Auto) 1.1, Neut # (Auto) 7.9 H, Lymph # (Auto) 2.1, [place] # (Auto) 0.7, Eos # (Auto) 0.2, Baso # (Auto) 0.1, PT 10.9, INR 1.01, APTT 29.1, Sodium 143, Potassium 3.9, Chloride 107, Carbon Dioxide 30, Anion Gap 9.9, BUN 11, Creatinine 0.90, Estimated Creat Clear 128, Estimated GFR 89, Est GFR ( Amer) 108, Glucose 89, Calcium 9.4, Total Bilirubin 0.4, AST 32, ALT 24, Alkaline Phosphatase 94, Troponin I < 0.01, Total Protein 6.8, Albumin 4.3, Globulin 2.5, Albumin/Globulin Ratio 1.7, Lipase 188 12/27/23 17:58: Lactate 1.4 12/27/23 17:27 12/27/23 17:27 Orders (Tests/Meds): ED MEDICATIONS Generic Name Dose Route Start Last Admin Trade Name Freq PRN Reason Stop Dose Admin Sodium Chloride 8 ml 12/27/23 17:43 Sodium Chloride 0.9% 10ml Vial IV 01/26/24 17:42 NEEDED PRN dilute pepcid Discontinued Medications Generic Name Dose Route Start Last Admin Trade Name Freq PRN Reason Stop Dose Admin Belladonna Alkaloids 60 ml 12/27/23 17:43 12/27/23 17:56 Belladonna Alkaloids 60 Ml Ml PO 12/27/23 17:44 60 ml ONCE ONE Administration Famotidine 20 mg 12/27/23 17:43 12/27/23 17:55 Famotidine 20mg/2ml Vial IV 12/27/23 17:44 20 mg ONCE ONE Administration Iopamidol 100 ml 12/27/23 18:02 12/27/23 18:05 Iopamidol-370 (76%);100ml Bottle IV 12/27/23 18:03 100 ml ONCE ONE Administration Ketorolac Tromethamine 15 mg 12/27/23 17:43 12/27/23 17:54 Ketorolac 30mg/Ml Vial IV 12/27/23 17:44 15 mg ONCE ONE Administration Sodium Chloride 10 ml 12/27/23 18:02 12/27/23 18:04 Sodium Chloride 0.9% 10ml Syr (Rad Only) IV 12/27/23 18:03 10 ml ONCE ONE Administration Sodium Chloride 50 ml 12/27/23 18:02 12/27/23 18:04 0.9 % Sodium Chloride 50 Ml Vial IV 12/27/23 18:03 50 ml ONCE ONE Administration ORDERS Category Date Time Status CT angio abdomen pelvis Stat Cat Scan 12/27/23 17:31 Completed CTA Chest [CT angio chest - dissection] Stat Cat Scan 12/27/23 17:30 Completed Complete Blood Count Auto Diff Stat Lab 12/27/23 17:27 Completed Comprehensive Metabolic Panel Stat Lab 12/27/23 17:27 Completed Lactic Acid Stat Lab 12/27/23 17:58 Completed Lipase Stat Lab 12/27/23 17:27 Completed PT INR [Prothrombin Time INR] Stat Lab 12/27/23 17:27 Completed PTT [Activated Partial Thrombo Time] Stat Lab 12/27/23 17:27 Completed Troponin I Q3H Lab 12/27/23 20:45 Ordered Troponin I Q3H Lab 12/27/23 23:45 Ordered Troponin I Stat Lab 12/27/23 17:27 Completed HEART Score History (anamnesis): Slightly suspicious ECG: Normal Age: 45-65 years Risk factors: 3 or more risk factors Troponin: </= normal limit HEART Score: 3 Medical Decision Narrative: 53-year-old male with history of cholecystectomy, hypertension, hyperlipidemia tobacco use disorder, CAD, anxiety, depression presenting with abdominal/flank pain. States that he has had right flank/right lower chest wall pain since yesterday, 12/26. It started after he coughed. He came to the emergency department and was worked up. Per chart review of note and care, workup largely negative and patient discharged home with lidocaine, Toradol, Tylenol. Patient states that today, in the morning, 12/26, he began having abdominal pain associated. He states that it is mostly right-sided, sometimes periumbilical and radiates toward the center of his back. No nausea or vomiting. He has had associated hematuria and blood on the outside of his stool. History was obtained via conversation with patient, chart review, family. On arrival, patient hemodynamically stable, alert, oriented x4, appropriate, GCS 15, moving all extremities spontaneously, pupils equal and reactive to light. Full physical exam performed and significant for well-appearing male no acute distress. Lungs are clear to auscultation bilaterally, cardiac exam without murmurs or abnormal findings. Pulses are equal and symmetric, patient ambulatory and grossly neurologically intact. Abdomen is soft, mildly tender in right upper quadrant and right lower quadrant. No pulsatile mass. Some right flank tenderness. No overlying skin changes. Differential includes PUD, gastritis, enteritis, gastroenteritis, pancreatitis, SBO, colitis, diverticulitis, nephrolithiasis, UTI, choledocholithiasis, appendicitis, hepatitis, aortic pathology, mesenteric ischemia, AAA, dissection among others. Patient was given Toradol, GI cocktail, Pepcid for symptomatic management and correction of underlying abnormalities. Workup independently interpreted and significant for nonactionable CBC or chemistry. Lipase negative, LFTs within normal limits. Troponin negative, UA reviewed from yesterday with trace blood, otherwise normal. Coags normal. CTA of the chest abdomen pelvis without acute aortic pathology. No evidence of mesenteric ischemia, intra-abdominal and intrathoracic organs appear normal. See radiology read for full review of final results. Independent interpretation of EKG shows sinus rhythm [address] or T wave changes concerning for acute ischemia. TX, QRS, QT intervals within normal limits. [place] normal. Heart score 3. On reevaluation, patient sleeping, no acute pain.Given patient presentation, workup, history, this most likely represents musculoskeletal strain in the setting of severe coughing. Because patient at baseline without signs or symptoms of clinical decompensation, deemed appropriate for discharge. Results were relayed to patient who voiced understanding and were agreeable to outpatient management and follow up. I discussed my clinical impression with patient and answered all questions. At this time, the evidence for any other entities in the differential is insufficient to warrant any further testing or ED observation. This was explained as well. Advisory was given that persistent or worsening symptoms require further evaluation. I confirmed the understanding of this discussion. Critical Care Critical Care Time Critical Care Time: No
--- NOTE | 2023-12-27 17:36 | ECG_ITS ---
APPROVED REPORT Exam: Resting ECG HR:80 bpm ECG Measurements Heart Rate 80 AXES TX 157 P 62 QRSd 92 QRS 57 QT 360 T 72 QTc 396 Conclusion SINUS RHYTHM NORMAL ECG UNCONFIRMED REPORT Electronically signed by : NEHEMIAH WATTS, 12/28/2023 05:55:23
[2023-12-27 17:47] LABS: Basophils # 0.1 K/mm3 (0-0.2); Basophils % 1.1 % (0.1-2.0); Eosinophils # 0.2 K/mm3 (0.0-0.4); Eosinophils % 2.2 % (0.1-12.0); Hematocrit 53.5 % (42.0-52.0); Hemoglobin 16.5 g/dL (14.1-18.0); Lymphocytes # 2.1 K/mm3 (0.7-4.5); Lymphocytes % 18.8 % (10-50); Mean Corpuscular HGB Conc 30.9 g/dL (31.8-35.4); Mean Corpuscular Hemoglobin 29.7 pg (27.0-31.2); Mean Corpuscular Volume 96.4 fl (80-94); Mean Platelet Volume 9.6 fl (7.4-10.4); Monocytes # 0.7 K/mm3 (0.1-1.0); Monocytes % 6.1 % (1.7-9.3); Neutrophils # 7.9 K/mm3 (1.8-7.8); Neutrophils % 71.7 % (37.0-80.0); Platelet Count 240 K/mm3 (142-424); Red Blood Count 5.55 M/mm3 (4.60-6.20); Red Cell Distribution Width 13.4 % (11.5-17.5)
[2023-12-27 17:49] LABS: Chloride 107 mmol/L (98-107); Potassium 3.9 mmoL/L (3.5-5.1); Sodium 143 mmol/L (136-145)
[2023-12-27 17:51] LABS: Blood Urea Nitrogen 11 mg/dl (9-20); Creatinine Clearance Estimated 128 mL/min (50-200); Estimated Glomerular Filt Rate 89 ml/min (>60); GFR (African American) 108 ML/MIN (>60)
[2023-12-27 17:52] LABS: Alanine Aminotransferase 24 U/L (12-78); Albumin Level 4.3 g/dl (3.5-5.0); Albumin/Globulin Ratio 1.7 (1.1-1.8); Alkaline Phosphatase 94 U/L (38-126); Anion Gap 9.9 mEq/L (5-15); Aspartate Amino Transferase 32 U/L (17-59); Bilirubin,Total 0.4 mg/dl (0.2-1.3); Calcium 9.4 mg/dl (8.4-10.2); Carbon Dioxide 30 mmol/L (22.0-30.0); Globulin 2.5 g/dL (1.3-3.2); Glucose 89 mg/dl (74-100); Lipase 188 U/L (23-300); Total Protein,Serum 6.8 g/dl (6.3-8.2)
[2023-12-27] MEDS: KETOROLAC 30MG/ML VIAL 15 MG IV (17:54)
[2023-12-27] MEDS: FAMOTIDINE 20MG/2ML VIAL 20 MG IV (17:55)
[2023-12-27] MEDS: BELLADONNA ALKALOIDS 60 ML ML PO (17:56)
[2023-12-27 17:59] LABS: Activated Partial Thrombo Time 29.1 seconds (22.8-30.6); INR 1.01 (0.9-1.1); Prothrombin Time 10.9 seconds (10.1-12.5)
[2023-12-27] MEDS: SODIUM CHLORIDE 0.9% 10ML SYR (RAD ONLY) 10 ML IV (18:04)
[2023-12-27] MEDS: 0.9 % SODIUM CHLORIDE 50 ML VIAL IV (18:04)
[2023-12-27 18:05] LABS: Troponin I < 0.01 ng/ml (0.00-0.034)
[2023-12-27] MEDS: IOPAMIDOL-370 (76%);100ML BOTTLE 100 ML IV (18:05)
[2023-12-27 18:13] LABS: Lactic Acid 1.4 mmol/L (0.7-2.1)
[2023-12-27 18:14] VITALS: BP 114/81; PULSE 83; O2SAT 94
--- NOTE | 2023-12-27 18:15 | PC.NURSE ---
rounded on pt, head of bed raised for comfort
[2023-12-27 18:30] VITALS: BP 111/80; PULSE 84; O2SAT 93
[2023-12-27 19:25] VITALS: BP 125/86; PULSE 68; RESP 16; TEMP 36.9; O2SAT 94
== END 2023-12-27 19:27 | disposition home or self-care (01) ==
PROVIDERS: Emergency Provider Emergency Medicine; PCP Internal Medicine Adolescent Medicine
DX: R10.31 Right lower quadrant pain (principal); K21.9 Gastro-esophageal reflux disease without esophagitis; I10 Essential (primary) hypertension; F17.210 Nicotine dependence, cigarettes, uncomplicated
CPT/HCPCS: 71275; 74174; 80053; 83605; 83690; 84484; 85025; 85610; 85730; 93005; 96374; 96375; 99285; Q9967

== ENCOUNTER 2023-12-30 07:18 | Day surgery (SDC) | payer BC, SELFPAY ==
[2023-12-25 13:19] VITALS: BMI 33.4
[2023-12-30 07:49] VITALS: BP 100/60; PULSE 66; RESP 20; TEMP 36.6; O2SAT 95; BMI 33.4
[2023-12-30] MEDS: LACTATED RINGERS 1000ML 1,000 ML 25 ML IV (07:55)
--- NOTE | 2023-12-30 08:39 | [facility].SCOPE ---
Procedure: Date: 12/30/23 Patient Date of :: 1970 Procedure Performed:: Colonoscopy with polypectomy Indications:: History of colon polyps Note: Colonoscopy in September 2018 (Dr. Rios) was significant for 6 polyps. Follow-up colonoscopy in November 2020 revealed a few small polyps and was also notable for internal hemorrhoids. Performing Provider:: Jasiel Leonard MD Referring Provider:: . Sedation:: Monitored anesthesia care Procedure:: After informed consent was obtained the patient was taken to the endoscopy suite. Sedation ensued after the patient was transferred to the left lateral decubitus position. Pulse, blood pressure, and oxygen saturation were monitored throughout the procedure. Digital rectal exam revealed no significant abnormality. The colonoscope was placed in position. The entire colon was evaluated. The colonoscope was carefully removed and the patient was transferred to recovery in stable condition. Please see findings and specimens below for detail. Findings:: Bowel preparation fair to moderate Hemorrhoidal cushions Sessile hepatic flexure polyp Specimens:: Sessile hepatic flexure polyp (cold snare) Recommendations:: Timing of repeat colonoscopy is pending pathology but will likely be between 3-5 years. Complications:: No immediate Estimated blood obtained (mL): 1 Colonoscopy Component Colonoscopy Component Was a colonoscopy performed during today's procedure?: Yes Recommended follow up colonoscopy of at least 10 years?: No If no, follow up colonoscopy recommended in ___ years?: (See above) Reason for not recommending >/= 10 yr follow-up interval?: (See above)
[2023-12-30 08:41] VITALS: O2SAT 95
[2023-12-30 09:14] VITALS: BP 111/67; PULSE 75; RESP 20; TEMP 36.1; O2SAT 92
--- NOTE | 2023-12-30 09:18 | P.PNANES_ITS ---
[facility] Disclaimer: The information contained in this section may have been updated after the patient was seen, as this information can be updated by other users. Medical History Sleep apnea Multiple thyroid nodules Thyroid nodule GERD (gastroesophageal reflux disease) Depression Hypertension Surgical History History of cholecystectomy History of arthroscopy of right shoulder H/O arthroscopy of left knee Family History Other Cancer Dementia Depression Social History Smoking Status: Current every day smoker tobacco type: cigarettes packs per day: 1 second hand exposure: Yes alcohol intake: never substance use type: denies use current occupational status: employed Travel in the last 8 weeks: None household members: spouse and family housing: house current occupation: [employer] current occupational exposures/hazards: No caffeine: Yes [facility] Anesthesia Checklist Patient Identification Patient Identification: Verbal (Name & ) Structural Data Admitted From: Home Planned Operative Procedure/s: colonoscopy Consent for Planned Operative Procedure(s) Verified: Yes Additional verifications Anesthesia Reactions: No Hx Blood Transfusions: No Blood Transfusion Reaction: No Airway Assessment Mallampati Score:: Class II C-Spine Mobility Assessed: Yes TMJ Mobility Assessed: Yes Dentition: Good Dentition Neurological Assessment Level of Consciousness: Awake, Alert and Appropriate Anesthesia Plan Anesthesia Risk discussed: Yes Anesthesia Plan: Verified ASA Class: II Anesthesia Type: MAC
[2023-12-30 09:24] VITALS: BP 107/70; PULSE 69; RESP 20; TEMP 36.1; O2SAT 94
[2023-12-30 09:34] VITALS: BP 107/70; BP 110/69; PULSE 65; PULSE 82; RESP 20; RESP 22; TEMP 36.3; TEMP 36.5; O2SAT 94; O2SAT 95
[2023-12-30 10:16] VITALS: BP 110/69; PULSE 82; RESP 22; TEMP 36.3; O2SAT 95
--- NOTE | 2023-12-30 13:18 | CT_ITS ---
FINAL REPORT CLINICAL HISTORY: PULMONARY NODULE states f/u to bilateral nodules COMPARISON: June 30, 2023 FINDINGS: Axial CT images of the chest were obtained with contrast. Coronal and sagittal reformatted images were also obtained. This study was performed with techniques to keep radiation doses as low as reasonably achievable, (ALARA). Individualized dose reduction techniques using automated exposure control or adjustment of mA and/or KV according to the patient''''s size were employed. Several mildly enlarged mediastinal nodes are again seen. There is a 21 mm subcarinal node that is visually stable. No new mediastinal or hilar mass is identified. No axillary mass or adenopathy is identified. A 4 mm nodule is seen in the medial right upper lobe on image #18. This is visually stable. 14 mm nodule is seen in the anterior right lung base on image #52, stable. Mild bilateral scarring is noted. No new pulmonary mass or suspicious nodule is identified. No pleural effusion is identified. Limited images of the upper abdomen reveal postoperative changes from cholecystectomy. There is mild fatty infiltration of the liver. IMPRESSION: Stable right lung nodules. These could be further evaluated with additional follow-up chest CT in 12 months to evaluate for continued stability. Stable borderline mediastinal adenopathy as a nonspecific finding. No new abnormality identified. Authenticated and ERN
[2023-12-30] MEDS: SODIUM CHLORIDE 0.9% 10ML SYR (RAD ONLY) 10 ML IV (13:48)
[2023-12-30] MEDS: IOPAMIDOL-370 (76%);100ML BOTTLE 75 ML IV (13:49)
== END 2023-12-30 10:16 | disposition home or self-care (01) ==
PROVIDERS: PCP Internal Medicine Adolescent Medicine; Visit Provider Surgery
PROC: 0DJD8ZZ Inspection of Lower Intestinal Tract, Via Natural or Artificial Opening Endoscopic (ICD-10-PCS; CPT 45385; principal; 2023-12-30 08:30)
DX: Z12.11 Encounter for screening for malignant neoplasm of colon (principal); Z86.010 Personal history of colon polyps; K64.8 Other hemorrhoids; D12.3 Benign neoplasm of transverse colon
CPT/HCPCS: 45385; 71260; Q9967

== ENCOUNTER 2024-04-05 12:46 | Outpatient (CLI) | payer BC, SELFPAY ==
--- NOTE | 2024-04-05 12:47 | US_ITS ---
FINAL REPORT CLINICAL HISTORY: thyroid nodule COMPARISON: 03/26/2023 FINDINGS: Sonographic images of the thyroid gland were obtained. The thyroid has a heterogeneous echotexture with increased vascularity. This can be seen with thyroiditis. The thyroid is enlarged. The right thyroid lobe measures 5.1 cm. in length and the left thyroid lobe measures 4.9 cm. in length. The thyroid isthmus measures 0.6 cm. There is a right 32 x 19 x 12 mm mostly solid isoechoic TR 3 nodule. There is no well-defined nodule on the left. No new mass or nodule identified. IMPRESSION: TR 3 nodule on the right apparently previously biopsied. Additional follow-up recommended in 12 months per TI-RADS criteria. Reviewed, Interpreted and Dictated by Cuate Calixto III, MD Transcribed by Lolis Abdi Authenticated and [facility]
== END 2024-04-05 23:59 | disposition home or self-care (01) ==
LOC: RAD 12:47
PROVIDERS: PCP Internal Medicine Adolescent Medicine; Visit Provider Nurse Practitioner
DX: E04.2 Nontoxic multinodular goiter (principal); E04.1 Nontoxic single thyroid nodule
CPT/HCPCS: 76536

== ENCOUNTER 2024-08-25 11:12 | Emergency (ER) | payer BC, SELFPAY ==
[2024-08-25] VITALS (8 sets, daily range): BP systolic 133–147; BP diastolic 82–93; PULSE 62–86; RESP 16–19; TEMP 36.7–36.8; O2SAT 93–97; BMI 33.4; BMI 33.3
--- NOTE | 2024-08-25 11:56 | EXP.UTC ---
Discharge Plan Disposition Patient Disposition: Home, Self-Care Condition: Good Prescriptions Prescriptions: New pantoprazole [Protonix] 40 mg tablet,delayed release (DR/EC) 40 mg PO DAILY Qty: 30 0RF No Action Trintellix 20 mg tablet 20 mg PO DAILY Patient Comments: TAKE 1 TABLET BY MOUTH ONCE DAILY lisinopril 10 mg Tablet 10 mg PO DAILY Referrals Follow up/Referrals: Declan Rios II, MD [Staff Physician] - See instructions (Chest pain that resolved with GI cocktail) Aneesh Hernandez MD [Primary Care Provider] - See instructions Donnie Rodriguez MD [Staff Physician] - See instructions Activity Restrictions/Add. Instructions Additional Instructions/Restrictions: As we discussed I am referring you both to cardiology for further restratification and WRIGHT and also to gastroenterology for evaluation and possible upper endoscopy. I have sent a prescription for Protonix to your pharmacy. Please continue to take until seen by gastroenterology. Follow-up with your PCP for no improvement or worsening signs or symptoms as needed. Clinical Impressions Clinical Impression: Chest pain Instructions Patient Instructions: DI for Chest Pain Print Language Print Language: Tanzanian Discharge ED Provider: Glenn Gan [facility] [place] HPI General Chief complaint: Chest Pain Stated complaint: congestion, headache, sinus pressure Mode of Arrival: Ambulatory Source of Information: Patient Limitations: No Limitations Time Seen by Provider: 08/25/24 11:56 Description of Symptoms (Recalled from Triage Doc. by RN): PATIENT C/O CHEST CONGESTION, HEADACHE, AND PRODUCTIVE COUGH WITH DARK GREEN SPUTUM SINCE YESTERDAY HEENT Symptoms (Recalled from RN notes): Yes Resp Symptoms (Recalled from RN notes): Yes Skin Symptoms (Recalled from RN notes): No MS Symptoms (Recalled from RN notes): No Functional Status (Recalled from RN notes): WNL History of Present Illness Provider Complaint: Patient initially registered with cough, congestion and sinus pressure, family called [facility] and advised that patient started having chest pain last night that took his breath and he would not come to the hospital and has continued to complain with it today, asked patient if he is having chest pain and he advised yes, feels like someone punched him in the left side of his chest states that pain is constant and feels like something is sitting on his chest making him feel winded states that he is not really coughing anything up States he went to work this morning and they was concerned when he was complaining with pain and pressure in his chest so they made him come in Related Data Home Medications ?Medication ?Instructions ?Recorded ?Confirmed lisinopril 10 mg tablet 10 mg PO DAILY 12/30/23 08/25/24 vortioxetine 20 mg tablet 20 mg PO DAILY 07/27/24 08/25/24 (Trintellix) Previous Rx's ?Medication ?Instructions ?Recorded pantoprazole 40 mg tablet,delayed 40 mg PO DAILY #30 tabs 08/25/24 release (Protonix) Allergies Allergy/AdvReac Type Severity Reaction Status Date / Time No Known Allergies Allergy Verified 07/27/24 13:08 Worker's Comp Is this a Worker's Comp case?: No [facility] Disclaimer: The information contained in this section may have been updated after the patient was seen, as this information can be updated by other users. Medical History Sleep apnea Multiple thyroid nodules Thyroid nodule GERD (gastroesophageal reflux disease) Depression Hypertension Surgical History History of cholecystectomy History of arthroscopy of right shoulder H/O arthroscopy of left knee Family History Other Cancer Dementia Depression Social History Smoking Status: Unknown if ever smoked second hand exposure: Yes alcohol intake: never substance use type: denies use current occupational status: employed household members: spouse and family housing: house current occupation: [employer] current occupational exposures/hazards: No caffeine: Yes ROS Obtained: Yes All systems reviewed & no additional complaints except as documented and Yes Systems reviewed as appropriate & no additional complaints except as documented Constitutional Constitutional: Reports system reviewed and no additional complaints, except as documented and Reports as per HPI ENT Ears, Nose, Mouth, and Throat: Reports system reviewed and no additional complaints, except as documented and Reports as per HPI Cardiovascular Cardiovascular: Reports system reviewed and no additional complaints, except as documented, Reports as per HPI and Reports chest pain Respiratory Respiratory: Reports system reviewed and no additional complaints, except as documented, Reports as per HPI, Reports cough (a little cough here and there) and Reports other (feels like cannot get a good breath, feels like something sitting on chest) Gastrointestinal Gastrointestingal: Reports system reviewed and no additional complaints, except as documented and as per HPI Physical Exam General General appearance: alert and in no apparent distress ENT ENT exam: Present mucous membranes moist Respiratory Respiratory exam: Present normal lung sounds bilaterally; Absent respiratory distress or wheezes Cardiovascular Cardiovascular exam: Present regular rate, normal rhythm and normal heart sounds Neurological Exam Neurological exam: Present alert, oriented X3 and normal gait Medical Decision Making Medical Records Screening: Per USPSTF and CDC recommendations, given the prevalence of disease in our region, it is our hospital?s policy to screen for HIV and viral Hepatitis for all patients aged 18 and over and those with ongoing risk factors. Adalid Inquiry Pt receiving controlled substance: No Adalid was queried for this patient: No Vital Signs: 08/25/24 11:40 Temperature 98.3 F Temperature Source Oral Pulse Rate [Left Brachial] 86 Respiratory Rate 19 Blood Pressure [Left Arm] 144/85 H Blood Pressure Mean [Left Arm] 104 Blood Pressure Source [Left Arm] Automatic Cuff Blood Pressure Position [Left Arm] Sitting 02 Sat by Pulse Oximetry 97 Oxygen Delivery Method Room Air Lab Data 08/25/24 12:13 08/25/24 12:13 Medical Decision Narrative: Patient registered and initially told staff that he was having sinus congestion and pressure and chest congestion, however upon exam patient states that he was not forthcoming on true complaint States that he started having pain in the left side of chest last night at home and it scared him and took his breath, states that he has continued to have pain in the left side of his chest at rest and feels like he gets winded when he is up moving around feels like something is sitting on his chest, states that he didnt want to go to the ED unless he really needed it discussed with patient that we will transfer him to the ED for further work up and evaluation since he complains with pain in the left side of his chest that does not worse with deep breath or cough and even occurs at rest Called Ed and patient was moved to the ED
--- NOTE | 2024-08-25 12:05 | PC.NURSE ---
PATIENT SENT TO ER PER Sang GARVIN APRN FOR FURTHER EVALUATION. REPORT GIVEN TO Collin SALAZAR RN BY Sang WILSON APRN. PATIENT TRANSPORTED TO ER VIA WHEELCHAIR WITH [facility] STAFF ASSIST AT THIS TIME
--- NOTE | 2024-08-25 12:11 | ECG_ITS ---
APPROVED REPORT Exam: Resting ECG HR:70 bpm ECG Measurements Heart Rate 70 AXES FL 166 P 59 QRSd 98 QRS 12 QT 381 T 59 QTc 402 Conclusion Sinus rhythm Electronically signed by : DEB COVARRUBIAS, 08/25/2024 15:00:07
--- NOTE | 2024-08-25 12:13 | ED_ITS ---
Discharge Plan Disposition Patient Disposition: Home, Self-Care Condition: Good Prescriptions Prescriptions: New pantoprazole [Protonix] 40 mg tablet,delayed release (DR/EC) 40 mg PO DAILY Qty: 30 0RF No Action Trintellix 20 mg tablet 20 mg PO DAILY Patient Comments: TAKE 1 TABLET BY MOUTH ONCE DAILY lisinopril 10 mg Tablet 10 mg PO DAILY Referrals Follow up/Referrals: Declan Rios II, MD [Staff Physician] - See instructions (Chest pain that resolved with GI cocktail) Aneesh Hernandez MD [Primary Care Provider] - See instructions Donnie Rodriguez MD [Staff Physician] - See instructions Activity Restrictions/Add. Instructions Additional Instructions/Restrictions: As we discussed I am referring you both to cardiology for further restratification and WRIGHT and also to gastroenterology for evaluation and possible upper endoscopy. I have sent a prescription for Protonix to your pharmacy. Please continue to take until seen by gastroenterology. Follow-up with your PCP for no improvement or worsening signs or symptoms as needed. Clinical Impressions Clinical Impression: Chest pain Instructions Patient Instructions: DI for Chest Pain Print Language Print Language: Sami Discharge ED Provider: Glenn Gan HPI <MORRIS June - Last Filed: 08/25/24 14:39> General Chief Complaint: Chest Pain Stated Complaint: congestion, headache, sinus pressure Time Seen by Provider: 08/25/24 11:56 Mode of Arrival: Ambulatory Source of Information: Patient Limitations: No Limitations Description of Symptoms (Recalled from ER Triage Doc. by RN): PATIENT C/O CHEST CONGESTION, HEADACHE, AND PRODUCTIVE COUGH WITH DARK GREEN SPUTUM SINCE YESTERDAY History of Present Illness HPI narrative: Patient presents for evaluation of left-sided chest pain. Patient has had left- sided chest pain since yesterday. He states the worst his heart has been 5 but it has been continuous since about midday yesterday. He denies any shortness of breath nausea vomiting diarrhea hemoptysis hematochezia melena hematemesis. He also reports that he has a productive cough with green sputum but denies any fever or diaphoresis. Additionally he denies any dysphagia or heartburn and there are no aggravating or relieving factors. Related Data Home Medications ?Medication ?Instructions ?Recorded ?Confirmed lisinopril 10 mg tablet 10 mg PO DAILY 12/30/23 08/25/24 vortioxetine 20 mg tablet 20 mg PO DAILY 07/27/24 08/25/24 (Trintellix) Previous Rx's ?Medication ?Instructions ?Recorded pantoprazole 40 mg tablet,delayed 40 mg PO DAILY #30 tabs 08/25/24 release (Protonix) Allergies Allergy/AdvReac Type Severity Reaction Status Date / Time No Known Allergies Allergy Verified 07/27/24 13:08 [facility] <MORRIS June - Last Filed: 08/25/24 14:39> [facility] Disclaimer: The information contained in this section may have been updated after the patient was seen, as this information can be updated by other users. Medical History Sleep apnea Multiple thyroid nodules Thyroid nodule GERD (gastroesophageal reflux disease) Depression Hypertension Surgical History History of cholecystectomy History of arthroscopy of right shoulder H/O arthroscopy of left knee Family History Other Cancer Dementia Depression Social History Smoking Status: Unknown if ever smoked second hand exposure: Yes alcohol intake: never substance use type: denies use current occupational status: employed household members: spouse and family housing: house current occupation: [employer] current occupational exposures/hazards: No caffeine: Yes Other Medical History Have you received the Flu Vaccine for this season: Yes Have you received the Pneumonia Vaccine: Yes <MORRIS June - Last Filed: 08/25/24 14:39> ROS Obtained: Yes Systems reviewed as appropriate & no additional complaints except as documented Physical Exam <MORRIS June Last Filed: 08/25/24 14:39> General General appearance: alert and in no apparent distress Respiratory Respiratory exam: Present normal lung sounds bilaterally Cardiovascular Cardiovascular exam: Present regular rate Neurological Exam Neurological exam: Present alert and oriented X3 HEART Score <MORRIS June Last Filed: 08/25/24 14:39> HEART Score HEART Score assessment performed?: Yes History (anamnesis): Slightly suspicious ECG: Non-specific disturbance Age: 45-65 years Risk factors: 3 or more risk factors Troponin: </= normal limit HEART Score: 4 <Glenn Gan MD - Last Filed: 08/25/24 15:07> HEART Score HEART Score: 4 Critical Care <MORRIS June - Last Filed: 08/25/24 14:39> Critical Care Time Critical Care Time: No Medical Decision Making <MORRIS June - Last Filed: 08/25/24 14:39> Adalid Inquiry Pt receiving controlled substance: No Vital Signs Vital Signs: 08/25/24 11:40 08/25/24 12:21 08/25/24 12:30 Temperature 98.3 F 98.3 F Temperature Source Oral Oral Pulse Rate 80 Pulse Rate [Left Brachial] 86 86 Respiratory Rate 19 19 Blood Pressure 141/93 H Blood Pressure [Left Arm] 144/85 H 144/85 H Blood Pressure Mean [Left Arm] 104 104 Blood Pressure Source [Left Arm] Automatic Cuff Automatic Cuff Blood Pressure Position [Left Arm] Sitting Sitting 02 Sat by Pulse Oximetry 97 97 94 L Oxygen Delivery Method Room Air Room Air 08/25/24 13:00 08/25/24 13:29 08/25/24 14:00 Temperature Temperature Source Pulse Rate 62 66 63 Pulse Rate [Left Brachial] Respiratory Rate Blood Pressure 147/92 H 140/82 133/93 H Blood Pressure [Left Arm] Blood Pressure Mean [Left Arm] Blood Pressure Source [Left Arm] Blood Pressure Position [Left Arm] 02 Sat by Pulse Oximetry 94 L 94 L 93 L Oxygen Delivery Method 08/25/24 14:30 08/25/24 14:40 Temperature 98.0 F Temperature Source Pulse Rate 67 72 Pulse Rate [Left Brachial] Respiratory Rate 16 Blood Pressure 142/92 H 142/92 H Blood Pressure [Left Arm] Blood Pressure Mean [Left Arm] Blood Pressure Source [Left Arm] Blood Pressure Position [Left Arm] 02 Sat by Pulse Oximetry 94 L Oxygen Delivery Method Room Air Lab Data Lab results reviewed: Yes I reviewed the patient's lab results. Labs: Lab Results 08/25/24 12:13: WBC 11.3 H, RBC 5.49, Hgb 17.1, Hct 49.1, MCV 89.3, MCH 31.1, MCHC 34.8, RDW 13.2, Plt Count 232, MPV 9.2, Neut % (Auto) 76.6, Lymph % (Auto) 15.0, [place] % (Auto) 5.3, Eos % (Auto) 2.3, Baso % (Auto) 0.8, Neut # (Auto) 8.7 H, Lymph # (Auto) 1.7, [place] # (Auto) 0.6, Eos # (Auto) 0.3, Baso # (Auto) 0.1, D-Dimer 0.34, Sodium 140, Potassium 3.8, Chloride 106, Carbon Dioxide 26, Anion Gap 11.8, BUN 10, Creatinine 0.80, Estimated Creat Clear 152, Estimated GFR 102, Est GFR ( Amer) 123, Glucose 109 H, Calcium 8.6, Total Bilirubin 0.5, AST 32, ALT 21, Alkaline Phosphatase 82, Troponin I < 0.01, NT-Pro-B Natriuret Pep < 20.0, Total Protein 6.8, Albumin 4.5, Globulin 2.3, Albumin/Globulin Ratio 2.0 H , TSH 3.37, Free T4 Index 2.4 L, Thyroxine (T4) 7.4, T3 Uptake 32 08/25/24 12:13 08/25/24 12:13 Response Orders (Tests/Meds): ED MEDICATIONS Discontinued Medications Generic Name Dose Route Start Last Admin Trade Name Freq PRN Reason Stop Dose Admin Acetaminophen 1,000 mg 08/25/24 12:23 08/25/24 12:31 Acetaminophen 500mg Tab PO 08/25/24 12:24 1,000 mg ONCE ONE Administration Belladonna Alkaloids 60 ml 08/25/24 12:23 08/25/24 12:31 Belladonna Alkaloids 60 Ml Ml PO 08/25/24 12:24 60 ml ONCE ONE Administration Ketorolac Tromethamine 15 mg 08/25/24 12:23 08/25/24 12:31 Ketorolac 30mg/Ml Vial IV 08/25/24 12:24 15 mg ONCE ONE Administration ORDERS Category Date Time Status Chest XR 2 view (NOT portable) [XR chest 2V] Stat Exams 08/25/24 12:23 Completed BNP [NT Pro Brain Natriuretic Pep.] Stat Lab 08/25/24 12:13 Completed CBC w/Auto Diff [Complete Blood Count Auto Diff] Stat Lab 08/25/24 12:13 Completed CMP [Comprehensive Metabolic Panel] Stat Lab 08/25/24 12:13 Completed D-Dimer Stat Lab 08/25/24 12:13 Completed HIV (1&2) Antibody Rapid Stat Lab 08/25/24 12:13 Received Hep C Ab with Reflex to RNA Stat Lab 08/25/24 12:13 Received Thyroid Panel Stat Lab 08/25/24 12:13 Completed Trop I [Troponin I] Stat Lab 08/25/24 12:13 Completed Troponin I Q3H Lab 08/25/24 15:30 Ordered Troponin I Q3H Lab 08/25/24 18:30 Ordered MDM Narrative Medical Decision Narrative: In summary patient is a 54-year-old male who presents to the emergency department for evaluation of left-sided chest pain. Patient is hemodynamically stable upon arrival, afebrile. Physical exam is remarkable for nonreproducible left-sided chest pain on exam with clear breath sounds normal heart sounds normal sinus rhythm on the bedside monitor. Differential diagnosis includes ACS versus PE versus pneumonia either viral bacterial versus gastroenteritis versus esophageal spasm etc. Initial workup will be conducted with hematologic labs plain film chest x-ray twelve-lead EKG. Initial interventions include Toradol Tylenol GI cocktail. Initial workup reviewed by me shows his hematologic labs are nonactionable including an undetectable troponin normal BNP and my informal interpretation of his plain film chest x-ray shows possible bronchial thickening but no infiltrate or acute process prior to radiology read. Upon repeat evaluation patient had complete resolution of his symptoms after GI cocktail. Given this since he has had more than 8 hours of continuous pain and also because it was resolved with GI cocktail of deferred a second troponin. Given this patient is appropriate for discharge with follow-up to cardiology but also to gastroenterology for possible upper endoscopy given the potential GI source of his symptoms. <Glenn Gan MD - Last Filed: 08/25/24 15:07> Vital Signs Vital Signs: 08/25/24 11:40 08/25/24 12:21 08/25/24 12:30 Temperature 98.3 F 98.3 F Temperature Source Oral Oral Pulse Rate 80 Pulse Rate [Left Brachial] 86 86 Respiratory Rate 19 19 Blood Pressure 141/93 H Blood Pressure [Left Arm] 144/85 H 144/85 H Blood Pressure Mean [Left Arm] 104 104 Blood Pressure Source [Left Arm] Automatic Cuff Automatic Cuff Blood Pressure Position [Left Arm] Sitting Sitting 02 Sat by Pulse Oximetry 97 97 94 L Oxygen Delivery Method Room Air Room Air 08/25/24 13:00 08/25/24 13:29 08/25/24 14:00 Temperature Temperature Source Pulse Rate 62 66 63 Pulse Rate [Left Brachial] Respiratory Rate Blood Pressure 147/92 H 140/82 133/93 H Blood Pressure [Left Arm] Blood Pressure Mean [Left Arm] Blood Pressure Source [Left Arm] Blood Pressure Position [Left Arm] 02 Sat by Pulse Oximetry 94 L 94 L 93 L Oxygen Delivery Method 08/25/24 14:30 08/25/24 14:40 Temperature 98.0 F Temperature Source Pulse Rate 67 72 Pulse Rate [Left Brachial] Respiratory Rate 16 Blood Pressure 142/92 H 142/92 H Blood Pressure [Left Arm] Blood Pressure Mean [Left Arm] Blood Pressure Source [Left Arm] Blood Pressure Position [Left Arm] 02 Sat by Pulse Oximetry 94 L Oxygen Delivery Method Room Air Lab Data Labs: Lab Results 08/25/24 12:13: WBC 11.3 H, RBC 5.49, Hgb 17.1, Hct 49.1, MCV 89.3, MCH 31.1, MCHC 34.8, RDW 13.2, Plt Count 232, MPV 9.2, Neut % (Auto) 76.6, Lymph % (Auto) 15.0, [place] % (Auto) 5.3, Eos % (Auto) 2.3, Baso % (Auto) 0.8, Neut # (Auto) 8.7 H, Lymph # (Auto) 1.7, [place] # (Auto) 0.6, Eos # (Auto) 0.3, Baso # (Auto) 0.1, D-Dimer 0.34, Sodium 140, Potassium 3.8, Chloride 106, Carbon Dioxide 26, Anion Gap 11.8, BUN 10, Creatinine 0.80, Estimated Creat Clear 152, Estimated GFR 102, Est GFR ( Amer) 123, Glucose 109 H, Calcium 8.6, Total Bilirubin 0.5, AST 32, ALT 21, Alkaline Phosphatase 82, Troponin I < 0.01, NT-Pro-B Natriuret Pep < 20.0, Total Protein 6.8, Albumin 4.5, Globulin 2.3, Albumin/Globulin Ratio 2.0 H , TSH 3.37, Free T4 Index 2.4 L, Thyroxine (T4) 7.4, T3 Uptake 32 Response Orders (Tests/Meds): ED MEDICATIONS Discontinued Medications Generic Name Dose Route Start Last Admin Trade Name Mauro PRN Reason Stop Dose Admin Acetaminophen 1,000 mg 08/25/24 12:23 08/25/24 12:31 Acetaminophen 500mg Tab PO 08/25/24 12:24 1,000 mg ONCE ONE Administration Belladonna Alkaloids 60 ml 08/25/24 12:23 08/25/24 12:31 Belladonna Alkaloids 60 Ml Ml PO 08/25/24 12:24 60 ml ONCE ONE Administration Ketorolac Tromethamine 15 mg 08/25/24 12:23 08/25/24 12:31 Ketorolac 30mg/Ml Vial IV 08/25/24 12:24 15 mg ONCE ONE Administration ORDERS Category Date Time Status Chest XR 2 view (NOT portable) [XR chest 2V] Stat Exams 08/25/24 12:23 Completed BNP [NT Pro Brain Natriuretic Pep.] Stat Lab 08/25/24 12:13 Completed CBC w/Auto Diff [Complete Blood Count Auto Diff] Stat Lab 08/25/24 12:13 Completed CMP [Comprehensive Metabolic Panel] Stat Lab 08/25/24 12:13 Completed D-Dimer Stat Lab 08/25/24 12:13 Completed HIV (1&2) Antibody Rapid Stat Lab 08/25/24 12:13 Received Hep C Ab with Reflex to RNA Stat Lab 08/25/24 12:13 Received Thyroid Panel Stat Lab 08/25/24 12:13 Completed Trop I [Troponin I] Stat Lab 08/25/24 12:13 Completed Troponin I Q3H Lab 08/25/24 15:30 Ordered Troponin I Q3H Lab 08/25/24 18:30 Ordered ECG Data Tracing #1: Attestation: I reviewed this ECG and interpreted as documented below: (sinus rhythm 70 beats minute with RI 166, QRS 98, QTc 402. Normal axis, no acute ischemic change) MDM Narrative Medical Decision Narrative: In summary patient is a 54-year-old male who presents to the emergency department for evaluation of left-sided chest pain. Patient is hemodynamically stable upon arrival, afebrile. Physical exam is remarkable for nonreproducible left-sided chest pain on exam with clear breath sounds normal heart sounds normal sinus rhythm on the bedside monitor. Differential diagnosis includes ACS versus PE versus pneumonia either viral bacterial versus gastroenteritis versus esophageal spasm etc. Initial workup will be conducted with hematologic labs plain film chest x-ray twelve-lead EKG. Initial interventions include Toradol Tylenol GI cocktail. Initial workup reviewed by me shows his hematologic labs are nonactionable including an undetectable troponin normal BNP and my informal interpretation of his plain film chest x-ray shows possible bronchial thickening but no infiltrate or acute process prior to radiology read. Upon repeat evaluation patient had complete resolution of his symptoms after GI cocktail. Given this since he has had more than 8 hours of continuous pain and also because it was resolved with GI cocktail of deferred a second troponin. Given this patient is appropriate for discharge with follow-up to cardiology but also to gastroenterology for possible upper endoscopy given the potential GI source of his symptoms. I was consulted by the CALVIN, and we discussed the complexity of the problems being addressed. I approved the treatment and management plan for this patient's care in the Emergency Department, thus performing a substantive portion of the medical decision making. Glenn Gan MD
--- NOTE | 2024-08-25 12:23 | XR_ITS ---
FINAL REPORT CLINICAL HISTORY: Chest pain COMPARISON: 11/18/2022 FINDINGS: PA and lateral views of the chest are obtained. The cardiac and mediastinal silhouettes are within normal limits. There is mild bronchial wall thickening, bronchitis not excluded. The lungs are otherwise clear. There is no pleural effusion or pneumothorax. There is no acute osseous abnormality. IMPRESSION: Possible bronchitis. Reviewed, Interpreted and Dictated by Anine Mcqueen MD Transcribed by Yin Villalpando Authenticated and [facility]
[2024-08-25] MEDS: BELLADONNA ALKALOIDS 60 ML ML PO (12:31)
[2024-08-25] MEDS: ACETAMINOPHEN 500MG TAB 1000 MG PO (12:31)
[2024-08-25] MEDS: KETOROLAC 30MG/ML VIAL 15 MG IV (12:31)
[2024-08-25 12:33] LABS: Basophils # 0.1 K/mm3 (0-0.2); Basophils % 0.8 % (0.1-2.0); Eosinophils # 0.3 K/mm3 (0.0-0.4); Eosinophils % 2.3 % (0.1-12.0); Hematocrit 49.1 % (42.0-52.0); Hemoglobin 17.1 g/dL (14.1-18.0); Lymphocytes # 1.7 K/mm3 (0.7-4.5); Mean Corpuscular HGB Conc 34.8 g/dL (31.8-35.4); Mean Corpuscular Hemoglobin 31.1 pg (27.0-31.2); Mean Corpuscular Volume 89.3 fl (80-94); Mean Platelet Volume 9.2 fl (7.4-10.4); Monocytes # 0.6 K/mm3 (0.1-1.0); Monocytes % 5.3 % (1.7-9.3); Neutrophils # 8.7 K/mm3 (1.8-7.8); Neutrophils % 76.6 % (37.0-80.0); Platelet Count 232 K/mm3 (142-424); Red Blood Count 5.49 M/mm3 (4.60-6.20); Red Cell Distribution Width 13.2 % (11.5-17.5); White Blood Count 11.3 K/mm3 (4.8-10.8)
[2024-08-25 12:46] LABS: Alanine Aminotransferase 21 U/L (12-78); Albumin Level 4.5 g/dl (3.5-5.0); Alkaline Phosphatase 82 U/L (38-126); Anion Gap 11.8 mEq/L (5-15); Aspartate Amino Transferase 32 U/L (17-59); Bilirubin,Total 0.5 mg/dl (0.2-1.3); Blood Urea Nitrogen 10 mg/dl (9-20); Calcium 8.6 mg/dl (8.4-10.2); Carbon Dioxide 26 mmol/L (22.0-30.0); Chloride 106 mmol/L (98-107); Creatinine Clearance Estimated 152 mL/min (50-200); Estimated Glomerular Filt Rate 102 ml/min (>60); GFR (African American) 123 ML/MIN (>60); Globulin 2.3 g/dL (1.3-3.2); Glucose 109 mg/dl (74-100); Potassium 3.8 mmoL/L (3.5-5.1); Sodium 140 mmol/L (136-145); Total Protein,Serum 6.8 g/dl (6.3-8.2)
[2024-08-25 12:50] LABS: D-Dimer 0.34 ug/mL (0.0-0.5)
[2024-08-25 12:57] LABS: NT Pro Brain Natriuretic Pep. < 20.0 pg/mL (0-125)
[2024-08-25 13:04] LABS: Troponin I < 0.01 ng/ml (0.00-0.034)
[2024-08-25 13:05] LABS: Free Thyroxine Index 2.4 ug/dL (5.93-13.13); T4 (Thyroxine) 7.4 ug/dl (5.53-11.0); Triiodothryronine (T3) Uptake 32 % (23.5-40.5)
[2024-08-25 13:18] LABS: Thyroid Stimulating Hormone 3.37 uIU/mL (0.465-4.68)
[2024-08-25 16:14] LABS: HIV (1&2) Antibody Rapid NONREACTIVE (NONREACTIVE)
[2024-08-26 08:32] LABS: HCV Ab Non Reactive (Non Reactive)
== END 2024-08-25 14:48 | disposition home or self-care (01) ==
LOC: UTC 11:17 → ER 12:02
PROVIDERS: Physician Assistant; Emergency Provider Emergency Medicine; PCP Internal Medicine Adolescent Medicine
DX: R07.9 Chest pain, unspecified (principal); R09.81 Nasal congestion; R51.9 Headache, unspecified; J34.89 Other specified disorders of nose and nasal sinuses; R05.8 Other specified cough
CPT/HCPCS: 71046; 80050; 80053; 83880; 84436; 84443; 84479; 84484; 85025; 85378; 86803; 87389; 93005; 96374; 99284; J1885

== ENCOUNTER 2024-08-30 14:42 | Outpatient (CLI) | payer BC, SELFPAY ==
[2024-08-30 15:07] LABS: Basophils # 0.1 K/mm3 (0-0.2); Basophils % 0.7 % (0.1-2.0); Eosinophils # 0.3 K/mm3 (0.0-0.4); Eosinophils % 2.5 % (0.1-12.0); Hematocrit 49.1 % (42.0-52.0); Hemoglobin 16.6 g/dL (14.1-18.0); Lymphocytes # 1.6 K/mm3 (0.7-4.5); Mean Corpuscular HGB Conc 33.7 g/dL (31.8-35.4); Mean Corpuscular Hemoglobin 30.3 pg (27.0-31.2); Mean Corpuscular Volume 89.9 fl (80-94); Monocytes # 0.6 K/mm3 (0.1-1.0); Monocytes % 5.4 % (1.7-9.3); Neutrophils # 8.7 K/mm3 (1.8-7.8); Neutrophils % 77.4 % (37.0-80.0); Platelet Count 235 K/mm3 (142-424); Red Blood Count 5.46 M/mm3 (4.60-6.20); Red Cell Distribution Width 13.3 % (11.5-17.5); White Blood Count 11.2 K/mm3 (4.8-10.8)
[2024-08-30 15:16] LABS: Albumin Level 4.2 g/dl (3.5-5.0); Chloride 106 mmol/L (98-107); Potassium 3.8 mmoL/L (3.5-5.1); Sodium 140 mmol/L (136-145)
[2024-08-30 15:18] LABS: Anion Gap 8.8 mEq/L (5-15); Bilirubin,Unconjugated 0.7 mg/dL (0.0-1.1); Blood Urea Nitrogen 12 mg/dl (9-20); Carbon Dioxide 29 mmol/L (22.0-30.0); Estimated Glomerular Filt Rate 89 ml/min (>60); GFR (African American) 107 ML/MIN (>60)
[2024-08-30 15:19] LABS: Alanine Aminotransferase 19 U/L (12-78); Alkaline Phosphatase 82 U/L (38-126); Aspartate Amino Transferase 30 U/L (17-59); Bilirubin,Direct 0.1 mg/dl (0.0-0.4); Bilirubin,Indirect 0.7 mg/dL (0.0-0.9); Bilirubin,Total 0.8 mg/dl (0.2-1.3); Calcium 8.7 mg/dl (8.4-10.2); Chol/HDL Ratio 4.9 (1-3.5); Cholesterol 142 mg/dl (140-200); Glucose 96 mg/dl (74-100); HDL Cholesterol 29 mg/dl (40-60); Total Protein,Serum 6.5 g/dl (6.3-8.2); Triglycerides 214 mg/dl (30-150); VLDL Cholesterol 43 mg/dL (0-40)
[2024-08-30 15:30] LABS: Direct LDL Cholesterol 90.28 mg/dL (100-129)
[2024-08-30 15:38] LABS: Troponin I < 0.01 ng/ml (0.00-0.034)
[2024-08-30 16:00] LABS: Free T4 (Free Thyroxine) 0.79 ng/dl (0.78-2.19)
== END 2024-08-30 23:59 | disposition home or self-care (01) ==
LOC: LAB 14:42
PROVIDERS: PCP Internal Medicine Adolescent Medicine; Visit Provider Internal Medicine
DX: I07.1 Rheumatic tricuspid insufficiency (principal); I34.0 Nonrheumatic mitral (valve) insufficiency; R06.00 Dyspnea, unspecified; R07.9 Chest pain, unspecified; I10 Essential (primary) hypertension
CPT/HCPCS: 36415; 80048; 80061; 80076; 82565; 84439; 84443; 84484; 84520; 85025

== ENCOUNTER 2024-09-13 08:07 | Outpatient (CLI) | payer BC, SELFPAY ==
--- NOTE | 2024-09-13 08:09 | CA_ITS ---
APPROVED REPORT EXAM: Comprehensive 2D, Doppler, and color-flow Echocardiogram Telecommunications Line Mechanic: Courtney Villasenor RVT Ht: 5 ft 7 in Wt: 221lbs BSA: 2.11 BP: 140/68 mmHg Indications: CP,SOA,HTN 2D Dimensions IVSd 1.03 cm M: 0.6-1.2 LVEF (Visual) 91.50 % PWd 0.77 cm M: 0.6 - 1.2 LA Volume 54.80 mL LVDd 3.87 cm M: 4.2 - 5.9 LA Volume Index 25.97 mL/m2 (M/F) 16-34 LVDs 1.45 cm M: 2.5 - 4.0 M-Mode Dimensions RVDd 2.24 cm (0.9-2.6) LA Diam 3.49 cm (1.9-4.0) LVDd 2.95 cm (3.5-5.7) IVSd 1.88 cm (0.6-1.1) PWd 0.72 cm (0.6-1.1) EDV (Teich) 33.60 mL TAPSE 2.66 (<1.7) LV Diastology E Decel Time 190 (160-240 msec) E/A Ratio 1.1 Aortic Valve MARTÍN Index 1.57 cm2/m2 AoV Peak Vaibhav. 127.0 (50-130 cm/s) AO Peak GR. 6.40 mmHg AO Mean GR. 3.70 (<5 mmHg) AO VTI 28.8 (18-25 cm) MARTÍN (VTI) 3.39 (2.5-4.5 cm2) Mitral Valve MV E Max Vaibhav. 75.0 (40-130 cm/s) MV A Velocity 66.0 (40-130 cm/s) E/A Ratio 1.14 MV PHT 56.0 ms Pulmonary Valve PV Peak Velocity 94.0 (50-150 cm/s) Left Ventricle The left ventricle is normal size. The left ventricular systolic function is normal. The left ventricular ejection fraction is within the normal range. There is increased LV wall thickness. There is normal LV segmental wall motion. The left ventricular diastolic function is normal. LVEF is 55%. Right Ventricle Right ventricle is mildly dilated. The right ventricular systolic function is normal. Atria The left atrium size is normal. The right atrium size is normal. There is no Doppler evidence of interatrial shunt. Aortic Valve The aortic valve opens well. There is no aortic valvular stenosis. Trace aortic regurgitation. Mitral Valve The mitral valve is normal in structure. No evidence of mitral valve stenosis. Trace mitral regurgitation. Tricuspid Valve Tricuspid valve is grossly normal in structure and function. Trace tricuspid regurgitation. There is insufficient TR jet to estimate RVSP. Pulmonic Valve The pulmonary valve is normal in structure. Trace pulmonic regurgitation. Great Vessels The aortic root is normal in size. The ascending aorta is normal in size. IVC is normal in size and collapses >50% with inspiration. Pericardium There is no pericardial effusion. Other Information Study Quality: Fair Conclusion Normal biventricular systolic function. No significant valvular stenosis or regurgitation. Electronically signed by : Negra Rodriguez MD 09/24/2024 12:35:06
== END 2024-09-13 23:59 | disposition home or self-care (01) ==
LOC: RT 08:08
PROVIDERS: PCP Internal Medicine Adolescent Medicine; Visit Provider Internal Medicine
DX: I34.0 Nonrheumatic mitral (valve) insufficiency (principal); I07.1 Rheumatic tricuspid insufficiency; R06.00 Dyspnea, unspecified; R07.9 Chest pain, unspecified; I10 Essential (primary) hypertension
CPT/HCPCS: 93306

== ENCOUNTER 2024-09-20 08:56 | Outpatient (CLI) | payer BC, SELFPAY ==
[2024-09-20 09:43] VITALS: BMI 34.6
[2024-09-20 09:55] VITALS: BP 138/80; PULSE 60; RESP 18; O2SAT 96
[2024-09-20 11:00] VITALS: BP 152/83; PULSE 69; RESP 20; O2SAT 97
[2024-09-20] MEDS: NITROGLYCERIN 0.4MG SL TABLET 0.8 MG SL (11:00)
[2024-09-20 11:05] VITALS: BP 126/67; PULSE 79; RESP 20; O2SAT 95
[2024-09-20 11:10] VITALS: BP 124/61; PULSE 75; RESP 20; O2SAT 95
[2024-09-20 11:15] VITALS: BP 117/72; PULSE 75; RESP 22; O2SAT 95
[2024-09-20] MEDS: SODIUM CHLORIDE 0.9% 10ML SYR (RAD ONLY) 10 ML IV (11:19)
[2024-09-20] MEDS: IOPAMIDOL-370 (76%);100ML BOTTLE 85 ML IV (11:19)
[2024-09-20] MEDS: 0.9 % SODIUM CHLORIDE 50 ML VIAL IV (11:19)
[2024-09-20 11:20] VITALS: BP 106/60; PULSE 54; RESP 22; O2SAT 96
== END 2024-09-20 11:24 | disposition home or self-care (01) ==
PROVIDERS: PCP Internal Medicine Adolescent Medicine; Visit Provider Internal Medicine
DX: I34.0 Nonrheumatic mitral (valve) insufficiency (principal); R06.00 Dyspnea, unspecified; R07.9 Chest pain, unspecified; I10 Essential (primary) hypertension
CPT/HCPCS: 75574; Q9967

== ENCOUNTER 2025-01-25 07:02 | Outpatient (CLI) | payer BC, SELFPAY ==
--- NOTE | 2025-01-25 07:03 | CT_ITS ---
FINAL REPORT CLINICAL HISTORY: lung cancer screening CURRENT SMOKER 1.5PPD X12 YEARS COMPARISON: 12/23/2022, 08/28/2022 FINDINGS: CTDI vol (mGy): 2.90 DLP: 97.[address] images of the chest were obtained using the low-dose protocol for screening. There are a few, small scattered mediastinal lymph nodes. In the medial right upper lobe is a nodule measuring 5 mm on image 18 of series 3. There is linear scarring or atelectasis in the superior segment of the right lower lobe. There is a lobular, noncalcified density in the inferior right middle lobe measuring 15 mm. This is best seen on image 53 of series 7 and is stable from prior exam. IMPRESSION: Stable pulmonary nodules. No new mass or nodule. Lung RADS category 1 . Recommend 12 month followup low-dose CT for further evaluation. Reviewed, Interpreted and Dictated by Orion aWy MD Transcribed by Karlene Monroe Authenticated and . [facility]
[2025-01-25] MEDS: ALBUTEROL 0.083% 2.5 MG/3 ML NEB IH (08:10)
== END 2025-01-25 23:59 | disposition home or self-care (01) ==
LOC: RAD 07:03
PROVIDERS: PCP Internal Medicine Adolescent Medicine; Visit Provider Internal Medicine Pulmonary Disease
DX: R06.09 Other forms of dyspnea (principal)
CPT/HCPCS: 71271; 94060; 94618; 94726; 94729; J7613

== ENCOUNTER 2025-01-28 09:07 | Emergency (ER) | payer BC, SELFPAY ==
[2025-01-28 09:35] VITALS: BP 128/75; PULSE 79; RESP 14; TEMP 36.6; O2SAT 97; BMI 33.4
--- NOTE | 2025-01-28 10:09 | XR_ITS ---
FINAL REPORT CLINICAL HISTORY: right hip pain. COMPARISON: None FINDINGS: RIGHT HIP Two views of the right hip with an AP view of the pelvis demonstrate no acute fracture or dislocation. The joint spaces appear normal. The visualized bony structures are well aligned. No soft tissue abnormality is seen. IMPRESSION: No acute bony abnormality. Reviewed, Interpreted and Dictated by Orion Way MD Transcribed by Lolis Abdi Authenticated and [facility]
--- NOTE | 2025-01-28 10:09 | XR_ITS ---
FINAL REPORT CLINICAL HISTORY: Low back pain. Prior sx on spine. COMPARISON: None FINDINGS: 3 views of the lumbar spine were obtained. There is no evidence of fracture. There is no malalignment. There is moderate anterior osteophyte formation at L2-3, L4-5, and L5-S1. Moderate facet sclerosis is noted in the lower lumbar spine. No paraspinous soft tissue abnormalities identified. IMPRESSION: Moderately advanced degenerative disc disease. Reviewed, Interpreted and Dictated by Orion Way MD Transcribed by Lolis Abdi Authenticated and [facility]
--- NOTE | 2025-01-28 10:10 | PC.NURSE ---
notified radiology of imaging put in.
[2025-01-28 10:24] VITALS: BP 123/72; PULSE 68; RESP 18; O2SAT 97
[2025-01-28] MEDS: IBUPROFEN 400 MG TABLET 800 MG PO (10:28)
[2025-01-28] MEDS: ACETAMINOPHEN 500MG TAB 1000 MG PO (10:28)
[2025-01-28] MEDS: LIDOCAINE 5% TRANSDERMAL PATCH 1 EACH TD (10:28)
--- NOTE | 2025-01-28 11:12 | ED_ITS ---
Discharge Plan Disposition Patient Disposition: Home, Self-Care Prescriptions Prescriptions: New prednisone 20 mg tablet 40 mg PO DAILY 5 Days Qty: 10 0RF methocarbamol 750 mg tablet 1,500 mg PO TID 5 Days Qty: 30 0RF No Action Trintellix 20 mg tablet 20 mg PO DAILY Patient Comments: TAKE 1 TABLET BY MOUTH ONCE DAILY buspirone 10 mg tablet 10 mg PO BID PRN (Reason: Anxiety) albuterol sulfate 90 mcg/actuation HFA aerosol inhaler 2 inh inhalation QID PRN (Reason: shortness of breath or wheezing) 90 Days Qty: 8.5 2RF lisinopril 10 mg Tablet 10 mg PO DAILY Referrals Follow up/Referrals: Aneesh Hernandez MD [Primary Care Provider] - See instructions Activity Restrictions/Add. Instructions Additional Instructions/Restrictions: Call your family doctor to establish care for this visit to the emergency department and schedule follow-up within 48 hours to ensure improvement. If you have any worsening of your condition or any other concerning signs or symptoms, return to the emergency department or your primary care doctor for further evaluation. Prednisone each morning after waking up for 5 days. Robaxin up to 3 times daily. Robaxin can cause you to feel drowsy. Do not drive, operate heavy machinery, or engage in any activity that may make you tired, fall asleep, and because harm to yourself or others while taking this medication. Clinical Impressions Clinical Impression: Right sciatic nerve pain Stand Alone Forms Stand Alone Forms: Work/School Release Instructions Patient Instructions: DI for Low Back Pain Print Language Print Language: [place] Discharge ED Provider: Glenn Gna General Adult HPI General Chief complaint: Back Pain/Injury Stated complaint: Lower back pain, Headache Time Seen by Provider: 01/28/25 09:58 Mode of Arrival: Ambulatory Source of Information: Patient Description of Symptoms (Recalled from ER Triage Doc. by RN): pt c/o R lower back/hip pain ongoing x3d. 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 pt states he has chronic back pain with a hx of surgery about 3 years ago. pt states his pain is 6/10 and burning in nature. pt reports taking 800 mg PO ibuprofen around midnight without any relief. History of Present Illness HPI narrative: Please note that above description of symptoms, in this electronic medical record under categorization of recalled from ER triage doctor by RN are reflective of an initial nursing assessment, however, is not reflective of my full history and physical exam that was personally taken and clarified. Consequentially, this preceding description of symptoms, which may include the patient's categorized chief complaint in the EMR, do not reflect my personal clinical impression, and the ultimate description of history of present illness and patient stated complaints should be deferred to this section of the note. Unless stated otherwise or congruent with this section of the note, additional signs, symptoms, or incongruence should be interpreted as inaccurate with my clinical impression. Related Data Home Medications ?Medication ?Instructions ?Recorded ?Confirmed lisinopril 10 mg tablet 10 mg PO DAILY 12/30/23 10/25/24 vortioxetine 20 mg tablet 20 mg PO DAILY 07/27/24 10/25/24 (Trintellix) buspirone 10 mg tablet 10 mg PO BID PRN Anxiety 08/30/24 10/25/24 Previous Rx's ?Medication ?Instructions ?Recorded albuterol sulfate 90 mcg/actuation 2 inh inhalation QID PRN shortness 10/25/24 aerosol inhaler of breath or wheezing 90 days #8.5 grams methocarbamol 750 mg tablet 1,500 mg (2 x 750 mg) PO TID 5 01/28/25 days #30 tabs prednisone 20 mg tablet 40 mg (2 x 20 mg) PO DAILY 5 days 01/28/25 #10 tabs Allergies Allergy/AdvReac Type Severity Reaction Status Date / Time No Known Allergies Allergy Verified 01/28/25 09:42 [facility] Disclaimer: The information contained in this section may have been updated after the patient was seen, as this information can be updated by other users. Medical History (Updated 01/28/25 @ 11:28 by Glenn Gan MD) Tobacco abuse counseling Smoking greater than 30 pack years Mediastinal lymphadenopathy Multiple lung nodules on CT Dyspnea on exertion Tricuspid regurgitation Mitral regurgitation Dyspnea Sleep apnea Multiple thyroid nodules Thyroid nodule GERD (gastroesophageal reflux disease) Depression Hypertension Surgical History History of cholecystectomy History of arthroscopy of right shoulder H/O arthroscopy of left knee Family History Other Cancer Dementia Depression Social History Smoking Status: Current every day smoker tobacco type: cigarettes packs per day: 1 second hand exposure: Yes alcohol intake: never substance use type: denies use current occupational status: employed Travel in the last 8 weeks?: None household members: spouse and family housing: house current occupation: [employer] current occupational exposures/hazards: No caffeine: Yes Have you lived/traveled outside US in past 30 days?: No Contact w/someone who lives/traveled outside US past 30 days?: No Exposure to someone with infectious disease in past 14 days?: No Do you have a fever (greater than 100.4 F or 38 C)?: No Have you tested positive for COVID-19?: No Exposed to someone with COVID-19 in past 14 days?: No Do you have a sore throat?: No Do you have a cough?: No Do you have any weakness?: No Do you have any diarrhea?: No Are you experiencing any unusual bleeding?: No Do you have any muscle aches/pain?: No Do you have any abdominal pain?: No Are you experiencing loss of taste or smell?: No Other Medical History Have you received the Flu Vaccine for this season: No Have you received the Pneumonia Vaccine: Yes ROS Obtained: Yes All systems reviewed & no additional complaints except as documented Physical Exam General General appearance: alert Head Head exam: atraumatic and normocephalic Eye Eye exam: Present normal appearance, PERRL and EOMI Neck Neck exam: Present normal inspection, full ROM and trachea midline Respiratory Respiratory exam: Absent respiratory distress, wheezes, stridor, accessory muscle use or prolonged expiratory phase Cardiovascular Cardiovascular exam: Present other (Pulses equal symmetric in upper and lower extremities) Abdominal Exam Abdominal exam: Present soft; Absent distention, tenderness or pulsatile mass Extremities Exam Extremities exam: Absent edema Neurological Exam Neurological exam: Present alert, oriented X3 and CN II-XII intact; Absent motor sensory deficit Skin Skin exam: Present warm and dry; Absent diaphoresis or erythema Medical Decision Making Medical Records Medical records reviewed: Yes I reviewed the patient's medical records. Screening: Per USPSTF and CDC recommendations, given the prevalence of disease in our region, it is our hospital?s policy to screen for HIV and viral Hepatitis for all patients aged 18 and over and those with ongoing risk factors. Adalid Inquiry Pt receiving controlled substance: No Adalid was queried for this patient: No Vital Signs: 01/28/25 09:35 01/28/25 10:24 01/28/25 11:42 Temperature 97.9 F 97.9 F Temperature Source Oral Oral Pulse Rate 68 68 Pulse Rate [Left] 79 Respiratory Rate 14 18 18 Blood Pressure 123/72 123/72 Blood Pressure [Right Arm] 128/75 Blood Pressure Mean [Right Arm] 92 Blood Pressure Source Automatic Cuff Automatic Cuff Blood Pressure Source [Right Arm] Automatic Cuff Blood Pressure Position Sitting Sitting Blood Pressure Position [Right Arm] Sitting 02 Sat by Pulse Oximetry 97 97 Oxygen Delivery Method Room Air Room Air Room Air Orders (Tests/Meds): ED MEDICATIONS Discontinued Medications Generic Name Dose Route Start Last Admin Trade Name Freq PRN Reason Stop Dose Admin Acetaminophen 1,000 mg 01/28/25 10:11 01/28/25 10:28 Acetaminophen 500mg Tab PO 01/28/25 10:12 1,000 mg ONCE ONE Administration Ibuprofen 800 mg 01/28/25 10:11 01/28/25 10:28 Ibuprofen 400 Mg Tablet PO 01/28/25 10:12 800 mg ONCE ONE Administration Lidocaine 1 each 01/28/25 10:11 01/28/25 10:28 Lidocaine 5% Transdermal Patch TD 01/28/25 10:12 1 each ONCE ONE Administration Methocarbamol 1,500 mg 01/28/25 11:11 01/28/25 11:16 Methocarbamol 500mg Tablet PO 01/28/25 11:12 1,500 mg ONCE ONE Administration Prednisone 40 mg 01/28/25 11:27 01/28/25 11:36 Prednisone 20mg Tab PO 01/28/25 11:28 40 mg ONCE ONE Administration ORDERS Category Date Time Status XR hip RT 2-3V w/pelvis Stat Exams 01/28/25 10:09 Completed XR lumbar spine 2-3V Stat Exams 01/28/25 10:09 Completed Medical Decision Narrative: 54-year-old male presenting with back pain. He states that he had severe sc iatic back pain in the past, had right sided laminectomy with microdiscectomy and has not had any symptoms in about 5 years. A couple days prior to this he was trying to start the lawnmower and did not think anything of it at the time, does not remember doing anything in particular. Radiates down the right side to his right hip as it used to. No bowel or bladder dysfunction, fevers, chills, lower extremity weakness, saddle anesthesia. History obtained with patient. On arrival, very clinically well. Patient neurologically intact, ambulating. No midline back pain, appears to be in mild pain and shifting around the chair. Patient given steroids, Robaxin, lumbar spine films were obtained, but on independent to rotation these were negative. I feel this is consistent with lumbar radiculopathy in the setting of previous lumbar radiculopathy. Because patient at baseline without signs or symptoms of clinical decompensation, deemed appropriate for discharge. Results were relayed to patient who voiced understanding and were agreeable to outpatient management and follow up. I discussed my clinical impression with patient and answered all questions. At this time, the evidence for any other entities in the differential is insufficient to warrant any further testing or ED observation. This was explained as well. Advisory was given that persistent or worsening symptoms require further evaluation. I confirmed the understanding of this discussion. Environmental Research Scientist disclaimer Much of this encounter note is an electronic trucking manager spoken language to printed text. Electronic trucking manager of the spoken language may permit errors. Although I have reviewed the note, some errors may still exist. Critical Care Critical Care Time Critical Care Time: No
[2025-01-28] MEDS: METHOCARBAMOL 500MG TABLET 1500 MG PO (11:16)
[2025-01-28] MEDS: predniSONE 20MG TAB 40 MG PO (11:36)
[2025-01-28 11:42] VITALS: BP 123/72; PULSE 68; RESP 18; TEMP 36.6; O2SAT 97
== END 2025-01-28 11:42 | disposition home or self-care (01) ==
PROVIDERS: Emergency Provider Emergency Medicine; PCP Internal Medicine Adolescent Medicine
DX: M54.41 Lumbago with sciatica, right side (principal); M54.16 Radiculopathy, lumbar region
CPT/HCPCS: 72100; 73502; 99284

== ENCOUNTER 2025-03-17 12:01 | Emergency (ER) | payer BC, SELFPAY ==
--- OUTSIDE RECORDS SUMMARY | 2015-12-12 05:52 | XMS_ITS | Continuity of Care Document ---
Author Organization [facility] o Address [address] [place] [address] Phone Care Team Providers Care Punch Out Crew Member Name Role Phone Fitz Benito MD Unavailable Unavailable Allergies, Adverse Reactions, Alerts Substance Reaction Status Criticality No Known Drug Allergies Active No I nformation Medications Medication Instructions Dosage Effective Dates (start - stop) Status Comments promethazine 25 mg tablet take 1 tablet by oral route every 8 hours as needed - Active hydrocodone 7.5 mg-acetaminophen 325 mg tablet take 1 tablet by oral route every 6 hours as needed for pain 1.00 tablet - Active ibuprofen 800 mg tablet take 1 tablet by oral route 3 times every day with food 800 MG - Active Procedures Procedure Date Postop followup visit Knee arthscpy mnsctmy medial or lat Knee arthroscopy/synovectomy, major Office/outpatient visit,est, mod 2015 Office/outpatient visit,est, low 2015 Office/outpatient visit,new, mod 2014 X-ray exam of knee, 3 views Advance Directives Directive Yes / No Effective Date File Name No Information Encounters Encounter Description Practice Location Reason(s) For Visit Diagnoses Date Provider Providers Copied on Encounter [facility], [address] [place] [address] [place], [address], tel:[phone] No Information 6 Jigna Byrnes. [address] [place], [id number] . tel:[phone] Referring Provider: Fitz Jigna A, [address], [place], [address] . tel:[phone] [facility], [address], [place], [facility], [place] tel:[phone] [facility] No Information 6 Monie Rocio. [address], [place], [address], [place]. tel:[phone] [facility], [address], [place], [address], [place] tel:[phone] [facility] No Information 6 Jigna Fitz. [address], [place], [place], [id number] . tel:[phone] [facility], [address], [place], [facility], [place] tel:[phone] No Information 6 Jigna Fitz. [address], [place], [place], [id number] . tel:[phone] Referring Provider: Fitz Mccabe, [address], [place], [address] . tel:[phone] [facility], [facility] [address], [place], [facility], [place] tel:[phone] [facility] No Information 6 Jigna Fitz. [address], [facility] [place], [id number] . tel:[phone] [facility], [address], [place], [address], [place] tel:[phone] [facility] No Information 6 Jigna Fitz. [address], [place], [place], [id number] . tel:[phone] Office/outpat ient visit,est, mod [facility], [facility] [address], [place], [facility], [place] tel:[phone] [facility] No Information 6 Jigna Fitz. [address] [facility] [place], [id number] . tel:[phone] Office/outpat ient visit,est, low [facility], [address] [facility] [place], [address], tel:[phone] [facility] Pain in left knee 6 Jigna Fitz. [address] [place], [id number] . tel:[phone] Office/outpat ient visit,[facility], [address] [facility] [place], [address], tel:[phone] [facility] knee (chief complaint) Pain in left knee 5 Jigna Fitz. [address] [facility] [place], [place], [address] . tel:[phone] Family History Family Member Type Diagnosis Age At Onset No Information Payers Payer name Insurance type Covered democrat ID Authorwagnera beverley(s) [employer] [facility] [id number] Social History Type Description Quantity Date Captured Comments Sex Male Smoking Status No Information Chief Complaint And Reason For Visit No Information Reason For Referral Reason For Referral No Information History Of Present Illness Encounter Date Complaint History Of Prese nt Illness knee Location: left k nee. Context: there is an injury. Trauma type: fall, occurred in the street, 2 Weeks 4 Days ago on 08/26/2015. Functional Status Date Functional Assessmen t No Information Instructions Date Instruction Additional Infor mation No Information Assessments Type Assessment Date No Information Patient Care Teams Name Effective Dates (start - stop) Status Members No Information
--- OUTSIDE RECORDS SUMMARY | 2025-01-01 17:30 | XMS_ITS ---
Author Organization [facility] Address [address] [facility] [address] [place] [address] Care Team Providers Care Drapery Counselor Name Role Phone Aneesh Hernandez Primary Care Provider Janette France [phone] Aneesh Hernandez Unavailable Unavailable Migration, Provider Unavailable Unavailable REASON FOR VISIT [facility] Conversion Encounter Medications Medication SIG (Take, Route, Frequency, Duration) Notes Start Date End Date Status VILAZODONE HYDROCHLORIDE 20 MG 1/2 TAB X 7 DAYS THEN INCREASE TO 1 TABS ORALLY ONCE A DAY for 30 DAYS *Please review for potential replacement for e-prescription and drug interaction check* 12/23/2024 Active busPIRone HCl 5 MG 1 tab(s) orally 2 times a day for 30 days Active Lisinopril 20 MG 1 tab(s) orally once a day Active Encounters Encounter Location Date Provider Diagnosis [facility] [address] [facility] [address] [place], [place] [address] 01/01/2025 Provider Migration Depression with anxiety F41.8 Assessments Encounter Date Diagnosis (ICD Code) Assessment Notes Treatment Notes Treatment Clinical Notes Section Notes 01/01/2025 Depression with anxiety (ICD-10 - F41.8) Plan Of Treatment Medication Medication Name Sig Start Date Stop Date Notes VILAZODONE HYDROCHLORIDE 20 MG 1/2 TAB X 7 DAYS THEN INCREASE TO 1 TABS ORALLY ONCE A DAY for 30 DAYS 12/23/2024 *Please review for potential replacement for e-prescription and drug interaction check* Progress Notes * Bethany TOMASDOB:1970 ( 54 yo M)Acc No.[id number]:01/01/2025 Patient: Bethany CALLAWAY Provider: Abel Madrid :1970 A ge:54 Y S ex:Male Date:01/01/2025 Address:[address] [place], [place] [address] [facility], [id number] Pcp:Aneesh Hernandez Subjective: * Chief Complaints: * [...] Electronic signature of Prov ider Migration on 03/17/2025 at 12:29 PM EDT Sign off status: Pending * Provider: Abel Madrid Date: 0 01/01/2025 Generated for Priti giron/Miguel Angel/Delfinaitting on: 0 03/17/2025 12:29 PM EDT
--- OUTSIDE RECORDS SUMMARY | 2025-01-17 06:30 | XMS_ITS ---
Author Organization Located within [facility] D GINGER Address [address] [place] [address] Care Team Providers Care Inspector Poising Name Role Phone Aneesh Hernandez Primary Care Provider [phone] Janette France Unavailable [phone] Aneesh Hernandez Unavailable Unavailable Allergies No Known Allergies REASON FOR VISIT Knot on scrotum x 3 years-just now starting to hurt Medications Medication SIG (Take, Route, Frequency, Duration) Notes Start Date End Date Status Doxycycline Hyclate 100 MG One tab PO tw ice daily for 14 days 01/17/2025 Active busPIRone HCl 5 MG 1 tab(s) orally 2 ti mes a day for 30 days Active VILAZODONE HYDROCHLORIDE 20 MG 1 tab ORALLY ONCE A DAY for 30 days 12/23/2024 Active Lisinopril 20 MG 1 tab(s) orally once a day Active Social History Tobacco Use: Social History Observation Description Date Details (start date - stop date) Current Smoker NA - NA Smoking: Question Answer Notes Are you a: current smoker How often do you smoke cigarettes? every day How many cigarettes a day do you smoke? - Vital Signs Temperature 97.8 degrees Fahrenheit 01/18/20 25 Blood pressure systolic 118 mm Hg 01/18/20 25 Blood pressure diastolic 74 mm Hg 025 Heart Rate 78 /min 01/17/2025 Height 67.5 in 01/17/2025 Weight 219 lbs 01/17/2025 BMI 33.79 kg/m2 01/17/2025 Encounters Encounter Location Date Provider Diagnosis [facility] [address] [place] [address] 01/17/2025 Aneesh Diptinehemias Acute epididymitis N45.1 Assessments Encounter Date Diagnosis (ICD Code) Assessment Notes Treatment Notes Treatment Clinical Notes Section Notes 01/17/2025 Acute epididymitis (ICD-10 - N45.1) Discussed pathophysiology , elevation, warm compresses, doxycycline for 2 weeks, ultrasound if no better Plan Of Treatment Medication Medication Name Sig Start Date Stop Date Notes Doxycycline Hyclate 100 MG One tab PO tw ice daily for 14 days 01/17/2025 Treatment Notes Assessment Notes Acute epididymitis Discussed pathophysi ology, elevation, warm compresses, doxycycline for 2 weeks, ultrasound if no better Next Appt Details Follow Up: prn, Reason: Progress Notes * Bethany TOMASDOB:1970 ( 54 yo M)Acc No.[id number]:01/17/2025 Progress Notes Patient: Bethany CALLAWAY Provider: Clem Hernandez MD :1970 A ge:54 Y S ex:Male Date:01/17/2025 Address:[facility] [address] [place], [place] [facility] [id number] Subjective: * Chief Complaints: * 1 . Knot on scrotum x 3 years-just now starting to hurt. * HPI: g en: Patient is noted a swelling underneath the bottom of the scrotum for several years now, after being little more active over the past couple weeks has noticed that it has been somewhat painful. No actual testicle swelling. No dysuria, pyuria or hematuria. * Medical History: H TN, Depression/Anxiety, Tobacco use, Lumbar DDD, TEO on sleep study 01/2021, Pulmonary nodules-stable CT with contrast 01/20-12-month follow-up recommended. * Social History: S moking A re you a: c urrent smoker, H ow often do you smoke cigarettes? e very day, H ow many cigarettes a day do you smoke? 2 1-30. R ecreational drug use: no. Exercise: yes. Home smoke detector use: yes. Caffeine: yes, frequency:2-3 daily. Living Will: No. Alcohol: no. Sexually active: no. Travel outside [place]: no. 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 * Medications: T aking Lisinopril 20 MG Tablet 1 tab(s) orally once a day , Taking busPIRone HCl 5 MG Tablet 1 tab(s) orally 2 times a day , Taking VILAZODONE HYDROCHLORIDE 20 MG TABLET 1 tab ORALLY ONCE A DAY , Medication List reviewed and reconciled with the patient * Allergies: N .K.D.A. Objective: * Vitals: N urse: jl, Pain: 0, Temp: 97.8, RR: 18, HR: 78, BP: 118/74, Ht: 67.5, Wt: 219, BMI:33.79. * Examination: G eneral Examination: N o mass in testicles. Does have tender epididymal structures noted, relief when testicle elevations noted. No lymph node swelling. Assessment: * Assessment: 1. A cute epididymitis - N45.1 (Primary) Plan: * Treatment: * Follow Up: p rn * * Sign off status: Completed true * Provider: Clem Hernandez MD Date: 0 01/17/2025 Generated for Priti giron/Miguel Angel/Delfinaitting on: 0 03/17/2025 12:30 PM EDT History and Physical Notes * Examination Category Sub-Category Detail Notes Category Not es General Examination No mass in testicles. Does have tender epididymal structures noted, relief when testicle elevations noted. No lymph node swelling.
--- OUTSIDE RECORDS SUMMARY | 2025-01-25 07:30 | XMS_ITS ---
Author Organization [facility] PE D GINGER Address [address] [place] [address] Care Team Providers Care Wall Covering Installer Name Role Phone Aneesh Hernandez Primary Care Provider Janette France Unavailable [phone] Aneesh Hernandez Unavailable Unavailable Yasmin Regaladoi Unavailable [phone] Allergies No Known Allergies REASON FOR VISIT 4 wk f/u Medications Medication SIG (Take, Route, Frequency, Duration) Notes Start Date End Date Status Lisinopril 20 MG 1 tab(s) orally once a day Active VILAZODONE HYDROCHLORIDE 20 MG 1 tab ORALLY ONCE A DAY for 30 days 12/23/2024 Active busPIRone HCl 5 MG 1 tab(s) orally 2 ti mes a day for 30 days Active Doxycycline Hyclate 100 MG One tab PO tw ice daily for 14 days 01/17/2025 Active Immunizations Vaccine Route Administration Date Status Comme nts Boostrix IM Intramuscular 01/25/2025 Administered Social History Tobacco Use: Social History Observation Description Date Details (start date - stop date) Current Smoker NA - NA Smoking: Question Answer Notes Are you a: current smoker How often do you smoke cigarettes? every day How many cigarettes a day do you smoke? - Vital Signs Temperature 97.8 degrees Fahrenheit 01/26/20 25 Blood pressure systolic 130 mm Hg 01/26/20 25 Blood pressure diastolic 80 mm Hg 025 Heart Rate 92 /min 01/25/2025 Height 67.5 in 01/25/2025 Weight 220 lbs 01/25/2025 BMI 33.94 kg/m2 01/25/2025 Encounters Encounter Location Date Provider Diagnosis [facility] [address] [place] [address] 01/25/2025 Leigh Regalado Encounter for immunization Z23 ; Depression with anxiety F41.8 and Cellulitis of left hand L03.114 Assessments Encounter Date Diagnosis (ICD Code) Assessment Notes Treatment Notes Treatment Clinical Notes Section Notes 01/25/2025 Encounter for immunization (ICD-10 - Z23) 01/25/2025 Depression with anxiety (ICD-10 - F41.8) Well controlled on current regimen. No changes made today 01/25/2025 Cellulitis of left hand (ICD-10 - L03.114) On Doxy for epididymitis which should cover mild cellulitis as well. Add mupirocin TID. Discussed wound care and return previous. Tetanus updated Plan Of Treatment Treatment Notes Assessment Notes Depression with anxiety Well controlled on current regimen. No changes made today Cellulitis of left hand On Doxy for epid idymitis which should cover mild cellulitis as well. Add mupirocin TID. Discussed wound care and return previous. Tetanus updated Next Appt Details Follow Up: 4 Months,maen, Nohemi son: Progress Notes * Bethany DIASDOB:1970 ( 54 yo M)Acc No.[id number]:01/25/2025 Progress Notes Patient: Osmar CALLAWAYny Provider: Jose Regalado APRN :1970 A ge:54 Y S ex:Male Date:01/25/2025 Address:[address] [place], [id number] Pcp:Aneesh Hernandez Subjective: * Chief Complaints: * 1 . 4 wk f/u. * HPI: P sychology: Denies : high stress. D enies : sleep disturbances. D enies : weight gain. D enies : weight loss. D enies : appetite change. D enies : low energy level. D enies : depressed mood. D enies : feeling overwhelmed. D enies : sad or cry easily. D enies : thoughts of hurting self. Presents for FU on depression/anxiety. Started on viibryd approx 4 weeks ago. Tolerated well. Mood is stable. Anxiety well controlled. No sleep issues. Pleased with current regimen. Currently on doxy for epididymitis. Pain has resolved. Reports abrasion left hand, scraped skin off. Increased redness and swelling the last couple of days. Unsure of last tetanus shot. * ROS: C ONSTITUTIONAL: no L oss of appetite. n o F ever. D ERMATOLOGY: no R catirna. G ASTROENTEROLOGY: Reviewed, No Symptoms Reported: Y es. N EUROLOGY: no H eadache. n o T ingling numbness. ? * Medical History: H TN, Depression/Anxiety, Tobacco use, Lumbar DDD, TEO on sleep study 01/2021, Pulmonary nodules-stable CT with contrast 01/20-12-month follow-up recommended. * Surgical History: g angloin cyst removal-rt foot 10/2018, rt rotator cuff surgery 2001, gallbladder removal 2014, lt knee-torn menescus 2015, back surgery 10/2020, colonoscopy Dr. Rios- polyps repeat 2-3 years, repeat Dr. Leonard 01/20- 2 polyps, repeat 3-5 years 11/2020. * Hospitalization/Major Diagno stic Procedure: h eart issues/HTN 10/2019. * Family History: F ather: , Dementia. M other: , breast cancer, diagnosed with Cancer. P aternal Grand Father: . P aternal Grand Mother: . M aternal Grand Father: . M aternal Grand Mother: . P aternal aunt: . M aternal uncle: unknown. M aternal aunt: unknown. S iblings: alive, one brother/sister , diagnosed with Cancer. C carson: alive. 3 brother(s) , 1 sister(s) - healthy. 1 daughter(s) - healthy. . * Social History: S moking A re [...] 1 tab ORALLY ONCE A DAY , Taking Doxycycline Hyclate 100 MG Tablet One tab PO twice daily , Medication List reviewed and reconciled with the patient * Allergies: N .K.D.A. Objective: * Vitals: N urse: jl, Pain: 0, Temp: 97.8, RR: 18, HR: 92, BP: 130/80, Ht: 67.5, Wt: 220, BMI:33.94. * Examination: G eneral Examination: General P leasant and Cooperative, NAD on RA,. Chest: n ormal shape and expansion. Heart: R egular Rate and Rhythm, no murmur, rubs or gallops. Lungs: L CTAB, No wheezes, crackles or rhonchi, Good air movement,. Peripheral pulses: n ormal (2+) bilaterally. Extremities: l eft hand with 2 tiny abrasions and 1 approx 1cm abrasion on dorsal aspect of hand mild swelling, redness and tenderness extending 1-2 cm from wound edge, otherwise hand unremarkable. Psych N ormal Mood/Affect. Assessment: * Assessment: 1. D epression with anxiety - F41.8 (Primary) 2 . E ncounter for immunization - Z23 3 . C ellulitis of left hand - L03.114 Plan: * Treatment: 2. C ellulitis of left hand Notes: On Doxy for epididymitis which should cover mild cellulitis as well. Add mupirocin TID. Discussed wound care and return previous. Tetanus updated * Immunizations: Boostrix : .5 mL (Dose No:1) (Route: Intramuscular) given by DORIS Whitaker on Left Deltoid * Procedure Codes: 9 0715 Boostrix, [address]672 ADMINISTRATION IMMUNIZATION ONE VACCINE * Follow Up: 4 Months,prn * * Sign off status: Completed true * Provider: Jose Regalado APRN Date: 0 01/25/2025 Generated for Priti giron/Miguel Angel/Mounika on: 0 03/17/2025 12:29 PM EDT History and Physical Notes * HPI (History of Present Illness) Category Sub-Category Detail Notes Category Not es Psychology depressed mood Presents for FU on depression/anxiety. Started on viibryd approx 4 weeks ago. Tolerated well. Mood is stable. Anxiety well controlled. No sleep issues. Pleased with current regimen. Currently on doxy for epididymitis. Pain has resolved. Reports abrasion left hand, scraped skin off. Increased redness and swelling the last couple of days. Unsure of last tetanus shot low energy level appetite change weight gain sleep disturbances high stress weight loss feeling overwhelmed sad or cry easily thoughts of hurting self Examination Category Sub-Category Detail Notes Category Not es General Examination Heart: Regular Rate and Rhythm, no murmur, rubs or gallops Lungs: LCTAB, No wheezes, c rackles or rhonchi, Good air movement, Extremities: left hand with 2 tin y abrasions and 1 approx 1cm abrasion on dorsal aspect of hand mild swelling, redness and tenderness extending 1-2 cm from wound edge, otherwise hand unremarkable Peripheral pulses: normal (2+) bilatera lly Chest: normal shape and exp ansion General Pleasant and Coopera tive, NAD on RA, Psych Normal Mood/Affect
[2025-03-17 12:06] VITALS: BP 124/74; PULSE 71; RESP 19; TEMP 36.8; O2SAT 95; BMI 33.4
--- NOTE | 2025-03-17 12:11 | ED_ITS ---
<Statement entered by Miladys Webb MD - 03/17/25 15:33> I was consulted by the CALVIN, and we discussed the complexity of the problems being addressed. I approved the treatment and management plan for this patient's care in the emergency department, thus performing a substantive portion of the medical decision making. Miladys Webb MD, SARA, FACEP Discharge Plan Disposition Patient Disposition: Home, Self-Care Condition: Good Prescriptions Prescriptions: New doxycycline hyclate 100 mg capsule 100 mg PO BID 10 Days Qty: 20 0RF prednisone 50 mg tablet 50 mg PO DAILY 5 Days Qty: 5 0RF No Action Trintellix 20 mg tablet 20 mg PO DAILY Patient Comments: TAKE 1 TABLET BY MOUTH ONCE DAILY doxycycline hyclate 100 mg tablet 100 mg PO BID Patient Comments: TAKE 1 TABLET BY MOUTH TWICE DAILY FOR 14 DAYS vilazodone 20 mg tablet 20 mg PO DIRECTED Patient Comments: TAKE 1/2 (ONE-HALF) TABLET BY MOUTH ONCE DAILY FOR 7 DAYS THEN INCREASE TO 1 TABLET BY MOUTH ONCE DAILY nicotine (polacrilex) 2 mg lozenge 2 mg buccal Q4H PRN (Reason: nicotine cravings) Qty: 108 2RF buspirone 10 mg tablet 10 mg PO BID PRN (Reason: Anxiety) albuterol sulfate 90 mcg/actuation HFA aerosol inhaler 2 inh inhalation QID PRN (Reason: shortness of breath or wheezing) 90 Days Qty: 8.5 2RF lisinopril 10 mg Tablet 10 mg PO DAILY prednisone 20 mg tablet 40 mg PO DAILY 5 Days Qty: 10 0RF methocarbamol 750 mg tablet 1,500 mg PO TID 5 Days Qty: 30 0RF Referrals Follow up/Referrals: Aneesh Hernandez MD [Primary Care Provider, Internal Medicine] - See instructions Activity Restrictions/Add. Instructions Additional Instructions/Restrictions: I have sent in steroids antibiotic to your pharmacy. Please take antibiotics till they are gone. If persistent new or worsening signs or symptoms follow-up with your PCP return to the ER as needed. Clinical Impressions Clinical Impression: Lower respiratory tract infection Instructions Patient Instructions: Cough Print Language Print Language: Kiswahili Discharge ED Provider: Miladys Webb General Adult HPI General Chief complaint: Cough Stated complaint: cough, pain while coughing Time Seen by Provider: 03/17/25 12:11 Mode of Arrival: Ambulatory Source of Information: Patient Description of Symptoms (Recalled from ER Triage Doc. by RN): Patient presents to ED from home with c/o burning cough and sore throat x3 days. History of Present Illness HPI narrative: Patient presents for evaluation of a painful cough. Patient has had 3 days of persistent cough. He denies any fever chills shortness of breath hemoptysis hematochezia melena hematemesis. Patient states that he will sometimes cough for 30-40 times in a row. He does smoke but denies any history of cardiovascular disease and is not currently on home oxygen. Patient additionally reports he is having a sore throat but no difficulty breathing or swallowing. Related Data Home Medications ?Medication ?Instructions ?Recorded ?Confirmed lisinopril 10 mg tablet 10 mg PO DAILY 12/30/2303/23 vortioxetine 20 mg tablet 20 mg PO DAILY 07/27/2403/23 (Trintellix) buspirone 10 mg tablet 10 mg PO BID PRN Anxiety 11/2202/01/25 doxycycline hyclate 100 mg tablet 100 mg PO BID 02/01/25 vilazodone 20 mg tablet 20 mg PO DIRECTED 5 02/01/25 Previous Rx's ?Medication ?Instructions ?Recorded albuterol sulfate 90 mcg/actuation 2 inh inhalation QI D PRN shortness 10/25/24 aerosol inhaler of breath or wheezing 90 day s #8.5 grams methocarbamol 750 mg tablet 1,500 mg (2 x 750 mg) PO T ID 5 01/28/25 days #30 tabs prednisone 20 mg tablet 40 mg (2 x 20 mg) PO DAILY 5 days 01/28/25 #10 tabs nicotine (polacrilex) 2 mg buccal 2 mg buccal Q4H PRN nicotine 02/01/25 lozenge cravings #108 ea doxycycline hyclate 100 mg capsule 100 mg PO BID 10 da ys #20 caps 03/17/25 prednisone 50 mg tablet 50 mg PO DAILY 5 days #5 tab s 03/17/25 Allergies Allergy/AdvReac Type Severity Reaction Status Date / Time No Known Allergies Allergy Verified 02/01/25 15:05 [facility] Disclaimer: The information contained in this section may have been updated after the patient was seen, as this information can be updated by other users. Medical History (Updated 03/17/25 @ 13:44 by MORRIS June) TEO (obstructive sleep apnea) Tobacco abuse counseling Smoking greater than 30 pack years Mediastinal lymphadenopathy Multiple lung nodules on CT Dyspnea on exertion Tricuspid regurgitation Mitral regurgitation Dyspnea Sleep apnea Multiple thyroid nodules Thyroid nodule GERD (gastroesophageal reflux disease) Depression Hypertension Surgical History History of cholecystectomy History of arthroscopy of right shoulder H/O arthroscopy of left knee Family History Other Cancer Dementia Depression Social History Smoking Status: Current every day smoker tobacco type: cigarettes packs per day: 1 second hand exposure: Yes alcohol intake: never substance use type: denies use current occupational status: employed Travel in the last 8 weeks?: None household members: spouse and family housing: house current occupation: [employer] current occupational exposures/hazards: No caffeine: Yes Have you lived/traveled outside US in past 30 days?: No Contact w/someone who lives/traveled outside US past 30 days?: No Exposure to someone with infectious disease in past 14 days?: No Do you have a fever (greater than 100.4 F or 38 C)?: No Have you tested positive for COVID-19?: No Exposed to someone with COVID-19 in past 14 days?: No Do you have a sore throat?: No Do you have a cough?: Yes Do you have any weakness?: No Do you have any diarrhea?: No Are you experiencing any unusual bleeding?: No Do you have any muscle aches/pain?: No Do you have any abdominal pain?: No Are you experiencing loss of taste or smell?: No Other Medical History Have you received the Flu Vaccine for this season: No Have you received the Pneumonia Vaccine: Yes ROS Obtained: Yes Systems reviewed as appropriate & no additional complaints except as documented Physical Exam General General appearance: alert and in no apparent distress Respiratory Respiratory exam: Present normal lung sounds bilaterally Cardiovascular Cardiovascular exam: Present regular rate Neurological Exam Neurological exam: Present alert and oriented X3 Medical Decision Making Medical Records Medical records reviewed: Yes I reviewed the patient's medical records. Screening: Per USPSTF and CDC recommendations, given the prevalence of disease in our region, it is our hospital?s policy to screen for HIV and viral Hepatitis for all patients aged 18 and over and those with ongoing risk factors. Adalid Inquiry Pt receiving controlled substance: No Vital Signs: 03/17/25 12:06 03/17/25 12:18 03/17/25 13:00 Temperature 98.2 F 18 F L Temperature Source Oral Pulse Rate 68 68 Pulse Rate [Right Brachial] 71 Respiratory Rate 19 17 Blood Pressure 120/79 Blood Pressure [Right Arm] 124/74 Blood Pressure Mean 91 Blood Pressure Mean [Right Arm] 90 Blood Pressure Source [Right Arm] Automatic Cuff 02 Sat by Pulse Oximetry 95 97 98 Oxygen Delivery Method Room Air Room Air Room Air Lab Data Lab results reviewed: Yes I reviewed the patient's lab results. Lab Results 03/17/25 12:16: Troponin I < 0.01 03/17/25 12:28: WBC 9.1, RBC 5.26, Hgb 16.0, Hct 47.7, MCV 90.7, MCH 30.4, MCHC 33.5, RDW 12.9, Plt Count 209, MPV 10.8 H, Neut % (Auto) 73.1, Lymph % (Auto) 16.0, [place] % (Auto) 7.4, Eos % (Auto) 2.5, Baso % (Auto) 0.7, Neut # (Auto) 6.6, Lymph # (Auto) 1.5, [place] # (Auto) 0.7, Eos # (Auto) 0.2, Baso # (Auto) 0.1, D- Dimer 0.43, Sodium 139, Potassium 3.8, Chloride 107, Carbon Dioxide 26, Anion Gap 9.8, BUN 11, Creatinine 0.80, Estimated Creat Clear 152, Estimated GFR 102, Est GFR ( Amer) 123, Glucose 133 H, Calcium 9.2, Magnesium 2.1, Total Bilirubin 0.6, AST 24, ALT 15, Alkaline Phosphatase 90, NT-Pro-B Natriuret Pep < 20.0, Total Protein 6.8, Albumin 4.3, Globulin 2.5, Albumin/Globulin Ratio 1.7 03/17/25 12:28 03/17/25 12:28 Orders (Tests/Meds): ED MEDICATIONS Discontinued Medications Generic Name Dose Route Start Last Admin Trade Name Freq PRN Reason Stop Dose Admin Albuterol/Ipratropium 3 ml 03/17/25 12:15 03/17/25 12:27 Ipratropium/Albuterol 3 Ml Neb IH 03/17/25 12:16 3 ml ONCE ONE Administration Dexamethasone Sodium Phosphate 10 mg 03/17/25 12:15 03/17/25 12:27 Dexamethasone 4mg/Ml 5ml Mdv IV 03/17/25 12:16 10 mg ONCE ONE Administration Ketorolac Tromethamine 15 mg 03/17/25 12:15 03/17/25 12:27 Ketorolac 30mg/Ml Vial IV 03/17/25 12:16 15 mg ONCE ONE Administration ORDERS Category Date Time Status Chest XR 2 view (NOT portable) [XR chest 2V] Stat Exams 03/17/25 12:15 Completed BNP [NT Pro Brain Natriuretic Pep.] Stat Lab 03/17/25 12:28 Completed CBC w/Auto Diff [Complete Blood Count Auto Diff] Stat Lab 03/17/25 12:28 Completed CMP [Comprehensive Metabolic Panel] Stat Lab 03/17/25 12:28 Completed D-Dimer Stat Lab 03/17/25 12:28 Completed Full Resp Panel w/COVID ([facility]) Routine Lab 03/17/25 12:18 Received Magnesium Stat Lab 03/17/25 12:28 Completed Trop I [Troponin I] Stat Lab 03/17/25 12:16 Completed Troponin I Q3H Lab 03/17/25 16:00 Ordered Troponin I Q3H Lab 03/17/25 19:00 Ordered Medical Decision Narrative: In summary patient is a 54-year-old male who presents to the emergency department for evaluation of 3 days of persistent cough. Patient is hemodynamically stable with a blood pressure 124/74 pulse 71 sinus rhythm on bedside monitor breathing 19 times a minute satting at 95% on room air upon arrival, afebrile at 90.2. Physical exam is remarkable for actually clear breath sounds to the bases without adventitious sounds increased work of breathing or accessory muscle use, cardiovascular is S1-S2 regular rate and rhythm without murmurs gallops rubs or thrills. Posterior pharynx erythematous without exudate.. Differential diagnosis includes COPD versus lower respiratory tract infection versus PE versus pneumothorax etc. Initial workup will be conducted with hematologic labs plain film chest x-ray full respiratory panel. Initial interventions include DuoNeb and Toradol. Initial workup reviewed by me and his hematologic labs are nonactionable including a negative D-dimer and troponin and my informed interpretation of his plain film chest x-ray shows no acute processes prior to radiology read. Please see final read for formal interpretation.. Upon repeat evaluation patient reported significant improvement after initial intervention. Given this patient is appropriate for discharge with description for prednisone and doxycycline and close follow-up with his PCP. Critical Care Critical Care Time Critical Care Time: No
--- NOTE | 2025-03-17 12:15 | XR_ITS ---
FINAL REPORT CLINICAL HISTORY: 3 days of persistent pervasive cough COMPARISON: 08/25/2024 FINDINGS: CHEST 2 VIEWS PA AND LATERAL The heart is normal in size. The mediastinum is unremarkable. The lungs are underinflated. There is no pneumothorax. IMPRESSION: No acute process. Reviewed, Interpreted and Dictated by Orion Way MD Transcribed by Karley Davey Authenticated and [facility]
[2025-03-17 12:18] VITALS: PULSE 68; RESP 17; O2SAT 97
[2025-03-17 12:22] LABS: Adenovirus,PCR Not Detected (NotDetected); Bordetella Pertussis Not Detected (NotDetected); Chlamydophila Pneumoniae, PCR Not Detected (NotDetected); Coronavirus 19, PCR Not Detected (NotDetected); Coronavirus 229E Not Detected (NotDetected); Coronavirus NL63 Not Detected (NotDetected); Coronavirus OC43 Not Detected (NotDetected); Coronovirus HKU1,PCR Not Detected (NotDetected); Human Metapneumovirus Not Detected (NotDetected); Influenza A, PCR Not Detected (NotDetected); Influenza AH1, 2009 Not Detected (NotDetected); Influenza AH1, PCR Not Detected (NotDetected); Influenza AH3,PCR Not Detected (NotDetected); Influenza B, PCR Not Detected (NotDetected); Mycoplasma Pneumoniae, PCR Not Detected (NotDetected); Parainfluenza 1, PCR Not Detected (NotDetected); Parainfluenza 2, PCR Not Detected (NotDetected); Parainfluenza 3, PCR Not Detected (NotDetected); Parainfluenza 4, PCR Not Detected (NotDetected); Respiratory Syncytial Virus Not Detected (NotDetected); Rhinovirus/Enterovirus Not Detected (NotDetected)
[2025-03-17] MEDS: DEXAMETHASONE 4MG/ML 5ML MDV 10 MG IV (12:27)
[2025-03-17] MEDS: IPRATROPIUM/ALBUTEROL 3 ML NEB IH (12:27)
[2025-03-17] MEDS: KETOROLAC 30MG/ML VIAL 15 MG IV (12:27)
--- OUTSIDE RECORDS SUMMARY | 2025-03-17 12:30 | XMS_ITS | Patient Health Record ---
Author Organization [facility] Address [address] [place] [address] Care Team Providers Care Pre K Teacher Name Role Phone Aneesh Hernandez Primary Care Provider [phone] Janette France Unavailable [phone] Aneesh Hernandez Unavailable Unavailable Leigh Regalado Unavailable [phone] Janette Davila Unavailable [phone] Migration, Provider Unavailable Unavailable Allergies No Known Allergies Reason For Referral Reason Dr. Willie Weiss [facility] Diagnosis 1 TEO (obstructive sle ep apnea) (G47.33) Referral Organization [facility] LACI SCHREIBER Referring Provider First Name Leigh Referring Provider Last Name Fabricio Referring Provider [facility] Notes Tiny Pisano 2023 02:58:22 PM >Placed referral through [facility] portal- they will be in contact with patient to schedule Referral Priority Routine Reason Can you please call [facility] to determine if he should be getting a CPAP. Patient is unsure. Diagnosis 1 Suspected sleep apne a (R29.818) Referral Organization [facility] LACI MILES Referring Provider First Name Janette Referring Provider Last Name Lloa Referring Provider [facility] Notes Tiny Pisano 2024 11:58:44 AM >I left a vm a few days ago but have never heard anything. I told them to contact him. Referral Priority Routine Medications Medication SIG (Take, Route, Frequency, Duration) Notes Start Date End Date Status busPIRone HCl 5 MG 1 tab(s) orally 2 ti mes a day for 30 days Active Doxycycline Hyclate 100 MG One tab PO tw ice daily for 14 days 01/17/2025 Active Mupirocin 2 % 1 application Forensic Specialist ally Twice a day for 7 days 01/25/2025 Active VILAZODONE HYDROCHLORIDE 20 MG 1 tab ORALLY ONCE A DAY for 30 days 12/23/2024 Active Lisinopril 20 MG 1 tab(s) orally once a day for 30 days Active Immunizations Vaccine Route Administration Date Status Comme nts SHINGRIX IM Intramuscular 08/19/2022 Administered SHINGRIX IM Intramuscular 11/19/2022 Administered FLUZONE 6MO - OLDER IM Intramuscular 07/07/2023 Administer ed Flublok IM Intramuscular 08/19/2022 Administered Flublok IM Intramuscular 08/31/2024 Administered Boostrix IM Intramuscular 01/25/2025 Administered Social History Tobacco Use: Social History Observation Description Date Details (start date - stop date) Current Smoker NA - NA Smoking: Question Answer Notes Are you a: current smoker How often do you smoke cigarettes? every day How many cigarettes a day do you smoke? - Problems Problem Type SNOMED Code ICD Code Onset Dates Problem Status W/U Status Risk Notes Problem 612270673848986413 Personal hist ory of nicotine dependence (Z87.891) Active confirmed Problem 116447585 Depression with anxiety (F41.8) Active confirmed Problem 53069278 HTN (hypertensio n), benign (I10) Active confirmed Problem 196910193 Thyroid nodule (E04.1) Active confirm ed Problem 360022656 History of colon polyps (Z86.010) Active confirmed Problem 92758559 TEO (obstructive sleep apnea) (G47.33) Active confirmed Problem 096672043 Pulmonary nodule (R91.1) Active confirmed Problem 30673986 Lumbar degenerat jonna disc disease (M51.36) Active confirmed Problem 536574175 BMI 35.0-35.9,ad ult (Z68.35) Active confirmed Problem 113181916 Familial hypercholesterolemia (E78.01) Active confirmed Problem 754736676 Major depressive disorder, remission status unspecified, unspecified whether recurrent (F32.9) Active confirmed Vital Signs Heart Rate 92 /min 01/25/2025 Temperature 97.8 degrees Fahrenheit 01/25/2025 Blood pressure diastolic 80 mm Hg 01/25/2025 Height 67.5 in 01/25/2025 Blood pressure systolic 130 mm Hg 01/25/2025 Weight 220 lbs 01/25/2025 BMI 33.94 kg/m2 01/25/2025 Encounters Encounter Location Date Provider Diagnosis [facility] [address] [facility] [address] [place] [address] 01/01/2025 Provider Migration Depression with anxiety F41.8 [facility] [address] [facility] [address] [place] [address] 08/17/2024 Leigh Fabricio Depression with anxiety F41.8 ; HTN (hypertension), benign I10 ; Personal history of nicotine dependence Z87.891 and TEO (obstructive sleep apnea) G47.33 [facility] [address] [facility] [address] [place] [address] 08/31/2024 Janette France Immunization(s) administered Z23 [facility] [address] [facility] [address] [place] [address] 12/03/2024 Janette Davila Suspected sleep apne a R29.818 ; Depression with anxiety F41.8 and Fatigue, unspecified type R53.83 [facility] [address] [facility] [address] [place] [address] 12/23/2024 Leighlisa Regalado Depression with anxiety F41.8 [facility] [address] [facility] [address] [place] [address] 01/17/2025 Aneesh Hernandez Acute epididymitis N45.1 [facility] [address] [facility] [address] [place] [address] 01/25/2025 Leigh Regalado Encounter for immunization Z23 ; Depression with anxiety F41.8 and Cellulitis of left hand L03.114 [facility] [address] [facility] [address] [place] [address] 01/25/2025 Leigh McNees [facility] [address] [facility] [address] [place] [address] 02/14/2025 Aneesh Hernandez Depression with anxiety F41.[address] [address] 02/17/2025 Aneesh Hernandez Assessments Encounter Date Diagnosis (ICD Code) Assessment Notes Treatment Notes Treatment Clinical Notes Section Notes 08/17/2024 Depression with anxiety (ICD-10 - F41.8) Well controlled on current regimen. No changes made today 08/17/2024 HTN (hypertension), benign (ICD-10 - I10) Blood pressure at goal. No changes made today 12/03/2024 Suspected sleep apnea (ICD-10 - R29.818) Needs clarification, referral placed. 12/23/2024 Depression with anxiety (ICD-10 - F41.8) Change to viibryd due to cost. Discussed rationale for pharmacotherapy, and discussed MOA of med. Discussed time course of expected improvements, and discussed side effect profile and need for urgent evaluation if agitation or worsening mood occurs. Discussed need for f/u in office. 01/01/2025 Depression with anxiety (ICD-10 - F41.8) 01/17/2025 Acute epididymitis (ICD-10 - N45.1) Discussed pathophysiology, elevation, warm compresses, doxycycline for 2 weeks, ultrasound if no better 01/25/2025 Depression with anxiety (ICD-10 - F41.8) Well controlled on current regimen. No changes made today 01/25/2025 Encounter for immunization (ICD-10 - Z23) 08/31/2024 Immunization(s) administered (ICD-10 - Z23) 12/03/2024 Depression with anxiety (ICD-10 - F41.8) Denies SI/HI. Tearful. Provided samples today and will work on affordability. Verbally pledged he will not hurt himself. Discussed rationale for pharmacotherapy, and discussed MOA of med. Discussed time course of expected improvements, and discussed side effect of nausea, sexual dysfunction and mental status changes - and need for urgent evaluation if agitation/SI occurs. Also counseled on importance of 30 minutes of daily physical activity, community, therapy, and gratitude journaling. Patient voices understanding and is agreeable to the plan of care above. Follow-up in 1-2 weeks with Leigh or sooner if needed. Patient voices understanding and agrees with the plan of care above. 02/14/2025 Depression with anxiety (ICD-10 - F41.8) 12/03/2024 Fatigue, unspecified type (ICD-10 - R53.83) daytime somnloence, could be anxiety/depressio n or TEO. Offered to draw labs today, but patient would like to wait until his follow-up after getting back on his medication. 01/25/2025 Cellulitis of left hand (ICD-10 - L03.114) On Doxy for epididymitis which should cover mild cellulitis as well. Add mupirocin TID. Discussed wound care and return previous. Tetanus updated 08/17/2024 Personal history of nicotine dependence (ICD-10 - Z87.891) Smoking cessation counseling provided. CT chest UTD 08/17/2024 TEO (obstructive sleep apnea) (ICD-10 - G47.33) Refer to sleep clinic for further evaluation and treatment Plan Of Treatment Pending Test Test Name Order Date MRI : Lumbosacral Spine 04/04/2020 Physical Therapy 03/19/2022 PET/CT Scan Skull Base to Mid Thigh 03/2022 PET/CT Scan 09/02/2022 HEMOGLOBIN A1c (496) 12/09/2022 Insurance Providers Payer Name Payer Address Payer Phone Subscriber Number Group Number Insured Name Patient Relationship to Insured Coverage Start Date Coverage End Date [facility] [address] [place] [address] [id number] ThomOsmarny Self - patient is the insured Medications Administered Medication Instructions Date of Administration Dosage Notes Dexamethasone 4mg Injection 10/10/2022 4 mg Medical (General) History Medical History History ICD Code HTN Depression/Anxiety Tobacco use Lumbar DDD TEO on sleep study 01/2021 Pulmonary nodules-stable CT with contrast 01/20-12-month follow-up recommended Surgical History Surgery Date(Month/Year) gangloin cyst removal-rt foot 10/2018 rt rotator cuff surgery 2002 gallbladder removal 2014 lt knee-torn menescus 2016 back surgery 10/[address] Rios- brian yps repeat 2-3 years, repeat Dr. Leonard 01/20- 2 polyps, repeat 3-5 years 11/2020 Hospitalization History Reason Date(Month/Year) heart issues/HTN 10/2019
--- OUTSIDE RECORDS SUMMARY | 2025-03-17 12:30 | XMS_ITS | Encounter Summary ---
Author Organization [employer] Address [address] [place] [address] Care Team Providers Care Summer Associate Name Role Phone Unavailable Primary Care Provider Unavailabl e Encounter Details Date Type Department Care Team (Late st Contact Info) Description 11/07/2020 Transcribed Document [facility] [place] [facility] [address] [place] [address] ProviderTheresa MD [address] [place], [place] [id number] Social History Tobacco Use Types Packs/Day Years Used Date Smoking Tobacco: Never Assessed Sex and Gender Information Value Date Recorded Sex Assigned at Male 03/26/2022 8:49 PM CDT Legal Sex Male 8:49 PM CDT Gender Identity Male 03/26/2022 8:49 PM CDT Sexual Orientation Not on file documented as of this encounter Miscellaneous Notes * Cerner Conversion Note - Theresa ProviderMD - 11/07/2020 12:32 PM CHIP BIN CONVEYOR TENDER [facility] Main OR PACU Summary Primary Physician: ALICIA HUANG MD Finalized Date/Time: 11/07/20 15:13:23 Pt. Name: THOMOSMAR URBINAGA DossB./Sex: 1970 Male Med Rec #: [id number] Physician: ALICIA HUANG MD Financial #: [id number] Pt. Type: O Room/Bed: Admit/Disch: 11/07/20 08:47:00 - Institution: [facility] Main OR PACU I Case Times Entry 1 In PACU I 11/07/20 13:40:00 Ready for PACU 11/07/20 14:30:00 Discharge Discharge from PACU 11/07/20 14:30:00 I Last Modified By: SKYLER ZELAYA RN 11/07/20 15:12:10 Finalized By: SKYLER ZELAYA, RN Document Signatures Signed By: SKYLER ZELAYA RN 11/07/20 15:13 Electronically signed by Jie [facility] Conversion Director Of Financial Planning Cerner at 01/14/2023 10:22 PM CDT documented in this encounter Plan of Treatment Not on file documented as of this encounter Visit Diagnoses Not on filedocumented in this encounter
--- OUTSIDE RECORDS SUMMARY | 2025-03-17 12:30 | XMS_ITS | Encounter Summary ---
Author Organization [employer] Address [address] [place] [address] Care Team Providers Care Manager Willow Name Role Phone Unavailable Primary Care Provider Unavailabl e Encounter Details Date Type Department Care Team (Late st Contact Info) Description 11/07/2020 Transcribed Document [facility] [place] [address] [place] [address] ProviderTheresa MD [facility] [place], [place] [address] Social History Tobacco Use Types Packs/Day Years Used Date Smoking Tobacco: Never Assessed Sex and Gender Information Value Date Recorded Sex Assigned at Male 03/26/2022 8:49 PM CDT Legal Sex Male 8:49 PM CDT Gender Identity Male 03/26/2022 8:49 PM CDT Sexual Orientation Not on file documented as of this encounter Miscellaneous Notes * Cerner Conversion Note - Theresa ProviderMD - 11/07/2020 11:00 AM CURING OVEN ATTENDANT [facility] Main OR Preop Summary Primary Physician: ALICIA HUANG MD Finalized Date/Time: 11/07/20 12:25:58 Pt. Name: GABRIEL DIAS /Sex: 1970 Male Med Rec #: [id number] Physician: ALICIA HUANG MD Financial #: [id number] Pt. Type: O Room/Bed: Admit/Disch: 11/07/20 08:47:00 - Institution: [facility] PreOp Case Times Entry 1 In Preop 11/07/20 08:25:00 Ready for Holding n/a Room Patient Ready for 11/07/20 09:34:00 Surgery Patient Out of Preop 11/07/20 12:02:00 Patient Out of n/a Holding Room Last Modified By: CANDE VILCHIS 11/07/20 12:25:56 [facility] PreOp Case Times Audit 11/07/20 12:25:56 Elevator Inspector: ESTEVAN Modifier: [email or web address] <+> 1 Patient Out of Preop Finalized By: CANDE VILCHIS Document Signatures Signed By: CANDE VILCHIS 11/07/20 12:25 documented in this encounter Plan of Treatment Not on file documented as of this encounter Visit Diagnoses Not on filedocumented in this encounter
--- OUTSIDE RECORDS SUMMARY | 2025-03-17 12:30 | XMS_ITS | Encounter Summary ---
Author Organization [employer] Address [address] [place] [address] Care Team Providers Care Marketing Database Consultant Name Role Phone Unavailable Primary Care Provider Unavailabl e Encounter Details Date Type Department Care Team (Late st Contact Info) Description 11/07/2020 Transcribed Document [facility] Family Medicine [facility] [place] [address] ProviderTheresa MD [facility] [place], [place] [id number] Social History Tobacco Use Types Packs/Day Years Used Date Smoking Tobacco: Never Assessed Sex and Gender Information Value Date Recorded Sex Assigned at Male 03/26/2022 8:49 PM CDT Legal Sex Male 8:49 PM CDT Gender Identity Male 03/26/2022 8:49 PM CDT Sexual Orientation Not on file documented as of this encounter Miscellaneous Notes * Cerner Conversion Note - Theresa ProviderMD - 11/07/2020 2:49 PM TRANSACTIONAL ATTORNEY [facility] [place] [address] LARISSAGABRIEL :1970 Visit Time:11/07/2020 What to do next Your Diagnosis Intervertebral disc disorders with radiculopathy, lumbar region, Intervertebral disc disorders with radiculopathy, lumbar region Instructions From Your Care Team Diet after Discharge: Resume usual diet as tolerated, Do not drink any alcoholic beverages, Drink at least 8-10 glasses of water per day Activity after Discharge: Rest and relax today, No strenuous activity for 6 weeks. No bending, lifting, twisting, pushing, pulling, or overhead work for 6 weeks. walk 2-3 times/day . you may climb stairs. Lifting Restrictions: No heavy lifting over 10 pounds Driving after Discharge: Do not drive until 24 hours after no longer taking pain medications May Return to Work/School: when Ok'd by the Doctor Showering/Bathing: May shower in 48hours, but do not get incision wet; cover with plastic for 1 week while showering. if dressing gets wet you may change it. do not scrub site and keep away from the shower stream. No tub bathing, soaking or swimming. keep site clean and dry. pat dry and re-apply dressing. Notify Provider of: excessive bleeding, pain, swelling, loss of sensation (numbness/tingling) in legs, or pus-like drainage Wound/Incision Care after: keep dressing clean, dry, and intact. remove dressing in 2 days. change daily or every other day and keep clean and dry after that. leave steri-strips, sutures, and/or natalie in place if present. NO lotions, powders, ointments to incision site. Medical Equipment for Home Use: ice pack for 20 min every hour as needed for 2 days Pain medication: take with food and use stool softener 2-3 times/day while on pain medicine. You may also use ibuprofen or aleve as needed for pain control-- follow instructions on the bottle. Follow-Up Appointments Follow Up with ALICIA HUANG MD When Within 2 to 3 days Comments Follow-up December 08 at 9:45 am Where: [address] [facility] [address] [place] [address]- Medications What How Much When Instructions Next Dose colesevelam (Colesevelam Hydrochloride 625 mg oral tablet) 1 Tablet(s) Oral Two Times A Day lisinopril (lisinopril 10 mg oral tablet) 1 Tablet(s) Oral Every Day multivitamin 2 Tabs Oral Every Day venlafaxine (venlafaxine 75 mg oral capsule, extended release) 1 Capsule(s) Oral Every Day Take your medications faithfully. Do NOT skip medication. Do NOT stop taking medications without the direction of a physician. Carry a list of your medications with you at all times, and take this medication list with you to your first follow up visit. Report any side effects. Avoid herbal remedies unless discussed with your physician. As part of your treatment plan, your physician may have prescribed a limited course of a controlled substance. This medication may be given to help people with moderate or severe pain or for other medical conditions, but there are risks involved with treatment. Common side effects may include nausea, constipation, drowsiness, sweating, itching, dry mouth, and rash. More serious side effects may include cognitive and motor impairment, like problems with thinking, concentrating, alertness, and movement (e.g. slowed reflexes), and driving and operating heavy machinery can be dangerous. It is important for you to talk to your physician if you have these side effects or questions. These controlled substances can produce physical dependence and be habit-forming if taken for an extended period of time, which means that the body has gotten used to them and may experience withdrawal symptoms if they are abruptly stopped. Withdrawal symptoms can include runny nose, sweating, goose bumps, diarrhea, abdominal cramping, rapid heartbeat, difficulty sleeping, and nervousness. Please dispose of unused and medications per pharmacy guidance. Education Materials Microdiskectomy, Care After This sheet gives you information about how to care for yourself after your procedure. Your doctor may also give you more specific instructions. If you have problems or questions, call your doctor. What can I expect after the procedure? After the procedure, it is common to have: ??? Pain and stiffness in your back. ??? Some redness, swelling, and pain around your cut from surgery (incision). Follow these instructions at home: Medicines ??? Take fmbn-gjp-dbxjhim and prescription medicines only as told by your doctor. ??? Ask your doctor if the medicine prescribed to you: ? Requires you to avoid driving or using heavy machinery. ? Can cause trouble pooping (constipation). You may need to take these actions to prevent or treat trouble pooping: ? Drink enough fluid to keep your pee (urine) pale yellow. ? Take evhf-ccu-ywpgwdu or prescription medicines. ? Eat foods that are high in fiber. These include beans, whole grains, and fresh fruits and vegetables. ? Limit foods that are high in fat and sugar. These include fried or sweet foods. Surgical cut care ??? Follow instructions from your doctor about how to take care of your cut from surgery. Make sure you: ? Wash your hands with soap and water before and after you change your bandage (dressing). If you cannot use soap and water, use hand director summer sessions. ? Change your bandage as told by your doctor. ? Leave stitches (sutures), skin glue, or skin tape (adhesive) strips in place. They may need to stay in place for 2 weeks or longer. If tape strips get loose and curl up, you may trim the loose edges. Do not remove tape strips completely unless your doctor says it is okay. ??? Keep your cut from surgery clean and dry. ??? Check the area around your cut from surgery every day for signs of infection. Check for: ? More redness, swelling, or pain. ? Fluid or blood. ? Warmth. ? Pus or a bad smell. Managing pain, stiffness, and swelling ??? If told, put ice on the painful area. ? Put ice in a plastic bag. ? Place a towel between your skin and the bag. ? Leave the ice on for 20 minutes, 2???3 times per day. Activity ??? Rest as told by your doctor. ??? Do not sit or lie down for a long time without moving. Get up to take short walks every 1???2 hours. This is important. Ask for help if you feel weak or unsteady. ??? Return to your normal activities as told by your doctor. Ask your doctor what activities are safe for you. ??? Do not lift anything that is heavier than 10 lb (4.5 kg), or the limit that you are told, until your doctor says that it is safe. Do not lift anything over your head. ??? Do not twist or bend at the waist until your doctor says it is okay. ??? Avoid pushing and pulling motions. ??? Ask your doctor what kinds of exercise you can do to make your back stronger. Do not start to exercise until your doctor says it is okay. General instructions ??? Do not use any products that contain nicotine or tobacco, such as cigarettes, e-cigarettes, and chewing tobacco. These can delay healing. If you need help quitting, ask your doctor. ??? Do not take baths, swim, or use a hot tub until your doctor approves. Ask your doctor if you may take showers. You may only be allowed to take sponge baths. ??? Wear compression stockings as told by your doctor. ??? Keep all follow-up visits as told by your doctor or physical therapist. This is important. Contact a doctor if: ??? Your pain gets worse. ??? Your medicine does not help your pain. ??? You start to have pain or swelling in your legs or feet. ??? Your cut from surgery is more red, swollen, or painful. ??? You have fluid, blood, pus, or a bad smell coming from your cut from surgery. ??? You feel sick to your stomach (nauseous). ??? You vomit. ??? You have trouble controlling when you pee (urinate) or poop (have a bowel movement). ??? You have a fever. Get help right away if: ??? Your pain is very bad. ??? You have trouble breathing. ??? You start to have a cough. ??? You have chest pain. These symptoms may be an emergency. Do not wait to see if the symptoms will go away. Get medical help right away. Call your local emergency services (911 in the [place] Do not drive yourself to the hospital. Summary ??? After your procedure, it is common to have pain and stiffness in your back. ??? You may also have some redness, swelling, and pain around your cut from surgery. ??? Take mvsf-tvc-xnlmkra and prescription medicines only as told by your doctor. ??? Follow instructions from your doctor about how to take care of your cut from surgery. ??? Keep all follow-up visits as told by your doctor or physical therapist. This is important. This information is not intended to replace advice given to you by your health care provider. Make sure you discuss any questions you have with your health care provider. Document Released: 01/09/2012 Document Revised: 10/26/2019 Document Reviewed: 10/26/2019 Elsevier Patient Education ?? 2020 [employer] Emergency Awareness and Preventative Care STROKE is an EMERGENCY Every Minute Counts Act FAST and Check for these signs: FACE Does the face look uneven? ARM Does one arm drift down? SPEECH Does their speech sound strange? TIME Call 9-1-1 at any sign of stroke Stroke Risk Factors Atrial Fibrillation (irregular heartbeat) Diabetes Family history of stroke Heart Disease Heavy alcohol use High Blood Pressure High Cholesterol Physical inactivity and obesity Smoking Cigarette Smoking The facts are clear, cigarette smoking will shorten your life. Smoking can cause many illnesses along the way. As a healthcare provider, we recommend that you stop smoking. Assistance with quitting is available by contacting 5-328-BGTTNOW. This is a free resource providing counseling, support, and referral. Or you may contact your personal physician. [employer] Suicide Prevention Lifeline: The National Suicide Prevention Lifeline is a national network of local crisis centers that provides free and confidential emotional support to people in suicidal crisis or emotional distress 24 hours a day, 7 days a week. Don't Wait! Stop a Heart Attack Before it Starts What is a heart attack? A heart attack is damage or to a part of the heart from severely decreased or lack of blood flow to the heart. Over time, arteries can become narrow from the buildup of fat and cholesterol, which is called plaque. The plaque can rupture causing a blood clot to form. When the blood clot forms, the artery can become severely narrowed or completely blocked, causing a heart attack. Heart attack is the leading cause of in the [place]. 85% of muscle damage occurs within the first 2 hours. Delay in the recognition of heart attack symptoms increases the chances of . Know the early symptoms of a heart attack: Nausea Feeling of fullness in chest Jaw Pain Pain that travels down one or both arms Fatigue/being tired Anxiety Back Pain Chest pressure, squeezing, or discomfort Shortness of breath Sweating, or a cold sweat Feeling of impending doom There are unusual signs of a heart attack, too! Women, the elderly, and diabetics may present with atypical symptoms: Fainting/dizziness Weakness Confusion Risk Factors for a Heart Attack Some heart disease risk factors, such as age and family history, cannot be changed. Others, like smoking and lack of exercise, can be changed. Smoking High Cholesterol High Blood Pressure Family History Obesity Age Gender (Males are at higher risk) Lack of Exercise Diabetes Diet Stress Excessive Alcohol Intake If you or someone you know is experiencing the signs and symptoms of a heart attack, DON???T DELAY. Call immediately and seek help. If someone collapses, perform CPR! Do not attempt to drive if you are having symptoms of heart attack. Hands-Only CPR Why Hands-Only CPR? Hands-Only CPR has been shown to be as effective as conventional CPR for cardiac arrests that occur outside of a hospital. Survival depends on immediately receiving CPR from someone nearby. How do you perform Hands-Only CPR? There are two easy steps: Call 9-1-1 if you see a teen or adult collapse Push hard and fast in the center of the chest at a beat of 100 beats per minute. Save a life! 4 WAYS TO GET AHEAD OF SEPSIS SEPSIS is a MEDICAL EMERGENCY. Time matters! Infections put you and your family at risk for a life-threatening condition called sepsis. Sepsis is the body's extreme response to an infection. It is life-threatening, and without timely treatment, sepsis can rapidly lead to tissue damage, organ failure, and . Sepsis happens when an infection you already have-in your skin, lungs, urinary tract or somewhere else-triggers a chain reaction throughout your body. 1 PREVENT INFECTIONS Take good care of chronic conditions. Talk to your doctor about getting the recommended vaccines. 2 PRACTICE GOOD HYGIENE Wash your hands frequently. Keep cuts or open sores clean and covered until they are healed. 3 KNOW THE SYMPTOMS Confusion or disorientation Shortness of breath High heart rate Fever, shivering, or feeling very cold Extreme pain or discomfort Clammy or sweaty skin 4 ACT FAST Get medical care IMMEDIATELY if you suspect sepsis or if you have an infection that is not getting better or is getting worse. To learn more about sepsis and how to prevent infections, visit www.cdc.gov/sepsis. Test Results Laboratory or Other Results This Visit (last charted value for your 11/07/2020 visit) Hematology 11/07/2020 9:19 AM WBC: 13.1 K/uL -- Normal range between ( 3.6 and 9.5 ) RBC: 5.63 Million/uL -- Normal range between ( 4.20 and 5.70 ) Hct: 50.5 % -- Normal range between ( 40.1 and 51.0 ) Hgb: 17.0 g/dL -- Normal range between ( 13.5 and 17.3 ) Platelet Count: 223 K/uL -- Normal range between ( 163 and 369 ) MCH: 30.2 pg -- Normal range between ( 25.6 and 32.2 ) MCHC: 33.7 Gram/dL -- Normal range between ( 32.2 and 36.5 ) MCV: 89.7 fL -- Normal range between ( 79.0 and 94.8 ) Slide Review: No Eos %: 2.0 % -- Normal range between ( 0.0 and 7.0 ) [place] #: 1.01 K/uL -- Normal range between ( 0.16 and 1.00 ) Eos #: 0.26 x10(3)/uL -- Normal range between ( 0.00 and 0.80 ) [place] %: 7.7 % -- Normal range between ( 3.0 and 9.0 ) Baso %: 0.8 % -- Normal range between ( 0.0 and 1.5 ) Baso #: 0.10 x10(3)/uL -- Normal range between ( 0.00 and 0.20 ) RDW: 12.8 % -- Normal range between ( 11.7 and 14.9 ) Neut %: 73.7 % -- Normal range between ( 34.0 and 71.0 ) Neut #: 9.67 K/uL -- Normal range between ( 1.56 and 6.13 ) Lymph %: 15.0 % -- Normal range between ( 19.3 and 53.1 ) Lymph #: 1.96 x10(3)/uL -- Normal range between ( 1.00 and 3.90 ) MPV: 10.5 fL -- Normal range between ( 9.4 and 12.4 ) IG#: 0.11 x10(3)/uL -- Normal range between ( 0.00 and 0.05 ) IG%: 0.80 % -- Normal range between ( 0.00 and 0.60 ) Urinalysis 11/07/2020 11:22 AM Ur RBC: 0-2 /HPF Urine Nitrite: Negative Urine Leukocyte Esterase: Negative Urine Appearance: Turbid Urine Glucose Dipstick: Negative Urine Blood Dipstick: Negative Urine Type: U CleanCatch Urine Urobilinogen Dipstick: 0.2 EU/dL Urine Protein Dipstick: Negative Urine Color: Yellow Ur WBC: 0-2 /HPF Urine Ketones Dipstick: Negative Ur Mucous: 3+ Urine pH Dipstick: 6.0 -- Normal range between ( 6.0 and 8.0 ) Urine Bilirubin Dipstick: Negative Urine Specific [place]: 1.023 -- Normal range between ( 1.005 and 1.030 ) General Chemistry 11/07/2020 9:19 AM Creatinine Level: 0.80 mg/dL -- Normal range between ( 0.70 and 1.30 ) Sodium Level: 138 mmol/L -- Normal range between ( 136 and 146 ) Potassium Level: 4.0 mmol/L -- Normal range between ( 3.5 and 5.1 ) Chloride Level: 108 mmol/L -- Normal range between ( 102 and 112 ) Carbon Dioxide Level: 26 mmol/L -- Normal range between ( 21 and 32 ) Anion Gap: 8 -- Normal range between ( 9 and 20 ) Bun/Creatinine: 11.2 -- Normal range between ( 8.0 and 20.0 ) Calcium Level: 8.7 mg/dL -- Normal range between ( 8.4 and 10.1 ) eGFR : >60 mL/min/1.73m2 eGFR NonAfrican: >60 mL/min/1.73m2 Glucose Level: 109 mg/dL -- Normal range between ( 74 and 106 ) Blood Urea Nitrogen: 9 mg/dL -- Normal range between ( 7 and 22 ) Patient Name:GABRIEL TOMAS I have received this information and was given the opportunity to ask questions. Patient/Deck Cadet Name: Patient/Deck Cadet Signature: Relationship to Patient: Clinician/Hospital Deck Cadet Signature: Date: Electronically signed by Jie, [facility] Conversion Acid Loader Cerner at 01/14/2023 10:00 PM CDT documented in this encounter Plan of Treatment Not on file documented as of this encounter Visit Diagnoses Not on filedocumented in this encounter
--- OUTSIDE RECORDS SUMMARY | 2025-03-17 12:30 | XMS_ITS | Encounter Summary ---
Author Organization [id number] Address [address] [place] [address] Care Team Providers Care Education Research Analyst Name Role Phone Unavailable Primary Care Provider Unavailabl e Encounter Details Date Type Department Care Team (Late st Contact Info) Description 11/07/2020 Transcribed Document [facility] Family Medicine [address] [place] [address] ProviderTheresa MD [address] [place] [address] Social History Tobacco Use Types Packs/Day Years Used Date Smoking Tobacco: Never Assessed Sex and Gender Information Value Date Recorded Sex Assigned at Male 03/26/2022 8:49 PM CDT Legal Sex Male 8:49 PM CDT Gender Identity Male 03/26/2022 8:49 PM CDT Sexual Orientation Not on file documented as of this encounter Miscellaneous Notes * Cerner Conversion Note - Historical ProviderMD - 11/07/2020 11:27 AM ENTERTAINMENT USHER Event Note Entered On: 11/07/2020 11:27 EST Performed On: 11/07/2020 11:27 EST by CANDE VILCHIS Event Note Event Date/Time : 11/07/2020 11:27 EST Event Location : [place] Event Details : Other: Description of Event : 1127: [place] WBC 13.1 CANDE VILCHIS - 11/07/2020 11:27 EST Electronically signed by [facility] Conversion Medical Fee Clerk Cerner at 01/14/2023 10:22 PM CDT documented in this encounter Plan of Treatment Not on file documented as of this encounter Visit Diagnoses Not on filedocumented in this encounter
--- OUTSIDE RECORDS SUMMARY | 2025-03-17 12:30 | XMS_ITS | Encounter Summary ---
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 Phone Unavailable Primary Care Provider Unavailabl e Encounter Details Date Type Department Care Team (Late st Contact Info) Description 11/07/2020 Transcribed Document [facility] [place] [facility] [place] [address] ProviderTheresa MD [facility] [place] [address] Social History Tobacco Use Types Packs/Day Years Used Date Smoking Tobacco: Never Assessed Sex and Gender Information Value Date Recorded Sex Assigned at Male 03/26/2022 8:49 PM CDT Legal Sex Male 8:49 PM CDT Gender Identity Male 03/26/2022 8:49 PM CDT Sexual Orientation Not on file documented as of this encounter Miscellaneous Notes * Cerner Conversion Note - Theresa ProviderMD - 11/07/2020 8:57 AM 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 Patient: GABRIEL TOMAS Age: 50 years Sex: Male : 1970 Associated Diagnoses: None Author: JACQUIE BUTLER APRN Chief Complaint back, RLE pain Review of Systems ROS reviewed as documented in chart no change since last seen by surgeon Health Status Allergies: Allergic Reactions (Selected) No Known Medication Allergies, Allergies (1) Active Reaction No Known Medication Allergies None Documented Current medications: (Selected) Inpatient Medications Ordered Ancef + Sodium Chloride 0.9% intravenous solution 100 mL: 3 Gram, 200 mL/Hr, IV Piggyback, PREOP Lactated Ringers Injection intravenous solution 1,000 mL: 20 mL/Hr, IntraVENous famotidine: 20 mg, Oral, 1-Time Documented Medications Documented lisinopril 10 mg oral tablet: 1 Tab, Oral, Daily, 30 Tab, 0 Refill(s) multivitamin: 2 Tabs, Oral, Daily, 0 Refill(s) venlafaxine 75 mg oral capsule, extended release: 1 Cap, Oral, Daily, 0 Refill(s), Home Medications (3) Active lisinopril 10 mg oral tablet 10 mg = 1 Tab, Oral, Daily multivitamin 2 Tabs, Oral, Daily venlafaxine 75 mg oral capsule, extended release 75 mg = 1 Cap, Oral, Daily , Medications (3) Active Scheduled: (2) ceFAZolin + NaCl 0.9% 100 mL 3 Gram, IV Piggyback, PREOP famotidine 20 mg tab 20 mg 1 Tab, Oral, 1-Time Continuous: (1) lactated ringers 1,000 mL 1,000 mL, IntraVENous, 20 mL/Hr PRN: (0) Problem list: All Problems Sciatica / SNOMED CT 61976176 / Confirmed Peripheral neuropathy / SNOMED CT 2334839819 / Confirmed High blood pressure / SNOMED CT 66307569 / Confirmed Back pain / SNOMED CT 9824197431 / Confirmed, Active Problems (4) Back pain wtih RLE radiculopathy High blood pressure Peripheral neuropathy Sciatica Histories Past Medical History: No active or resolved past medical history items have been selected or recorded. Family History: No family history items have been selected or recorded. Procedure history: Cholecystectomy ([id number]). rotator cuff surgery - right. left knee scope. right foot surgery. Social History Social & Psychosocial Habits Alcohol 11/06/2020 Alcohol Use History, Social Habits No Alcohol Use in Last Twelve Months No Substance Abuse 11/06/2020 Recreational Drug Use History No Recreational Drug Use Last 12 Months No Tobacco 11/06/2020 Smoking Status 10 or more cigarettes (1/ Smokeless Tobacco Status Never Smokeless Tobacco Use History None Years of Tobacco Use 9 Packs/Tins Daily 1.5 Month Tobacco Last Used October 2020 Second Hand Smoke Exposure No . Physical Examination VS/Measurements Vital Signs/Vital Measures 11/07/2020 8:44 EST Systolic Blood Pressure 120 mmHg Diastolic Blood Pressure 72 mmHg Temperature Source Temporal artery scanning Temperature Mode Fahrenheit Temperature, Fahrenheit 97.1 Deg F Clinical Temperature, C 36.2 Deg C Heart Rate Monitored 78 bpm Respiratory Rate 20 Breaths/Min Oxygen Saturation 98 % , Vitals Signs (last 24 hrs) Last Charted Minimum Maximum Temp 97.1 (NOV 07 08:44) 97.1 (NOV 07 08:44) 97.1 (NOV 07 08:44) Mon HR 78 (NOV 07 08:44) 78 (NOV 07 08:44) 78 (NOV 07 08:44) Resp Rate 20 (NOV 07 08:44) 20 (NOV 07 08:44) 20 (NOV 07 08:44) SBP 120 (NOV 07:44) 120 (NOV 07 08:44) 120 (NOV 07 08:44) DBP 72 (NOV 07:44) 72 (NOV 07:44) 72 (NOV 07:44) SpO2 98 (NOV 07:44) 98 (NOV 07 08:44) 98 (NOV 07 08:44) , Measurements from flowsheet : Measurements 11/06/2020 14:45 EST Height Source Measured Height Entry Format [place] Height/Length, BAHAMIAN (ft) 5 ft Height/Length BAHAMIAN 8 Inch CLINICALHEIGHT 172.72 cm [place] Body Weight 67 kg Weight Source Standing scale Weight Entry Format [place] Weight [place] lb 277 lb CLINICALWEIGHT 125.91 kg Body Surface Area (BSA) 2.35 m2 Body Mass Index 42.2 kg/m2 >HHI General: Alert and oriented, No acute distress, morbid obesity. Eye: Pupils are equal, round and reactive to light, Extraocular movements are intact, glasses. HENT: Normocephalic, Normal hearing. Neck: Supple, Non-tender. Respiratory: Lungs are clear to auscultation, Respirations are non-labored. Cardiovascular: Normal rate, Regular rhythm, No murmur, No gallop, No edema. Gastrointestinal: Soft, Non-tender. Genitourinary: No costovertebral angle tenderness. Lymphatics: No lymphadenopathy neck, axilla, groin. Musculoskeletal: painful ROM back, RLE weakness. Integumentary: Warm, Dry, [place]. Neurologic: Alert, Oriented. Psychiatric: Cooperative, Appropriate mood & affect. Review / Management Results review: No qualifying data available. Impression and Plan Condition: Stable. documented in this encounter Plan of Treatment Not on file documented as of this encounter Visit Diagnoses Not on filedocumented in this encounter
--- OUTSIDE RECORDS SUMMARY | 2025-03-17 12:30 | XMS_ITS | Encounter Summary ---
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 Name Role Phone Unavailable Primary Care Provider Unavailabl e Encounter Details Date Type Department Care Team (Late st Contact Info) Description 11/07/2020 Transcribed Document [facility] [place] [facility] [place] [address] ProviderTheresa MD [facility] [place], [place] [id number] Social History Tobacco Use Types Packs/Day Years Used Date Smoking Tobacco: Never Assessed Sex and Gender Information Value Date Recorded Sex Assigned at Male 03/26/2022 8:49 PM CDT Legal Sex Male 8:49 PM CDT Gender Identity Male 03/26/2022 8:49 PM CDT Sexual Orientation Not on file documented as of this encounter Miscellaneous Notes * Cerner Conversion Note - Theresa Tomlin MD - 11/07/2020 2:49 PM 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 Take dzhv-rzd-zrfevuf and prescription medicines only as told by your doctor. ??? Ask your doctor if the medicine prescribed to you: ? Requires you to avoid driving or using heavy machinery. ? Can cause trouble pooping (constipation). You may need to take these actions to prevent or treat trouble pooping: ? Drink enough fluid to keep your pee (urine) pale yellow. ? Take pfyu-icc-ngozouw or prescription medicines. ? Eat foods that [...] cannot use soap and water, use hand network systems integrator. ? Change your bandage as told by [...] Leave the ice on for 20 minutes, 2?3 times per day. Activity ??? Rest as told by your doctor. ??? Do not sit or lie down for a long time without moving. Get up to take short walks every 1?2 hours. This is important. Ask for help [...] around your cut from surgery. ??? Take nule-xxq-hocumiv and prescription medicines only as told by [...] 10/26/2019 Document Reviewed: 10/26/2019 [employer] Patient Education ? 2020 [employer] documented in this encounter Plan of Treatment Not on file documented as of this encounter Visit Diagnoses Not on filedocumented in this encounter
--- OUTSIDE RECORDS SUMMARY | 2025-03-17 12:30 | XMS_ITS | Encounter Summary ---
Author Organization [facility] [employer] Address [address] [place] [address] Care Team Providers Care It Support Engineer Name Role Phone Unavailable Primary Care Provider Unavailabl e Encounter Details Date Type Department Care Team (Late st Contact Info) Description 11/07/2020 Transcribed Document [facility] [address] [place] [address] ProviderTheresa MD [address] [place] [place], [place] [id number] Social History Tobacco Use Types Packs/Day Years [...] - Theresa ProviderMD - 11/07/2020 12:32 PM PROGRAM DEVELOPER [facility] Main OR IntraOp Summary Primary Physician: ALICIA HUANG MD Finalized Date/Time: 11/09/20 10:30:39 Pt. Name: BETHANY TOMAS /Sex: 1970 Male Med Rec #: [id number] Physician: ALICIA HUANG MD Financial #: [id number] Pt. Type: O Room/Bed: Admit/Disch: 11/07/20 08:47:00 - 11/07/20 15:30:00 Institution: [facility] IntraOp Case Attendance Entry 1 Entry 2 Entry 3 Case Attendee ALICIA HUANG MD WASSON, SANDRA D, RN Mandeep Dan, RN Role Performed Surgeon/Proceduralist, Ammonia Box Operator, First Ammonia Box Operator, Second First Time In 11/07/20 12:05:00 11/07/20 12:05:00 11/07/20 12:05:00 Time Out 11/07/20 13:39:00 11/07/20 13:39:00 11/07/20 13:39:00 Procedure Discectomy Minimally Discectomy Minimally Discectomy Minimally Invasive(Right) Invasive(Right) Invasive(Right) Other Attendee Superficial Wound Closed By: Last Modified By: Mandeep Dan, Mandeep Briones, Mandeep Briones, RN 11/07/20 13:39:12 11/07/20 13:39:12 11/07/20 13:39:12 Entry 4 Entry 5 Entry 6 Case Attendee KIMBERLY VILLANUEVA, JANY RUB MartellCatarina pineda, KIMBERLY Donald, JANY RUB TECH TECH Role Performed Scrub, First Ammonia Box Operator, First Scrub, First Time In 11/07/20 12:05:00 11/07/20 12:05:00 11/07/20 12:05:00 Time Out 11/07/20 13:39:00 11/07/20 13:39:00 11/07/20 13:39:00 Procedure Discectomy Minimally Discectomy Minimally Discectomy Minimally Invasive(Right) Invasive(Right) Invasive(Right) Other Attendee [facility] Superficial Wound Closed By: Last Modified By: Mandeep Dan, Mandeep Briones, Mandeep Briones, RN 11/07/20 13:39:12 11/07/20 13:39:12 11/07/20 13:39:12 Entry 7 Entry 8 Entry 9 Case Attendee LENO MADSEN PA CALDWELL, JOSEPH A, CRNA BOWEN, JON B, MD-ANS Role Performed Physician exceptional children teacher assistant SALES OPERATIONS LEAD/Nurse Social Services Aide Anesthesiologist of Record Time In 11/07/20 12:05:00 11/07/20 12:05:00 11/07/20 12:05:00 Time Out 11/07/20 13:39:00 11/07/20 13:39:00 11/07/20 13:39:00 Procedure Discectomy Minimally Discectomy Minimally Discectomy Minimally Invasive(Right) Invasive(Right) Invasive(Right) Other Attendee Superficial Wound Closed By: Last Modified By: Mandeep Dan RN Byrd, Charlie D, RN Byrd, Charlie D, RN 11/07/20 13:39:12 11/07/20 13:39:12 11/07/20 13:39:12 Entry 10 Entry 11 Case Attendee KATTY RICHARDSON CHRISTINA M, RN Role Performed Inventory Assistant Ammonia Box Operator, Second Time In 11/07/20 12:05:00 11/07/20 13:20:00 Time Out 11/07/20 13:39:00 11/07/20 13:30:00 Procedure Discectomy Minimally Discectomy Minimally Invasive(Right) Invasive(Right) Other Attendee Superficial Wound Closed By: Last Modified By: Mandeep Dan RN Byrd, Charlie D, RN 11/07/20 13:39:12 11/07/20 13:39:12 [facility] IntraOp Case Attendance Audit 11/07/20 13:39:12 Watch Hairspring Assembler: [email or web address] Modifier: [email or web address] 1 <+> Time Out 1 <*> Procedure Discectomy Minimally Invasive(Right) 2 <+> Time Out 2 <*> Procedure Discectomy Minimally Invasive(Right) 3 <+> Time Out 3 <*> Procedure Discectomy Minimally Invasive(Right) 4 <+> Time Out 4 <*> Procedure Discectomy Minimally Invasive(Right) 5 <+> Time Out 5 <*> Procedure Discectomy Minimally Invasive(Right) 6 <+> Time Out 6 <*> Procedure Discectomy Minimally Invasive(Right) 7 <+> Time Out 7 <*> Procedure Discectomy Minimally Invasive(Right) 8 <+> Time Out 8 <*> Procedure Discectomy Minimally Invasive(Right) 9 <+> Time Out 9 <*> Procedure Discectomy Minimally Invasive(Right) 10 <+> Time Out 10 <*> Procedure Discectomy Minimally Invasive(Right) 11 <*> Procedure Discectomy Minimally Invasive(Right) 11/07/20 13:26:35 Watch Hairspring Assembler: [email or web address] Modifier: [email or web address] 1 <*> Procedure Discectomy Minimally Invasive(Right) 2 <*> Procedure Discectomy Minimally Invasive(Right) 3 <*> Procedure Discectomy Minimally Invasive(Right) 4 <*> Procedure Discectomy Minimally Invasive(Right) 5 <*> Procedure Discectomy Minimally Invasive(Right) 6 <*> Procedure Discectomy Minimally Invasive(Right) 7 <*> Procedure Discectomy Minimally Invasive(Right) 8 <*> Procedure Discectomy Minimally Invasive(Right) 9 <*> Procedure Discectomy Minimally Invasive(Right) 10 <+> Time In 10 <*> Procedure Discectomy Minimally Invasive(Right) <+> 11 Case Attendee <+> 11 Role Performed <+> 11 Time In <+> 11 Time Out <+> 11 Procedure 11/07/20 12:37:50 Watch Hairspring Assembler: [email or web address] Modifier: [email or web address] <+> 10 Case Attendee <+> 10 Role Performed <+> 10 Procedure 11/07/20 12:34:25 Watch Hairspring Assembler: [email or web address] Modifier: [email or web address] 4 <*> Case Attendee NGUYEN RUSSELL, CASTING TRUCKER 4 <*> Procedure Discectomy Minimally Invasive(Right) 11/07/20 12:07:26 Watch Hairspring Assembler: [email or web address] Modifier: [email or web address] 1 <+> Time In 1 <*> Procedure Discectomy Minimally Invasive(Right) 2 <+> Time In 2 <*> Procedure Discectomy Minimally Invasive(Right) 3 <+> Time In 3 <*> Procedure Discectomy Minimally Invasive(Right) 4 <+> Time In 4 <*> Procedure Discectomy Minimally Invasive(Right) 5 <+> Time In 5 <*> Procedure Discectomy Minimally Invasive(Right) 6 <+> Time In 6 <*> Procedure Discectomy Minimally Invasive(Right) 7 <+> Time In 7 <*> Procedure Discectomy Minimally Invasive(Right) 8 <+> Time In 8 <*> Procedure Discectomy Minimally Invasive(Right) 9 <+> Time In 9 <*> Procedure Discectomy Minimally Invasive(Right) [facility] IntraOp Case Times Entry 1 Patient In Room Time 11/07/20 12:05:00 Out Room Time 11/07/20 13:39:00 Anesthesia Start Time 11/07/20 12:05:00 Stop Time 11/07/20 13:39:00 Surgery / Procedure Times Start Time 11/07/20 12:32:00 Stop Time 11/07/20 13:32:00 Last Modified By: Mandeep Dan RN 11/07/20 13:39:09 [facility] IntraOp Case Times Audit 11/07/20 13:39:09 Watch Hairspring Assembler: [email or web address] Modifier: [email or web address] <+> 1 Out Room Time <+> 1 Stop Time 11/07/20 13:36:37 Watch Hairspring Assembler: [email or web address] Modifier: [email or web address] <+> 1 Stop Time 11/07/20 12:33:35 Watch Hairspring Assembler: [email or web address] Modifier: [email or web address] <+> 1 Start Time [facility] IntraOp Cautery Entry 1 Entry 2 ESU Identification Cautery Type Monopolar ESU BiPolar ESU Cautery Type Comments ID Number [id number] ID Type Hospital Number Hospital Number Cautery Settings Cut Setting 40 8 Coag Setting 40 40 Blend Setting Bipolar Setting Argon Setting Argon Gallegos ESU Grounding Pad Ground Pad Type Adult Grounding Pad Type Comment Grounding Pad Site Right thigh Grounding Pad Site Comment Grounding Pad Catarina Martell Rn Applied By Grounding Pad Site Warm, Dry, Intact Skin Condition Before Cautery Site Skin Condition Before Comment Grounding Pad Site Unchanged Skin Condition After Cautery Site Skin Condition After Comment Last Modified By: Mandeep Dan RN Byrd, Charlie D, RN 11/07/20 12:46:29 11/07/20 12:46:29 [facility] IntraOp Communication Entry 1 Entry 2 Communication To Family/Significant other Family/Significant other Comment START - NO ANSWER UPDATE Communication By Catarina Martell Rn BRADY, CHRISTINA M, RN Date and Time 11/07/20 12:38:00 11/07/20 13:26:00 Last Modified By: Mandeep Dan RN Byrd, Charlie D, RN 11/07/20 12:38:36 11/07/20 13:26:59 [facility] IntraOp Communication Audit 11/07/20 13:26:59 Watch Hairspring Assembler: [email or web address] Modifier: [email or web address] <+> 2 Communication By <+> 2 Date and Time <+> 2 Communication To <+> 2 Comment [facility] IntraOp Counts Verification Entry 1 Procedure Discectomy Minimally Invasive(Right) Count Info Count Type Sponge, Sharps, Miscellaneous Counts Verification Baseline/pre-procedure Sequence Count Results Not Applicable Counts Performed By Count Performed By KIMBERLY VILLANUEVA SC RUB (Scrub) TECH Count Performed By Catarina Martell Rn (RN) Last Modified By: Mandeep Dan RN 11/07/20 12:34:45 [facility] IntraOp Counts Final Entry 1 Procedure Discectomy Minimally Invasive(Right) Final Count Info Count Type Sponge, Sharps Counts Verification Skin Closure/end of Sequence procedure Count Results Correct, surgeon notified Counts Performed By Count Performed By KIMBERLY VILLANUEVA SC RUB (Scrub) TECH Count Performed By ELEANOR BERNARD RN (RN) Last Modified By: Manedep Dan RN 11/07/20 13:30:03 [facility] IntraOp Departure from OR Entry 1 Integumentary Assessment Integumentary WDL Assessment WDL Transfer/Handoff Transfer to PACU Phase I Handoff Method Bedside/Face to face, Phone call Post-op Transport Stretcher/rney Via Patient Transport LENO MADSEN PA, Accompanied by LATOYA JONES CRNA Last Modified By: Mandeep Dan RN 11/07/20 12:39:28 [facility] IntraOp Departure from OR Audit 11/07/20 12:39:28 Watch Hairspring Assembler: [email or web address] Modifier: [email or web address] 1 <*> Post-op Transport Via Bed (including specialty) 1 <+> Patient Transport Accompanied by 1 <*> Handoff Method Phone call [facility] IntraOp Dressing and Packing Entry 1 Type Dressing Location opsite Wound Dressing Item Other, Occlusive dressing Applied By LENO MADSEN PA Other Comments MASTISOL, STERISTRIPS, COVADERM Last Modified By: Mandeep Dan RN 11/07/20 12:47:10 [facility] IntraOp Fire Risk Assessment Entry 1 Fire Info Surgical Site or 0- No Incision Above the Xyphoid Open O2 Source 0- No (Mask or Cannula) Available Ignition 1- Yes (ESU, Laser, Light Source) Fire Risk 1 Assessment Score Fire Score Fire Risk Yes Assessment Complete Fire Risk KARAN HAN, supervisor loading Verified By Fire Risk 11/07/20 12:04:00 Assessment Verified Date/Time Fire Risk Standard Fire Yes Safety Precautions Followed Last Modified By: Mandeep Dan RN 11/07/20 12:39:37 [facility] IntraOp General Case Watch Hairspring Assembler 1 Case Information OR OR 10 [facility] Case Level 1 Room Verified Yes Wound Class I - Clean Specialty SN Neurosurgery Anesthesia Type General ASA Class 2 Diagnosis Preop Diagnosis LUMBAR DISC PROLAPSE WITH RADICULOPATHY Postop Same As Preop No Postop Diagnosis SEE MD POST OP NOTE Last Modified By: Mandeep Dan RN 11/07/20 12:42:33 [facility] IntraOp Intraoperative Assessment Entry 1 Handoff Method Online nursing summary Valid History / Yes Physical in Chart Preoperative Yes Checklist Reviewed/Evaluated Allergies Reviewed Yes Patient is Latex No Sensitive Isolation Not applicable Precautions Noted Level of WDL Consciousness (WDL = Alert, Oriented to Person, Place, and Time) Skin Assessment No Verified Present Upon IVs Arrival to OR Last Modified By: Mandeep Dan RN 11/07/20 12:42:40 [facility] IntraOp Intraoperative Equipment Entry 1 Type Equipment Equipment Equipment Pretty Suction System ID Number [id number] Setting 180 MM HG Intraop Monitoring Electrocardiogram Five lead placement (ECG) Electrode Placement Blood Pressure Non-Invasive BP Device Source Blood Pressure Arm, right upper Location Pulse Oximeter Hand, left Probe Site Antiembolic Devices Antiembolic Devices Sequential compression device, knee high Antiembolic Device Bilateral Location Antiembolic Device [id number] ID Number Scopes Photo/Video Documentation Photo No Video No Last Modified By: Mandeep Dan RN 11/07/20 12:43:31 [facility] IntraOp Medication Admin Entry 1 Entry 2 Entry 3 Medication/Irrigant lidocaine 1% w/ Bacitracin 50,00units Marcaine 0.25% 30ml epinephrine 1:100,000 powder vial vial - [id number] 30ml vial - [id number] Combo Med List Time Administered Route of LOCAL ADDED TO NS IRRIGATION LOCAL Administration Dose Dose 4 82084 30 Unit of Measure ml units ml Volume Administered By ALICIA HUANG MD PHILLIPS, GABRIEL, MD PHILLIPS, GABRIEL, MD Procedure Irrigation Irrigant Volume In Irrigant Volume Out Last Modified By: Mandeep Dan RN Byrd, Charlie D, RN Byrd, Charlie D, RN 11/07/20 12:45:58 11/07/20 12:45:58 11/07/20 12:45:58 Entry 4 Entry 5 Medication/Irrigant thrombin 5000units SPNG SURGFOAM topical powder - [id number] Combo Med List Time Administered Route of TOPICAL TOPICAL Administration Dose Dose 5000 1 Unit of Measure units pkt Volume Administered By AILCIA HUANG MD PHILLIPS, GABRIEL, MD Procedure Irrigation Irrigant Volume In Irrigant Volume Out Last Modified By: Mandeep Dan RN Byrd, Charlie D, RN 11/07/20 12:45:58 11/07/20 12:45:58 [facility] IntraOp Medication Admin Audit 11/07/20 12:45:58 Watch Hairspring Assembler: [email or web address] Modifier: [email or web address] <+> 1 Administered By <+> 2 Medication/Irrigant <+> 2 Route of Administration <+> 2 Administered By <+> 2 Dose <+> 2 Unit of Measure <+> 3 Medication/Irrigant <+> 3 Route of Administration <+> 3 Administered By <+> 3 Dose <+> 3 Unit of Measure <+> 4 Medication/Irrigant <+> 4 Route of Administration <+> 4 Administered By <+> 4 Dose <+> 4 Unit of Measure <+> 5 Medication/Irrigant <+> 5 Route of Administration <+> 5 Administered By <+> 5 Dose <+> 5 Unit of Measure [facility] IntraOp Patient Positioning Entry 1 Procedure Discectomy Minimally Invasive(Right) Body Position Prone Left Arm Position Secured on padded arm board Right Arm Position Secured on padded arm board Left Leg Position Elevated Right Leg Position Elevated Feet Uncrossed Yes Pressure Points Yes Checked Positioning Devices Pillows, Safety Strap, Leg(s), Arm Board, Head Rest, Diego Frame Positioning Device BLUE arm protectors in Comments place bilateral arms. Diego pillow in place Positioned By ALICIA HUANG MD, Mandeep Dan, BRITT, Catarina Martell Rn, LENO MADSEN PA, LATOYA JONES CRNA Position Verified Positioning Yes Verified by Anesthesia Positioning Yes Verified by Surgeon Last Modified By: Mandeep Dan RN 11/07/20 12:45:07 [facility] IntraOp Sign In Entry 1 Patient, Site, Yes Procedure Identified Surgical Consent Yes Confirmed Relevant Surgical Yes Documents Available Surgical Site Yes Marked by person performing procedure Anesthesia Machine Yes Check Completed Medication Checks Yes Completed Airway Blood Loss Risk No Blood Loss Yes Intervention Equipment Prepared and Ready Hypothermia Risk No Warming Measures Yes Taken Last Modified By: KARAN HAN RN 11/07/20 12:07:14 [facility] IntraOp Sign Out Entry 1 RN Confirmation Surgical Yes Procedure(s) Identified Instrument, Sponge Yes and Sharps Counts Correct/Documented Equipment Problems N/A Documented Specimen Labeled N/A Correctly Urinary Catheter N/A Documented in IView Tabares Patient Yes Recovery Concerns Reviewed with Anesthesia Provider, Surgeon and RN Tabares Patient Yes Management Concerns Reviewed with Anesthesia Provider, Surgeon and RN Safety Checklist Yes Elements Complete? RN Sign Out Mandeep Dan, RN Signature RN Sign Out 11/07/20 13:39:00 Signature Date/Time Plan of Care Outcome - Fire Risk OUTCOME STATEMENT: Goal met Patient is free from injury related to surgical fire Plan of Care Outcome - Pt Positioning OUTCOME STATEMENT: Goal met Absence of signs and symptoms of positioning injury. Plan of Care Outcome - Skin Prep OUTCOME STATEMENT: Goal met Intraoperative care is consistent with measures to prevent infection Plan of Care Outcome - Xray/Images OUTCOME STATEMENT: Goal met Absence of observable signs or symptoms of radiation injury Plan of Care Outcome - Counts OUTCOME STATEMENT: Goal met Absence of signs and symptoms of injury related to extraneous objects Last Modified By: Mandeep Dan RN 11/07/20 13:39:37 [facility] IntraOp Sign Out Audit 11/07/20 13:39:37 Watch Hairspring Assembler: [email or web address] Modifier: [email or web address] <+> 1 OUTCOME STATEMENT: Absence of signs and symptoms of injury related to extraneous objects 11/07/20 13:39:23 Watch Hairspring Assembler: [email or web address] Modifier: [email or web address] <+> 1 RN Sign Out Signature Date/Time [facility] IntraOp Skin Prep Entry 1 Entry 2 Procedure Discectomy Minimally Discectomy Minimally Invasive(Right) Invasive(Right) Prescribed Yes Yes Pre-Surgical Prep Completed Prep Area BACK BACK Intraop Prep Integumentary WDL WDL Assessment WDL WDL Patient Exceptions Patients Normal Integumentary Variance(s) Integumentary Assessment Comment Prep Agents Alcohol, Chlorhexadine DuraPrep gluconate Prep by ALICIA HUANG MD Kline, Sabrina M, Rn Skin Prep Comment Hair Removal Methods Clipper/Scissors Clipper/Scissors Hair Removal Site OP SITE OP SITE Hair Removal By ALICIA HUANG MD PHILLIPS, GABRIEL, MD Last Modified By: Mandeep Dan RN Byrd, Charlie D, RN 11/07/20 12:38:23 11/07/20 12:38:23 [facility] IntraOp Surgical Procedures Entry 1 Procedure Discectomy Minimally Invasive Modifiers Right Additional (RT L5-S1 MIS Procedure MICRODISECTOMY) Description Primary Procedure Yes Primary Surgeon ALICIA HUANG MD Start 11/07/20 12:32:00 Stop 11/07/20 13:32:00 Anesthesia Type General Specialty SN Neurosurgery Wound Class I - Clean Last Modified By: Mandeep Dan RN 11/07/20 13:36:45 [facility] IntraOp Surgical Procedures Audit 11/07/20 13:36:45 Watch Hairspring Assembler: [email or web address] Modifier: [email or web address] <+> 1 Stop [facility] IntraOp Temp Regulation Devices Entry 1 Temp Regulation Temperature Warm blankets, Forced Regulation Device Air Warming device Temperature 91668 Regulation Device Serial/Unit Number Temperature Upper body Regulation Site Temperature Device 43 C Setting Temperature LATOYA JONES CRNA Regulation Device Applied by Last Modified By: Mandeep Dan RN 11/07/20 12:43:45 [facility] IntraOp Temp Regulation Devices Audit 11/07/20 12:43:45 Watch Hairspring Assembler: [email or web address] Modifier: [email or web address] 1 <*> Temperature Regulation Device [id number] Serial/Unit Number [facility] IntraOP Time Out Entry 1 Procedure to be Discectomy Minimally Performed Invasive(Right) Time Out Time Out Pause Time 11/07/20 12:31:00 All activity Yes suspended (unless life threatening emergency) Team Verbally Correct patient Confirms Information identity, Correct side and site are marked, Consent form is present and accurate, Agreement on the procedure to be done, Correct patient position, Relevant images/results properly labeled/appropriately displayed, Confirm antibiotics have been administered, Confirm the skin prep has dried, Confirm prosthesis/implant/devic e is present, Performed in location of procedure after prepped/draped Antibiotic Yes Prophylaxis Administered Or In Progress Within the Last 60 Minutes Beta Jonathan N/A Administered Venous Yes Thromboembolism Prophylaxis Required Anticipated Critical Events Surgeon None expected Anesthesia Provider None expected Nursing Assures Sterility of instruments, Equipment concerns or issues, Implant Availability Essential Imaging Yes Labeled and Displayed Last Modified By: Mandeep Dan RN 11/07/20 12:34:04 [facility] IntraOp X-Ray and Images Entry 1 X-Ray/Imaging Type Fluoroscopy Fluoroscopy Type C-Arm Site BACK Workforce Planning Analyst Name KATTY RICHARDSON Protective Devices Yes Used Last Modified By: Mandeep Dan RN 11/07/20 12:38:00 Case Comments <None> Finalized By: CHAZ GALLEGOS Document Signatures Signed By: Mandeep Dan RN 11/07/20 13:39 CHAZ GALLEGOS 11/09/20 10:30 Unfinalized History Date/Time Username Reason for Unfinalizing Freetext Reason for Unfinalizing 11/09/20 10:29 [email or web address] Correct Billing Electronically signed by [facility] Conversion Automatic Blocker Cerner at 01/14/2023 10:14 PM CDT documented in this encounter Plan of Treatment Not on file documented as of this encounter Visit Diagnoses Not on filedocumented in this encounter
--- OUTSIDE RECORDS SUMMARY | 2025-03-17 12:30 | XMS_ITS | Encounter Summary ---
Author Organization [employer] i[employer] Address [address] [place] [address] Care Team Providers Care Grommet Worker Name Role Phone Unavailable Primary Care Provider Unavailabl e Encounter Details Date Type Department Care Team (Late st Contact Info) Description 11/06/2020 Transcribed Document [facility] [place] [facility] [place] [address] ProviderTheresa MD [facility] [place], [place] [id number] Social History Tobacco Use Types Packs/Day Years Used Date Smoking Tobacco: Never Assessed Sex and Gender Information Value Date Recorded Sex Assigned at Male 03/26/2022 8:49 PM CDT Legal Sex Male 8:49 PM CDT Gender Identity Male 03/26/2022 8:49 PM CDT Sexual Orientation Not on file documented as of this encounter Miscellaneous Notes * Cerner Conversion Note - Historical ProviderMD - 11/06/2020 2:45 PM CORPORATE SALES TRAINER PAT Adult Entered On: 11/06/2020 14:49 EST Performed On: 11/06/2020 14:45 EST by Alfredo Neumann, Sheila Height and Weight, Clinical Dosing Height, Feet : 5 ft(Converted to: 152 cm, 60 Inch) Height, Inches : 8 Inch(Converted to: 0 ft 8 Inch, 20.32 cm) Clinical Height : 172.72 cm CANDE VILCHIS - 11/07/2020 8:48 EST Clinical Dosing Weight : 99.09 kg Weight, Pounds : 218 lb Body Surface Area (BSA) : 2.12 m2 Body Mass Index : 33.2 kg/m2 (HI) CANDE VILCHIS - 11/07/2020 9:00 EST [place] Body Weight : 67 kg DENG CANDE - 11/07/2020 8:48 EST Height Source : Measured Height Entry Format : [place] Weight Source : Standing scale Weight Entry Format : ELI CervantesKIE - 11/07/2020 8:20 EST Health Histories Smoking Status : 10 or more cigarettes (1/2 pack or more)/day in last 30 days Smokeless Tobacco Status : Never Desires Tobacco Cessation Medication : No Reason for No Tobacco Cessation Medication : Refuses FDA approved medications Implant/Device Type, Lunchroom Monitor and Model : Alfredo Jones Rn - 11/06/2020 14:45 EST Social History (As Of: 11/06/2020 14:49:11 EST) Tobacco: 10 or more cigarettes (1/2 pack or more)/day in last 30 days Smoking Status. Never Smokeless Tobacco Status. None Smokeless Tobacco Use History. Years of Use: 9. Packs/Tins Daily: 1.5. Last Used: October 2020. Second Hand Smoke Exposure: No. (Last Updated: 11/06/2020 14:45:04 EST by Alfredo Neumann Rn) Alcohol: Alcohol Use History No. Use in Last 12 Months: No. (Last Updated: 11/06/2020 14:45:04 EST by Alfredo Neumann Rn) Substance Abuse: Drug Use Hx: No. Use in Last 12 Months: No. (Last Updated: 11/06/2020 14:45:04 EST by Alfredo Neumann, Sheila) Infectious Disease History Where are the test results? : Paper Copy on chart Infectious Disease History : None MOONFRANKLYNDURGACANDE - 11/07/2020 9:10 EST Has the patient ever been tested for COVID-19? : Yes, Patient stated results Negative Where was the COVID-19 Testing completed? : [facility] Date of COVID-19 test known? : Yes Date of COVID-19 Test : 11/03/2020 EST Does patient have symptoms of COVID-19? : No COVID19 Screening : No Experiencing Infectious Disease Symptoms : No symptoms Physical contact outside [place] in the last 30 days : No Tuberculosis Symptoms : None Alfredo Neumann Rn - 11/06/2020 14:45 EST COVID19 PreProcedure Screening Is this an Emergent or Add on Procedure? : No Date PreProcedure COVID-19 test known? : Yes Date of PreProcedure COVID-19 : 11/03/2020 EST Has patient been isolated since the test : No Exposed to COVID19 symptoms since test? : No Alfredo Neumann Rn - 11/06/2020 14:45 EST Anesthesia/Transfusion History Family History of Anesthesia Reaction : No prior transfusion(s) Blood Transfusion Acceptable to Patient : Yes Transfusion History : Prior anesthesia without reaction Family History of Anesthesia Reaction : None Alfredo Neumann Rn - 11/06/2020 14:45 EST Functional Assessment Functional ADL Evaluation Index EBN Bathing : Independent (2) Dressing : Independent (2) Toileting : Independent (2) Transferring Bed or Chair : Independent (2) Continence : Independent (2) Feeding : Independent (2) Alfredo Neumann Rn - 11/06/2020 14:45 EST ADL Index Score : 12 Alfredo Neumann Rn - 11/06/2020 14:45 EST Advance Directive Patient has Advance Directive *Q : No, patient refuses Advance Directive information Alfredo Neumann Rn - 11/06/2020 14:45 EST Spiritual/Cultural Needs Any Spiritual/Cultural Needs or Requests : No Alfredo Neumann Rn - 11/06/2020 14:45 EST [place] Suicide Severity Rating Scale (C-SSRS) CSSRS Past Month Wish to be : No CSSRS Past Month Suicidal Thoughts : No CSSRS Lifetime Suicide Behavior : No Suicide Severity Rating Score : 0 Suicide Severity Rating : No Additional Care Required at this time Alfredo Neumann Rn - 11/06/2020 14:45 EST Psychosocial History Do You Have a History of the Following? : Depression CANDE VILCHIS - 11/07/2020 9:10 EST Currently in Unsafe Situation : No Alfredo Neumann Rn - 11/06/2020 14:45 EST General Info Preferred Name : Bethany Mode of Arrival on Unit : Ambulatory Legal Guardian : Other: Support Person/Patient System Controller : Yes Support Person/Pt Rep Name : Sharon Corcoran - girlfriend Support Person/Pt Rep Contact Information : [phone] Want Family/Rep/Phys Notified of Admit : No Emergency Contact #1 : ` Emergency Contact #1 Phone Number : ` Emergency Contact #1 Relationship : ` Emergency Contact #2 : ` Emergency Contact #2 Phone Number : ` Emergency Contact #2 Relationship : ` Information Obtained From : Patient Primary Language : Setswana Communication Barrier : None Marina Sales And Service Supervisor Needed : No Alfredo Neumann Rn - 11/06/2020 14:45 EST Robert Scale Robert Sensory Perception : No impairment Robert Moisture : Occasionally moist Robert Activity : Walks frequently Robert Mobility : No limitation Robert Nutrition : Probably inadequate Robert Friction and Shear : No apparent problem Robert Score : 20 Alfredo Neumann Rn - 11/06/2020 14:45 EST Sleep Apnea Risk Assmt BMI Greater Than 35 kg/m2 : No Neck Circumference Greater Than 40 cm : No STOP-BANG Sleep Apnea Risk Level Score : 3 CANDE VILCHIS - 11/07/2020 9:10 EST Hx of Obstructive Sleep Apnea Diagnosis : No Snore Loudly : No Tired, Fatigued, or Sleepy During Day : Yes Observed Stopping Breathing During Sleep : No Have/Are Being Treated for Hypertension : Yes Age over 50 Years Old : No Gender Male : Yes Alfredo Neumann Rn - 11/06/2020 14:45 EST documented in this encounter Plan of Treatment Not on file documented as of this encounter Visit Diagnoses Not on filedocumented in this encounter
--- OUTSIDE RECORDS SUMMARY | 2025-03-17 12:30 | XMS_ITS | Encounter Summary ---
Author Organization [employer] Address [address] [place] [address] Care Team Providers Care Gas Welding Machine Operator Name Role Phone Unavailable Primary Care Provider Unavailabl e Encounter Details Date Type Department Care Team (Late st Contact Info) Description 11/08/2020 Transcribed Document [facility] [place] [facility] [place] [address] ProviderTheresa MD [address] [place] [id number] Social History Tobacco Use Types Packs/Day Years Used Date Smoking Tobacco: Never Assessed Sex and Gender Information Value Date Recorded Sex Assigned at Male 03/26/2022 8:49 PM CDT Legal Sex Male 8:49 PM CDT Gender Identity Male 03/26/2022 8:49 PM CDT Sexual Orientation Not on file documented as of this encounter Miscellaneous Notes * Cerner Conversion Note - Theresa ProviderMD - 11/08/2020 12:49 PM WATER PUMP INSTALLER Patient: GABRIEL TOMAS Age: 50 years Sex: Male : 1970 Associated Diagnoses: None Author: KEYUR HUANG MD DATE OF PROCEDURE: 11/07/2020 NEUROSURGERY OPERATIVE REPORT SURGEON: Keyur Huang MD ULTRASOUND COORDINATOR: Carmelo Forman PA-C. Scrubbed and present assisting in cleaning and closure of the wound. 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 PROCEDURE: Right L5-S1 MIS microdiskectomy. ANESTHESIA: General endotracheal anesthesia. ESTIMATED BLOOD LOSS: 30 mL. COMPLICATIONS: None. FINDINGS: Subannular disk herniation. BRIEF HISTORY: Mr. Lopez is a 57-year-old gentleman. He was seen at the request of Dr. Phani Mosqueda. Severe right leg pain, S1 radicular pattern. When I initially saw him in the office, the CD was not available to me, but the report indicated a significant disk protrusion on the right L5-S1 causing recess stenosis. The patient has undergone injections and other conservative measures without benefit. The MRI was reviewed and it was performed at [facility]. This showed a right L5-S1 disk protrusion. I think there was a confusion about the transitional element and at times this was referred to a L4-5, but there is consistency within my notes that suggested that the L5-S1 was the major issue. The other L4-5 level has very mild symptoms. We talked about the treatment options and decision was made to proceed with surgery. OPERATIVE DETAILS: The patient was intubated without incident. As noted above, the nomenclature for the level was clarified on the consent, indicate L5-S1. Right paramedian incision was localized with spinal needle and C-arm fluoroscopy. Right paramedian incision was performed with a 15 blade knife, cautery dissection through the subcu fat. Lumbar fascia was incised. The metrics dilators were now docked over the inferior L5 lamina. A 6 cm x 18 mm tube was secured into place. The operative microscope was brought into the field. Periosteal dissection was undertaken exposing the L5 lamina. Laminotomy performed with the Midas drill. Ligament was mobilized and removed. Thecal sac was retracted and annulotomy was performed at this level. Large subannular disk fragments were removed. Diskectomy completed. Foraminotomy performed of the transversing nerve root with Kerrisons. The longer ball hook could be swept along the course of the nerve and at the level of the disk space, no further disk fragments or compression were appreciated. The wound was now copiously irrigated. Meticulous hemostasis was achieved. The muscle was injected with 0.25% Marcaine. The fascia and subcuticular layers were closed separately. Steri-Strips were placed over the skin for final wound closure. Dressing placed over the wound. The patient was flipped from prone to supine position, extubated without incident, and left the OR in stable condition. Electronically signed by Jie, [facility] Conversion Sanitation Superintendent Cerner at 01/14/2023 10:16 PM CDT documented in this encounter Plan of Treatment Not on file documented as of this encounter Visit Diagnoses Not on filedocumented in this encounter
--- OUTSIDE RECORDS SUMMARY | 2025-03-17 12:30 | XMS_ITS | Referral Summary ---
Author Organization [employer] Address [address] [place] [address] Care Team Providers Care Sandstone Splitter Name Role Phone Unavailable Primary Care Provider Unavailabl e Social History Tobacco Use Types Packs/Day Years Used Date Smoking Tobacco: Never Assessed Sex and Gender Information Value Date Recorded Sex Assigned at Male 03/26/2022 8:49 PM CDT Legal Sex Male 8:49 PM CDT Gender Identity Male 03/26/2022 8:49 PM CDT Sexual Orientation Not on file Plan of Treatment Not on file
--- OUTSIDE RECORDS SUMMARY | 2025-03-17 12:30 | XMS_ITS | Encounter Summary ---
Author Organization [employer] Address [address] [place] [address] Care Team Providers Care Train Braker Name Role Phone Unavailable Primary Care Provider Unavailabl e Encounter Details Date Type Department Care Team (Late st Contact Info) Description 11/07/2020 Transcribed Document [facility] [place] [address] [place] [address] ProviderTheresa MD [address] [place], [place] [address] Social History Tobacco Use Types Packs/Day Years [...] - Theresa ProviderMD - 11/07/2020 12:32 PM BASKETBALL REFEREE [facility] Main OR PostOp Summary Primary Physician: ALICIA HUANG MD Finalized Date/Time: 11/07/20 15:40:00 Pt. Name: GABRIEL DIAS /Sex: 1970 Male Med Rec #: [id number] Physician: ALICIA HUANG MD Financial #: [id number] Pt. Type: O Room/Bed: Admit/Disch: 11/07/20 08:47:00 - Institution: [facility] Main OR PostOp Case Times Entry 1 In PACU II 11/07/20 14:38:00 Ready for PACU II 11/07/20 15:30:00 Discharge Discharge from PACU 11/07/20 15:30:00 II Last Modified By: Janette Lopez Rn 11/07/20 15:31:06 Finalized By: Janette Lopez, Rn Document Signatures Signed By: Janette Lopez Rn 11/07/20 15:40 Electronically signed by Jie [facility] Conversion Airframe Technical Officer Cerner at 01/14/2023 10:20 PM CDT documented in this encounter Plan of Treatment Not on file documented as of this encounter Visit Diagnoses Not on filedocumented in this encounter
--- OUTSIDE RECORDS SUMMARY | 2025-03-17 12:30 | XMS_ITS | Clinical Summary ---
Author Organization [employer] Address [address] [place] [address] Care Team Providers Care Dry Transfer Worker Name Role Phone Unavailable Primary Care [...]
[2025-03-17 12:34] LABS: Basophils # 0.1 K/mm3 (0-0.2); Basophils % 0.7 % (0.1-2.0); Eosinophils # 0.2 Kmm3 (0.0-0.4); Eosinophils % 2.5 % (0.1-12.0); Hematocrit 47.7 % (42.0-52.0); Immature Granulocytes # 0.03 10^3uL; Immature Granulocytes % 0.3 %; Lymphocytes # 1.5 K/mm3 (0.7-4.5); Mean Corpuscular HGB Conc 33.5 g/dL (31.8-35.4); Mean Corpuscular Hemoglobin 30.4 pg (27.0-31.2); Mean Corpuscular Volume 90.7 fl (80-94); Mean Platelet Volume 10.8 fl (7.4-10.4); Monocytes # 0.7 K/mm3 (0.1-1.0); Monocytes % 7.4 % (1.7-9.3); Neutrophils # 6.6 K/mm3 (1.8-7.8); Neutrophils % 73.1 % (37.0-80.0); Nucleated Red Blood Cells # 0 10^3/uL; Nucleated Red Blood Cells % 0 %; Platelet Count 209 K/mm3 (142-424); Red Blood Count 5.26 M/mm3 (4.60-6.20); Red Cell Distribution Width 12.9 % (11.5-17.5); White Blood Count 9.1 K/mm3 (4.8-10.8)
[2025-03-17 12:46] LABS: Alanine Aminotransferase 15 U/L (12-78); Albumin Level 4.3 g/dl (3.5-5.0); Albumin/Globulin Ratio 1.7 (1.1-1.8); Alkaline Phosphatase 90 U/L (38-126); Anion Gap 9.8 mEq/L (5-15); Aspartate Amino Transferase 24 U/L (17-59); Bilirubin,Total 0.6 mg/dl (0.2-1.3); Blood Urea Nitrogen 11 mg/dl (9-20); Calcium 9.2 mg/dl (8.4-10.2); Carbon Dioxide 26 mmol/L (22.0-30.0); Chloride 107 mmol/L (98-107); Creatinine Clearance Estimated 152 mL/min (50-200); Estimated Glomerular Filt Rate 102 ml/min (>60); GFR (African American) 123 ML/MIN (>60); Globulin 2.5 g/dL (1.3-3.2); Glucose 133 mg/dl (74-100); Magnesium 2.1 mg/dl (1.6-2.3); Potassium 3.8 mmoL/L (3.5-5.1); Sodium 139 mmol/L (136-145); Total Protein,Serum 6.8 g/dl (6.3-8.2)
[2025-03-17 12:51] LABS: D-Dimer 0.43 ug/mL (0.0-0.5)
[2025-03-17 12:56] LABS: NT Pro Brain Natriuretic Pep. < 20.0 pg/mL (0-125)
[2025-03-17 13:00] VITALS: BP 120/79; PULSE 68; TEMP -7.7; TEMP 18; O2SAT 98
--- NOTE | 2025-03-17 13:09 | PC.NURSE ---
Federica styles on pt, pt voiced he did not need anything at this time
[2025-03-17 13:40] LABS: Troponin I < 0.01 ng/ml (0.00-0.034)
[2025-03-17 14:02] VITALS: BP 105/61; PULSE 64; RESP 20; TEMP 36.8; O2SAT 97
== END 2025-03-17 14:04 | disposition home or self-care (01) ==
PROVIDERS: Physician Assistant; Emergency Provider Student in an Organized Health Care Education/Training Program; PCP Internal Medicine Adolescent Medicine
DX: J22 Unspecified acute lower respiratory infection (principal); R05.1 Acute cough; F17.210 Nicotine dependence, cigarettes, uncomplicated
CPT/HCPCS: 0223U; 71046; 80053; 83735; 83880; 84484; 85025; 85378; 87633; 96374; 96375; 99284; J1100; J1885

== ENCOUNTER 2025-04-04 15:47 | Outpatient (CLI) | payer BC, SELFPAY ==
--- OUTSIDE RECORDS SUMMARY | 2015-12-12 05:52 | XMS_ITS | Continuity of Care Document ---
Author Organization [facility] o Address [address] [place] [address] Phone Care Team Providers Care Radio Time Buyer Name Role Phone Fitz Benito MD Unavailable [...] Provider Providers Copied on Encounter [facility] [place], [address] [place] [address] [place], [address], tel:[phone] No Information 6 Jigna Byrnes. [address] [place], [place], [id number] . tel:[phone] Referring Provider: Fitz Jigna A, [address], [place], [address] . tel:[phone] [facility], [address], [place], [facility], [place] tel:[phone] [facility] No Information 6 Monie Rocio. [address], [place], [address], [place]. tel:[phone] [facility] [place], [address], [place], [address], [place] tel:[phone] [facility] No Information 6 Jigna Fitz. [address], [place], [place], [address] . tel:[phone] [facility] [place], [address], [place], [facility], [place] tel:[phone] No Information 6 Jigna Fizt. [address], [place], [place], [address] . tel:[phone] Referring Provider: Fitz Mccabe, [address], [place], [address] . tel:[phone] [facility] [place], [facility] [address], [place], [facility], [place] tel:[phone] [facility] No Information 6 Jigna Fitz. [address], [facility] [place], [place], [id number] . tel:[phone] [facility] [place], [address], [place], [address], [place] tel:[phone] [facility] No Information 6 Jigna Fitz. [address], [place], [place], [address] . tel:[phone] Office/outpat ient visit,est, mod [facility] [place], [facility] [address], [place], [place], [facility], [place] tel:[phone] [facility] No Information 6 Jigna Fitz. [address] [facility] [place], [address] . tel:[phone] Office/outpat ient visit,est, low [facility] [place], [address] [facility] [place], [address], tel:[phone] [facility] Pain in left knee 6 Jigna Fitz. [address] [place], [address] . tel:[phone] Office/outpat ient visit,[facility] [place], [address] [facility] [place], [address], tel:[phone] [facility] knee (chief complaint) Pain in left knee 5 Jigna Fitz. [address] [facility] [place], [place], [address] . tel:[phone] Family History Family Member Type Diagnosis Age At Onset No Information Payers Payer name Insurance type Covered democrat ID Authorwagnera beverley(s) [employer] [facility] [id number] Social History Type Description Quantity Date Captured [...]
--- OUTSIDE RECORDS SUMMARY | 2025-01-01 17:30 | XMS_ITS ---
Author Organization [facility] Address [address] [facility] [address] [facility] [address] [place] [address] Care Team Providers Care House Painter Name Role Phone Aneesh Hernandez Primary Care Provider [phone] Janette France [phone] Aneesh Hernandez Unavailable Unavailable Migration, Provider Unavailable Unavailable REASON FOR VISIT [facility] To [facility] Conversion Encounter Medications Medication SIG (Take, Route, [...] Sai AGUERO [facility] [address] [facility] [address] [place], [place] [address] 01/01/2025 Provider Migration Depression with anxiety F41.8 [...] * Bethany TOMASDOB:1970 ( 54 yo M)Acc No.[id number]:01/01/2025 Patient: Bethany CALLAWAY Provider: Abel Madrid :1970 A ge:54 Y S ex:Male Date:01/01/2025 Address:[address] [place] [address] [place] [facility], [id number] Pcp:Aneesh Hernandez Subjective: * Chief Complaints: * [...] Electronic signature of Prov ider Migration on 04/04/2025 at 03:50 PM EDT Sign off status: Pending * Provider: Abel Madrid Date: 0 01/01/2025 Generated for Priti giron/Miguel Angel/Mounika on: 0 04/04/2025 03:50 PM EDT
--- OUTSIDE RECORDS SUMMARY | 2025-04-04 15:51 | XMS_ITS | Encounter Summary ---
Author Organization [employer] ([place], [place], [place], [place]) Address [address] [place] [address] Care Team Providers Care Roller Print Tender Name Role Phone Unavailable Primary Care Provider Unavailabl e Encounter Details Date Type Department Care Team (Late st Contact Info) Description 11/07/2020 Transcribed Document [facility] [place] [facility] [place] [address] ProviderTheresa MD [facility] [place], [place] [address] Social History Tobacco Use Types Packs/Day Years [...] - Historical ProviderMD - 11/07/2020 11:27 AM INCIDENT COMMANDER Event Note Entered On: 11/07/2020 11:27 EST Performed On: 11/07/2020 11:27 EST by CANDE VILCHIS Event Note Event Date/Time : 11/07/2020 11:27 EST Event Location : [place] area Event Details : Other: Description of Event : 1127: [place] WBC 13.1 CANDE VILCHIS - 11/07/2020 11:27 EST Electronically signed by Jie [facility] Conversion Creative Services Designer Cerner at 01/14/2023 10:22 PM CDT documented in this encounter Plan of Treatment Not on file documented as of this encounter Visit Diagnoses Not on filedocumented in this encounter
--- OUTSIDE RECORDS SUMMARY | 2025-04-04 15:51 | XMS_ITS | Encounter Summary ---
Author Organization [employer] ([place], [place], [place], [place]) Address [address] [place] [address] Care Team Providers Care Fabricator Industrial Furnace Name Role Phone Unavailable Primary Care Provider Unavailabl e Encounter Details Date Type Department Care Team (Late st Contact Info) Description 11/07/2020 Transcribed Document [facility] [place] [address] [place] [address] Provider, MD Theresa [address] [place] [address] Social History Tobacco Use Types Packs/Day Years [...] - Theresa ProviderMD - 11/07/2020 11:00 AM CTRS [facility] Main OR Preop Summary Primary Physician: ALICIA HUANG MD Finalized Date/Time: 11/07/20 12:25:58 Pt. Name: THOMGABRIEL/Sex: 1970 Male Med Rec #: [id number] Physician: ALICIA HUANG MD Financial #: [id number] Pt. Type: O Room/Bed: Admit/Disch: 11/07/20 08:47:00 - Institution: [facility] PreOp Case Times Entry 1 In Preop 11/07/20 08:25:00 Ready for Holding n/a Room Patient Ready for 11/07/20 09:34:00 Surgery Patient Out of Preop 11/07/20 12:02:00 Patient Out of n/a Holding Room Last Modified By: CANDE VILCHIS 11/07/20 12:25:56 [facility] PreOp Case Times Audit 11/07/20 12:25:56 Business Systems Architect: ESTEVAN Modifier: ESTEVAN <+> 1 Patient Out of Preop Finalized By: CANDE VILCHIS Document Signatures Signed By: CANDE VILCHIS 11/07/20 12:25 Electronically signed by Jie [facility] Conversion Sweeper Operator Highways Cerner at 01/14/2023 10:07 PM CDT documented in this encounter Plan of Treatment Not on file documented as of this encounter Visit Diagnoses Not on filedocumented in this encounter
--- OUTSIDE RECORDS SUMMARY | 2025-04-04 15:51 | XMS_ITS | Encounter Summary ---
Author Organization [employer] ([place], [place], [place], [place]) Address [address] [place] [address] Care Team Providers Care Maintenance Carpenter Name Role Phone Unavailable Primary Care Provider Unavailabl e Encounter Details Date Type Department Care Team (Late st Contact Info) Description 11/07/2020 Transcribed Document [facility] [place] Family Medicine [address] [place] [address] Provider, MD Theresa [address] [place] [address] Social History Tobacco Use Types Packs/Day [...] - Theresa ProviderMD - 11/07/2020 12:32 PM GAS EXAMINER [facility] Main OR PostOp Summary Primary Physician: ALICIA HUANG MD Finalized Date/Time: 11/07/20 15:40:00 Pt. Name: THOMGABRIEL/Sex: 1970 Male Med Rec #: [id number] Physician: ALICIA HUANG MD Financial #: [id number] Pt. Type: O Room/Bed: / Admit/Disch: 11/07/20 08:47:00 - Institution: [facility] Main OR PostOp Case Times Entry 1 In PACU II 11/07/20 14:38:00 Ready for PACU II 11/07/20 15:30:00 Discharge Discharge from PACU 11/07/20 15:30:00 II Last Modified By: Janette Lopez Rn 11/07/20 15:31:06 Finalized By: Janette Lopez, Rn Document Signatures Signed By: Janette Lopez Rn 11/07/20 15:40 Electronically signed by Jie [facility] Conversion Copyright Manager Cerner at 01/14/2023 10:20 PM CDT documented in this encounter Plan of Treatment Not on file documented as of this encounter Visit Diagnoses Not on filedocumented in this encounter
--- OUTSIDE RECORDS SUMMARY | 2025-04-04 15:51 | XMS_ITS | Encounter Summary ---
Author Organization [employer] ([place], [place], [place], [place]) Address [address] [place] [address] Care Team Providers Care Military Pay Technician Name Role Phone Unavailable Primary Care Provider Unavailabl e Encounter Details Date Type Department Care Team (Late st Contact Info) Description 11/07/2020 Transcribed Document [facility] [place] [facility] [place] [address] ProviderTheresa MD [address] [place] [id number] Social History Tobacco Use Types Packs/Day Years [...] Theresa Tomlin MD - 11/07/2020 2:49 PM SERVICES [facility] Patient Education Materials Follows: Microdiskectomy, Care After [...] these instructions at home: Medicines ??? Take pmdc-bml-plobmlw and prescription medicines only as told by your doctor. ??? Ask your doctor if the medicine prescribed to you: ? Requires you to avoid driving or using heavy machinery. ? Can cause trouble pooping (constipation). You may need to take these actions to prevent or treat trouble pooping: ? Drink enough fluid to keep your pee (urine) pale yellow. ? Take mzkk-fxp-rjxbtmf or prescription medicines. ? Eat foods that [...] cannot use soap and water, use hand wing scorer. ? Change your bandage as told by [...] around your cut from surgery. ??? Take wpkh-vty-gzlegbm and prescription medicines only as told by [...] Reviewed: 10/26/2019 Elsevier Patient Education ? 2020 [employer] documented in this encounter Plan of Treatment Not on file documented as of this encounter Visit Diagnoses Not on filedocumented in this encounter
--- OUTSIDE RECORDS SUMMARY | 2025-04-04 15:51 | XMS_ITS | Patient Health Record ---
Author Organization [facility]ING[facility] Address [address] [place] [address] Care Team Providers Care Surface Supply Breathing Apparatus Name Role Phone Aneesh Hernandez Primary Care Provider [phone] Janette France Unavailable [phone] Aneesh Hernandez Unavailable Unavailable Leigh Regalado Unavailable [phone] Janette Davila Unavailable [phone] Migration, Provider Unavailable Unavailable Allergies No Known Allergies Reason For Referral Reason Dr. Willie Weiss [facility] Diagnosis 1 TEO (obstructive sle ep apnea) (G47.33) Referral Organization [facility] LACI SCHREIBER Referring Provider First Name Leigh Referring Provider Last Name Fabricio Referring Provider [facility] Notes Tiny Pisano 2023 02:58:22 PM >Placed referral through [facility] portal- they will be in contact with patient to schedule Referral Priority Routine Reason Can you please call [facility] Sleep group to determine if he should be getting a CPAP. Patient is unsure. Diagnosis 1 Suspected sleep apne a (R29.818) Referral Organization [facility] LACI MILES Referring Provider First Name Janette Referring Provider Last Name Lola Referring Provider [facility] Notes Tiny Pisano 2024 11:58:44 AM >I left a vm a few days ago but have never heard anything. I told them to contact him. Referral Priority Routine Medications Medication SIG (Take, Route, Frequency, Duration) Notes Start Date End Date Status busPIRone HCl 5 MG 1 tab(s) orally 2 ti mes a day; Duration: 30 days Active Doxycycline Hyclate 100 MG One tab PO tw ice daily; Duration: 14 days 01/17/2025 Active Mupirocin 2 % 1 application [employer] ally Twice a day; Duration: 7 days 01/25/2025 Active VILAZODONE HYDROCHLORIDE 20 MG 1 tab ORALLY ONCE A DAY; Duration: 30 days 12/23/2024 Active Lisinopril 20 MG 1 tab(s) orally once a day; Duration: 30 days Active Immunizations Vaccine Route Administration Date Status Comme nts Boostrix IM Intramuscular 01/25/2025 Administered Flublok IM Intramuscular 08/19/2022 Administered Flublok IM Intramuscular 08/31/2024 Administered FLUZONE 6MO - OLDER IM Intramuscular 07/07/2023 Administer ed SHINGRIX IM Intramuscular 08/19/2022 Administered SHINGRIX IM Intramuscular 11/19/2022 Administered Social History Tobacco Use: Social History Observation Description Date Details (start date - stop date) Current Smoker NA - NA Smoking: Question Answer Notes Are you a: current smoker How often do you smoke cigarettes? every day How many cigarettes a day do you smoke? - Problems Problem Type SNOMED Code ICD Code Onset Dates Problem Status W/U Status Risk Notes Problem Nicotine dependence (90183731) Personal history of nicotine dependence (Z87.891) Active confirmed Problem Mixed anxiety and depressive disorder (794359474) Depression with anxiety (F41.8) Active confirmed Problem Essential hypertension (67495528) HTN (hypertension), benign (I10) Active confirmed Problem Thyroid nodule (878688055) Thyroid nodule (E04.1) Active confirmed Problem History of polyp of colon (situation) (501098885) History of colon polyps (Z86.010) Active confirmed Problem Obstructive sleep apnea syndrome (10531129) TEO (obstructive sleep apnea) (G47.33) Active confirmed Problem Pulmonary nodule (553514521) Pulmonary nodule (R91.1) Active confirmed Problem Degeneration of lumbar intervertebral disc (13117891) Lumbar degenerative disc disease (M51.36) Active confirmed Problem Obese class II (112831504442968) BMI 35.0-35.9,adult (Z68.35) Active confirmed Problem Familial hypercholesterolemia (392410862) Familial hypercholesterolemia (E78.01) Active confirmed Problem Major depression, single episode (42613190) Major depressive disorder, remission status unspecified, unspecified whether recurrent (F32.9) Active confirmed Vital Signs Heart Rate 92 /min 01/25/2025 Temperature 97.8 degrees Fahrenheit 01/25/2025 Blood pressure diastolic 80 mm Hg 01/25/2025 Height 67.5 in 01/25/2025 Blood pressure systolic 130 mm Hg 01/25/2025 Weight 220 lbs 01/25/2025 BMI 33.94 kg/m2 01/25/2025 Encounters Encounter Location Date Provider Diagnosis [facility] [address] [facility] [address] [place] [address] 01/01/2025 Provider Migration Depression with anxiety F41.8 [facility] [address] [place], [place] [address] 08/17/2024 Leigh McNetonia Depression with anxiety F41.8 ; HTN (hypertension), benign I10 ; Personal history of nicotine dependence Z87.891 and TEO (obstructive sleep apnea) G47.33 [facility] [address] [place], [place] [address] 08/31/2024 Janette France Immunization(s) administered Z23 [facility] [address] [place] [address] 12/03/2024 Janette Davila Suspected sleep apne a R29.818 ; Depression with anxiety F41.8 and Fatigue, unspecified type R53.83 [facility] [address] [facility] [address] [place] [address] 12/23/2024 Leighlisa Regalado Depression with anxiety F41.8 [facility] [address] [facility] [address] [place] [address] 01/17/2025 Aneesh Hernandez Acute epididymitis N45.1 [facility] [address] [facility] [address] [place] [address] 01/25/2025 Leigh Regalado Encounter for immunization Z23 ; Depression with anxiety F41.8 and Cellulitis of left hand L03.114 [facility] [address] [place], [place] [address] 01/25/2025 Leigh [facility]ric[facility] [address] [place], [place] [address] 02/14/2025 Aneesh Hernandez Depression with anxiety F41.8 [facility] [place] [address] [facility] [facility] [address] [place], [place] [address] 02/17/2025 Aneesh Hernandez Assessments Encounter Date Diagnosis [...] Insured Coverage Start Date Coverage End Date [facility] [address] [place] [address] [id number] Thom Bethany Self - patient is the insured Medications Administered Medication Instructions Date of Administration Dosage Notes Dexamethasone 4mg Injection 10/10/2022 4 mg Medical (General) History Medical History History ICD Code HTN Depression/Anxiety Tobacco use Lumbar DDD TEO on sleep study 01/2021 Pulmonary nodules-stable CT with contrast 01/20-12-month follow-up recommended Surgical History Surgery Date(Month/Year) gangloin cyst removal-rt foot 10/2018 rt rotator cuff surgery 2001 gallbladder removal 2014 lt knee-torn menescus 2016 back surgery 10/[address] Rios- brian yps repeat 2-3 years, repeat Dr. Leonard 01/20- 2 polyps, repeat 3-5 years 11/2020 Hospitalization History Reason Date(Month/Year) heart issues/HTN 10/2019
--- OUTSIDE RECORDS SUMMARY | 2025-04-04 15:51 | XMS_ITS | Encounter Summary ---
Author Organization [employer] ([place], [place], [place], [place]) Address [address] [place] [address] Care Team Providers Care Plans Examiner Name Role Phone Unavailable Primary Care Provider Unavailabl e Encounter Details Date Type Department Care Team (Late st Contact Info) Description 11/07/2020 Transcribed Document [facility] [place] [facility] [place] [address] ProviderTheresa MD [facility] [place] [address] Social History Tobacco Use Types Packs/Day [...] Theresa Tomlin MD - 11/07/2020 2:49 PM CARTOGRAPHY PROFESSOR [facility] [place] [address] RAPHAEL TOMASNY :1970 Visit Time:11/07/2020 What to do next [...] December 08 at 9:45 am Where: [address] [facility] [address] [place] [address]- Medications What How Much When Instructions Next [...] these instructions at home: Medicines ??? Take dear-faf-neygiet and prescription medicines only as told by your doctor. ??? Ask your doctor if the medicine prescribed to you: ? Requires you to avoid driving or using heavy machinery. ? Can cause trouble pooping (constipation). You may need to take these actions to prevent or treat trouble pooping: ? Drink enough fluid to keep your pee (urine) pale yellow. ? Take blgy-ktu-kxfhamp or prescription medicines. ? Eat foods that [...] cannot use soap and water, use hand outside collector. ? Change your bandage as told by [...] around your cut from surgery. ??? Take jcsi-gbm-uaurflc and prescription medicines only as told by [...] Reviewed: 10/26/2019 Elsevier Patient Education ?? 2020 [employer] Emergency Awareness and Preventative Care STROKE is an EMERGENCY Every Minute Counts Act FAST and Check for these signs: FACE Does the face look uneven? ARM Does one arm drift down? SPEECH Does their speech sound strange? TIME Call at any sign of stroke Stroke Risk [...] Assistance with quitting is available by contacting 2-072-DSIA-NOW. This is a free resource providing counseling, support, and referral. Or you may contact your personal physician. [employer]'s Suicide Prevention Lifeline: The National Suicide Prevention [...] of a heart attack, DON???T DELAY. Call 9-1-1 immediately and seek help. If someone collapses, [...] range between ( 0.0 and 7.0 ) Rapides #: 1.01 K/uL -- Normal range between ( 0.16 and 1.00 ) Eos #: 0.26 x10(3)/uL -- Normal range between ( 0.00 and 0.80 ) Rapides %: 7.7 % -- Normal range between [...] ) Urine Bilirubin Dipstick: Negative Urine Specific Beulah: 1.023 -- Normal range between ( 1.005 [...] was given the opportunity to ask questions. Patient/Hull Molder Name: Patient/Hull Molder Signature: Relationship to Patient: Clinician/Hospital Hull Molder Signature: Date: Electronically signed by Jie, [facility] Conversion School Speech Language Pathologist Cerner at 01/14/2023 10:00 PM CDT documented in this encounter Plan of Treatment Not on file documented as of this encounter Visit Diagnoses Not on filedocumented in this encounter
--- OUTSIDE RECORDS SUMMARY | 2025-04-04 15:51 | XMS_ITS | Clinical Summary ---
Author Organization [employer] ([place], [place], [place], [place]) Address [address] [place] [address] Care Team Providers Care Manager Of It Name Role Phone Unavailable Primary Care Provider [...]
--- OUTSIDE RECORDS SUMMARY | 2025-04-04 15:51 | XMS_ITS | Encounter Summary ---
Author Organization [employer] ([place], [place]) Address [address] [place] [address] Care Team Providers Care Manager Auto Name Role Phone Unavailable Primary Care Provider Unavailabl e Encounter Details Date Type Department Care Team (Late st Contact Info) Description 11/07/2020 Transcribed Document [facility] [place] [facility] [address] ProviderTheresa MD [facility] [place] [address] Social History Tobacco Use Types [...] Note - Theresa Tomlin MD - 11/07/2020 8:57 AM COMPOSITION INSTRUCTOR Patient: GABRIEL TOMAS Age: 50 years Sex: [...] list: All Problems Sciatica / SNOMED CT 96941039 / Confirmed Peripheral neuropathy / SNOMED CT 9206822310 / Confirmed High blood pressure / SNOMED CT 22274888 / Confirmed Back pain / SNOMED CT 0620964973 / Confirmed, Active Problems (4) Back pain wtih RLE radiculopathy High blood pressure Peripheral neuropathy Sciatica Histories Past Medical History: No active or resolved past medical history items have been selected or recorded. Family History: No family history items have been selected or recorded. Procedure history: Cholecystectomy (65726032). rotator cuff surgery - right. left knee [...] (NOV 07 08:44) Resp Rate 20 (NOV 07:44) 20 (NOV 07 08:44) 20 (NOV 07 08:44) SBP 120 (NOV 07:44) 120 (NOV 07 08:44) 120 (NOV 07 08:44) DBP 72 (NOV 07:44) 72 (NOV 07:44) 72 (NOV 07:44) SpO2 98 (NOV 07:44) 98 (NOV 07 08:44) 98 (NOV 07 08:44) , Measurements from flowsheet : Measurements 11/06/2020 14:45 EST Height Source Measured Height Entry Format [place] Height/Length, ANGUILLAN (ft) 5 ft Height/Length ANGUILLAN 8 Inch CLINICALHEIGHT 172.72 cm [place] Body Weight 67 kg Weight Source Standing scale Weight Entry Format [place] Weight Greek lb 277 lb CLINICALWEIGHT 125.91 kg Body [...] ROM back, RLE weakness. Integumentary: Warm, Dry, Olds. Neurologic: Alert, Oriented. Psychiatric: Cooperative, Appropriate mood & affect. Review / Management Results review: No qualifying data available. Impression and Plan Condition: Stable. documented in this encounter Plan of Treatment Not on file documented as of this encounter Visit Diagnoses Not on filedocumented in this encounter
--- OUTSIDE RECORDS SUMMARY | 2025-04-04 15:51 | XMS_ITS | Encounter Summary ---
Author Organization [employer] ([place], [place], [place], [place]) Address [address] [place] [address] Care Team Providers Care Artificial Plastic Eye Maker Name Role Phone Unavailable Primary Care Provider Unavailabl e Encounter Details Date Type Department Care Team (Late st Contact Info) Description 11/08/2020 Transcribed Document [facility] [place] [facility] [place] [address] ProviderTheresa MD [address] [place] [id number] Social History Tobacco Use Types Packs/Day Years Used Date Smoking Tobacco: Never Assessed Sex and Gender Information Value Date Recorded Sex Assigned at Male 03/26/2022 8:49 PM CDT Legal Sex Male 8:49 PM CDT Gender Identity Male 03/26/2022 8:49 PM CDT Sexual Orientation Not on file documented as of this encounter Miscellaneous Notes * [employer] Conversion Note - Theresa Tomlin MD - 11/08/2020 12:49 PM SENIOR MEDICAL WRITER Patient: GABRIEL TOMAS Age: 50 years Sex: Male : 1970 Associated Diagnoses: None Author: KEYUR HUANG MD DATE OF PROCEDURE: 11/07/2020 NEUROSURGERY OPERATIVE REPORT SURGEON: Keyur Huang MD AUTO BODY TECHNICIAN: Carmelo Forman PA-C. Scrubbed and present assisting [...] was reviewed and it was performed at [facility]. This showed a right L5-S1 disk protrusion. [...] and left the OR in stable condition. documented in this encounter Plan of Treatment Not on file documented as of this encounter Visit Diagnoses Not on filedocumented in this encounter
--- OUTSIDE RECORDS SUMMARY | 2025-04-04 15:51 | XMS_ITS | Encounter Summary ---
Author Organization [employer] ([place], [place], [place], [place]) Address [address] [place] [address] Care Team Providers Care Ticket Scheduler Name Role Phone Unavailable Primary Care Provider Unavailabl e Encounter Details Date Type Department Care Team (Late st Contact Info) Description 11/06/2020 Transcribed Document [facility] [place] [address] ProviderTheresa MD [place] [address] Social History Tobacco Use Types [...] - Historical ProviderMD - 11/06/2020 2:45 PM MEDICAL SALES ASSOCIATE PAT Adult Entered On: 11/06/2020 14:49 EST Performed On: 11/06/2020 14:45 EST by Alfredo Neumann, Rn Height and Weight, Clinical Dosing Height, Feet : 5 ft(Converted to: 152 cm, 60 Inch) Height, Inches : 8 Inch(Converted to: 0 ft 8 Inch, 20.32 cm) Clinical Height : 172.72 cm CANDE VILCHIS - 11/07/2020 8:48 EST Clinical Dosing Weight : 99.09 kg Weight, Pounds : 218 lb Body Surface Area (BSA) : 2.12 m2 Body Mass Index : 33.2 kg/m2 (HI) ELI VILCHISKIE - 11/07/2020 9:00 EST [place] Body Weight : 67 kg DENG CANDE - 11/07/2020 8:48 EST Height Source : Measured Height Entry Format : [place]oll[place] Weight Source : Standing scale Weight Entry Format : Slick VILCHIS CANDE - 11/07/2020 8:20 EST Health Histories Smoking Status : 10 or more cigarettes (1/2 pack or more)/day in last 30 days Smokeless Tobacco Status : Never Desires Tobacco Cessation Medication : No Reason for No Tobacco Cessation Medication : Refuses FDA approved medications Implant/Device Type, Pharmaceutical Physician and Model : Alfredo Jones Rn - [...] 11/06/2020 14:45:04 EST by Alfredo Neumann Rn) Infectious Disease History Where are the test results? : Paper Copy on chart Infectious Disease History : None MOONCANDE JONES - 11/07/2020 9:10 EST Has the patient ever been tested for COVID-19? : Yes, Patient stated results Negative Where was the COVID-19 Testing completed? : [facility] Date of COVID-19 test known? : [...] Alfredo Neumann Rn - 11/06/2020 14:45 EST [place] Suicide Severity Rating Scale (C-SSRS) CSSRS Past [...] Ambulatory Legal Guardian : Other: Support Person/Patient Financial Services Technician : Yes Support Person/Pt Rep Name : Sharon Corcoran - girlfriend Support Person/Pt Rep Contact Information : [phone] Want Family/Rep/Phys Notified of Admit : No Emergency Contact #1 : ` Emergency Contact #1 Phone Number : ` Emergency Contact #1 Relationship : ` Emergency Contact #2 : ` Emergency Contact #2 Phone Number : ` Emergency Contact #2 Relationship : ` Information Obtained From : Patient Primary Language : Armenian Communication Barrier : None Wind Field Service Manager Needed : No Alfredo Neumann Rn - [...]
--- OUTSIDE RECORDS SUMMARY | 2025-04-04 15:51 | XMS_ITS | Encounter Summary ---
Author Organization [employer] ([place], [place], [place], [place]) Address [address] [place] [address] Care Team Providers Care Compensator Name Role Phone Unavailable Primary Care Provider Unavailabl e Encounter Details Date Type Department Care Team (Late st Contact Info) Description 11/07/2020 Transcribed Document [facility] [place] [address] [place] [address] ProviderTheresa MD [address] [place] [address] Social History Tobacco Use Types Packs/Day [...] - Theresa ProviderMD - 11/07/2020 12:32 PM ADJUNCT SPANISH INSTRUCTOR [facility] Main OR IntraOp Summary Primary Physician: ALICIA HUANG MD Finalized Date/Time: 11/09/20 10:30:39 Pt. Name: THOM BETHANYGA DossB./Sex: 1970 Male Med Rec #: [id number] Physician: ALICIA HUANG MD Financial #: [id number] Pt. Type: O Room/Bed: Admit/Disch: 11/07/20 08:47:00 - 11/07/20 15:30:00 Institution: [facility] IntraOp Case Attendance Entry 1 Entry 2 Entry 3 Case Attendee ALICIA HUANG MD WASSON, SANDRA D, RN Mandeep Dan, RN Role Performed Surgeon/Proceduralist, Aircraft Quality Control Inspector, First Aircraft Quality Control Inspector, Second First Time In 11/07/20 12:05:00 11/07/20 12:05:00 11/07/20 12:05:00 Time Out 11/07/20 13:39:00 11/07/20 13:39:00 11/07/20 13:39:00 Procedure Discectomy Minimally Discectomy Minimally Discectomy Minimally Invasive(Right) Invasive(Right) Invasive(Right) Other Attendee Superficial Wound Closed By: Last Modified By: Mandeep Dan, Mandeep Briones, RN Mandeep Dan, RN 11/07/20 13:39:12 11/07/20 13:39:12 11/07/20 13:39:12 Entry 4 Entry 5 Entry 6 Case Attendee KIMBERLY VILLANUEVA, JANY RUB MartellCatarina pineda, Rn KIMBERLY VILLANUEVA, [place] RUB TECH TECH Role Performed Scrub, First Aircraft Quality Control Inspector, First Scrub, First Time In 11/07/20 12:05:00 11/07/20 12:05:00 11/07/20 12:05:00 Time Out 11/07/20 13:39:00 11/07/20 13:39:00 11/07/20 13:39:00 Procedure Discectomy Minimally Discectomy Minimally Discectomy Minimally Invasive(Right) Invasive(Right) Invasive(Right) Other Attendee [facility] Superficial Wound Closed By: Last Modified By: Mandeep Dan, Mandeep Briones, Mandeep Briones, BRITT 11/07/20 13:39:12 11/07/20 13:39:12 11/07/20 13:39:12 Entry 7 Entry 8 Entry 9 Case Attendee LENO MADSEN PA CALDWELL, JOSEPH A, BEBA ARAUJO MD-ANS Role Performed Physician contact lens assistant CHILD AND FAMILY SERVICES WORKER/Nurse Population Health Coach Anesthesiologist of Record Time In 11/07/20 12:05:00 [...] KATTY RICHARDSON CHRISTINA M, RN Role Performed Clinical Data Management Manager Aircraft Quality Control Inspector, Second Time In 11/07/20 12:05:00 11/07/20 13:20:00 Time Out 11/07/20 13:39:00 11/07/20 13:30:00 Procedure Discectomy Minimally Discectomy Minimally Invasive(Right) Invasive(Right) Other Attendee Superficial Wound Closed By: Last Modified By: Mandeep Dan RN Byrd, Charlie D, RN 11/07/20 13:39:12 11/07/20 13:39:12 [facility] IntraOp Case Attendance Audit 11/07/20 13:39:12 Icu Manager: [email or web address] Modifier: [email or web address] 1 <+> Time Out 1 [...] <*> Procedure Discectomy Minimally Invasive(Right) 11/07/20 13:26:35 Icu Manager: [email or web address] Modifier: [email or web address] 1 <*> Procedure Discectomy Minimally [...] Time Out <+> 11 Procedure 11/07/20 12:37:50 Icu Manager: [email or web address] Modifier: [email or web address] <+> 10 Case Attendee <+> 10 Role Performed <+> 10 Procedure 11/07/20 12:34:25 Icu Manager: WASSONSY Modifier: [email or web address] 4 <*> Case Attendee NGUYEN RUSSELL, TRANSITION OF CARE SPECIALIST 4 <*> Procedure Discectomy Minimally Invasive(Right) 11/07/20 12:07:26 Icu Manager: [email or web address] Modifier: [email or web address] 1 <+> Time In [...] In 9 <*> Procedure Discectomy Minimally Invasive(Right) [facility] IntraOp Case Times Entry 1 Patient In Room Time 11/07/20 12:05:00 Out Room Time 11/07/20 13:39:00 Anesthesia Start Time 11/07/20 12:05:00 Stop Time 11/07/20 13:39:00 Surgery / Procedure Times Start Time 11/07/20 12:32:00 Stop Time 11/07/20 13:32:00 Last Modified By: Mandeep Dan RN 11/07/20 13:39:09 [facility] IntraOp Case Times Audit 11/07/20 13:39:09 Icu Manager: [email or web address] Modifier: [email or web address] <+> 1 Out Room Time <+> 1 Stop Time 11/07/20 13:36:37 Icu Manager: [email or web address] Modifier: [email or web address] <+> 1 Stop Time 11/07/20 12:33:35 Icu Manager: WASSONSY Modifier: [email or web address] <+> 1 Start Time [facility] IntraOp Cautery Entry 1 Entry 2 ESU Identification Cautery Type Monopolar ESU BiPolar ESU Cautery Type Comments ID Number [id number] ID Type Hospital Number Hospital Number Cautery [...] Charlie D, RN 11/07/20 12:46:29 11/07/20 12:46:29 [facility] IntraOp Communication Entry 1 Entry 2 Communication To Family/Significant other Family/Significant other Comment START - NO ANSWER UPDATE Communication By Catarina Martell Rn BRADY, CHRISTINA M, RN Date and Time 11/07/20 12:38:00 11/07/20 13:26:00 Last Modified By: Mandeep Dan RN Byrd, Charlie D, RN 11/07/20 12:38:36 11/07/20 13:26:59 [facility] IntraOp Communication Audit 11/07/20 13:26:59 Icu Manager: [email or web address] Modifier: [email or web address] <+> 2 Communication By <+> 2 Date and Time <+> 2 Communication To <+> 2 Comment [facility] IntraOp Counts Verification Entry 1 Procedure Discectomy Minimally Invasive(Right) Count Info Count Type Sponge, Sharps, Miscellaneous Counts Verification Baseline/pre-procedure Sequence Count Results Not Applicable Counts Performed By Count Performed By KIMBERLY VILLANUEVA SC RUB (Scrub) TECH Count Performed By Catarina Martell Rn (RN) Last Modified By: Mandeep Dan RN 11/07/20 12:34:45 [facility] IntraOp Counts Final Entry 1 Procedure Discectomy Minimally Invasive(Right) Final Count Info Count Type Sponge, Sharps Counts Verification Skin Closure/end of Sequence procedure Count Results Correct, surgeon notified Counts Performed By Count Performed By KIMBERLY VILLANUEVA SC RUB (Scrub) TECH Count Performed By ELEANOR BERNARD RN (RN) Last Modified By: Mandeep Dan RN 11/07/20 13:30:03 [facility] IntraOp Departure from OR Entry 1 Integumentary Assessment Integumentary WDL Assessment WDL Transfer/Handoff Transfer to PACU Phase I Handoff Method Bedside/Face to face, Phone call Post-op Transport Stretcher/Gurney Via Patient Transport LENO MADSEN PA, Accompanied by LATOYA JONES CRNA Last Modified By: Mandeep Dan RN 11/07/20 12:39:28 [facility] IntraOp Departure from OR Audit 11/07/20 12:39:28 Icu Manager: [email or web address] Modifier: [email or web address] 1 <*> Post-op Transport Via Bed (including specialty) 1 <+> Patient Transport Accompanied by 1 <*> Handoff Method Phone call [facility] IntraOp Dressing and Packing Entry 1 Type Dressing Location opsite Wound Dressing Item Other, Occlusive dressing Applied By LENO MADSEN PA Other Comments MASTISOL, STERISTRIPS, COVADERM Last Modified By: Mandeep Dan RN 11/07/20 12:47:10 [facility] IntraOp Fire Risk Assessment Entry 1 Fire Info Surgical Site or 0- No Incision Above the Xyphoid Open O2 Source 0- No (Mask or Cannula) Available Ignition 1- Yes (ESU, Laser, Light Source) Fire Risk 1 Assessment Score Fire Score Fire Risk Yes Assessment Complete Fire Risk KARAN HAN, environmental programs specialist Verified By Fire Risk 11/07/20 12:04:00 Assessment Verified Date/Time Fire Risk Standard Fire Yes Safety Precautions Followed Last Modified By: Mandeep Dan RN 11/07/20 12:39:37 [facility] IntraOp General Case Coverage Specialist 1 Case Information OR OR 10 [facility] Case Level 1 Room Verified Yes Wound Class I - Clean Specialty SN Neurosurgery Anesthesia Type General ASA Class 2 Diagnosis Preop Diagnosis LUMBAR DISC PROLAPSE WITH RADICULOPATHY Postop Same As Preop No Postop Diagnosis SEE MD POST OP NOTE Last Modified By: Mandeep Dan RN 11/07/20 12:42:33 [facility] IntraOp Intraoperative Assessment Entry 1 Handoff Method [...] Modified By: Mandeep Dan RN 11/07/20 12:42:40 [facility] IntraOp Intraoperative Equipment Entry 1 Type Equipment Equipment Equipment Pretty Suction System ID Number [id number] Setting 180 MM HG Intraop Monitoring Electrocardiogram Five lead placement (ECG) Electrode Placement Blood Pressure Non-Invasive BP Device Source Blood Pressure Arm, right upper Location Pulse Oximeter Hand, left Probe Site Antiembolic Devices Antiembolic Devices Sequential compression device, knee high Antiembolic Device Bilateral Location Antiembolic Device [id number] ID Number Scopes Photo/Video Documentation Photo No Video No Last Modified By: Mandeep Dan RN 11/07/20 12:43:31 [facility] IntraOp Medication Admin Entry 1 Entry 2 Entry 3 Medication/Irrigant lidocaine 1% w/ Bacitracin 50,00units Marcaine 0.25% 30ml epinephrine 1:100,000 powder vial vial - [id number] 30ml vial - [id number] Combo Med List Time Administered Route of LOCAL ADDED TO NS IRRIGATION LOCAL Administration Dose Dose 4 [id number] 30 Unit of Measure ml units ml Volume Administered By ALICIA HUANG MD PHILLIPS, GABRIEL, MD PHILLIPS, GABRIEL, MD Procedure Irrigation Irrigant Volume In Irrigant Volume Out Last Modified By: Mandeep Dan RN Byrd, Charlie D, RN Byrd, Charlie D, RN 11/07/20 12:45:58 11/07/20 12:45:58 11/07/20 12:45:58 Entry 4 Entry 5 Medication/Irrigant thrombin 5000units SPNG SURGFOAM topical powder - [id number] Combo Med List Time Administered Route of TOPICAL TOPICAL Administration Dose Dose 5000 1 Unit of Measure units pkt Volume Administered By ALICIA HUANG MD PHILLIPS, GABRIEL, MD Procedure Irrigation Irrigant Volume In Irrigant Volume Out Last Modified By: Mandeep Dan RN Byrd, Charlie D, RN 11/07/20 12:45:58 11/07/20 12:45:58 [facility] IntraOp Medication Admin Audit 11/07/20 12:45:58 Icu Manager: [email or web address] Modifier: AGATA <+> 1 Administered By <+> [...] 5 Dose <+> 5 Unit of Measure [facility] IntraOp Patient Positioning Entry 1 Procedure Discectomy [...] Modified By: Mandeep Dan RN 11/07/20 12:45:07 [facility] IntraOp Sign In Entry 1 Patient, Site, [...] Modified By: KARAN HAN RN 11/07/20 12:07:14 [facility] IntraOp Sign Out Entry 1 RN Confirmation [...] Yes Elements Complete? RN Sign Out Mandeep Dan RN Signature RN Sign Out 11/07/20 13:39:00 [...] Modified By: Mandeep Dan RN 11/07/20 13:39:37 [facility] IntraOp Sign Out Audit 11/07/20 13:39:37 Icu Manager: [email or web address] Modifier: [email or web address] <+> 1 OUTCOME STATEMENT: Absence of signs and symptoms of injury related to extraneous objects 11/07/20 13:39:23 Icu Manager: [email or web address] Modifier: [email or web address] <+> 1 RN Sign Out Signature Date/Time [facility] IntraOp Skin Prep Entry 1 Entry 2 [...] Charlie D, RN 11/07/20 12:38:23 11/07/20 12:38:23 [facility] IntraOp Surgical Procedures Entry 1 Procedure Discectomy Minimally Invasive Modifiers Right Additional (RT L5-S1 MIS Procedure MICRODISECTOMY) Description Primary Procedure Yes Primary Surgeon ALICIA HUANG MD Start 11/07/20 12:32:00 Stop 11/07/20 13:32:00 Anesthesia Type General Specialty SN Neurosurgery Wound Class I - Clean Last Modified By: Mandeep Dan RN 11/07/20 13:36:45 [facility] IntraOp Surgical Procedures Audit 11/07/20 13:36:45 Icu Manager: [email or web address] Modifier: [email or web address] <+> 1 Stop [facility] IntraOp Temp Regulation Devices Entry 1 Temp Regulation Temperature Warm blankets, Forced Regulation Device Air Warming device Temperature 43986 Regulation Device Serial/Unit Number Temperature Upper body Regulation Site Temperature Device 43 C Setting Temperature LATOYA JONES CRNA Regulation Device Applied by Last Modified By: Mandeep Dan RN 11/07/20 12:43:45 [facility] IntraOp Temp Regulation Devices Audit 11/07/20 12:43:45 Icu Manager: [email or web address] Modifier: [email or web address] 1 <*> Temperature Regulation Device [id number] Serial/Unit Number [facility] IntraOP Time Out Entry 1 Procedure to [...] Modified By: Mandeep Dan RN 11/07/20 12:34:04 [facility] IntraOp X-Ray and Images Entry 1 X-Ray/Imaging Type Fluoroscopy Fluoroscopy Type C-Arm Site BACK Stripper Preliminary Name KATTY RICHARDSON Protective Devices Yes Used Last Modified By: Mandeep Dan RN 11/07/20 12:38:00 Case Comments <None> Finalized By: CHAZ GALLEGOS Document Signatures Signed By: Mandeep Dan RN 11/07/20 13:39 CHAZ GALLEGOS 11/09/20 10:30 Unfinalized History Date/Time Username Reason for Unfinalizing Freetext Reason for Unfinalizing 11/09/20 10:29 [email or web address] Correct Billing documented in this encounter Plan of Treatment Not on file documented as of this encounter Visit Diagnoses Not on filedocumented in this encounter
--- OUTSIDE RECORDS SUMMARY | 2025-04-04 15:52 | XMS_ITS | Referral Summary ---
Author Organization [employer] ([place], [place], [place], [place]) Address [address] [place] [address] Care Team Providers Care Hemotherapist Name Role Phone Unavailable Primary Care Provider [...]
--- OUTSIDE RECORDS SUMMARY | 2025-04-04 15:52 | XMS_ITS | Encounter Summary ---
Author Organization [employer] ([place], [place], [place], [place]) Address [address] [place] [address] Care Team Providers Care Rn Wellness Name Role Phone Unavailable Primary Care Provider Unavailabl e Encounter Details Date Type Department Care Team (Late st Contact Info) Description 11/07/2020 Transcribed Document [facility] [place] [address] [place] [address] Provider, MD Theresa [address] [place] [address] Social History Tobacco Use Types Packs/Day [...] - Theresa ProviderMD - 11/07/2020 12:32 PM WIRE BOUND BOX MACHINE OPERATOR [facility] Main OR PACU Summary Primary Physician: ALICIA HUANG MD Finalized Date/Time: 11/07/20 15:13:23 Pt. Name: GABRIEL DIAS/Sex: 1970 Male Med Rec #: [id number] Physician: ALICIA HUANG MD Financial #: [id number] Pt. Type: O Room/Bed: /16 Admit/Disch: 11/07/20 08:47:00 - Institution: [facility] Main OR PACU I Case Times Entry 1 In PACU I 11/07/20 13:40:00 Ready for PACU 11/07/20 14:30:00 Discharge Discharge from PACU 11/07/20 14:30:00 I Last Modified By: SKYLER ZELAYA RN 11/07/20 15:12:10 Finalized By: SKYLER ZELAYA, RN Document Signatures Signed By: SKYLER ZELAYA RN 11/07/20 15:13 Electronically signed by Jie [facility] Conversion Towel Stretcher Cerner at 01/14/2023 10:22 PM CDT documented in this encounter Plan of Treatment Not on file documented as of this encounter Visit Diagnoses Not on filedocumented in this encounter
[2025-04-04 17:10] LABS: Free T4 (Free Thyroxine) 0.77 ng/dl (0.78-2.19)
[2025-04-04 17:24] LABS: Thyroid Stimulating Hormone 3.78 uIU/mL (0.465-4.68)
== END 2025-04-04 23:59 | disposition home or self-care (01) ==
LOC: LAB 15:49
PROVIDERS: PCP Internal Medicine Adolescent Medicine; Visit Provider Nurse Practitioner
DX: E04.1 Nontoxic single thyroid nodule (principal)
CPT/HCPCS: 36415; 84439; 84443

== ENCOUNTER 2025-04-05 13:39 | Outpatient (CLI) | payer BC, SELFPAY ==
--- OUTSIDE RECORDS SUMMARY | 2015-12-12 05:52 | XMS_ITS | Continuity of Care Document ---
Author Organization [facility] o Address [address] [place] [address] Phone Care Team Providers Care Certified Novell Administrator Name Role Phone Fitz Benito MD Unavailable [...] Provider Providers Copied on Encounter [facility] [place], [address] [place] [address] [place], [address], tel:[phone] No Information 6 Jigna Byrnes. [address] [place], [place], [id number] . tel:[phone] Referring Provider: Fitz Jigna A, [address], [facility] [place], [address] . tel:[phone] [facility] [place], [address], [place], [facility], [place] tel:[phone] [facility] No Information 6 Monie Rocio. [address] [place] [address], [place], [address], [place]. tel:[phone] [facility] [place], [address], [place], [address], [place] tel:[phone] [facility] No Information 6 Jigna Fitz. [address], [place], [place], [address] . tel:[phone] [facility] [place], [address], [place], [facility], [place] tel:[phone] No Information 6 Jigna Fitz. [address], [place], [place], [id number] . tel:[phone] Referring Provider: Fitz Mccabe, [address], [place], [address] . tel:[phone] [facility] [place], [facility] [address], [place], [facility], [place] tel:[phone] 00 [facility] No Information 6 Jigna Fitz. [address], [facility] [place], [address] . tel:[phone] [facility] [place], [address], [place], [address], [place] tel:[phone] [facility] No Information 6 Jigna Fitz. [address], [place], [place], [address] . tel:[phone] Office/outpat ient visit,est, mod [facility] [place], [facility] [address], [place], [facility], [place] tel:[phone] [facility] No Information 6 Jigna Fitz. [address] [facility] [place], [address] . tel:[phone] Office/outpat ient visit,est, low [facility] [place], [address] [facility] [place], [address], tel:[phone] [facility] Pain in left knee 6 Jigna Fitz. [address] [place], [address] . tel:[phone] Office/outpat ient visit,[facility] [place], [address] [facility] [place], [address], tel:[phone] [facility] knee (chief complaint) Pain in left knee 5 Jigna Fitz. [address] [facility] [place], [address] . tel:[phone] Family History Family Member Type Diagnosis Age At Onset No Information Payers Payer name Insurance type Covered libertarian ID Authorwagnera beverley(s) [facility] [facility] [id number] Social History Type Description Quantity Date Captured [...]
--- OUTSIDE RECORDS SUMMARY | 2025-01-01 17:30 | XMS_ITS ---
Author Organization [facility] Address [address] [facility] [address] [facility] [address] [place] [address] Care Team Providers Care Senior Benefits Analyst Name Role Phone Aneesh Hernandez Primary Care Provider [phone] Janette France [phone] Aneesh Hernandez Unavailable Unavailable Migration, Provider Unavailable Unavailable REASON FOR VISIT [facility] To [facility] Conversion Encounter Medications Medication SIG (Take, [...] Encounters Encounter Location Date Provider Diagnosis Sai AGUERO [facility] [address] [facility] [address] [place], [place] [address] 01/01/2025 Provider Migration Depression with anxiety F41.8 [...] drug interaction check* Progress Notes * Bethany DIASDOB:1970 ( 54 yo M)Acc No.[id number]:01/01/2025 Patient: Bethany CALLAWAY Provider: Abel Madrid :1970 A ge:54 Y S ex:Male Date:01/01/2025 Address:[address] [place] [address] [place] [facility], [id number] Pcp:Aneesh Hernandez Subjective: * Chief Complaints: * [...] Electronic signature of Prov ider Migration on 04/05/2025 at 01:46 PM EDT Sign off status: Pending * Provider: Abel Madrid Date: 0 01/01/2025 Generated for Priti giron/Miguel Angel/Mounika on: 0 04/05/2025 01:46 PM EDT
--- OUTSIDE RECORDS SUMMARY | 2025-04-05 13:46 | XMS_ITS | Encounter Summary ---
Author Organization [employer] ([place], [place], [place], [place]) Address [address] [place] [address] Care Team Providers Care Bottled Beverage Inspector Name Role Phone Unavailable Primary Care Provider Unavailabl e Encounter Details Date Type Department Care Team (Late st Contact Info) Description 11/08/2020 Transcribed Document [facility] [place] Medicine [facility] [place] [address] ProviderTheresa MD [address] [place] [id number] Social History Tobacco Use Types Packs/Day Years [...] Theresa Tomlin MD - 11/08/2020 12:49 PM METAL BURNISHER Patient: GABRIEL TOMAS Age: 50 years Sex: Male : 1970 Associated Diagnoses: None Author: KEYUR HUANG MD DATE OF PROCEDURE: 11/07/2020 NEUROSURGERY OPERATIVE REPORT SURGEON: Keyur Huang MD COOK PIE: Carmelo Forman PA-C. Scrubbed and present assisting [...] seen at the request of Dr. Phani Mosqeuda. Severe right leg pain, S1 radicular pattern. When I initially saw him in the office, the CD was not available to me, but the report indicated a significant disk protrusion on the right L5-S1 causing recess stenosis. The patient has undergone injections and other conservative measures without benefit. The MRI was reviewed and it was performed at [facility]. This showed a right L5-S1 disk [...]
--- OUTSIDE RECORDS SUMMARY | 2025-04-05 13:46 | XMS_ITS | Encounter Summary ---
Author Organization [employer] ([place], [place], [place], [place]) Address [address] [place] [address] Care Team Providers Care Correction Officer Penitentiary Name Role Phone Unavailable Primary Care Provider Unavailabl e Encounter Details Date Type Department Care Team (Late st Contact Info) Description 11/07/2020 Transcribed Document [facility] [place] Medicine [facility] [place] [address] ProviderTheresa MD [address] [place] [address] [phone] Social History Tobacco Use Types Packs/Day Years [...] Theresa Tomlin MD - 11/07/2020 2:49 PM CLOTHING EXAMINER Patient Education Materials Follows: Microdiskectomy, Care After [...] these instructions at home: Medicines ??? Take kykc-gsi-gapekrg and prescription medicines only as told by your doctor. ??? Ask your doctor if the medicine prescribed to you: ? Requires you to avoid driving or using heavy machinery. ? Can cause trouble pooping (constipation). You may need to take these actions to prevent or treat trouble pooping: ? Drink enough fluid to keep your pee (urine) pale yellow. ? Take hzdq-qcq-zugpgel or prescription medicines. ? Eat foods that [...] cannot use soap and water, use hand stripper shovel operator. ? Change your bandage as told by [...] around your cut from surgery. ??? Take ztyq-tvh-eitprbl and prescription medicines only as told by [...] Reviewed: 10/26/2019 Elsevier Patient Education ? 2020 [employer] documented in this encounter Plan of Treatment Not on file documented as of this encounter Visit Diagnoses Not on filedocumented in this encounter
--- OUTSIDE RECORDS SUMMARY | 2025-04-05 13:46 | XMS_ITS | Encounter Summary ---
Author Organization [employer] ([place], [place], [place], [place]) Address [address] [place] [address] Care Team Providers Care Gunner'S Mate G Name Role Phone Unavailable Primary Care Provider Unavailabl e Encounter Details Date Type Department Care Team (Late st Contact Info) Description 11/07/2020 Transcribed Document [facility] Family Medicine [facility] [place] [address] ProviderTheresa MD [facility] [place], [place] [address] Social History Tobacco Use Types Packs/Day Years [...] - Historical ProviderMD - 11/07/2020 11:27 AM PHOTOGRAPHIC DEVELOPER AND PRINTER Event Note Entered On: 11/07/2020 11:27 EST Performed On: 11/07/2020 11:27 EST by CANDE VILCHIS Event Note Event Date/Time : 11/07/2020 11:27 EST Event Location : [place] area Event Details : Other: Description of Event : 1127: [place]WARE WBC 13.1 CANDE VILCHIS - 11/07/2020 11:27 EST Electronically signed by Jie [facility] Conversion Facility Service Manager Cerner at 01/14/2023 10:22 PM CDT documented in this encounter Plan of Treatment Not on file documented as of this encounter Visit Diagnoses Not on filedocumented in this encounter
--- OUTSIDE RECORDS SUMMARY | 2025-04-05 13:46 | XMS_ITS | Encounter Summary ---
Author Organization [employer] ([place]) Address [address] [place] [address] Care Team Providers Care Software Design Engineer Name Role Phone Unavailable Primary Care Provider Unavailabl e Encounter Details Date Type Department Care Team (Late st Contact Info) Description 11/06/2020 Transcribed Document [facility] [place] Family Medicine [facility] [place] [address] ProviderTheresa MD [facility] [place] [address] Social History Tobacco Use Types [...] - Historical ProviderMD - 11/06/2020 2:45 PM FIREPROOF DOOR MAKER PAT Adult Entered On: 11/06/2020 14:49 EST [...] (HI) ELI VILCHISKIE - 11/07/2020 9:00 EST [place] Body Weight : 67 kg DENG CANDE - 11/07/2020 8:48 EST Height Source : Measured Height Entry Format : [place] Weight Source : Standing scale Weight Entry Format : [place] VILCHIS CANDE - 11/07/2020 8:20 EST Health Histories Smoking Status : 10 or more cigarettes (1/2 pack or more)/day in last 30 days Smokeless Tobacco Status : Never Desires Tobacco Cessation Medication : No Reason for No Tobacco Cessation Medication : Refuses FDA approved medications Implant/Device Type, Team Assembly Line Machine Operator and Model : Alfredo Jones Rn - [...] Where was the COVID-19 Testing completed? : [facility] Date of COVID-19 test known? : Yes [...] Alfredo Neumann Rn - 11/06/2020 14:45 EST [place] Suicide Severity Rating Scale (C-SSRS) CSSRS Past [...] Ambulatory Legal Guardian : Other: Support Person/Patient Product Development Intern : Yes Support Person/Pt Rep Name : Sharon Corcoran - girlfriend Support Person/Pt Rep Contact Information : [phone] Want Family/Rep/Phys Notified of Admit : No Emergency Contact #1 : ` Emergency Contact #1 Phone Number : ` Emergency Contact #1 Relationship : ` Emergency Contact #2 : ` Emergency Contact #2 Phone Number : ` Emergency Contact #2 Relationship : ` Information Obtained From : Patient Primary Language : Malagasy Communication Barrier : None Negative Turner Needed : No Alfredo Neumann Rn - [...]
--- OUTSIDE RECORDS SUMMARY | 2025-04-05 13:46 | XMS_ITS | Encounter Summary ---
Author Organization [employer] ([place], [place], [place], [place]) Address [address] [place] [address] Care Team Providers Care Satellite Installation Technician Name Role Phone Unavailable Primary Care Provider Unavailabl e Encounter Details Date Type Department Care Team (Late st Contact Info) Description 11/07/2020 Transcribed Document [facility] Family Medicine [address] [place] [address] Provider, MD Theresa [address] [place] [address] Social History Tobacco Use Types Packs/Day [...] - Theresa ProviderMD - 11/07/2020 11:00 AM GRINDING WHEEL FACER [facility] Main OR Preop Summary Primary Physician: ALICIA HUANG MD Finalized Date/Time: 11/07/20 12:25:58 Pt. Name: THOMGABRIEL/Sex: 1970 Male Med Rec #: [id number] Physician: ALICIA HUANG MD Financial #: [id number] Pt. Type: O Room/Bed: Admit/Disch: 11/07/20 08:47:00 - Institution: [facility] PreOp Case Times Entry 1 In Preop 11/07/20 08:25:00 Ready for Holding n/a Room Patient Ready for 11/07/20 09:34:00 Surgery Patient Out of Preop 11/07/20 12:02:00 Patient Out of n/a Holding Room Last Modified By: CANDE VILCHIS 11/07/20 12:25:56 [facility] PreOp Case Times Audit 11/07/20 12:25:56 Child Care Sitter: ESTEVAN Modifier: ESTEVAN <+> 1 Patient Out of Preop Finalized By: CANDE VILCHIS Document Signatures Signed By: CANDE VILCHIS 11/07/20 12:25 documented in this encounter Plan of Treatment Not on file documented as of this encounter Visit Diagnoses Not on filedocumented in this encounter
--- OUTSIDE RECORDS SUMMARY | 2025-04-05 13:46 | XMS_ITS | Encounter Summary ---
Author Organization [employer] ([place], [place], [place], [place]) Address [address] [place] [address] Care Team Providers Care Head Athletic Trainer/Strength Coach Name Role Phone Unavailable Primary Care Provider Unavailabl e Encounter Details Date Type Department Care Team (Late st Contact Info) Description 11/07/2020 Transcribed Document [facility] [place] [facility] [place] [address] ProviderTheresa MD formerly [facility] [place] [address] Social History Tobacco Use Types [...] Theresa Tomlin MD - 11/07/2020 2:49 PM HIGH SCHOOL SCIENCE TEACHER [facility] [place] [address] LARISSARAPHAEL URBINANY :1970 Visit Time:11/07/2020 What to do next [...] December 08 at 9:45 am Where: [address] [place] [address]- Medications What How Much When Instructions Next [...] these instructions at home: Medicines ??? Take zfgj-pze-qcrxcuv and prescription medicines only as told by your doctor. ??? Ask your doctor if the medicine prescribed to you: ? Requires you to avoid driving or using heavy machinery. ? Can cause trouble pooping (constipation). You may need to take these actions to prevent or treat trouble pooping: ? Drink enough fluid to keep your pee (urine) pale yellow. ? Take sbhe-imh-gjtimzc or prescription medicines. ? Eat foods that [...] cannot use soap and water, use hand nutrition club ambassador. ? Change your bandage as told by [...] around your cut from surgery. ??? Take phzc-sha-qvprcai and prescription medicines only as told by [...] Reviewed: 10/26/2019 Elsevier Patient Education ?? 2020 [employer] Emergency Awareness and Preventative Care STROKE [...] Assistance with quitting is available by contacting 5-487-ZFFH-NOW. This is a free resource providing counseling, support, and referral. Or you may contact your personal physician. [employer] Suicide Prevention Lifeline: The National Suicide Prevention [...] range between ( 0.0 and 7.0 ) [place] #: 1.01 K/uL -- Normal range between ( 0.16 and 1.00 ) Eos #: 0.26 x10(3)/uL -- Normal range between ( 0.00 and 0.80 ) [place]air %: 7.7 % -- Normal range between [...] ) Urine Bilirubin Dipstick: Negative Urine Specific [place]: 1.023 -- Normal range between ( 1.005 [...] was given the opportunity to ask questions. Patient/Cost Analyst Name: Patient/Cost Analyst Signature: Relationship to Patient: Clinician/Hospital Cost Analyst Signature: Date: documented in this encounter Plan of Treatment Not on file documented as of this encounter Visit Diagnoses Not on filedocumented in this encounter
--- OUTSIDE RECORDS SUMMARY | 2025-04-05 13:47 | XMS_ITS | Encounter Summary ---
Author Organization [employer] ([place], [place], [place], [place]) Address [address] [place] [address] Care Team Providers Care Buffing Wheel Former Automatic Name Role Phone Unavailable Primary Care Provider Unavailabl e Encounter Details Date Type Department Care Team (Late st Contact Info) Description 11/07/2020 Transcribed Document [facility] [place] Family Medicine [address] [place] [address] ProviderTheresa MD [address] [place] [address] Social History Tobacco Use Types Packs/Day [...] - Theresa ProviderMD - 11/07/2020 12:32 PM CHARGE MACHINE OPERATOR [facility] Main OR IntraOp Summary Primary Physician: ALICIA HUANG MD Finalized Date/Time: 11/09/20 10:30:39 Pt. Name: THOM BETHANYGA DossB./Sex: 1970 Male Med Rec #: [id number] Physician: ALICIA HUANG MD Financial #: [id number] Pt. Type: O Room/Bed: Admit/Disch: 11/07/20 08:47:00 - 11/07/20 15:30:00 Institution: [facility] IntraOp Case Attendance Entry 1 Entry 2 Entry 3 Case Attendee ALICIA HUANG MD WASSON, SANDRA D, RN Mandeep Dan, RN Role Performed Surgeon/Proceduralist, Pyrotechnic Assembler, First Pyrotechnic Assembler, Second First Time In 11/07/20 12:05:00 11/07/20 [...] JANY RUB MartellCatarina pineda, Rn KIMBERLY VILLANUEVA, DC RUB TECH TECH Role Performed Scrub, First Pyrotechnic Assembler, First Scrub, First Time In 11/07/20 12:05:00 11/07/20 12:05:00 11/07/20 12:05:00 Time Out 11/07/20 13:39:00 11/07/20 13:39:00 11/07/20 13:39:00 Procedure Discectomy Minimally Discectomy Minimally Discectomy Minimally Invasive(Right) Invasive(Right) Invasive(Right) Other Attendee [facility] Superficial Wound Closed By: Last Modified By: Mandeep Dan, Mandeep Briones, Mandeep Briones, BRITT 11/07/20 13:39:12 11/07/20 13:39:12 11/07/20 13:39:12 Entry 7 Entry 8 Entry 9 Case Attendee LENO MADSEN PA CALDWELL, JOSEPH A, BEBA ARAUJO MD-ANS Role Performed Physician assistant therapy aide GUILLOTINE TRIMMER/Nurse Quality Coordinator Anesthesiologist of Record Time In 11/07/20 12:05:00 [...] KATTY RICHARDSON CHRISTINA M, RN Role Performed Real Estate Closer Pyrotechnic Assembler, Second Time In 11/07/20 12:05:00 11/07/20 13:20:00 Time Out 11/07/20 13:39:00 11/07/20 13:30:00 Procedure Discectomy Minimally Discectomy Minimally Invasive(Right) Invasive(Right) Other Attendee Superficial Wound Closed By: Last Modified By: Mandeep Dan RN Byrd, Charlie D, RN 11/07/20 13:39:12 11/07/20 13:39:12 [facility] IntraOp Case Attendance Audit 11/07/20 13:39:12 Supervisor Acoustical Tile Carpenters: [email or web address] Modifier: [email or web address] 1 <+> Time Out [...] <*> Procedure Discectomy Minimally Invasive(Right) 11/07/20 13:26:35 Supervisor Acoustical Tile Carpenters: [email or web address] Modifier: [email or web address] 1 <*> Procedure Discectomy [...] Time Out <+> 11 Procedure 11/07/20 12:37:50 Supervisor Acoustical Tile Carpenters: [email or web address] Modifier: [email or web address] <+> 10 Case Attendee <+> 10 Role Performed <+> 10 Procedure 11/07/20 12:34:25 Supervisor Acoustical Tile Carpenters: WASSONSY Modifier: [email or web address] 4 <*> Case Attendee NGUYEN RUSSELL, MORNING SHOW NEWSCAST PRODUCER 4 <*> Procedure Discectomy Minimally Invasive(Right) 11/07/20 12:07:26 Supervisor Acoustical Tile Carpenters: [email or web address] Modifier: WASSONSY 1 <+> Time In [...] In 9 <*> Procedure Discectomy Minimally Invasive(Right) [facility] IntraOp Case Times Entry 1 Patient In Room Time 11/07/20 12:05:00 Out Room Time 11/07/20 13:39:00 Anesthesia Start Time 11/07/20 12:05:00 Stop Time 11/07/20 13:39:00 Surgery / Procedure Times Start Time 11/07/20 12:32:00 Stop Time 11/07/20 13:32:00 Last Modified By: Mandeep Dan RN 11/07/20 13:39:09 [facility] IntraOp Case Times Audit 11/07/20 13:39:09 Supervisor Acoustical Tile Carpenters: [email or web address] Modifier: [email or web address] <+> 1 Out Room Time <+> 1 Stop Time 11/07/20 13:36:37 Supervisor Acoustical Tile Carpenters: [email or web address] Modifier: [email or web address] <+> 1 Stop Time 11/07/20 12:33:35 Supervisor Acoustical Tile Carpenters: WASSONSY Modifier: [email or web address] <+> 1 Start Time [facility] IntraOp Cautery Entry 1 Entry 2 ESU Identification Cautery Type Monopolar ESU BiPolar ESU Cautery Type Comments ID Number [id number] ID Type Hospital Number Hospital Number Cautery [...] Charlie D, RN 11/07/20 12:46:29 11/07/20 12:46:29 [facility] IntraOp Communication Entry 1 Entry 2 Communication To Family/Significant other Family/Significant other Comment START - NO ANSWER UPDATE Communication By Catarina Martell Rn BRADY, CHRISTINA M, RN Date and Time 11/07/20 12:38:00 11/07/20 13:26:00 Last Modified By: Mandeep Dan RN Byrd, Charlie D, RN 11/07/20 12:38:36 11/07/20 13:26:59 [facility] IntraOp Communication Audit 11/07/20 13:26:59 Supervisor Acoustical Tile Carpenters: [email or web address] Modifier: [email or web address] <+> 2 Communication By <+> 2 Date and Time <+> 2 Communication To <+> 2 Comment [facility] IntraOp Counts Verification Entry 1 Procedure Discectomy Minimally Invasive(Right) Count Info Count Type Sponge, Sharps, Miscellaneous Counts Verification Baseline/pre-procedure Sequence Count Results Not Applicable Counts Performed By Count Performed By KIMBERLY VILLANUEVA SC RUB (Scrub) TECH Count Performed By Catairna Martell Rn (RN) Last Modified By: Mandeep Dan RN 11/07/20 12:34:45 [facility] IntraOp Counts Final Entry 1 Procedure Discectomy Minimally Invasive(Right) Final Count Info Count Type Sponge, Sharps Counts Verification Skin Closure/end of Sequence procedure Count Results Correct, surgeon notified Counts Performed By Count Performed By KIMBERLY VILLANUEVA SC RUB (Scrub) TECH Count Performed By ELEANOR BERNARD RN (RN) Last Modified By: Mandeep Dan RN 11/07/20 13:30:03 [facility] IntraOp Departure from OR Entry 1 Integumentary Assessment Integumentary WDL Assessment WDL Transfer/Handoff Transfer to PACU Phase I Handoff Method Bedside/Face to face, Phone call Post-op Transport Stretcher/Gurney Via Patient Transport LENO MADSEN PA, Accompanied by LATOYA JONES CRNA Last Modified By: Mandeep Dan RN 11/07/20 12:39:28 [facility] IntraOp Departure from OR Audit 11/07/20 12:39:28 Supervisor Acoustical Tile Carpenters: [email or web address] Modifier: [email or web address] 1 <*> Post-op Transport Via Bed (including specialty) 1 <+> Patient Transport Accompanied by 1 <*> Handoff Method Phone call [facility] IntraOp Dressing and Packing Entry 1 Type Dressing Location opsite Wound Dressing Item Other, Occlusive dressing Applied By LENO MADSEN PA Other Comments MASTISOL, STERISTRIPS, COVADERM Last Modified By: Mandeep Dan RN 11/07/20 12:47:10 [facility] IntraOp Fire Risk Assessment Entry 1 Fire Info Surgical Site or 0- No Incision Above the Xyphoid Open O2 Source 0- No (Mask or Cannula) Available Ignition 1- Yes (ESU, Laser, Light Source) Fire Risk 1 Assessment Score Fire Score Fire Risk Yes Assessment Complete Fire Risk KARAN HAN, retail coverage merchandiser Verified By Fire Risk 11/07/20 12:04:00 Assessment Verified Date/Time Fire Risk Standard Fire Yes Safety Precautions Followed Last Modified By: Mandeep Dan RN 11/07/20 12:39:37 [facility] IntraOp General Case Catalytic Converter Operator 1 Case Information OR OR 10 [facility] Case Level 1 Room Verified Yes Wound Class I - Clean Specialty SN Neurosurgery Anesthesia Type General ASA Class 2 Diagnosis Preop Diagnosis LUMBAR DISC PROLAPSE WITH RADICULOPATHY Postop Same As Preop No Postop Diagnosis SEE MD POST OP NOTE Last Modified By: Mandeep Dan RN 11/07/20 12:42:33 [facility] IntraOp Intraoperative Assessment Entry 1 Handoff [...] Modified By: Mandeep Dan RN 11/07/20 12:42:40 [facility] IntraOp Intraoperative Equipment Entry 1 Type Equipment Equipment Equipment Pretty Suction System ID Number [id number] Setting 180 MM HG Intraop Monitoring Electrocardiogram Five lead placement (ECG) Electrode Placement Blood Pressure Non-Invasive BP Device Source Blood Pressure Arm, right upper Location Pulse Oximeter Hand, left Probe Site Antiembolic Devices Antiembolic Devices Sequential compression device, knee high Antiembolic Device Bilateral Location Antiembolic Device [id number] ID Number Scopes Photo/Video Documentation Photo No Video No Last Modified By: Mandeep Dan RN 11/07/20 12:43:31 [facility] IntraOp Medication Admin Entry 1 Entry 2 Entry 3 Medication/Irrigant lidocaine 1% w/ Bacitracin 50,00units Marcaine 0.25% 30ml epinephrine 1:100,000 powder vial vial - [id number] 30ml vial - [id number] Combo Med List Time Administered Route of LOCAL ADDED TO NS IRRIGATION LOCAL Administration Dose Dose 4 10196 30 Unit of Measure ml units ml Volume Administered By ALICIA HUANG MD PHILLIPS, GABRIEL, MD PHILLIPS, GABRIEL, MD Procedure Irrigation Irrigant Volume In Irrigant Volume Out Last Modified By: Mandeep Dan RN Byrd, Charlie D, RN Byrd, Charlie D, RN 11/07/20 12:45:58 11/07/20 12:45:58 11/07/20 12:45:58 Entry 4 Entry 5 Medication/Irrigant thrombin 5000units SPNG SURGFOAM topical powder - [id number] Combo Med List Time Administered Route of TOPICAL TOPICAL Administration Dose Dose 5000 1 Unit of Measure units pkt Volume Administered By ALICIA HUANG MD PHILLIPS, GABRIEL, MD Procedure Irrigation Irrigant Volume In Irrigant Volume Out Last Modified By: Mandeep Dan RN Byrd, Charlie D, RN 11/07/20 12:45:58 11/07/20 12:45:58 [facility] IntraOp Medication Admin Audit 11/07/20 12:45:58 Supervisor Acoustical Tile Carpenters: AGATA Modifier: AGATA <+> 1 Administered By [...] 5 Dose <+> 5 Unit of Measure [facility] IntraOp Patient Positioning Entry 1 Procedure [...] Modified By: Mandeep Dan RN 11/07/20 12:45:07 [facility] IntraOp Sign In Entry 1 Patient, [...] Modified By: KARAN HAN RN 11/07/20 12:07:14 [facility] IntraOp Sign Out Entry 1 RN [...] Modified By: Mandeep Dan RN 11/07/20 13:39:37 [facility] IntraOp Sign Out Audit 11/07/20 13:39:37 Supervisor Acoustical Tile Carpenters: [email or web address] Modifier: [email or web address] <+> 1 OUTCOME STATEMENT: Absence of signs and symptoms of injury related to extraneous objects 11/07/20 13:39:23 Supervisor Acoustical Tile Carpenters: [email or web address] Modifier: [email or web address] <+> 1 RN Sign Out Signature Date/Time [facility] IntraOp Skin Prep Entry 1 Entry [...] Charlie D, RN 11/07/20 12:38:23 11/07/20 12:38:23 [facility] IntraOp Surgical Procedures Entry 1 Procedure Discectomy Minimally Invasive Modifiers Right Additional (RT L5-S1 MIS Procedure MICRODISECTOMY) Description Primary Procedure Yes Primary Surgeon ALICIA HUANG MD Start 11/07/20 12:32:00 Stop 11/07/20 13:32:00 Anesthesia Type General Specialty SN Neurosurgery Wound Class I - Clean Last Modified By: Mandeep Dan RN 11/07/20 13:36:45 [facility] IntraOp Surgical Procedures Audit 11/07/20 13:36:45 Supervisor Acoustical Tile Carpenters: [email or web address] Modifier: [email or web address] <+> 1 Stop [facility] IntraOp Temp Regulation Devices Entry 1 Temp Regulation Temperature Warm blankets, Forced Regulation Device Air Warming device Temperature 14929 Regulation Device Serial/Unit Number Temperature Upper body Regulation Site Temperature Device 43 C Setting Temperature LATOYA JONES CRNA Regulation Device Applied by Last Modified By: Mandeep Dan RN 11/07/20 12:43:45 [facility] IntraOp Temp Regulation Devices Audit 11/07/20 12:43:45 Supervisor Acoustical Tile Carpenters: [email or web address] Modifier: [email or web address] 1 <*> Temperature Regulation Device 95953 Serial/Unit Number [facility] IntraOP Time Out Entry 1 Procedure [...] Progress Within the Last 60 Minutes Beta Jonatahn N/A Administered Venous Yes Thromboembolism Prophylaxis Required Anticipated Critical Events Surgeon None expected Anesthesia Provider None expected Nursing Assures Sterility of instruments, Equipment concerns or issues, Implant Availability Essential Imaging Yes Labeled and Displayed Last Modified By: Mandeep Dan RN 11/07/20 12:34:04 [facility] IntraOp X-Ray and Images Entry 1 X-Ray/Imaging Type Fluoroscopy Fluoroscopy Type C-Arm Site BACK Concrete Products Dispatcher Name KATTY RICHARDSON Protective Devices Yes Used [...]
--- OUTSIDE RECORDS SUMMARY | 2025-04-05 13:47 | XMS_ITS | Referral Summary ---
Author Organization [employer] ([place], [place], [place], [place]) Address [address] [place] [address] Care Team Providers Care Boiler Out Name Role Phone Unavailable Primary Care Provider [...]
--- OUTSIDE RECORDS SUMMARY | 2025-04-05 13:47 | XMS_ITS | Encounter Summary ---
Author Organization [employer] ([place], [place], [place], [place]) Address [address] [place] [address] Care Team Providers Care Weapons Electrical Engineering Officer Name Role Phone Unavailable Primary Care Provider Unavailabl e Encounter Details Date Type Department Care Team (Late st Contact Info) Description 11/07/2020 Transcribed Document [facility] [place] Medicine [address] [place] [address] Provider, MD Theresa [address] [place] [address] Social History Tobacco Use Types Packs/Day [...] - Theresa ProviderMD - 11/07/2020 12:32 PM CROSSING WATCHMAN [facility] Main OR PostOp Summary Primary Physician: ALICIA HUANG MD Finalized Date/Time: 11/07/20 15:40:00 Pt. Name: THOMGABRIEL/Sex: 1970 Male Med Rec #: [id number] Physician: ALICIA HUANG MD Financial #: [id number] Pt. Type: O Room/Bed: / Admit/Disch: 11/07/20 08:47:00 - Institution: [facility] Main OR PostOp Case Times Entry 1 In PACU II 11/07/20 14:38:00 Ready for PACU II 11/07/20 15:30:00 Discharge Discharge from PACU 11/07/20 15:30:00 II Last Modified By: Janette Lopez Rn 11/07/20 15:31:06 Finalized By: Janette Lopez, Rn Document Signatures Signed By: Janette Lopez Rn 11/07/20 15:40 Electronically signed by Jie [facility] Conversion Histology Tech Cerner at 01/14/2023 10:20 PM CDT documented in this encounter Plan of Treatment Not on file documented as of this encounter Visit Diagnoses Not on filedocumented in this encounter
--- OUTSIDE RECORDS SUMMARY | 2025-04-05 13:47 | XMS_ITS | Encounter Summary ---
Author Organization [employer] ([place], [place], [place], [place]) Address [address] [place] [address] Care Team Providers Care Photostat Operator Helper Name Role Phone Unavailable Primary Care Provider Unavailabl e Encounter Details Date Type Department Care Team (Late st Contact Info) Description 11/07/2020 Transcribed Document [facility] [place] Family Medicine [address] [place] [address] Provider, MD Theresa [address] [place] [address] Social History Tobacco Use Types Packs/Day [...] - Theresa ProviderMD - 11/07/2020 12:32 PM WORKFORCE MANAGEMENT COORDINATOR [facility] Main OR PACU Summary Primary Physician: ALICIA HUANG MD Finalized Date/Time: 11/07/20 15:13:23 Pt. Name: THOMGABRIEL/Sex: 1970 Male Med Rec #: [id number] Physician: ALICIA HUANG MD Financial #: [id number] Pt. Type: O Room/Bed: /16 Admit/Disch: 11/07/20 08:47:00 - Institution: [facility] Main OR PACU I Case Times Entry 1 In PACU I 11/07/20 13:40:00 Ready for PACU 11/07/20 14:30:00 Discharge Discharge from PACU 11/07/20 14:30:00 I Last Modified By: SKYLER ZELAYA RN 11/07/20 15:12:10 Finalized By: SKYLER ZELAYA, RN Document Signatures Signed By: SKYLER ZELAYA RN 11/07/20 15:13 Electronically signed by Jie [facility] Conversion Grocery Clerk Marking Cerner at 01/14/2023 10:22 PM CDT documented in this encounter Plan of Treatment Not on file documented as of this encounter Visit Diagnoses Not on filedocumented in this encounter
--- OUTSIDE RECORDS SUMMARY | 2025-04-05 13:47 | XMS_ITS | Encounter Summary ---
Author Organization [employer] ([place], [place], [place], [place]) Address [address] [place] [address] Care Team Providers Care Tower Equipment Repairer Name Role Phone Unavailable Primary Care Provider Unavailabl e Encounter Details Date Type Department Care Team (Late st Contact Info) Description 11/07/2020 Transcribed Document [facility] [place] Family Medicine [facility] [address] [facility] [place] [address] Social History Tobacco Use Types [...] Theresa Tomlin MD - 11/07/2020 8:57 AM MOVEMENT THERAPIST Patient: GABRIEL TOMAS Age: 50 years Sex: [...] list: All Problems Sciatica / SNOMED CT 31201911 / Confirmed Peripheral neuropathy / SNOMED CT 8925636983 / Confirmed High blood pressure / SNOMED CT 53975660 / Confirmed Back pain / SNOMED CT 5695203271 / Confirmed, Active Problems (4) Back pain wtih RLE radiculopathy High blood pressure Peripheral neuropathy Sciatica Histories Past Medical History: No active or resolved past medical history items have been selected or recorded. Family History: No family history items have been selected or recorded. Procedure history: Cholecystectomy ([id number]). rotator cuff surgery - right. left knee [...] EST Height Source Measured Height Entry Format [place] Height/Length, AMERICAN (ft) 5 ft Height/Length AMERICAN 8 Inch CLINICALHEIGHT 172.72 cm [employer] Body Weight 67 kg Weight Source Standing scale Weight Entry Format [place] Weight [place] lb 277 lb CLINICALWEIGHT 125.91 kg Body [...] ROM back, RLE weakness. Integumentary: Warm, Dry, [place]. Neurologic: Alert, Oriented. Psychiatric: Cooperative, Appropriate mood & affect. Review / Management Results review: No qualifying data available. Impression and Plan Condition: Stable. documented in this encounter Plan of Treatment Not on file documented as of this encounter Visit Diagnoses Not on filedocumented in this encounter
--- OUTSIDE RECORDS SUMMARY | 2025-04-05 13:47 | XMS_ITS | Patient Health Record ---
Author Organization [facility] PE D GINGER Address [address] [place] [address] Care Team Providers Care Engineering Secretary Name Role Phone Aneesh Hernandez Primary Care Provider [phone] Janette France Unavailable [phone] Aneesh Hernandez Unavailable Unavailable Leigh Regalado Unavailable [phone] Janette Davila Unavailable [phone] Migration, Provider Unavailable Unavailable Allergies No Known Allergies Reason For Referral Reason Dr. Willie Weiss [facility] Diagnosis 1 TEO (obstructive sle ep apnea) (G47.33) Referral Organization [facility] LACI SCHREIBER Referring Provider First Name Leigh Referring Provider Last Name Fabricio Referring Provider [facility] Notes Tiny Pisano 2023 02:58:22 PM >Placed referral through [facility] portal- they will be in contact with patient to schedule Referral Priority Routine Reason Can you please call [facility] to determine if he should be getting a CPAP. Patient is unsure. Diagnosis 1 Suspected sleep apne a (R29.818) Referral Organization [facility] LACI MILES Referring Provider First Name Janette Referring Provider Last Name Lola Referring Provider [facility] Notes Tiny Pisano 2024 11:58:44 AM >I [...] 01/17/2025 Active Mupirocin 2 % 1 application Corporate General Manager ally Twice a day; Duration: 7 days [...] W/U Status Risk Notes Problem Nicotine dependence (14138143) Personal history of nicotine dependence (Z87.891) Active confirmed Problem Mixed anxiety and depressive disorder (641324241) Depression with anxiety (F41.8) Active confirmed Problem Essential hypertension (70397055) HTN (hypertension), benign (I10) Active confirmed Problem Thyroid nodule (605587983) Thyroid nodule (E04.1) Active confirmed Problem History of polyp of colon (situation) (716071488) History of colon polyps (Z86.010) Active confirmed Problem Obstructive sleep apnea syndrome (52347076) TEO (obstructive sleep apnea) (G47.33) Active confirmed Problem Pulmonary nodule (391065816) Pulmonary nodule (R91.1) Active confirmed Problem Degeneration of lumbar intervertebral disc (74943837) Lumbar degenerative disc disease (M51.36) Active confirmed Problem Obese class II (345701313687791) BMI 35.0-35.9,adult (Z68.35) Active confirmed Problem Familial hypercholesterolemia (520309744) Familial hypercholesterolemia (E78.01) Active confirmed Problem Major depression, single episode (92122212) Major depressive disorder, remission status unspecified, unspecified whether recurrent (F32.9) Active confirmed Vital Signs Heart Rate 92 /min 01/25/2025 Temperature 97.8 degrees Fahrenheit 01/25/2025 Blood pressure diastolic 80 mm Hg 01/25/2025 Height 67.5 in 01/25/2025 Blood pressure systolic 130 mm Hg 01/25/2025 Weight 220 lbs 01/25/2025 BMI 33.94 kg/m2 01/25/2025 Encounters Encounter Location Date Provider Diagnosis [facility] [address] [facility] [address] [place] [address] 01/01/2025 Provider Migration Depression with anxiety F41.8 [facility] [address] [place], [place] [address] 08/17/2024 Leigh McNetonia Depression with anxiety F41.8 ; HTN (hypertension), benign I10 ; Personal history of nicotine dependence Z87.891 and TEO (obstructive sleep apnea) G47.33 [facility] [address] [place], [place] [address] 08/31/2024 Janette France Immunization(s) administered Z23 [facility] [address] [place] [address] 12/03/2024 Janette Davila Suspected sleep apne a R29.818 ; Depression with anxiety F41.8 and Fatigue, unspecified type R53.83 [facility] [address] [facility] [address] [place] [address] 12/23/2024 Leighlisa Regalado Depression with anxiety F41.8 [facility] [address] [facility] [address] [place] [address] 01/17/2025 Aneesh Hernandez Acute epididymitis N45.1 [facility] [address] [facility] [address] [place] [address] 01/25/2025 Leigh Regalado Encounter for immunization Z23 ; Depression with anxiety F41.8 and Cellulitis of left hand L03.114 [facility] [address] [place], [place] [address] 01/25/2025 Leigh [facility] [address] [place], [place] [address] 02/14/2025 Aneesh Hernandez Depression with anxiety F41.8 [facility] [place] [address] [facility] [address] [place], [place] [address] 02/17/2025 Aneesh Hernandez Assessments Encounter Date Diagnosis [...] Insured Coverage Start Date Coverage End Date [facility] [address] [place] [address] [id number] Thom Bethany Self - patient is the [...]
--- OUTSIDE RECORDS SUMMARY | 2025-04-05 13:47 | XMS_ITS | Clinical Summary ---
Author Organization [employer] ([place], [place], [place], [place]) Address [address] [place] [address] Care Team Providers Care Diversified Crops Farmworker Name Role Phone Unavailable Primary Care Provider [...]
--- NOTE | 2025-04-05 14:00 | US_ITS ---
FINAL REPORT TECHNIQUE: Real-time grayscale and color ultrasound of the thyroid was performed. CLINICAL HISTORY: History of thyroid nodule COMPARISON: 04/05/2024 FINDINGS: The thyroid gland measures 53 x 21 x 20 mm on the right and 47 x 19 x 22 mm on the left. The isthmus measures 5 mm. The parenchyma is diffusely heterogeneous. Nodules: The previously noted discrete nodule on the right is not seen on today's exam. IMPRESSION: Diffusely heterogeneous thyroid gland. Previously noted right TR 3 nodule no longer seen. Reviewed, Interpreted and Dictated by Orion Way MD Transcribed by Lolis Abdi Authenticated and [facility]
== END 2025-04-05 23:59 | disposition home or self-care (01) ==
LOC: RAD 13:40
PROVIDERS: PCP Internal Medicine Adolescent Medicine; Visit Provider Nurse Practitioner
DX: R93.89 Abnormal findings on diagnostic imaging of other specified body structures (principal)
CPT/HCPCS: 76536

== ENCOUNTER 2025-08-26 15:13 | Outpatient (CLI) | payer BC, SELFPAY ==
--- OUTSIDE RECORDS SUMMARY | 2025-01-01 16:30 | XMS_ITS ---
Author Organization [facility] Address [address] [facility] [address] [facility] [address] [place] [address] Care Team Providers Care Public Health Technician Name Role Phone Aneesh Hernandez Primary Care Provider Janette France Unavailable [phone] Aneesh Hernandez Unavailable Unavailable Migration, Provider Unavailable Unavailable REASON FOR VISIT [facility] To [facility] Conversion Encounter Medications Medication SIG (Take, Route, Frequency, Duration) Notes Start Date End Date Status VILAZODONE HYDROCHLORIDE 20 MG 1/2 TAB X 7 DAYS THEN INCREASE TO 1 TABS ORALLY ONCE A DAY; Duration: 30 DAYS *Please review for potential replacement for e-prescription and drug interaction check* 12/23/2024 Active busPIRone HCl 5 MG 1 tab(s) orally 2 times a day; Duration: 30 days Active Lisinopril 20 MG 1 tab(s) orally once a day Active Encounters Encounter Location Date Provider Diagnosis [facility] [address] [facility] [address] [place], [place] [address] 01/01/2025 Provider Migration Depression with anxiety F41.8 Assessments Encounter Date Diagnosis (ICD Code) Assessment Notes Treatment Notes Treatment Clinical Notes Section Notes 01/01/2025 Depression with anxiety (ICD-10 - F41.8) Plan Of Treatment Medication Medication Name Sig Start Date Stop Date Notes VILAZODONE HYDROCHLORIDE 20 MG 1/2 TAB X 7 DAYS THEN INCREASE TO 1 TABS ORALLY ONCE A DAY; Duration: 30 DAYS 12/23/2024 *Please review for potential replacement for e-prescription and drug interaction check* Progress Notes * THOMBethany URBINADOB:1970 ( 55 yo M)Acc No.[id number]:01/01/2025 Patient: Bethany CALLAWAY Provider: Abel Madrid :1970 A ge:54 Y S ex:Male Date:01/01/2025 Address:[address] [place], [place] [address], [id number] Pcp:Aneesh Hernandez Subjective: * Chief Complaints: * 1 . [facility]pan Conversion Encounter. * Medical History: * Medications: T aking Lisinopril 20 MG Tablet 1 tab(s) orally once a day , Taking busPIRone HCl 5 MG Tablet 1 tab(s) orally 2 times a day Objective: * Vitals: Assessment: * Assessment: 1. D epression with anxiety - F41.8 (Primary) Plan: * Treatment: * * Electronic signature of Prov ider Migration on 08/26/2025 at 03:15 PM EST Sign off status: Pending * Provider: Abel Madrid Date: 0 01/01/2025 Generated for Priti giron/Miguel Angel/Delfinaitting on: 1 10/26/2024 03:15 PM EST
--- OUTSIDE RECORDS SUMMARY | 2025-04-22 11:15 | XMS_ITS ---
Author Organization [facility] PE D GINGER Address [address] [place] [address] Care Team Providers Care Grading Supervisor Name Role Phone Aneesh Hernandez Primary Care Provider [phone] Janette France Unavailable [phone] Aneesh Hernandez Unavailable Unavailable Leigh Regalado Unavailable [phone] REASON FOR VISIT Annual wellness Encounters Encounter Location Date Provider Diagnosis [facility] [address] [address] 04/22/2025 Leigh Regalado Plan Of Treatment No Information Progress Notes * THOMOsmar URBINAekaterinaDOB:1970 ( 55 yo M)Acc No.[id number]:04/22/2025 Progress Notes Patient: Osmar CALLAWAYny Provider: Jose Regalado APRN :1970 A ge:54 Y S ex:Male Date:04/22/2025 Address:[address], [place] Pcp:Aneesh Hernandez Subjective: * Chief Complaints: * 1 . Annual wellness. * Medical History: Objective: * Vitals: Assessment: Plan: * Treatment: * * Electronic signature of Yasmin Regalado APRN on 08/26/2025 at 03:16 PM EST Sign off status: Pending * Provider: Jose Regalado APRN Date: 0 04/22/2025 Generated for Priti giron/Miguel Angel/Mounika on: 1 10/26/2024 03:16 PM EST
--- OUTSIDE RECORDS SUMMARY | 2025-05-16 06:30 | XMS_ITS ---
Author Organization [facility] D [facility] Address [address] [place] [address] Care Team Providers Care Proposal Writer Name Role Phone Aneesh Hernandez Primary Care Provider Janette France Unavailable [phone] Aneesh Hernandez Unavailable Unavailable Leigh Regalado Unavailable [phone] REASON FOR VISIT blood draw Encounters Encounter Location Date Provider Diagnosis [facility] [address] [place], [place] [address] 05/16/2025 Leigh Regalado Plan Of Treatment No Information Progress Notes * Bethany TOMASDOB:1970 ( 55 yo M)Acc No.[id number]:05/16/2025 LABS Patient: Osmar CALLAWAYny Provider: Jose Regalado APRN :1970 A ge:54 Y S ex:Male Date:05/16/2025 Address:[address], [place] Pcp:Aneesh Hernandez Subjective: * Chief Complaints: * 1 . Blood draw. * Medical History: Objective: * Vitals: Assessment: Plan: * Treatment: * * Electronic signature of Yasmin Regalado APRN on 08/26/2025 at 03:15 PM EST Sign off status: Pending * Provider: Jose Regalado APRN Date: 0 05/16/2025 Generated for Priti giron/Miguel Angel/Mounika on: 1 10/26/2024 03:15 PM EST
--- OUTSIDE RECORDS SUMMARY | 2025-08-26 15:16 | XMS_ITS | Encounter Summary ---
Author Organization [employer] ([place], [place], [place], [place], [place]) Address [address] [place] [address] Care Team Providers Care Dam Operator Name Role Phone Unavailable Primary Care Provider Unavailabl e Encounter Details Date Type Department Care Team (Late st Contact Info) Description 11/07/2020 Transcribed Document [facility] [address] [place] [address] ProviderTheresa MD [address] [place] [address] Social History Tobacco Use Types Packs/Day Years Used Date Smoking Tobacco: Never Assessed Sex and Gender Information Value Date Recorded Sex Assigned at Male 03/26/2022 8:49 PM CDT Legal Sex Male 8:49 PM CDT Gender Identity Male 03/26/2022 8:49 PM CDT Sexual Orientation Not on file documented as of this encounter Miscellaneous Notes * Cerner Conversion Note - Historical ProviderMD - 11/07/2020 12:32 PM METER READER [facility] Main OR IntraOp Summary Primary Physician: ALICIA HUANG MD Finalized Date/Time: 11/09/20 10:30:39 Pt. Name: THOM BETHANYGA Mitchell/Sex: 1970 Male Med Rec #: [id number] Physician: ALICIA HUANG MD Financial #: [id number] Pt. Type: O Room/Bed: Admit/Disch: 11/07/20 08:47:00 - 11/07/20 15:30:00 Institution: [facility] IntraOp Case Attendance Entry 1 Entry 2 Entry 3 Case Attendee ALICIA HUANG MD WASSON, SANDRA D, RN Mandeep Dan, RN Role Performed Surgeon/Proceduralist, Market Asset Protection Manager, First Market Asset Protection Manager, Second First Time In 11/07/20 12:05:00 11/07/20 12:05:00 11/07/20 12:05:00 Time Out 11/07/20 13:39:00 11/07/20 13:39:00 11/07/20 13:39:00 Procedure Discectomy Minimally Discectomy Minimally Discectomy Minimally Invasive(Right) Invasive(Right) Invasive(Right) Other Attendee Superficial Wound Closed By: Last Modified By: Mandeep Dan, Mandeep Briones, Mandeep Briones, RN 11/07/20 13:39:12 11/07/20 13:39:12 11/07/20 13:39:12 Entry 4 Entry 5 Entry 6 Case Attendee KIMBERLY VILLANUEVA, JANY RUB MartellCatarina pineda Rn BRYANT, LINDSAY, JANY RUB TECH TECH Role Performed Scrub, First Market Asset Protection Manager, First Scrub, First Time In 11/07/20 12:05:00 11/07/20 12:05:00 11/07/20 12:05:00 Time Out 11/07/20 13:39:00 11/07/20 13:39:00 11/07/20 13:39:00 Procedure Discectomy Minimally Discectomy Minimally Discectomy Minimally Invasive(Right) Invasive(Right) Invasive(Right) Other Attendee ORIENTEE ST LUNCH RELIEF Superficial Wound Closed By: Last Modified By: Mandeep Dan, Mandeep Briones, Mandeep Briones, RN 11/07/20 13:39:12 11/07/20 13:39:12 11/07/20 13:39:12 Entry 7 Entry 8 Entry 9 Case Attendee LENO MADSEN PA CALDWELL, JOSEPH A, BEBA ARAUJO, -ANS Role Performed Physician kindergarten assistant TELEGRAPH EDITOR/Nurse Director Maternal Child Anesthesiologist of Record Time In 11/07/20 12:05:00 11/07/20 12:05:00 11/07/20 12:05:00 Time Out 11/07/20 13:39:00 11/07/20 13:39:00 11/07/20 13:39:00 Procedure Discectomy Minimally Discectomy Minimally Discectomy Minimally Invasive(Right) Invasive(Right) Invasive(Right) Other Attendee Superficial Wound Closed By: Last Modified By: Mandeep Dan, Mandeep Briones RN Byrd, Charlie D, BRITT 11/07/20 13:39:12 11/07/20 13:39:12 11/07/20 13:39:12 Entry 10 Entry 11 Case Attendee KATTY RICHARDSON CHRISTINA M, RN Role Performed Service Technician Copier Market Asset Protection Manager, Second Time In 11/07/20 12:05:00 11/07/20 13:20:00 Time Out 11/07/20 13:39:00 11/07/20 13:30:00 Procedure Discectomy Minimally Discectomy Minimally Invasive(Right) Invasive(Right) Other Attendee Superficial Wound Closed By: Last Modified By: Mandeep Dan RN Byrd, Charlie D, RN 11/07/20 13:39:12 11/07/20 13:39:12 [facility] IntraOp Case Attendance Audit 11/07/20 13:39:12 Telephone Operator Receptionist: [email or web address] Modifier: [email or web address] 1 <+> Time Out [...] <*> Procedure Discectomy Minimally Invasive(Right) 11/07/20 13:26:35 Telephone Operator Receptionist: [email or web address] Modifier: [email or web address] 1 <*> Procedure Discectomy [...] Time Out <+> 11 Procedure 11/07/20 12:37:50 Telephone Operator Receptionist: [email or web address] Modifier: [email or web address] <+> 10 Case Attendee <+> 10 Role Performed <+> 10 Procedure 11/07/20 12:34:25 Telephone Operator Receptionist: WASSONSY Modifier: [email or web address] 4 <*> Case Attendee NGUYEN RUSSELL, ARMORED CAR GUARD AND DRIVER 4 <*> Procedure Discectomy Minimally Invasive(Right) 11/07/20 12:07:26 Telephone Operator Receptionist: [email or web address] Modifier: WASSONSY 1 <+> Time In [...] In 9 <*> Procedure Discectomy Minimally Invasive(Right) [facility] IntraOp Case Times Entry 1 Patient In Room Time 11/07/20 12:05:00 Out Room Time 11/07/20 13:39:00 Anesthesia Start Time 11/07/20 12:05:00 Stop Time 11/07/20 13:39:00 Surgery / Procedure Times Start Time 11/07/20 12:32:00 Stop Time 11/07/20 13:32:00 Last Modified By: Mandeep Dan RN 11/07/20 13:39:09 [facility] IntraOp Case Times Audit 11/07/20 13:39:09 Telephone Operator Receptionist: [email or web address] Modifier: [email or web address] <+> 1 Out Room Time <+> 1 Stop Time 11/07/20 13:36:37 Telephone Operator Receptionist: [email or web address] Modifier: [email or web address] <+> 1 Stop Time 11/07/20 12:33:35 Telephone Operator Receptionist: WASSONSY Modifier: [email or web address] <+> 1 Start Time [facility] IntraOp Cautery Entry 1 Entry 2 ESU Identification Cautery Type Monopolar ESU BiPolar ESU Cautery Type Comments ID Number [id number] ID Type Hospital Number Hospital Number Cautery [...] Charlie D, RN 11/07/20 12:46:29 11/07/20 12:46:29 [facility] IntraOp Communication Entry 1 Entry 2 Communication To Family/Significant other Family/Significant other Comment START - NO ANSWER UPDATE Communication By Catarina Martell Rn BRADY, CHRISTINA M, RN Date and Time 11/07/20 12:38:00 11/07/20 13:26:00 Last Modified By: Mandeep Dan RN Byrd, Charlie D, RN 11/07/20 12:38:36 11/07/20 13:26:59 [facility] IntraOp Communication Audit 11/07/20 13:26:59 Telephone Operator Receptionist: [email or web address] Modifier: [email or web address] <+> 2 Communication By <+> 2 Date and Time <+> 2 Communication To <+> 2 Comment [facility] IntraOp Counts Verification Entry 1 Procedure Discectomy Minimally Invasive(Right) Count Info Count Type Sponge, Sharps, Miscellaneous Counts Verification Baseline/pre-procedure Sequence Count Results Not Applicable Counts Performed By Count Performed By KIMBERLY VILLANUEVA SC RUB (Scrub) TECH Count Performed By Catarina Martell Rn (RN) Last Modified By: Mandeep Dan RN 11/07/20 12:34:45 [facility] IntraOp Counts Final Entry 1 Procedure Discectomy Minimally Invasive(Right) Final Count Info Count Type Sponge, Sharps Counts Verification Skin Closure/end of Sequence procedure Count Results Correct, surgeon notified Counts Performed By Count Performed By KIMBERLY VILLANUEVA SC RUB (Scrub) TECH Count Performed By ELEANOR BERNARD RN (RN) Last Modified By: Mandeep Dan RN 11/07/20 13:30:03 [facility] IntraOp Departure from OR Entry 1 Integumentary Assessment Integumentary WDL Assessment WDL Transfer/Handoff Transfer to PACU Phase I Handoff Method Bedside/Face to face, Phone call Post-op Transport Stretcher/Gurney Via Patient Transport LENO MADSEN PA, Accompanied by LATOYA JONES CRNA Last Modified By: Mandeep Dan RN 11/07/20 12:39:28 [facility] IntraOp Departure from OR Audit 11/07/20 12:39:28 Telephone Operator Receptionist: [email or web address] Modifier: [email or web address] 1 <*> Post-op Transport Via Bed (including specialty) 1 <+> Patient Transport Accompanied by 1 <*> Handoff Method Phone call [facility] IntraOp Dressing and Packing Entry 1 Type Dressing Location opsite Wound Dressing Item Other, Occlusive dressing Applied By LENO MADSEN PA Other Comments MASTISOL, STERISTRIPS, COVADERM Last Modified By: Mandeep Dan RN 11/07/20 12:47:10 [facility] IntraOp Fire Risk Assessment Entry 1 Fire Info Surgical Site or 0- No Incision Above the Xyphoid Open O2 Source 0- No (Mask or Cannula) Available Ignition 1- Yes (ESU, Laser, Light Source) Fire Risk 1 Assessment Score Fire Score Fire Risk Yes Assessment Complete Fire Risk KARAN HAN, stencil printer Verified By Fire Risk 11/07/20 12:04:00 Assessment Verified Date/Time Fire Risk Standard Fire Yes Safety Precautions Followed Last Modified By: Mandeep Dan RN 11/07/20 12:39:37 [facility] IntraOp General Case Ironer Or Presser 1 Case Information OR OR 10 [facility] Case Level 1 Room Verified Yes Wound Class I - Clean Specialty SN Neurosurgery Anesthesia Type General ASA Class 2 Diagnosis Preop Diagnosis LUMBAR DISC PROLAPSE WITH RADICULOPATHY Postop Same As Preop No Postop Diagnosis SEE MD POST OP NOTE Last Modified By: Mandeep Dan RN 11/07/20 12:42:33 [facility] IntraOp Intraoperative Assessment Entry 1 Handoff [...] Modified By: Mandeep Dan RN 11/07/20 12:42:40 [facility] IntraOp Intraoperative Equipment Entry 1 Type Equipment Equipment Equipment Pretty Suction System ID Number [id number] Setting 180 MM HG Intraop Monitoring Electrocardiogram Five lead placement (ECG) Electrode Placement Blood Pressure Non-Invasive BP Device Source Blood Pressure Arm, right upper Location Pulse Oximeter Hand, left Probe Site Antiembolic Devices Antiembolic Devices Sequential compression device, knee high Antiembolic Device Bilateral Location Antiembolic Device [id number] ID Number Scopes Photo/Video Documentation Photo No Video No Last Modified By: Mandeep Dan RN 11/07/20 12:43:31 [facility] IntraOp Medication Admin Entry 1 Entry 2 Entry 3 Medication/Irrigant lidocaine 1% w/ Bacitracin 50,00units Marcaine 0.25% 30ml epinephrine 1:100,000 powder vial vial - [id number] 30ml vial - [id number] Combo Med List Time Administered Route of LOCAL ADDED TO NS IRRIGATION LOCAL Administration Dose Dose 4 95981 30 Unit of Measure ml units ml Volume Administered By ALICIA UHANG MD PHILLIPS, GABRIEL, MD PHILLIPS, GABRIEL, MD Procedure Irrigation Irrigant Volume In Irrigant Volume Out Last Modified By: Mandeep Dan RN Byrd, Charlie D, RN Byrd, Charlie D, RN 11/07/20 12:45:58 11/07/20 12:45:58 11/07/20 12:45:58 Entry 4 Entry 5 Medication/Irrigant thrombin 5000units SPNG SURGFOAM topical powder - [id number] Combo Med List Time Administered Route of TOPICAL TOPICAL Administration Dose Dose 5000 1 Unit of Measure units pkt Volume Administered By ALICIA HUANG MD PHILLIPS, GABRIEL, MD Procedure Irrigation Irrigant Volume In Irrigant Volume Out Last Modified By: Mandeep Dan RN Byrd, Charlie D, RN 11/07/20 12:45:58 11/07/20 12:45:58 [facility] IntraOp Medication Admin Audit 11/07/20 12:45:58 Telephone Operator Receptionist: AGATA Modifier: AGATA <+> 1 Administered By [...] 5 Dose <+> 5 Unit of Measure [facility] IntraOp Patient Positioning Entry 1 Procedure [...] Modified By: Mandeep Dan RN 11/07/20 12:45:07 [facility] IntraOp Sign In Entry 1 Patient, [...] Modified By: KARAN HAN RN 11/07/20 12:07:14 [facility] IntraOp Sign Out Entry 1 RN [...] Modified By: Mandeep Dan RN 11/07/20 13:39:37 [facility] IntraOp Sign Out Audit 11/07/20 13:39:37 Telephone Operator Receptionist: [email or web address] Modifier: [email or web address] <+> 1 OUTCOME STATEMENT: Absence of signs and symptoms of injury related to extraneous objects 11/07/20 13:39:23 Telephone Operator Receptionist: [email or web address] Modifier: [email or web address] <+> 1 RN Sign Out Signature Date/Time [facility] IntraOp Skin Prep Entry 1 Entry 2 Procedure Discectomy Minimally Discectomy Minimally Invasive(Right) Invasive(Right) Prescribed Yes Yes Pre-Surgical Prep Completed Prep Area BACK BACK Intraop Prep Integumentary WDL WDL Assessment WDL WDL Patient Exceptions Patients Normal Integumentary Variance(s) Integumentary Assessment Comment Prep Agents Alcohol, Chlorhexadine DuraPrep gluconate Prep by HUANG, ALICIA, MD Martell, Catarina M, Rn Skin Prep Comment Hair Removal Methods Clipper/Scissors Clipper/Scissors Hair Removal Site OP SITE OP SITE Hair Removal By ALICIA HUANG MD PHILLIPS, GABRIEL, MD Last Modified By: Mandeep Dan RN Byrd, Charlie D, RN 11/07/20 12:38:23 11/07/20 12:38:23 [facility] IntraOp Surgical Procedures Entry 1 Procedure Discectomy Minimally Invasive Modifiers Right Additional (RT L5-S1 MIS Procedure MICRODISECTOMY) Description Primary Procedure Yes Primary Surgeon ALICIA HUANG MD Start 11/07/20 12:32:00 Stop 11/07/20 13:32:00 Anesthesia Type General Specialty SN Neurosurgery Wound Class I - Clean Last Modified By: Mandeep Dan RN 11/07/20 13:36:45 [facility] IntraOp Surgical Procedures Audit 11/07/20 13:36:45 Telephone Operator Receptionist: [email or web address] Modifier: [email or web address] <+> 1 Stop [facility] IntraOp Temp Regulation Devices Entry 1 Temp Regulation Temperature Warm blankets, Forced Regulation Device Air Warming device Temperature 40813 Regulation Device Serial/Unit Number Temperature Upper body Regulation Site Temperature Device 43 C Setting Temperature LATOYA JONES CRNA Regulation Device Applied by Last Modified By: Mandeep Dan RN 11/07/20 12:43:45 [facility] IntraOp Temp Regulation Devices Audit 11/07/20 12:43:45 Telephone Operator Receptionist: [email or web address] Modifier: [email or web address] 1 <*> Temperature Regulation Device 56307 Serial/Unit Number [facility] IntraOP Time Out Entry 1 Procedure [...] Modified By: Mandeep Dan RN 11/07/20 12:34:04 [facility] IntraOp X-Ray and Images Entry 1 X-Ray/Imaging Type Fluoroscopy Fluoroscopy Type C-Arm Site BACK Ice Carver Name KATTY RICHARDSON Protective Devices Yes Used [...]
--- OUTSIDE RECORDS SUMMARY | 2025-08-26 15:16 | XMS_ITS | Encounter Summary ---
Author Organization [employer] ([place], [place], [place], [place], [place]) Address [address] [address] Care Team Providers Care Production Lead Name Role Phone Unavailable Primary Care Provider Unavailabl e Encounter Details Date Type Department Care Team (Late st Contact Info) Description 11/08/2020 Transcribed Document [facility] [place] [address] ProviderTheresa MD [address] [place] [phone] Social History Tobacco Use Types Packs/Day Years [...] - Theresa ProviderMD - 11/08/2020 12:49 PM BOBBIN TRUCKER Patient: GABRIEL TOMAS Age: 50 years Sex: Male : 1970 Associated Diagnoses: None Author: KEYUR HUANG MD DATE OF PROCEDURE: 11/07/2020 NEUROSURGERY OPERATIVE REPORT SURGEON: Keyur Huang MD COMMERCIAL HOUSEKEEPER: Carmelo Forman PA-C. Scrubbed and present assisting [...] was reviewed and it was performed at [facility]. This showed a right L5-S1 disk [...]
--- OUTSIDE RECORDS SUMMARY | 2025-08-26 15:16 | XMS_ITS | Encounter Summary ---
Author Organization [employer] ([place], [place], [place], [place], [place]) Address [address] [place] [address] Care Team Providers Care Script Reader Name Role Phone Unavailable Primary Care Provider Unavailabl e Encounter Details Date Type Department Care Team (Late st Contact Info) Description 11/07/2020 Transcribed Document [facility] [place] [facility] [place] [address] ProviderTheresa MD [facility] [place] [address] Social History Tobacco Use Types [...] - Theresa ProviderMD - 11/07/2020 8:57 AM MANAGER BAR Patient: GABRIEL TOMAS Age: 50 years Sex: Male : 1970 Associated Diagnoses: None Author: YUSUFRJACQUIE APRN Chief Complaint back, RLE pain Review [...] list: All Problems Sciatica / SNOMED CT 49127742 / Confirmed Peripheral neuropathy / SNOMED CT 1926344540 / Confirmed High blood pressure / SNOMED CT 77163741 / Confirmed Back pain / SNOMED CT 9163219839 / Confirmed, Active Problems (4) Back pain wtih RLE radiculopathy High blood pressure Peripheral neuropathy Sciatica Histories Past Medical History: No active or resolved past medical history items have been selected or recorded. Family History: No family history items have been selected or recorded. Procedure history: Cholecystectomy ([id number]). rotator cuff surgery - right. left knee [...] 20 (NOV 07 08:44) SBP 120 (NOV 07 08:44) 120 (NOV 07 08:44) 120 (NOV 07 08:44) DBP 72 (NOV 07:44) 72 (NOV 07:44) 72 (NOV 07:44) SpO2 98 (NOV 07 08:44) 98 (NOV 07 08:44) 98 (NOV 07 08:44) , Measurements from flowsheet : Measurements 11/06/2020 14:45 EST Height Source Measured Height Entry Format Swain Height/Length, UZBEK (ft) 5 ft Height/Length UZBEK 8 Inch CLINICALHEIGHT 172.72 cm [place] Body Weight 67 kg Weight Source Standing scale Weight Entry Format Swain Weight Ecuadorean lb 277 lb CLINICALWEIGHT 125.91 kg Body [...] ROM back, RLE weakness. Integumentary: Warm, Dry, [place]. Neurologic: Alert, Oriented. Psychiatric: Cooperative, Appropriate mood & affect. Review / Management Results review: No qualifying data available. Impression and Plan Condition: Stable. documented in this encounter Plan of Treatment Not on file documented as of this encounter Visit Diagnoses Not on filedocumented in this encounter
--- OUTSIDE RECORDS SUMMARY | 2025-08-26 15:16 | XMS_ITS | Encounter Summary ---
Author Organization [employer] ([place], [place], [place], [place], [place]) Address [address] [address] Care Team Providers Care Commercial Lending Relationship Manager Name Role Phone Unavailable Primary Care Provider Unavailabl e Encounter Details Date Type Department Care Team (Late st Contact Info) Description 11/07/2020 Transcribed Document [facility] [place] [facility] [place] [address] ProviderTheresa MD [facility] [place] [address] Social History Tobacco Use Types [...] - Historical ProviderMD - 11/07/2020 11:27 AM SHIP SELF DEFENSE SYSTEM MK1 OPERATOR Event Note Entered On: 11/07/2020 11:27 EST Performed On: 11/07/2020 11:27 EST by CANDE VILCHIS Event Note Event Date/Time : 11/07/2020 11:27 EST Event Location : [place] area Event Details : Other: Description of Event : 1127: [place] WBC 13.1 CANDE VILCHIS - 11/07/2020 11:27 EST Electronically signed by [facility] Conversion Coin Purse Assembler Cerner at 01/14/2023 10:22 PM CDT documented in this encounter Plan of Treatment Not on file documented as of this encounter Visit Diagnoses Not on filedocumented in this encounter
--- OUTSIDE RECORDS SUMMARY | 2025-08-26 15:16 | XMS_ITS | Referral Summary ---
Author Organization [employer] ([place], [place], [place], [place], [place]) Address [address] [place] [address] Care Team Providers Care Hot Dipper Name Role Phone Unavailable Primary Care Provider [...]
--- OUTSIDE RECORDS SUMMARY | 2025-08-26 15:16 | XMS_ITS | Encounter Summary ---
Author Organization [employer] ([place], [place], [place], [place], [place]) Address [address] [place] [address] Care Team Providers Care Fruit Dryer Name Role Phone Unavailable Primary Care Provider Unavailabl e Encounter Details Date Type Department Care Team (Late st Contact Info) Description 11/06/2020 Transcribed Document [facility] [facility] [place] [address] ProviderTheresa [place] [address] Social History Tobacco Use Types [...] - Historical ProviderMD - 11/06/2020 2:45 PM AIR SAMPLING AND MONITORING PAT Adult Entered On: 11/06/2020 14:49 EST [...] (HI) CANDE VILCHIS - 11/07/2020 9:00 EST [place] Body Weight : 67 kg CANDE VILCHIS - 11/07/2020 8:48 EST Height Source : Measured Height Entry Format : [place] Weight Source : Standing scale Weight Entry Format : ELI CervantesKIE - 11/07/2020 8:20 EST Health Histories Smoking Status : 10 or more cigarettes (1/2 pack or more)/day in last 30 days Smokeless Tobacco Status : Never Desires Tobacco Cessation Medication : No Reason for No Tobacco Cessation Medication : Refuses FDA approved medications Implant/Device Type, Middle School Teacher and Model : Alfredo Jones Rn - [...] on chart Infectious Disease History : None DENGCANDE - 11/07/2020 9:10 EST Has the patient ever been tested for COVID-19? : Yes, Patient stated results Negative Where was the COVID-19 Testing completed? : [facility] Date of COVID-19 test known? : [...] Alfredo Neumann Rn - 11/06/2020 14:45 EST [place] Suicide Severity Rating Scale (C-SSRS) CSSRS Past [...] Ambulatory Legal Guardian : Other: Support Person/Patient Mathematics Lecturer : Yes Support Person/Pt Rep Name : Sharon Corcoran - girlfriend Support Person/Pt Rep Contact Information : [phone] Want Family/Rep/Phys Notified of Admit : No Emergency Contact #1 : ` Emergency Contact #1 Phone Number : ` Emergency Contact #1 Relationship : ` Emergency Contact #2 : ` Emergency Contact #2 Phone Number : ` Emergency Contact #2 Relationship : ` Information Obtained From : Patient Primary Language : Divehi Communication Barrier : None Senior Actuarial Analyst Needed : No Alfredo Neumann Rn - [...]
--- OUTSIDE RECORDS SUMMARY | 2025-08-26 15:16 | XMS_ITS | Patient Health Record ---
Author Organization [facility] Address [address] [place] [address] Care Team Providers Care Manager Of Drilling Name Role Phone Aneesh Hernandez Primary Care Provider Janette France Unavailable [phone] Aneesh Hernandez Unavailable Unavailable Leigh Regalado Unavailable [phone] Janette Davila Unavailable [phone] Migration, Provider Unavailable Unavailable Allergies No Known Allergies Results Component Value Reference Range Notes LIPID PANEL, STANDARD (7600) Reviewed date:05/20/2025 02:37:40 PM Interpretation: Performing Lab:[facility], [facility] [id number] [id number] Kunal Sigala Notes/Report: NON-FASTING; NON-FASTING; NON-FASTING FASTING:YES FASTING: YES CHOLESTEROL, TOTAL 152 <200 mg/dL HDL CHOLESTEROL 36 > OR = 40 mg/dL TRIGLYCERIDES 89 <150 mg/dL LDL-CHOLESTEROL 98 Reference range: <100 Desirable range <100 mg/dL for primary prevention; <70 mg/dL for patients with CHD or diabetic patients with > or = 2 CHD risk factors. LDL-C is now calculated using the John calculation, which is a validated novel method providing better accuracy than the Friedewald equation in the estimation of LDL-C. Omega ANGUIANO et al. HAYDEE. 2013;310(19): 5046-7412 (http://education.Sassor.com/faq/PKT306) CHOL/HDLC RATIO 4.2 <5.0 (calc) NON HDL CHOLESTEROL 116 <130 mg/dL (calc) For patients with diabetes plus 1 major ASCVD risk factor, treating to a non-HDL-C goal of <100 mg/dL (LDL-C of <70 mg/dL) is considered a therapeutic option. HEMOGLOBIN A1c (496) Reviewed date:05/20/2025 02:37:40 PM Interpretation: Performing Lab:GIL, Dónde-[id number] [employer] [facility] [place] [id number] Kunal Sigala Notes/Report: NON-FASTING; NON-FASTING; NON-FASTING FASTING:YES FASTING: YES HEMOGLOBIN A1c 6.1 <5.7 % For someone without known diabetes, a hemoglobin A1c value between 5.7% and 6.4% is consistent with prediabetes and should be confirmed with a follow-up test. For someone with known diabetes, a value <7% indicates that their diabetes is well controlled. A1c targets should be individualized based on duration of diabetes, age, comorbid conditions, and other considerations. This assay result is consistent with an increased risk of diabetes. Currently, no consensus exists regarding use of hemoglobin A1c for diagnosis of diabetes for children. COMPREHENSIVE METABOLIC PANE L (76379) Reviewed date:05/20/2025 02:37:40 PM Interpretation: Performing Lab:[facility]IL [facility] [id number] [employer] [employer] [facility] [place] [id number] Kunal Sigala Notes/Report: NON-FASTING; NON-FASTING; NON-FASTING FASTING:YES FASTING: YES GLUCOSE 107 65-99 mg/dL Fasting reference interval For someone without known diabetes, a glucose value between 100 and 125 mg/dL is consistent with prediabetes and should be confirmed with a follow-up test. UREA NITROGEN (BUN) 9 7-25 mg/dL CREATININE 0.97 0.70-1.30 mg/dL EGFR 94 > OR = 60 mL/min/1.73m2 BUN/CREATININE RATIO SEE NOTE: 6-22 (calc) Not Reported: BUN and Creatinine are within reference range. SODIUM 141 135-146 mmol/L POTASSIUM 4.0 3.5-5.3 mmol/L CHLORIDE 104 98-110 mmol/L CARBON DIOXIDE 28 20-32 mmol/L CALCIUM 8.9 8.6-10.3 mg/dL PROTEIN, TOTAL 6.6 6.1-8.1 g/dL ALBUMIN 4.5 3.6-5.1 g/dL GLOBULIN 2.1 1.9-3.7 g/dL (calc) ALBUMIN/GLOBULIN RATIO 2.1 1.0-2.5 (calc) BILIRUBIN, TOTAL 0.6 0.2-1.2 mg/dL ALKALINE PHOSPHATASE 110 35-144 U/L AST 15 10-35 U/L ALT 13 9-46 U/L Reason For Referral Reason Can you please call [facility] Sleep group to determine if he should be getting a CPAP. Patient is unsure. Diagnosis 1 Suspected sleep apne a (R29.818) Referral Organization [facility] LACI MILES Referring Provider First Name Janette Referring Provider Last Name Lola Referring Provider [facility] General Notes Tiny Pisano 2024 11:58:44 AM >I left a vm a few days ago but have never heard anything. I told them to contact him. Referral Priority Routine Reason CT lung cancer polie jasper Diagnosis 1 Personal history of nicotine dependence (Z87.891) Referral Organization [facility] LACI SCHREIBER Referring Provider First Name Leigh Referring Provider Last Name Fabricio Referring Provider [facility]ice Referred Organization [facility] Referred Address [address],[address],[place] Referred Provider Specialty Diagnostic R adiology General Notes Tiny Pisano 2024 11:54:56 AM >sent to [facility] to schedule Referral Priority Routine Reason Home sleep study Diagnosis 1 Daytime somnolence ( R40.0) Referral Organization [facility] LACI SCHREIBER Referring Provider First Name Leigh Referring Provider Last Name Fabricio Referring Provider [facility]ice Referred Organization [facility] Referred Address [address] [place], [place],[address],[place] Referred Provider Specialty Sleep Study General Notes Tiny Pisano 2024 11:55:33 AM >Sent to [facility] to schedule, Tiny Pisano 05/17/2025 09:06:44 AM >sent to [facility] Referral Priority Routine Reason HST Diagnosis 1 TEO (obstructive sle ep apnea) (G47.33) Referral Organization [facility] LACI SCHREIBER Referring Provider First Name Leigh Referring Provider Last Name Fabricio Referring Provider Speciality Family Pra ctice Referred Organization [facility] Referred Address [address] [facility] [address] [facility], [place],[address],[place] Referred Provider Specialty Sleep Study General Notes Tiny Pisano 2024 10:26:31 AM >[id number] exp 11/21/25 [facility] Sleep Study Referral Priority Routine Medications Medication SIG (Take, Route, Fr equency, Duration) Notes Start Date End Date Status Vilazodone HCl 20 MG Take 1 tablet by [facility] once daily; Duration: 30 Active busPIRone HCl 5 MG 1 tab(s) orally 2 ti mes a day; Duration: 30 days Active Lisinopril 20 MG 1 tab(s) orally once a day; Duration: 30 days Active Fiber - as directed Orally A ctive Immunizations Vaccine Route Administration Date Status Comme nts Boostrix IM Intramuscular 01/25/2025 Administered Flublok IM Intramuscular 08/19/2022 Administered Flublok IM Intramuscular 08/31/2024 Administered FLUCELVAX IM Intramuscular 08/23/2025 Administered FLUZONE 6MO - OLDER IM Intramuscular [...] many cigarettes a day do you smoke? 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) Depression with anxiety (F41.8) Active confirmed Problem Essential hypertension (22550562) HTN (hypertension), benign (I10) Active confirmed Problem Obese class I (804486236256419) BMI 33.0-33.9,adult (Z68.33) Active confirmed Problem Thyroid nodule (272457862) Thyroid nodule (E04.1) Active confirmed Problem History of polyp of colon (situation) (024322187) History of colon polyps (Z86.010) Active confirmed Problem Obstructive sleep apnea syndrome (43551983) TEO (obstructive sleep apnea) (G47.33) Active confirmed Problem Pulmonary nodule (326353060) Pulmonary nodule (R91.1) Active confirmed Problem Degeneration of lumbar intervertebral disc (09671622) Lumbar degenerative disc disease (M51.36) Active confirmed Problem Obese class II (457033259371017) BMI 35.0-35.9,adult (Z68.35) Active confirmed Problem Daytime somnolence (190566860602) Daytime somnolence (R40.0) Active confirmed Problem Familial hypercholesterolemia (341449447) Familial hypercholesterolemia (E78.01) Active confirmed Problem Major depression, single episode (17634705) Major depressive disorder, remission status unspecified, unspecified whether recurrent (F32.9) Active confirmed Vital Signs Heart Rate 100 /min 08/23/2025 Temperature 97.7 degrees Fahrenheit 08/23/2025 Blood pressure diastolic 80 mm Hg 08/23/2025 Height 67.5 in 08/23/2025 Blood pressure systolic 122 mm Hg 08/23/2025 Weight 194.4 lbs 08/23/2025 BMI 29.99 kg/m2 08/23/2025 Encounters Encounter Location Date Provider Diagnosis [facility] [address] [facility] [address] [place] [address] 01/01/2025 Provider Migration Depression with anxiety F41.8 [facility] [address] [facility] [address] [place] [address] 05/16/2025 Leigh McFloryes [facility] [address] [facility] [address] [place] [address] 08/31/2024 Janette France Immunization(s) administered Z23 [facility] [address] [facility] [address] [place] [address] 12/03/2024 Janette Davila Suspected sleep apne a R29.818 ; Depression with anxiety F41.8 and Fatigue, unspecified type R53.83 [facility] [address] [facility] [address] [place] [address] 12/23/2024 Leigh McNetonia Depression with anxiety F41.8 [facility] [address] [facility] [address] [place] [address] 01/17/2025 Aneesh Hernandez Acute epididymitis N45.1 [facility] [address] [facility] [address] [place] [address] 01/25/2025 Leigh Fabricio Encounter for immunization Z23 ; Depression with anxiety F41.8 and Cellulitis of left hand L03.114 [facility] [address] [facility] [address] [place] [address] 05/10/2025 Leigh Fabricio Depression with anxiety F41.8 ; Routine medical exam Z00.00 ; HTN (hypertension), benign I10 ; Personal history of nicotine dependence Z87.891 ; TEO (obstructive sleep apnea) G47.33 ; BMI 33.0-33.9,adult Z68.33 ; Snoring R06.83 ; Daytime somnolence R40.0 and Prediabetes R73.03 [facility] [address] [facility] [address] [place] [address] 08/23/2025 Leigh Fabricio Depression with anxiety F41.8 ; HTN (hypertension), benign I10 ; Personal history of nicotine dependence Z87.891 ; TEO (obstructive sleep apnea) G47.33 ; Prediabetes R73.03 and Encounter for immunization Z23 [facility] [address] [facility] [address] [place], [place] [address] 01/25/2025 Leigh Fabricio [facility] [address] [facility] [address] [place] [address] 02/14/2025 Aneesh Hernandez Depression with anxiety F41.8 [facility] [address] [address] 02/17/2025 Aneesh Besson [facility] [address] [facility] [address] [place] [address] 05/20/2025 Aneesh Besson [facility] [address] [address] 08/15/2025 Leigh McAnnabelle Depression with anxiety F41.8 Assessments Encounter Date Diagnosis (ICD Code) Assessment Notes Treatment Notes Treatment Clinical Notes Section Notes 12/03/2024 Suspected sleep apnea (ICD-10 - R29.818) [...] 02/14/2025 Depression with anxiety (ICD-10 - F41.8) 05/10/2025 Depression with anxiety (ICD-10 - F41.8) Well controlled on current regimen. No changes made today 05/10/2025 Routine medical exam (ICD-10 - Z00.00) Colonoscopy UTD Tdap UTD Will return to clinic for fasting labs 08/15/2025 Depression with anxiety (ICD-10 - F41.8) 08/23/2025 Depression with anxiety (ICD-10 - F41.8) Well controlled on current regimen. No changes made today 08/23/2025 HTN (hypertension), benign (ICD-10 - I10) Blood pressure at goal. 05/10/2025 HTN (hypertension), benign (ICD-10 - I10) Blood pressure at goal. No changes made today 12/03/2024 Fatigue, unspecified type (ICD-10 - R53.83) [...] wound care and return previous. Tetanus updated 05/10/2025 Personal history of nicotine dependence (ICD-10 - Z87.891) Smoking cessation counseling provided. CT chest due, will arrange 08/23/2025 Personal history of nicotine dependence (ICD-10 - Z87.891) Smoking cessation counseling provided. 08/23/2025 TEO (obstructive sleep apnea) (ICD-10 - G47.33) Recommend to complete sleep study 05/10/2025 TEO (obstructive sleep apnea) (ICD-10 - G47.33) Needs repeat sleep study to retry CPAP, will arrange 05/10/2025 BMI 33.0-33.9,adult (ICD-10 - Z68.33) Low saturated fat, lean protein diet, maximize activity, weight loss Complicates all aspects of care 08/23/2025 Prediabetes (ICD-10 - R73.03) Continue diet, weight loss, maximize activity 08/23/2025 Encounter for immunization (ICD-10 - Z23) 05/10/2025 Snoring (ICD-10 - R06.83) 05/10/2025 Daytime somnolence (ICD-10 - R40.0) 05/10/2025 Prediabetes (ICD-10 - R73.03) See diet, weight loss plan above Plan Of Treatment Pending Test Test Name Order Date MRI : Lumbosacral Spine 04/04/2020 Sleep Study 05/10/2025 Physical Therapy 03/19/2022 CT Scan : Chest, Lung Cancer Screening 0 05/10/2025 PET/CT Scan Skull Base to Mid Thigh 03/2022 PET/CT Scan 09/02/2022 HEMOGLOBIN A1c (496) 12/09/2022 Insurance Providers Payer Name Payer Address Payer Phone Subscriber Number Group Number Insured Name Patient Relationship to Insured Coverage Start Date Coverage End Date [facility] [address] [place] [address] [id number] Thom Bethany Self - patient is the [...]
--- OUTSIDE RECORDS SUMMARY | 2025-08-26 15:16 | XMS_ITS | Encounter Summary ---
Author Organization [employer] ([place], [place], [place], [place], [place]) Address [address] [place] [address] Care Team Providers Care Paleologist Name Role Phone Unavailable Primary Care Provider Unavailabl e Encounter Details Date Type Department Care Team (Late st Contact Info) Description 11/07/2020 Transcribed Document [facility] [place] [address] ProviderTheresa MD [address] [place] [address] Social History Tobacco Use Types Packs/Day [...] - Historical ProviderMD - 11/07/2020 12:32 PM AIRPORT UTILITY WORKER [facility] Main OR PostOp Summary Primary Physician: ALICIA HUANG MD Finalized Date/Time: 11/07/20 15:40:00 Pt. Name: THOMGABRIEL/Sex: 1970 Male Med Rec #: [id number] Physician: ALICIA HUANG MD Financial #: [id number] Pt. Type: O Room/Bed: /16 Admit/Disch: 11/07/20 08:47:00 - Institution: [facility] Main OR PostOp Case Times Entry 1 In PACU II 11/07/20 14:38:00 Ready for PACU II 11/07/20 15:30:00 Discharge Discharge from PACU 11/07/20 15:30:00 II Last Modified By: Janette Lopez Rn 11/07/20 15:31:06 Finalized By: Janette Lopez Rn Document Signatures Signed By: Janette Lopez Rn 11/07/20 15:40 Electronically signed by [facility] Conversion Retail Interior Designer Cerner at 01/14/2023 10:20 PM CDT documented in this encounter Plan of Treatment Not on file documented as of this encounter Visit Diagnoses Not on filedocumented in this encounter
--- OUTSIDE RECORDS SUMMARY | 2025-08-26 15:16 | XMS_ITS | Encounter Summary ---
Author Organization [employer] ([place], [place], [place], [place], [place]) Address [address] [place] [address] Care Team Providers Care Oil Producer Name Role Phone Unavailable Primary Care Provider Unavailabl e Encounter Details Date Type Department Care Team (Late st Contact Info) Description 11/07/2020 Transcribed Document [facility] [place] [facility] [place] [address] ProviderTheresa MD [address] [place] [address] Social History Tobacco Use Types Packs/Day [...] Theresa Tomlin MD - 11/07/2020 2:49 PM LASTING MACHINE OPERATOR BED Patient Education Materials Follows: Microdiskectomy, Care After [...] these instructions at home: Medicines ??? Take nqwt-tit-yssjffn and prescription medicines only as told by your doctor. ??? Ask your doctor if the medicine prescribed to you: ? Requires you to avoid driving or using heavy machinery. ? Can cause trouble pooping (constipation). You may need to take these actions to prevent or treat trouble pooping: ? Drink enough fluid to keep your pee (urine) pale yellow. ? Take drxq-ida-qcoxtiy or prescription medicines. ? Eat foods that [...] cannot use soap and water, use hand binder chainstitch. ? Change your bandage as told by [...] around your cut from surgery. ??? Take dqda-jub-ojuhzdm and prescription medicines only as told by [...] 01/09/2012 Document Revised: 10/26/2019 Document Reviewed: 10/26/2019 [employer] Patient Education ? 2020 [employer] documented in this encounter Plan of Treatment Not on file documented as of this encounter Visit Diagnoses Not on filedocumented in this encounter
--- OUTSIDE RECORDS SUMMARY | 2025-08-26 15:16 | XMS_ITS | Clinical Summary ---
Author Organization [employer] ([place], [place], [place], [place], [place]) Address [address] [place] [address] Care Team Providers Care Metal Drill Press Operator Name Role Phone Unavailable Primary Care [...]
--- OUTSIDE RECORDS SUMMARY | 2025-08-26 15:16 | XMS_ITS | Encounter Summary ---
Author Organization [employer] ([place], [place], [place], [place], [place]) Address [address] [place] [address] Care Team Providers Care Licensed Pesticide Applicator Name Role Phone Unavailable Primary Care Provider Unavailabl e Encounter Details Date Type Department Care Team (Late st Contact Info) Description 11/07/2020 Transcribed Document [facility] [place] [facility] [place] [address] ProviderTheresa MD [address] [place] [id number] Social History Tobacco Use Types Packs/Day Years Used Date Smoking Tobacco: Never Assessed Sex and Gender Information Value Date Recorded Sex Assigned at Male 03/26/2022 8:49 PM CDT Legal Sex Male 8:49 PM CDT Gender Identity Male 03/26/2022 8:49 PM CDT Sexual Orientation Not on file documented as of this encounter Miscellaneous Notes * Cerner Conversion Note - Historical ProviderMD - 11/07/2020 11:00 AM ADVERTISING COORDINATOR [facility] Main OR Preop Summary Primary Physician: ALICIA HUANG MD Finalized Date/Time: 11/07/20 12:25:58 Pt. Name: THOMGABRIEL/Sex: 1970 Male Med Rec #: [id number] Physician: ALICIA HUANG MD Financial #: [id number] Pt. Type: O Room/Bed: /16 Admit/Disch: 11/07/20 08:47:00 - Institution: [facility] PreOp Case Times Entry 1 In Preop 11/07/20 08:25:00 Ready for Holding n/a Room Patient Ready for 11/07/20 09:34:00 Surgery Patient Out of Preop 11/07/20 12:02:00 Patient Out of n/a Holding Room Last Modified By: CANDE VILCHIS 11/07/20 12:25:56 [facility] PreOp Case Times Audit 11/07/20 12:25:56 Work Measurement Engineer: ESTEVAN Modifier: ESTEVAN <+> 1 Patient Out of Preop Finalized By: CANDE VILCHIS Document Signatures Signed By: CANDE VILCHIS 11/07/20 12:25 Electronically signed by Jie [facility] Conversion Regional Planner Cerner at 01/14/2023 10:07 PM CDT documented in this encounter Plan of Treatment Not on file documented as of this encounter Visit Diagnoses Not on filedocumented in this encounter
--- OUTSIDE RECORDS SUMMARY | 2025-08-26 15:16 | XMS_ITS | Encounter Summary ---
Author Organization [employer] ([place], [place], [place], [place], [place]) Address [address] [place] [address] Care Team Providers Care Airplane Flight Attendant Name Role Phone Unavailable Primary Care Provider Unavailabl e Encounter Details Date Type Department Care Team (Late st Contact Info) Description 11/07/2020 Transcribed Document [facility] [place] [facility] [place] [address] ProviderTheersa MD [facility] [place] [address] Social History Tobacco Use Types [...] Conversion Note - Historical ProviderMD - 11/07/2020 2:49 PM SUPERINTENDENT OF [employer]CHO[employer] [facility] [place] [address] RAPHAEL DIASNY :1970 Visit Time:11/07/2020 What to do next [...] bottle. Follow-Up Appointments Follow Up with ALICIA HUNAG MD When Within 2 to 3 days Comments Follow-up December 08 at 9:45 am Where: [address] [facility] [address] [place] [address]- Medications What How Much When Instructions Next [...] these instructions at home: Medicines ??? Take afnn-xqn-awtlvur and prescription medicines only as told by your doctor. ??? Ask your doctor if the medicine prescribed to you: ? Requires you to avoid driving or using heavy machinery. ? Can cause trouble pooping (constipation). You may need to take these actions to prevent or treat trouble pooping: ? Drink enough fluid to keep your pee (urine) pale yellow. ? Take zjze-uvw-bbfwsen or prescription medicines. ? Eat foods that [...] cannot use soap and water, use hand ginseng farmer. ? Change your bandage as told by [...] around your cut from surgery. ??? Take orpr-was-hkiglpv and prescription medicines only as told by [...] Reviewed: 10/26/2019 Elsevier Patient Education ?? 2020 [employer] Emergency Awareness and Preventative Care STROKE [...] Assistance with quitting is available by contacting 9-018-KNIF-NOW. This is a free resource providing counseling, support, and referral. Or you may contact your personal physician. [place] Suicide Prevention Lifeline: The National Suicide Prevention [...] CPR? There are two easy steps: Call 9-1 if you see a teen or adult [...] range between ( 0.0 and 7.0 ) [place] #: 1.01 K/uL -- Normal range between ( 0.16 and 1.00 ) Eos #: 0.26 x10(3)/uL -- Normal range between ( 0.00 and 0.80 ) [place] %: 7.7 % -- Normal range between [...] ) Urine Bilirubin Dipstick: Negative Urine Specific [place]: 1.023 -- Normal range between ( 1.005 [...] ( 7 and 22 ) Patient Name:GABRIEL DIAS I have received this information and was given the opportunity to ask questions. Patient/Head Of Visual Merchandising Name: Patient/Head Of Visual Merchandising Signature: Relationship to Patient: Clinician/Hospital Head Of Visual Merchandising Signature: Date: Electronically signed by Jie, [facility] Conversion Piece Dyeing Machine Tender Cerner at 01/14/2023 10:00 PM CDT documented in this encounter Plan of Treatment Not on file documented as of this encounter Visit Diagnoses Not on filedocumented in this encounter
--- NOTE | 2025-08-26 15:17 | CT_ITS ---
FINAL REPORT TECHNIQUE: Thin section axial images were obtained through the lungs using a low-dose technique per lung cancer screening protocol. Reconstruction images were obtained using the axial data. This study was performed with techniques to keep radiation doses as low as reasonably achievable, (ALARA). Individualized dose reduction techniques using automated exposure control or adjustment of mA and/or kV according to the patient's size were employed. CLINICAL HISTORY: HX OF NICOTINE, smokes 1 1/2 packs per day x 13 yrs, exposed to secondhand smoke COMPARISON: CT lung screen 01/25/[address] chest 12/23/2022 FINDINGS: CTDLvol: 2.90 DLP: 110.20 Current smoker 19.5 pack year history Lungs: There is a right middle lobe nodule measuring 15 mm on the axial images and 17 mm on the coronal images. In December 2024, this measured 15 mm in axial dimension and 13 mm on coronal images. In 2022, this measured 12 mm in axial dimension and 8 mm on coronal images. There is a 5 mm medial right upper lobe nodule that is unchanged. Lymph nodes: Small mediastinal lymph nodes are all stable. Mediastinum: Heart size is normal. Pleura/pericardium: No pleural or pericardial effusion. Other: No acute abnormality in the upper abdomen. IMPRESSION: Right middle lobe pulmonary nodule that has been gradually increasing in size since 2022. Slow-growing malignancy cannot be excluded. Lung RADS: 4A Recommendation: PET/CT recommended. Reviewed, Interpreted and Dictated by Anine Mcqueen MD Transcribed by Yin Villalpando Authenticated and [facility]
--- OUTSIDE RECORDS SUMMARY | 2025-08-26 15:17 | XMS_ITS | Encounter Summary ---
Author Organization [employer] ([place], [place], [place], [place], [place]) Address [address] [place] [address] Care Team Providers Care Fitness Management Director Name Role Phone Unavailable Primary Care Provider Unavailabl e Encounter Details Date Type Department Care Team (Late st Contact Info) Description 11/07/2020 Transcribed Document [facility] [place] [facility] [place] [address] ProviderTheresa MD [facility] [place] [address] Social History Tobacco Use Types [...] - Historical ProviderMD - 11/07/2020 12:32 PM MANAGER OF DRILLING [facility] Main OR PACU Summary Primary Physician: ALICIA HUANG MD Finalized Date/Time: 11/07/20 15:13:23 Pt. Name: GABRIEL DIAS/Sex: 1970 Male Med Rec #: [id number] Physician: ALICIA HUANG MD Financial #: [id number] Pt. Type: O Room/Bed: /16 Admit/Disch: 11/07/20 08:47:00 - Institution: [facility] Main OR PACU I Case Times Entry 1 In PACU I 11/07/20 13:40:00 Ready for PACU 11/07/20 14:30:00 Discharge Discharge from PACU 11/07/20 14:30:00 I Last Modified By: SKYLER ZELAYA RN 11/07/20 15:12:10 Finalized By: SKYLER ZELAYA, RN Document Signatures Signed By: SKYLER ZELAYA RN 11/07/20 15:13 documented in this encounter Plan of Treatment Not on file documented as of this encounter Visit Diagnoses Not on filedocumented in this encounter
== END 2025-08-26 23:59 | disposition home or self-care (01) ==
LOC: RAD 15:14
PROVIDERS: PCP Internal Medicine Adolescent Medicine; Visit Provider Nurse Practitioner Family
DX: Z12.2 Encounter for screening for malignant neoplasm of respiratory organs (principal); F17.210 Nicotine dependence, cigarettes, uncomplicated; R91.8 Other nonspecific abnormal finding of lung field; R59.0 Localized enlarged lymph nodes
CPT/HCPCS: 71271